=== PATIENT | male | born 1975 | race Caucasian/White ===

== ENCOUNTER → 2018-02-07 09:58 | Outpatient (CLI) | payer OTHER, SELFPAY ==
[2018-02-07 11:33] LABS: Hemoglobin A1c 10.5 % (4.2-6.3)
[2018-02-07 11:38] LABS: ALB/GLOB Ratio 1.2 RATIO (0.9-2.4); AST(SGOT) 15 U/L (15-37); Alanine Aminotransfer ALT/SGPT 29 U/L (16-61); Albumin, Serum 3.6 g/dL (3.2-5.0); Alkaline Phosphatase 83 U/L (45-117); Anion Gap 6 (5-15); BUN 12 mg/dL (7-18); BUN/Creat Ratio 11.9 RATIO (10-20); Calcium,Total 8.5 mg/dL (8.5-10.1); Chloride 103 mmol/L (98-107); Cholesterol 165 mg/dL (200); Creatinine, Serum 1.01 mg/dL (0.70-1.30); EST Glomerular Filtration Rate 85 mL/min (>60); Est Glom Filt Rate - Afr Amer 103 mL/min (>60); Globulin 3.1 g/dL (2.2-4.2); Glucose 281 mg/dL (74-106); High Density Lipoprotein 53 mg/dL; Potassium 4.3 mmol/L (3.5-5.1); Protein, Total 6.7 g/dL (6.4-8.2); Sodium Level 137 mmol/L (136-145); Triglycerides 53 mg/dL; Very Low Density Lipoprotein 11 mg/dL (5-40)
[2018-02-07 11:48] LABS: Microalbumin:Creatinine Ratio 495.7 mg/g CRE (<30 mg/g CRE)
== END ==
PROVIDERS: Visit Provider Nurse Practitioner
DX: E11.9 Type 2 diabetes mellitus without complications (principal)
CPT/HCPCS: 36415; 80053; 80061; 82043; 82570; 83036

== ENCOUNTER → 2019-01-09 13:27 | Outpatient (CLI) | payer OTHER, SELFPAY ==
[2019-01-09 12:40] VITALS: BMI 25.7
[2019-01-09 15:06] LABS: ALB/GLOB Ratio 0.9 RATIO (0.9-2.4); AST(SGOT) 23 U/L (15-37); Alanine Aminotransfer ALT/SGPT 38 U/L (16-61); Albumin, Serum 3.3 g/dL (3.2-5.0); Alkaline Phosphatase 102 U/L (45-117); Anion Gap 8 (5-15); BUN 16 mg/dL (7-18); Calcium,Total 9.1 mg/dL (8.5-10.1); Chloride 105 mmol/L (98-107); Creatinine, Serum 0.94 mg/dL (0.70-1.30); EST Glomerular Filtration Rate 93 mL/min (>60); Est Glom Filt Rate - Afr Amer 112 mL/min (>60); Globulin 3.7 g/dL (2.2-4.2); Glucose 52 mg/dL (74-106); Potassium 4.3 mmol/L (3.5-5.1); Sodium Level 142 mmol/L (136-145)
[2019-01-09 15:10] LABS: Hemoglobin A1c 9.5 % (4.2-6.3)
[2019-01-09 15:30] LABS: Microalbumin:Creatinine Ratio 799.2 mg/g CRE (<30 mg/g CRE)
== END ==
PROVIDERS: Referring Provider Nurse Practitioner; Visit Provider Nurse Practitioner
DX: E10.29 Type 1 diabetes mellitus with other diabetic kidney complication (principal); R80.9 Proteinuria, unspecified
CPT/HCPCS: 36415; 80053; 82043; 82570; 83036

== ENCOUNTER 2019-02-14 09:40 | Outpatient (RCR) | payer OTHER, SELFPAY ==
[2019-01-09 12:40] VITALS: BMI 25.7
[2019-02-14 10:17] VITALS: BP 135/89; PULSE 92; RESP 18; TEMP 36.7; BMI 25.7
--- NOTE | 2019-02-14 12:20 | PCM.WC.HP ---
(1) Nonhealing surgical wound Status: Chronic Current Visit: Yes Code(s): T81.89XA - Other complications of procedures, not elsewhere classified, initial encounter Comment: Right second toe with exposed bone. (2) Diabetic foot ulcer Status: Chronic Current Visit: Yes Qualifiers: Diabetic foot ulcer location: toe Code(s): E11.621 - Type 2 diabetes mellitus with foot ulcer; L97.509 - Non-pressure chronic ulcer of other part of unspecified foot with unspecified severity (3) Osteomyelitis Status: Chronic Current Visit: Yes Qualifiers: Osteomyelitis location: foot Code(s): M86.9 - Osteomyelitis, unspecified Comment: Right second toe (4) Diabetes mellitus Status: Chronic Current Visit: Yes Code(s): E11.9 - Type 2 diabetes mellitus without complications History of Present Illness Chief Complaint: Nonhealing surgical wound and diabetic foot ulcer. History of Wound: Mr. Diaz is a 43-year-old with history of poorly controlled diabetes mellitus status post several episodes of osteomyelitis/surgical debridement who was referred to the wound center by his verification clerk due to nonhealing surgical wound and continued management of diabetic foot ulcer. Initially presented to his verification clerk in February due to a new diabetic foot ulcer on his right second toe. He had been managed conservatively however was subsequently noted to have osteomyelitis and then had his first surgical debridement/partial amputation in December. There was no significant progress and per patient a bone culture showed osteomyelitis again for which he had another surgical management. He still had subsequent wound breakdown/nonclosure. He states that he has been on antibiotics for about a week however insists that he has been on no long-term antibiotics since December. He has been applying Neosporin and covering with gauze. He denies chills, fever or otherwise feeling of unwell. Last A1c was at 9.5. Past Medical History Past Medical History: Chronic Problems (Last Updated 01/09/19 @ 12:49 by Amanda Shahid) Nonhealing surgical wound (Chronic) Right second toe with exposed bone. Diabetic foot ulcer (Chronic) Osteomyelitis (Chronic) Right second toe Diabetes mellitus (Chronic) Allergies/Adverse Reactions: Allergies No Known Allergies Allergy (Unverified 01/09/19 12:38) Home Medications: Ambulatory Orders Medication Instructions Recorded OneTouch Verio strips See Dose Instructions .ROUTE 03/07/18 .MEDSUPPLY #600 ea NS insulin syringe U-100 with needle See Dose Instructions .ROUTE 03/07/18 0.5 mL 31 gauge x 5/16 .MEDSUPPLY #300 ea insulin aspart U- 100 100 unit/mL 18 unit SC TID #51 ml 03/12/18 subcutaneous pen Levemir FlexTouch U-100 Insulin 60 unit SC QAM #30 ml NS 03/19/18 100 unit/mL (3 mL) subcutaneous pen varenicline 0.5 mg (11)-1 mg (42) See Rx Instructions PO PER PKG DIR 01/09/19 tablets in a dose pack #53 tab lisinopril 10 mg tablet See Rx Instructions PO BID #60 tab 02/07/19 Smoking Status: Former smoker Review of Systems Constitutional: Denies: Anorexia, Chills, Fever Eyes: Denies: Blurred vision, Redness HEENT: Denies: Difficulty Swallowing Cardiovascular: Denies: Chest Pain, Chest Tightness Respiratory: Denies: Hemoptysis Gastrointestinal: Denies: Abdominal Pain, Hematemesis, Vomiting Skin: Denies: Jaundice - Physical Exam Vital Signs Temp Pulse Resp BP 98.1 F 92 18 135/89 H 02/14/19 10:17 02/14/19 10:17 02/14/19 10:17 02/14/19 10:17 General: Alert, Oriented x3, Cooperative, No apparent distress HEENT: Atraumatic, Normocephalic Oral: Moist Mucosa Neck: Supple Lungs: Normal air movement Cardiovascular: Regular rate, Regular Rhythm Abdomen: Soft, Non Tender Extremities: No cyanosis Skin: Ulcer/ Wound Wound Measurements and Assessment WC - Nurse 1 - General Ulcer Measurement Start: 02/14/19 10:15 Freq: Status: Active Protocol: Activity Type Activity Date Activity User E-Sign Co-Sign Detail Recorded Client Recorded Date Recorded By Document 02/14/19 10:17 AN [id number] 02/14/19 10:53 AN 02/14/19 10:17 Wound Center Nurse 1 [Ulcer Assessment] #1 Right 2nd toe amputation -Current Size (cm) - Length 0.8 -Current Size (cm) - Width 2.5 -Current Size (cm) - Depth 0.7 -Total Square Cm 2.00 -Date of Last Picture (Recall this 02/14/19 field) -Photo Taken Yes -Epithelialization None Present -Tunneling No -Undermining/Tunneling No -Circular Undermining No -Classification - Thickness Full Thickness with Exposed Support Structure -Exudate Amt Medium -Exudate Type Purulent -Wound Margin Thickened -Granulation Amt Medium (34-66%) -Granulation Quality [place] -Slough/Fibrin Yes -Necrosis Amt Medium (34-66%) -Necrotic Tissue Type Adherent Slough -Structure Exposed Bone -Texture (Radha-wound Skin Appearance) Assessed -Moisture (Radha-wound Skin Appearance Assessed ) Maceration -Color (Radha-wound Skin Appearance) Assessed -Temperature (Radha-wound Skin No Abnormality Appearance) (Pt Warm) -Tenderness on Palpation (Radha-wound Yes Skin Appearance) -Ulcer Cleansing Rinsed/ Irrigated with Saline -Foul Odor after Cleansing No -Anesthetic Used 4% Lidocaine Solution [Edema Assessment] -Right Calf (cm) 39 -Right Ankle (cm) 22.5 -Left Calf (cm) 39.5 -Left Ankle (cm) 23.2 WC - Nurse 2 - General Ulcer CM Notes Start: 02/14/19 10:15 Freq: Status: Active Protocol: Activity Type Activity Date Activity User E-Sign Co-Sign Detail Recorded Client Recorded Date Recorded By Document 02/14/19 11:12 MW [id number] 02/14/19 11:21 MW 02/14/19 11:12 Wound Center Nurse 2 [Procedure/Treatment] #1 Right 2nd toe amputation -Time 11:12 -Correct Patient Yes -Correct Side, Site, Position Yes -Correct Procedure Yes -Procedure Performed Yes -Type of Procedure Debridement -Clinical Debridement Subcutaneous -Post Debridement Size (cm) - Length 1.0 -Post Debridement Size (cm) - Width 2.0 -Post Debridement Size (cm) - Depth 0.5 -Total Square Cm 2.00 -Wound/Ulcer Outcome Not Healed -Ulcer Cleansing Rinsed/ Irrigated with Saline -Foul Odor after Cleansing No -Bioengineered Tissue No -Bleeding Controlled with Pressure -Offloading No -Treatment Response Procedure Tolerated Well [See Physician Procedure note for Specifics] Pain Scale: 0-10 Numeric [Pain] -Is Patient Pain Free? Yes Pain Scale: Adult NonVerbal [Pain] -Is Patient Pain Free? Yes Musculoskeletal: No Muscle Wasting Neurological: Cranial nerves II-XII grossly intact Psych/Mental Status: Normal Affect Debridement Note Post-Debridement Measurements/Treatment WC - Nurse 2 - General Ulcer CM Notes Start: 02/14/19 10:15 Freq: Status: Active Protocol: Activity Type Activity Date Activity User E-Sign Co-Sign Detail Recorded Client Recorded Date Recorded By Document 02/14/19 11:12 MW [id number] 02/14/19 11:21 MW 02/14/19 11:12 Wound Center Nurse 2 #1 Right 2nd toe amputation -Time 11:12 -Correct Patient Yes -Correct Side, Site, Position Yes -Correct Procedure Yes -Procedure Performed Yes -Type of Procedure Debridement -Clinical Debridement Subcutaneous -Post Debridement Size (cm) - Length 1.0 -Post Debridement Size (cm) - Width 2.0 -Post Debridement Size (cm) - Depth 0.5 -Total Square Cm 2.00 -Wound/Ulcer Outcome Not Healed -Ulcer Cleansing Rinsed/ Irrigated with Saline -Foul Odor after Cleansing No -Bioengineered Tissue No -Bleeding Controlled with Pressure -Offloading No -Treatment Response Procedure Tolerated Well Pain Scale: 0-10 Numeric Is Patient Pain Free? Yes Pain Scale: Adult NonVerbal Is Patient Pain Free? Yes Wound debrided: Right second toe Wound Grade/Stage: Grade 3 Type of Debridement: Excisional debridement Anesthesia Used: 4% Lidocaine Solution Depth: Down to and including healthy tissue, in the subcutaneous layer Percentage of wound debrided: 100 Instrument Used: 3mm curette Tissue Removed: Slough and devitalized tissue Severity: Fat Layer Exposed - Exposed bone. Not debrided. Amount of bleeding with debridement: Mild Bleeding Controlled with: Pressure Patient tolerated procedure well Assessment/Plan Active Problems (Last Updated 01/09/19 @ 12:49 by Amanda Shahid) Nonhealing surgical wound (Chronic) Right second toe with exposed bone. Diabetic foot ulcer (Chronic) Osteomyelitis (Chronic) Right second toe Diabetes mellitus (Chronic) Assessment: Nonhealing diabetic foot ulcer stage III status post surgical debridement/partial amputation also nonhealing. Osteomyelitis. Poorly controlled diabetes mellitus, insulin-dependent. History of recent tobacco cessation. Plan: Debridement done as documented above, procedure was well-tolerated. Obvious exposed bone. He reports a history of osteomyelitis which persisted even after surgical debridement/amputation. He however states he was not on chronic antibiotics. Will request records/cultures. May refer him to infectious disease pending review. With a history of grade 3 diabetic foot ulcer and osteomyelitis, I believe patient will be a good candidate for HBO. We will however await results/records. Leah with [facility] over top for now. Change daily. His smoking cessation was encouraged. He was however advised to follow-up with an proposal editor/primary care physician to optimally manage his diabetes. An A1c of 9.5 not beneficial for optimal wound healing. Increased protein intake recommended. Elevate lower extremities when seated in bed. His questions were answered and he was advised to call with any further questions or concerns. Follow-up in 1 week. This note was generated with [employer] dictation software. It may contain incorrect words, spelling, and punctuation that were not noted in checking the note before signing.
--- NOTE | 2019-02-14 12:26 | HP.PCM_ITS ---
(1) Nonhealing surgical wound Status: Chronic Current Visit: Yes Code(s): T81.89XA - Other complications of procedures, not elsewhere classified, initial encounter Comment: Right second toe with exposed bone. (2) Diabetic foot ulcer Status: Chronic Current Visit: Yes Qualifiers: Diabetic foot ulcer location: toe Code(s): E11.621 - Type 2 diabetes mellitus with foot ulcer; L97.509 - Non- pressure chronic ulcer of other part of unspecified foot with unspecified severity (3) Osteomyelitis Status: Chronic Current Visit: Yes Qualifiers: Osteomyelitis location: foot Code(s): M86.9 - Osteomyelitis, unspecified Comment: Right second toe (4) Diabetes mellitus Status: Chronic Current Visit: Yes Code(s): E11.9 - Type 2 diabetes mellitus without complications History of Present Illness Chief Complaint: Nonhealing surgical wound and diabetic foot ulcer. History of Wound: Mr. Diaz is a 43-year-old with history of poorly controlled diabetes mellitus status post several episodes of osteomyelitis/surgical debridement who was referred to the wound center by his vice president talent management due to nonhealing surgical wound and continued management of diabetic foot ulcer. Initially presented to his vice president talent management in February due to a new diabetic foot ulcer on his right second toe. He had been managed conservatively however was subsequently noted to have osteomyelitis and then had his first surgical debridement/partial amputation in December. There was no significant progress and per patient a bone culture showed osteomyelitis again for which he had another surgical management. He still had subsequent wound breakdown/nonclosure. He states that he has been on antibiotics for about a week however insists that he has been on no long-term antibiotics since December. He has been applying Neosporin and covering with gauze. He denies ch ills, fever or otherwise feeling of unwell. Last A1c was at 9.5. Past Medical History Past Medical History: Chronic Problems (Last Updated 01/09/19 @ 12:49 by Amanda Shahid) Nonhealing surgical wound (Chronic) Right second toe with exposed bone. Diabetic foot ulcer (Chronic) Osteomyelitis (Chronic) Right second toe Diabetes mellitus (Chronic) Allergies/Adverse Reactions: Allergies No Known Allergies Allergy (Unverified 01/09/19 12:38) Home Medications: Ambulatory Orders Medication Instructions Recorded OneTouch Verio strips See Dose Instructions .ROUTE 03/07/18 .MEDSUPPLY #600 ea NS insulin syringe U-100 with needle See Dose Instructions .ROUTE 03/07/18 0.5 mL 31 gauge x 5/16 .MEDSUPPLY #300 ea insulin aspart U- 100 100 unit/mL 18 unit SC TID #51 ml 03/12/18 subcutaneous pen Levemir FlexTouch U-100 Insulin 60 unit SC QAM #30 ml NS 03/19/18 100 unit/mL (3 mL) subcutaneous pen varenicline 0.5 mg (11)-1 mg (42) See Rx Instructions PO PER PKG DIR 01/09/19 tablets in a dose pack #53 tab lisinopril 10 mg tablet See Rx Instructions PO BID #60 tab 02/07/19 Smoking Status: Former smoker Review of Systems Constitutional: Denies: Anorexia, Chills, Fever Eyes: Denies: Blurred vision, Redness HEENT: Denies: Difficulty Swallowing Cardiovascular: Denies: Chest Pain, Chest Tightness Respiratory: Denies: Hemoptysis Gastrointestinal: Denies: Abdominal Pain, Hematemesis, Vomiting Skin: Denies: Jaundice - Physical Exam Vital Signs Temp Pulse Resp BP 98.1 F 92 18 135/89 H 02/14/19 10:17 02/14/19 10:17 02/14/19 10:17 02/14/19 10:17 General: Alert, Oriented x3, Cooperative, No apparent distress HEENT: Atraumatic, Normocephalic Oral: Moist Mucosa Neck: Supple Lungs: Normal air movement Cardiovascular: Regular rate, Regular Rhythm Abdomen: Soft, Non Tender Extremities: No cyanosis Skin: Ulcer/ Wound Wound Measurements and Assessment WC - Nurse 1 - General Ulcer Measurement Start: 02/14/19 10:15 Freq: Status: Active Protocol: Activity Type Activity Date Activity User E-Sign Co-Sign Detail Recorded Client Recorded Date Recorded By Document 02/14/19 10:17 AN [id number] 02/14/19 10:53 AN 02/14/19 10:17 Wound Center Nurse 1 [Ulcer Assessment] #1 Right 2nd toe amputation -Current Size (cm) - Length 0.8 -Current Size (cm) - Width 2.5 -Current Size (cm) - Depth 0.7 -Total Square Cm 2.00 -Date of Last Picture (Recall this 02/14/19 field) -Photo Taken Yes -Epithelialization None Present -Tunneling No -Undermining/Tunneling No -Circular Undermining No -Classification - Thickness Full Thickness with Exposed Support Structure -Exudate Amt Medium -Exudate Type Purulent -Wound Margin Thickened -Granulation Amt Medium (34-66%) -Granulation Quality [place] -Slough/Fibrin Yes -Necrosis Amt Medium (34-66%) -Necrotic Tissue Type Adherent Slough -Structure Exposed Bone -Texture (Radha-wound Skin Appearance) Assessed -Moisture (Radha-wound Skin Appearance Assessed ) Maceration -Color (Radha-wound Skin Appearance) Assessed -Temperature (Radha-wound Skin No Abnormality Appearance) (Pt Warm) -Tenderness on Palpation (Radha-wound Yes Skin Appearance) -Ulcer Cleansing Rinsed/ Irrigated with Saline -Foul Odor after Cleansing No -Anesthetic Used 4% Lidocaine Solution [Edema Assessment] -Right Calf (cm) 39 -Right Ankle (cm) 22.5 -Left Calf (cm) 39.5 -Left Ankle (cm) 23.2 WC - Nurse 2 - General Ulcer CM Notes Start: 02/14/19 10:15 Freq: Status: Active Protocol: Activity Type Activity Date Activity User E-Sign Co-Sign Detail Recorded Client Recorded Date Recorded By Document 02/14/19 11:12 MW [id number] 02/14/19 11:21 MW 02/14/19 11:12 Wound Center Nurse 2 [Procedure/Treatment] #1 Right 2nd toe amputation -Time 11:12 -Correct Patient Yes -Correct Side, Site, Position Yes -Correct Procedure Yes -Procedure Performed Yes -Type of Procedure Debridement -Clinical Debridement Subcutaneous -Post Debridement Size (cm) - Length 1.0 -Post Debridement Size (cm) - Width 2.0 -Post Debridement Size (cm) - Depth 0.5 -Total Square Cm 2.00 -Wound/Ulcer Outcome Not Healed -Ulcer Cleansing Rinsed/ Irrigated with Saline -Foul Odor after Cleansing No -Bioengineered Tissue No -Bleeding Controlled with Pressure -Offloading No -Treatment Response Procedure Tolerated Well [See Physician Procedure note for Specifics] Pain Scale: 0-10 Numeric [Pain] -Is Patient Pain Free? Yes Pain Scale: Adult NonVerbal [Pain] -Is Patient Pain Free? Yes Musculoskeletal: No Muscle Wasting Neurological: Cranial nerves II-XII grossly intact Psych/Mental Status: Normal Affect Debridement Note Post-Debridement Measurements/Treatment WC - Nurse 2 - General Ulcer CM Notes Start: 02/14/19 10:15 Freq: Status: Active Protocol: Activity Type Activity Date Activity User E-Sign Co-Sign Detail Recorded Client Recorded Date Recorded By Document 02/14/19 11:12 MW [id number] 02/14/19 11:21 MW 02/14/19 11:12 Wound Center Nurse 2 #1 Right 2nd toe amputation -Time 11:12 -Correct Patient Yes -Correct Side, Site, Position Yes -Correct Procedure Yes -Procedure Performed Yes -Type of Procedure Debridement -Clinical Debridement Subcutaneous -Post Debridement Size (cm) - Length 1.0 -Post Debridement Size (cm) - Width 2.0 -Post Debridement Size (cm) - Depth 0.5 -Total Square Cm 2.00 -Wound/Ulcer Outcome Not Healed -Ulcer Cleansing Rinsed/ Irrigated with Saline -Foul Odor after Cleansing No -Bioengineered Tissue No -Bleeding Controlled with Pressure -Offloading No -Treatment Response Procedure Tolerated Well Pain Scale: 0-10 Numeric Is Patient Pain Free? Yes Pain Scale: Adult NonVerbal Is Patient Pain Free? Yes Wound debrided: Right second toe Wound Grade/Stage: Grade 3 Type of Debridement: Excisional debridement Anesthesia Used: 4% Lidocaine Solution Depth: Down to and including healthy tissue, in the subcutaneous layer Percentage of wound debrided: 100 Instrument Used: 3mm curette Tissue Removed: Slough and devitalized tissue Severity: Fat Layer Exposed - Exposed bone. Not debrided. Amount of bleeding with debridement: Mild Bleeding Controlled with: Pressure Patient tolerated procedure well Assessment/Plan Active Problems (Last Updated 01/09/19 @ 12:49 by Amanda Shahid) Nonhealing surgical wound (Chronic) Right second toe with exposed bone. Diabetic foot ulcer (Chronic) Osteomyelitis (Chronic) Right second toe Diabetes mellitus (Chronic) Assessment: Nonhealing diabetic foot ulcer stage III status post surgical debridement/partial amputation also nonhealing. Osteomyelitis. Poorly controlled diabetes mellitus, insulin-dependent. History of recent tobacco cessation. Plan: Debridement done as documented above, procedure was well-tolerated. Obvious exposed bone. He reports a history of osteomyelitis which persisted even after surgical debridement/amputation. He however states he was not on chronic antibiotics. Will request records/cultures. May refer him to infectious disease pending review. With a history of grade 3 diabetic foot ulcer and osteomyelitis, I believe patient will be a good candidate for HBO. We will however await results/records. Leah with [employer] over top for now. Change daily. His smoking cessation was encouraged. He was however advised to follow-up with an public safety police/primary care physician to optimally manage his diabetes. An A1c of 9.5 not beneficial for optimal wound healing. Increased protein intake recommended. Elevate lower extremities when seated in bed. His questions were answered and he was advised to call with any further questions or concerns. Follow-up in 1 week. This note was generated with [employer] dictation software. It may contain incorrect words, spelling, and punctuation that were not noted in checking the note before signing.
== END 2019-02-17 23:59 ==
LOC: WC 09:40
PROVIDERS: Visit Provider Internal Medicine
DX: E11.621 Type 2 diabetes mellitus with foot ulcer (principal); E11.65 Type 2 diabetes mellitus with hyperglycemia; Z87.891 Personal history of nicotine dependence; Z79.4 Long term (current) use of insulin; Z79.899 Other long term (current) drug therapy; L97.512 Non-pressure chronic ulcer of other part of right foot with fat layer exposed
CPT/HCPCS: 11042; 99213; G0463

== ENCOUNTER 2019-03-14 08:45 | Outpatient (RCR) | payer OTHER, SELFPAY ==
[2019-02-18 01:45] VITALS: BP 135/89; PULSE 92; RESP 18; TEMP 36.7
[2019-02-21 10:27] VITALS: BP 150/67; PULSE 120; RESP 18; TEMP 36.7; BMI 25.7
--- NOTE | 2019-02-21 11:11 | PCM.WC.PN ---
(1) Diabetic foot ulcer Status: Chronic Current Visit: Yes Code(s): E11.621 - Type 2 diabetes mellitus with foot ulcer; L97.509 - Non-pressure chronic ulcer of other part of unspecified foot with unspecified severity (2) Nonhealing surgical wound Status: Chronic Current Visit: Yes Code(s): T81.89XA - Other complications of procedures, not elsewhere classified, initial encounter Comment: Right second toe with exposed bone. (3) Osteomyelitis Status: Chronic Current Visit: No Code(s): M86.9 - Osteomyelitis, unspecified Comment: Right second toe (4) Type 1 diabetes mellitus with microalbuminuria, with long-term current use of insulin Status: Acute Current Visit: No Code(s): E10.29 - Type 1 diabetes mellitus with other diabetic kidney complication; R80.9 - Proteinuria, unspecified Comment: BG readings higher than expected. Pt is ask to check BG in pairs. He appears to need more insulin at breakfast and lunch since he is off work and not active.. Ask to use correction scale aggressively. Report he ran out of strips but has now recieved his supply Discussed need to continue with this level of control in the post op state. Type of Wound Chief Complaint: Nonhealing surgical wound and diabetic foot ulcer. History of Wound: Mr. Diaz is a 43-year-old with history of poorly controlled diabetes mellitus status post several episodes of osteomyelitis/surgical debridement who was referred to the wound center by his offset lithographic press operator due to nonhealing surgical wound and continued management of diabetic foot ulcer. Initially presented to his offset lithographic press operator in February due to a new diabetic foot ulcer on his right second toe. He had been managed conservatively however was subsequently noted to have osteomyelitis and then had his first surgical debridement/partial amputation in December. There was no significant progress and per patient a bone culture showed osteomyelitis again for which he had another surgical management. He still had subsequent wound breakdown/nonclosure. He states that he has been on antibiotics for about a week however insists that he has been on no long-term antibiotics since December. He has been applying Neosporin and covering with gauze. He denies chills, fever or otherwise feeling of unwell. Last A1c was at 9.5. Progress of Wound: Improving. No new concerns at this time. - Physical Exam Vital Signs Temp Pulse Resp BP 98.0 F 120 H 18 150/67 H 02/21/19 10:27 02/21/19 10:27 02/21/19 10:27 02/21/19 10:27 General: Alert, Oriented x3, Cooperative, No apparent distress HEENT: Atraumatic, Normocephalic Oral: Moist Mucosa Neck: Supple Lungs: Normal air movement Abdomen: Non Tender Extremities: No cyanosis Skin: Ulcer/ Wound Wound Measurements and Assessment WC - Nurse 1 - General Ulcer Measurement Start: 02/21/19 10:27 Freq: Status: Active Protocol: Activity Type Activity Date Activity User E-Sign Co-Sign Detail Recorded Client Recorded Date Recorded By Document 02/21/19 10:27 AN [id number] 02/21/19 10:36 AN 02/21/19 10:27 Wound Center Nurse 1 [Ulcer Assessment] #1 Right 2nd toe amputation -Current Size (cm) - Length 0.6 -Current Size (cm) - Width 1.7 -Current Size (cm) - Depth 0.4 -Total Square Cm 1.02 -Classification - Ortiz Grading ( Grade 3 Diabetic Ulcer) -Change in Wound Grade/Stage No Query Text:If change please identify the Stage/Grade in the comment (ie. S2 G3) -Exudate Amt Medium -Exudate Type Serosanguineous -Wound Margin Thickened -Granulation Amt Small (1-33%) -Granulation Quality [place] -Slough/Fibrin Yes -Necrosis Amt Large (67-100%) -Necrotic Tissue Type Adherent Slough -Structure Exposed None/Limited to Skin Breakdown -Texture (Radha-wound Skin Appearance) Assessed Callus -Moisture (Radha-wound Skin Appearance Assessed ) Maceration -Color (Radha-wound Skin Appearance) Assessed -Temperature (Radha-wound Skin No Abnormality Appearance) (Pt Warm) -Tenderness on Palpation (Radha-wound Yes Skin Appearance) -Ulcer Cleansing Rinsed/ Irrigated with Saline -Foul Odor after Cleansing No -Anesthetic Used 4% Lidocaine Solution WC - Nurse 2 - General Ulcer CM Notes Start: 02/21/19 10:27 Freq: Status: Active Protocol: Activity Type Activity Date Activity User E-Sign Co-Sign Detail Recorded Client Recorded Date Recorded By Document 02/21/19 10:46 MW [id number] 02/21/19 10:51 MW 02/21/19 10:46 Wound Center Nurse 2 [Procedure/Treatment] -Time 10:47 -Correct Patient Yes -Correct Side, Site, Position Yes -Correct Procedure Yes -Procedure Performed Yes -Type of Procedure Debridement -Clinical Debridement Subcutaneous -Post Debridement Size (cm) - Length 0.4 -Post Debridement Size (cm) - Width 1.7 -Post Debridement Size (cm) - Depth 0.3 -Total Square Cm 0.68 -Wound/Ulcer Outcome Not Healed -Ulcer Cleansing Rinsed/ Irrigated with Saline -Foul Odor after Cleansing No -Bioengineered Tissue No -Bleeding Controlled with Pressure -Offloading No -Treatment Response Procedure Tolerated Well [See Physician Procedure note for Specifics] Pain Scale: 0-10 Numeric [Pain] -Is Patient Pain Free? Yes Musculoskeletal: No Muscle Wasting Neurological: Cranial nerves II-XII grossly intact Psych/Mental Status: Normal Affect Debridement Note Post-Debridement Measurements/Treatment WC - Nurse 2 - General Ulcer CM Notes Start: 02/21/19 10:27 Freq: Status: Active Protocol: Activity Type Activity Date Activity User E-Sign Co-Sign Detail Recorded Client Recorded Date Recorded By Document 02/21/19 10:46 MW [id number] 02/21/19 10:51 MW 02/21/19 10:46 Wound Center Nurse 2 #1 Right 2nd toe amputation -Time 10:47 -Correct Patient Yes -Correct Side, Site, Position Yes -Correct Procedure Yes -Procedure Performed Yes -Type of Procedure Debridement -Clinical Debridement Subcutaneous -Post Debridement Size (cm) - Length 0.4 -Post Debridement Size (cm) - Width 1.7 -Post Debridement Size (cm) - Depth 0.3 -Total Square Cm 0.68 -Wound/Ulcer Outcome Not Healed -Ulcer Cleansing Rinsed/ Irrigated with Saline -Foul Odor after Cleansing No -Bioengineered Tissue No -Bleeding Controlled with Pressure -Offloading No -Treatment Response Procedure Tolerated Well Pain Scale: 0-10 Numeric Is Patient Pain Free? Yes Wound debrided: Right second toe Wound Grade/Stage: Grade 3 Type of Debridement: Excisional debridement Anesthesia Used: 4% Lidocaine Solution Depth: Down to and including healthy tissue, in the subcutaneous layer Percentage of wound debrided: 100 Instrument Used: 5mm curette Tissue Removed: Slough and devitalized tissue Severity: Fat Layer Exposed Amount of bleeding with debridement: Mild Bleeding Controlled with: Pressure Patient tolerated procedure well Assessment/Plan Active Problems (Last Updated 01/09/19 @ 12:49 by Amanda Shahid) Nonhealing surgical wound (Chronic) Right second toe with exposed bone. Diabetic foot ulcer (Chronic) Assessment: Nonhealing diabetic foot ulcer stage III status post surgical debridement/partial amputation also nonhealing. Osteomyelitis. Poorly controlled diabetes mellitus, insulin-dependent. History of recent tobacco cessation. Plan: Significant improvement in the past week. No new concerns at this time. Records received. Did have a Syme's amputation due to nonhealing chronic ulcer and osteomyelitis in . Was discharged home on clindamycin 300 mg 3 times daily duration not stated. Osteomyelitis however was of the distal phalanx which was amputated. Had a revisional distal Symes amputation due to wound dehiscence on 30 January. Continue. Leah with Adaptic over top for now. Change daily. Wound/Ulcer appears to be improving. His smoking cessation was encouraged. He was however advised to follow-up with an curb setter helper/primary care physician to optimally manage his diabetes. An A1c of 9.5 not beneficial for optimal wound healing. Increased protein intake recommended. Elevate lower extremities when seated in bed. His questions were answered and he was advised to call with any further questions or concerns. Follow-up in 1 week. This note was generated with [employer] dictation software. It may contain incorrect words, spelling, and punctuation that were not noted in checking the note before signing.
--- NOTE | 2019-02-21 11:25 | PN.PCM_ITS ---
(1) Diabetic foot ulcer Status: Chronic Current Visit: Yes Code(s): E11.621 - Type 2 diabetes m ellitus with foot ulcer; L97.509 - Non-pressure chronic ulcer of other part of unspecified foot with unspecified severity (2) Nonhealing surgical wound Status: Chronic Current Visit: Yes Code(s): T81.89XA - Other complications of procedures, not elsewhere classified, initial encounter Comment: Right second toe with exposed bone. (3) Osteomyelitis Status: Chronic Current Visit: No Code(s): M86.9 - Osteomyelitis, unspecified Comment: Right second toe (4) Type 1 diabetes mellitus with microalbuminuria, with long-term current use of insulin Status: Acute Current Visit: No Code(s): E10.29 - Type 1 diabetes mellitus with other diabetic kidney complication; R80.9 - Proteinuria, unspecified Comment: BG readings higher than expected. Pt is ask to check BG in pairs. He appears to need more insulin at breakfast and lunch since he is off work and not active.. Ask to use correction scale aggressively. Report he ran out of strips but has now recieved his supply Discussed need to continue with this level of control in the post op state. Type of Wound Chief Complaint: Nonhealing surgical wound and diabetic foot ulcer. History of Wound: Mr. Diaz is a 43-year-old with history of poorly controlled diabetes mellitus status post several episodes of osteomyelitis/surgical debridement who was referred to the wound center by his histology assistant due to nonhealing surgical wound and continued management of diabetic foot ulcer. Initially presented to his histology assistant in February due to a new diabetic foot ulcer on his right second toe. He had been managed conservatively however was subsequently noted to have osteomyelitis and then had his first surgical debridement/partial amputation in December. There was no significant progress and per patient a bone culture showed osteomyelitis again for which he had another surgical management. He still had subsequent wound breakdown/nonclosure. He states that he has been on antibiotics for about a week however insists that he has been on no long-term antibiotics since December. He has been applying Neosporin and covering with gauze. He denies chills, fever or otherwise feeling of unwell. Last A1c was at 9.5. Progress of Wound: Improving. No new concerns at this time. - Physical Exam Vital Signs Temp Pulse Resp BP 98.0 F 120 H 18 150/67 H 02/21/19 10:27 02/21/19 10:27 02/21/19 10:27 02/21/19 10:27 General: Alert, Oriented x3, Cooperative, No apparent distress HEENT: Atraumatic, Normocephalic Oral: Moist Mucosa Neck: Supple Lungs: Normal air movement Abdomen: Non Tender Extremities: No cyanosis Skin: Ulcer/ Wound Wound Measurements and Assessment WC - Nurse 1 - General Ulcer Measurement Start: 02/21/19 10:27 Freq: Status: Active Protocol: Activity Type Activity Date Activity User E-Sign Co-Sign Detail Recorded Client Recorded Date Recorded By Document 02/21/19 10:27 AN [id number] 02/21/19 10:36 AN 02/21/19 10:27 Wound Center Nurse 1 [Ulcer Assessment] #1 Right 2nd toe amputation -Current Size (cm) - Length 0.6 -Current Size (cm) - Width 1.7 -Current Size (cm) - Depth 0.4 -Total Square Cm 1.02 -Classification - Ortiz Grading ( Grade 3 Diabetic Ulcer) -Change in Wound Grade/Stage No Query Text:If change please identify the Stage/Grade in the comment (ie. S2 G3) -Exudate Amt Medium -Exudate Type Serosanguineous -Wound Margin Thickened -Granulation Amt Small (1-33%) -Granulation Quality [place] -Slough/Fibrin Yes -Necrosis Amt Large (67-100%) -Necrotic Tissue Type Adherent Slough -Structure Exposed None/Limited to Skin Breakdown -Texture (Radha-wound Skin Appearance) Assessed Callus -Moisture (Radha-wound Skin Appearance Assessed ) Maceration -Color (Radha-wound Skin Appearance) Assessed -Temperature (Radha-wound Skin No Abnormality Appearance) (Pt Warm) -Tenderness on Palpation (Radha-wound Yes Skin Appearance) -Ulcer Cleansing Rinsed/ Irrigated with Saline -Foul Odor after Cleansing No -Anesthetic Used 4% Lidocaine Solution WC - Nurse 2 - General Ulcer CM Notes Start: 02/21/19 10:27 Freq: Status: Active Protocol: Activity Type Activity Date Activity User E-Sign Co-Sign Detail Recorded Client Recorded Date Recorded By Document 02/21/19 10:46 MW [id number] 02/21/19 10:51 MW 02/21/19 10:46 Wound Center Nurse 2 [Procedure/Treatment] -Time 10:47 -Correct Patient Yes -Correct Side, Site, Position Yes -Correct Procedure Yes -Procedure Performed Yes -Type of Procedure Debridement -Clinical Debridement Subcutaneous -Post Debridement Size (cm) - Length 0.4 -Post Debridement Size (cm) - Width 1.7 -Post Debridement Size (cm) - Depth 0.3 -Total Square Cm 0.68 -Wound/Ulcer Outcome Not Healed -Ulcer Cleansing Rinsed/ Irrigated with Saline -Foul Odor after Cleansing No -Bioengineered Tissue No -Bleeding Controlled with Pressure -Offloading No -Treatment Response Procedure Tolerated Well [See Physician Procedure note for Specifics] Pain Scale: 0-10 Numeric [Pain] -Is Patient Pain Free? Yes Musculoskeletal: No Muscle Wasting Neurological: Cranial nerves II-XII grossly intact Psych/Mental Status: Normal Affect Debridement Note Post-Debridement Measurements/Treatment WC - Nurse 2 - General Ulcer CM Notes Start: 02/21/19 10:27 Freq: Status: Active Protocol: Activity Type Activity Date Activity User E-Sign Co-Sign Detail Recorded Client Recorded Date Recorded By Document 02/21/19 10:46 MW [id number] 02/21/19 10:51 MW 02/21/19 10:46 Wound Center Nurse 2 #1 Right 2nd toe amputation -Time 10:47 -Correct Patient Yes -Correct Side, Site, Position Yes -Correct Procedure Yes -Procedure Performed Yes -Type of Procedure Debridement -Clinical Debridement Subcutaneous -Post Debridement Size (cm) - Length 0.4 -Post Debridement Size (cm) - Width 1.7 -Post Debridement Size (cm) - Depth 0.3 -Total Square Cm 0.68 -Wound/Ulcer Outcome Not Healed -Ulcer Cleansing Rinsed/ Irrigated with Saline -Foul Odor after Cleansing No -Bioengineered Tissue No -Bleeding Controlled with Pressure -Offloading No -Treatment Response Procedure Tolerated Well Pain Scale: 0-10 Numeric Is Patient Pain Free? Yes Wound debrided: Right second toe Wound Grade/Stage: Grade 3 Type of Debridement: Excisional debridement Anesthesia Used: 4% Lidocaine Solution Depth: Down to and including healthy tissue, in the subcutaneous layer Percentage of wound debrided: 100 Instrument Used: 5mm curette Tissue Removed: Slough and devitalized tissue Severity: Fat Layer Exposed Amount of bleeding with debridement: Mild Bleeding Controlled with: Pressure Patient tolerated procedure well Assessment/Plan Active Problems (Last Updated 01/09/19 @ 12:49 by Amanda Shahid) Nonhealing surgical wound (Chronic) Right second toe with exposed bone. Diabetic foot ulcer (Chronic) Assessment: Nonhealing diabetic foot ulcer stage III status post surgical debridement/partial amputation also nonhealing. Osteomyelitis. Poorly controlled diabetes mellitus, insulin-dependent. History of recent tobacco cessation. Plan: Significant improvement in the past week. No new concerns at this time. Records received. Did have a Syme's amputation due to nonhealing chronic ulcer and osteomyelitis in . Was discharged home on clindamycin 300 mg 3 times daily duration not stated. Osteomyelitis however was of the distal phalanx which was amputated. Had a revisional distal Symes amputation due to wound dehiscence on 30 January. Continue. Leah with Adaptic over top for now. Change daily. Wound/Ulcer appears to be improving. His smoking cessation was encouraged. He was however advised to follow-up with an dovetail machine operator/primary care physician to optimally manage his diabetes. An A1c of 9.5 not beneficial for optimal wound healing. Increased protein intake recommended. Elevate lower extremities when seated in bed. His questions were answered and he was advised to call with any further questions or concerns. Follow-up in 1 week. This note was generated with [employer] dictation software. It may contain incorrect words, spelling, and punctuation that were not noted in checking the note before signing.
[2019-02-28 10:37] VITALS: BP 158/88; PULSE 91; RESP 18; TEMP 36.6; BMI 25.7
--- NOTE | 2019-02-28 11:07 | PCM.WC.PN ---
(1) Diabetic foot ulcer Status: Chronic Current Visit: Yes Code(s): E11.621 - Type 2 diabetes mellitus with foot ulcer; L97.509 - Non-pressure chronic ulcer of other part of unspecified foot with unspecified severity (2) Nonhealing surgical wound Status: Chronic Current Visit: Yes Code(s): T81.89XA - Other complications of procedures, not elsewhere classified, initial encounter Comment: Right second toe with exposed bone. (3) Osteomyelitis Status: Chronic Current Visit: No Code(s): M86.9 - Osteomyelitis, unspecified Comment: Right second toe (4) Type 1 diabetes mellitus with microalbuminuria, with long-term current use of insulin Status: Acute Current Visit: No Code(s): E10.29 - Type 1 diabetes mellitus with other diabetic kidney complication; R80.9 - Proteinuria, unspecified Comment: BG readings higher than expected. Pt is ask to check BG in pairs. He appears to need more insulin at breakfast and lunch since he is off work and not active.. Ask to use correction scale aggressively. Report he ran out of strips but has now recieved his supply Discussed need to continue with this level of control in the post op state. Type of Wound Chief Complaint: Nonhealing surgical wound and diabetic foot ulcer. History of Wound: Mr. Diaz is a 43-year-old with history of poorly controlled diabetes mellitus status post several episodes of osteomyelitis/surgical debridement who was referred to the wound center by his latex caster due to nonhealing surgical wound and continued management of diabetic foot ulcer. Initially presented to his latex caster in February due to a new diabetic foot ulcer on his right second toe. He had been managed conservatively however was subsequently noted to have osteomyelitis and then had his first surgical debridement/partial amputation in December. There was no significant progress and per patient a bone culture showed osteomyelitis again for which he had another surgical management. He still had subsequent wound breakdown/nonclosure. He states that he has been on antibiotics for about a week however insists that he has been on no long-term antibiotics since December. He has been applying Neosporin and covering with gauze. He denies chills, fever or otherwise feeling of unwell. Last A1c was at 9.5. Progress of Wound: Stable. No new concerns at this time. - Physical Exam Vital Signs Temp Pulse Resp BP 97.8 F 91 18 158/88 H 04/11/19 10:37 02/28/19 10:37 02/28/19 10:37 02/28/19 10:37 General: Alert, Oriented x3, Cooperative, No apparent distress HEENT: Atraumatic, Normocephalic Oral: Moist Mucosa Neck: Supple Lungs: Normal air movement Abdomen: Non Tender Extremities: No cyanosis Skin: Ulcer/ Wound Wound Measurements and Assessment WC - Nurse 1 - General Ulcer Measurement Start: 02/21/19 10:27 Freq: Status: Active Protocol: Activity Type Activity Date Activity User E-Sign Co-Sign Detail Recorded Client Recorded Date Recorded By Document 02/28/19 10:37 MT [id number] 02/28/19 10:43 MT 02/28/19 10:37 Wound Center Nurse 1 [Ulcer Assessment] #1 Right 2nd toe amputation -Combined with other wound No -Current Size (cm) - Length 2 -Current Size (cm) - Width 7 -Current Size (cm) - Depth 0.5 -Total Square Cm 14 -Photo Taken No -Tunneling No -Undermining/Tunneling No -Circular Undermining No -Exudate Amt Small -Exudate Type Serosanguineous -Wound Margin Thickened & Rolled Under -Granulation Amt Medium (34-66%) -Granulation Quality Pale [place] -Necrosis Amt Medium (34-66%) -Necrotic Tissue Type Adherent Slough -Texture (Radha-wound Skin Appearance) Assessed -Moisture (Radha-wound Skin Appearance Assessed ) Maceration -Color (Radha-wound Skin Appearance) Assessed -Temperature (Radha-wound Skin No Abnormality Appearance) (Pt Warm) -Tenderness on Palpation (Radha-wound No Skin Appearance) -Ulcer Cleansing Rinsed/ Irrigated with Saline -Foul Odor after Cleansing No -Anesthetic Used 4% Lidocaine Solution [Edema Assessment] -Lower Limb Edema Present NA WC - Nurse 2 - General Ulcer CM Notes Start: 02/21/19 10:27 Freq: Status: Active Protocol: Activity Type Activity Date Activity User E-Sign Co-Sign Detail Recorded Client Recorded Date Recorded By Document 02/28/19 11:02 MW [id number] 02/28/19 11:05 MW 02/28/19 11:02 Wound Center Nurse 2 [Procedure/Treatment] #1 Right 2nd toe amputation -Time 11:02 -Correct Patient Yes -Correct Side, Site, Position Yes -Correct Procedure Yes -Procedure Performed Yes -Type of Procedure Debridement -Clinical Debridement Subcutaneous -Post Debridement Size (cm) - Length 0.4 -Post Debridement Size (cm) - Width 2.0 -Post Debridement Size (cm) - Depth 0.3 -Total Square Cm 0.80 -Wound/Ulcer Outcome Not Healed -Ulcer Cleansing Rinsed/ Irrigated with Saline -Foul Odor after Cleansing No -Bioengineered Tissue No -Bleeding Controlled with Pressure -Offloading No -Treatment Response Procedure Tolerated Well [See Physician Procedure note for Specifics] Pain Scale: 0-10 Numeric [Pain] -Is Patient Pain Free? Yes Musculoskeletal: No Muscle Wasting Neurological: Cranial nerves II-XII grossly intact Psych/Mental Status: Normal Affect Debridement Note Post-Debridement Measurements/Treatment WC - Nurse 2 - General Ulcer CM Notes Start: 02/21/19 10:27 Freq: Status: Active Protocol: Activity Type Activity Date Activity User E-Sign Co-Sign Detail Recorded Client Recorded Date Recorded By Document 02/21/19 10:46 MW [id number] 02/21/19 10:51 MW Document 02/28/19 11:02 MW [id number] 02/28/19 11:05 MW 02/21/19 02/28/19 10:46 11:02 Wound Center Nurse 2 #1 Right 2nd toe amputation -Time 10:47 11:02 -Correct Patient Yes Yes -Correct Side, Site, Position Yes Yes -Correct Procedure Yes Yes -Procedure Performed Yes Yes -Type of Procedure Debridement Debridement -Clinical Debridement Subcutaneous Subcutaneous -Post Debridement Size (cm) - Length 0.4 0.4 -Post Debridement Size (cm) - Width 1.7 2.0 -Post Debridement Size (cm) - Depth 0.3 0.3 -Total Square Cm 0.68 0.80 -Wound/Ulcer Outcome Not Healed Not Healed -Ulcer Cleansing Rinsed/ Rinsed/ Irrigated with Irrigated with Saline Saline -Foul Odor after Cleansing No No -Bioengineered Tissue No No -Bleeding Controlled with Pressure Pressure -Offloading No No -Treatment Response Procedure Procedure Tolerated Well Tolerated Well Pain Scale: 0-10 Numeric Is Patient Pain Free? Yes Yes Wound debrided: Right second toe Wound Grade/Stage: Grade III Type of Debridement: Excisional debridement Anesthesia Used: 4% Lidocaine Solution Depth: Down to and including healthy tissue, in the subcutaneous layer Percentage of wound debrided: 100 Instrument Used: 3mm curette Tissue Removed: Slough and devitalized tissue Severity: Fat Layer Exposed Amount of bleeding with debridement: Mild Bleeding Controlled with: Pressure Patient tolerated procedure well Assessment/Plan Active Problems (Last Updated 01/09/19 @ 12:49 by Amanda Shahid) Nonhealing surgical wound (Chronic) Right second toe with exposed bone. Diabetic foot ulcer (Chronic) Assessment: Nonhealing diabetic foot ulcer stage III status post surgical debridement/partial amputation also nonhealing. Osteomyelitis. Poorly controlled diabetes mellitus, insulin-dependent. History of recent tobacco cessation. Plan: Stable. No new concerns at this time. Debridement done as documented above, procedure was well tolerated. Records received. Did have a Syme's amputation due to nonhealing chronic ulcer and osteomyelitis in . Was discharged home on clindamycin 300 mg 3 times daily duration not stated. Osteomyelitis however was of the distal phalanx which was amputated. Had a revisional distal Symes amputation due to wound dehiscence on 30 January. Continue. Leah with Adaptic over top for now. Change daily. I beleive he will do well with a skin subsituite due to chronicity of the wound and slow progression with traditional wound products. His smoking cessation was encouraged. He was however advised to follow-up with an carpenter labor supervisor/primary care physician to optimally manage his diabetes. An A1c of 9.5 not beneficial for optimal wound healing. Increased protein intake recommended. Elevate lower extremities when seated in bed. His questions were answered and he was advised to call with any further questions or concerns. Follow-up in 1 week. This note was generated with [employer] software. It may contain incorrect words, spelling, and punctuation that were not noted in checking the note before signing.
--- NOTE | 2019-02-28 11:11 | PN.PCM_ITS ---
(1) Diabetic foot ulcer Status: Chronic Current Visit: Yes Code(s): E11.621 - Type 2 diabetes m ellitus with foot ulcer; L97.509 - Non-pressure chronic ulcer of other part of unspecified foot with unspecified severity (2) Nonhealing surgical wound Status: Chronic Current Visit: Yes Code(s): T81.89XA - Other complications of procedures, not elsewhere classified, initial encounter Comment: Right second toe with exposed bone. (3) Osteomyelitis Status: Chronic Current Visit: No Code(s): M86.9 - Osteomyelitis, unspecified Comment: Right second toe (4) Type 1 diabetes mellitus with microalbuminuria, with long-term current use of insulin Status: Acute Current Visit: No Code(s): E10.29 - Type 1 diabetes mellitus with other diabetic kidney complication; R80.9 - Proteinuria, unspecified Comment: BG readings higher than expected. Pt is ask to check BG in pairs. He appears to need more insulin at breakfast and lunch since he is off work and not active.. Ask to use correction scale aggressively. Report he ran out of strips but has now recieved his supply Discussed need to continue with this level of control in the post op state. Type of Wound Chief Complaint: Nonhealing surgical wound and diabetic foot ulcer. History of Wound: Mr. Diaz is a 43-year-old with history of poorly controlled diabetes mellitus status post several episodes of osteomyelitis/surgical debridement who was referred to the wound center by his grease cup filler due to nonhealing surgical wound and continued management of diabetic foot ulcer. Initially presented to his grease cup filler in February due to a new diabetic foot ulcer on his right second toe. He had been managed conservatively however was subsequently noted to have osteomyelitis and then had his first surgical debridement/partial amputation in December. There was no significant progress and per patient a bone culture showed osteomyelitis again for which he had another surgical management. He still had subsequent wound breakdown/nonclosure. He states that he has been on antibiotics for about a week however insists that he has been on no long-term antibiotics since December. He has been applying Neosporin and covering with gauze. He denies chills, fever or otherwise feeling of unwell. Last A1c was at 9.5. Progress of Wound: Stable. No new concerns at this time. - Physical Exam Vital Signs Temp Pulse Resp BP 97.8 F 91 18 158/88 H 02/28/19 10:37 02/28/19 10:37 02/28/19 10:37 02/28/19 10:37 General: Alert, Oriented x3, Cooperative, No apparent distress HEENT: Atraumatic, Normocephalic Oral: Moist Mucosa Neck: Supple Lungs: Normal air movement Abdomen: Non Tender Extremities: No cyanosis Skin: Ulcer/ Wound Wound Measurements and Assessment WC - Nurse 1 - General Ulcer Measurement Start: 02/21/19 10:27 Freq: Status: Active Protocol: Activity Type Activity Date Activity User E-Sign Co-Sign Detail Recorded Client Recorded Date Recorded By Document 02/28/19 10:37 MT [id number] 02/28/19 10:43 MT 02/28/19 10:37 Wound Center Nurse 1 [Ulcer Assessment] #1 Right 2nd toe amputation -Combined with other wound No -Current Size (cm) - Length 2 -Current Size (cm) - Width 7 -Current Size (cm) - Depth 0.5 -Total Square Cm 14 -Photo Taken No -Tunneling No -Undermining/Tunneling No -Circular Undermining No -Exudate Amt Small -Exudate Type Serosanguineous -Wound Margin Thickened & Rolled Under -Granulation Amt Medium (34-66%) -Granulation Quality Pale [place] -Necrosis Amt Medium (34-66%) -Necrotic Tissue Type Adherent Slough -Texture (Radha-wound Skin Appearance) Assessed -Moisture (Radha-wound Skin Appearance Assessed ) Maceration -Color (Radha-wound Skin Appearance) Assessed -Temperature (Radha-wound Skin No Abnormality Appearance) (Pt Warm) -Tenderness on Palpation (Radha-wound No Skin Appearance) -Ulcer Cleansing Rinsed/ Irrigated with Saline -Foul Odor after Cleansing No -Anesthetic Used 4% Lidocaine Solution [Edema Assessment] -Lower Limb Edema Present NA WC - Nurse 2 - General Ulcer CM Notes Start: 02/21/19 10:27 Freq: Status: Active Protocol: Activity Type Activity Date Activity User E-Sign Co-Sign Detail Recorded Client Recorded Date Recorded By Document 02/28/19 11:02 MW [id number] 02/28/19 11:05 MW 02/28/19 11:02 Wound Center Nurse 2 [Procedure/Treatment] #1 Right 2nd toe amputation -Time 11:02 -Correct Patient Yes -Correct Side, Site, Position Yes -Correct Procedure Yes -Procedure Performed Yes -Type of Procedure Debridement -Clinical Debridement Subcutaneous -Post Debridement Size (cm) - Length 0.4 -Post Debridement Size (cm) - Width 2.0 -Post Debridement Size (cm) - Depth 0.3 -Total Square Cm 0.80 -Wound/Ulcer Outcome Not Healed -Ulcer Cleansing Rinsed/ Irrigated with Saline -Foul Odor after Cleansing No -Bioengineered Tissue No -Bleeding Controlled with Pressure -Offloading No -Treatment Response Procedure Tolerated Well [See Physician Procedure note for Specifics] Pain Scale: 0-10 Numeric [Pain] -Is Patient Pain Free? Yes Musculoskeletal: No Muscle Wasting Neurological: Cranial nerves II-XII grossly intact Psych/Mental Status: Normal Affect Debridement Note Post-Debridement Measurements/Treatment WC - Nurse 2 - General Ulcer CM Notes Start: 02/21/19 10:27 Freq: Status: Active Protocol: Activity Type Activity Date Activity User E-Sign Co-Sign Detail Recorded Client Recorded Date Recorded By Document 02/21/19 10:46 MW [id number] 02/21/19 10:51 MW Document 02/28/19 11:02 MW [id number] 02/28/19 11:05 MW 02/21/19 02/28/19 10:46 11:02 Wound Center Nurse 2 #1 Right 2nd toe amputation -Time 10:47 11:02 -Correct Patient Yes Yes -Correct Side, Site, Position Yes Yes -Correct Procedure Yes Yes -Procedure Performed Yes Yes -Type of Procedure Debridement Debridement -Clinical Debridement Subcutaneous Subcutaneous -Post Debridement Size (cm) - Length 0.4 0.4 -Post Debridement Size (cm) - Width 1.7 2.0 -Post Debridement Size (cm) - Depth 0.3 0.3 -Total Square Cm 0.68 0.80 -Wound/Ulcer Outcome Not Healed Not Healed -Ulcer Cleansing Rinsed/ Rinsed/ Irrigated with Irrigated with Saline Saline -Foul Odor after Cleansing No No -Bioengineered Tissue No No -Bleeding Controlled with Pressure Pressure -Offloading No No -Treatment Response Procedure Procedure Tolerated Well Tolerated Well Pain Scale: 0-10 Numeric Is Patient Pain Free? Yes Yes Wound debrided: Right second toe Wound Grade/Stage: Grade III Type of Debridement: Excisional debridement Anesthesia Used: 4% Lidocaine Solution Depth: Down to and including healthy tissue, in the subcutaneous layer Percentage of wound debrided: 100 Instrument Used: 3mm curette Tissue Removed: Slough and devitalized tissue Severity: Fat Layer Exposed Amount of bleeding with debridement: Mild Bleeding Controlled with: Pressure Patient tolerated procedure well Assessment/Plan Active Problems (Last Updated 01/09/19 @ 12:49 by Amanda Shahid) Nonhealing surgical wound (Chronic) Right second toe with exposed bone. Diabetic foot ulcer (Chronic) Assessment: Nonhealing diabetic foot ulcer stage III status post surgical debridement/partial amputation also nonhealing. Osteomyelitis. Poorly controlled diabetes mellitus, insulin-dependent. History of recent tobacco cessation. Plan: Stable. No new concerns at this time. Debridement done as documented above, procedure was well tolerated. Records received. Did have a Syme's amputation due to nonhealing chronic ulcer and osteomyelitis in . Was discharged home on clindamycin 300 mg 3 times daily duration not stated. Osteomyelitis however was of the distal phalanx which was amputated. Had a revisional distal Symes amputation due to wound dehiscence on 30 January. Continue. Leah with Adaptic over top for now. Change daily. I beleive he will do well with a skin subsituite due to chronicity of the wound and slow progression with traditional wound products. His smoking cessation was encouraged. He was however advised to follow-up with an endo crinologist/primary care physician to optimally manage his diabetes. An A1c of 9.5 not beneficial for optimal wound healing. Increased protein intake recommended. Elevate lower extremities when seated in bed. His questions were answered and he was advised to call with any further questions or concerns. Follow-up in 1 week. This note was generated with [employer] dictation software. It may contain incorrect words, spelling, and punctuation that were not noted in checking the note before signing.
[2019-03-07 09:35] VITALS: BP 133/92; PULSE 86; RESP 16; TEMP 36.9; BMI 25.7
--- NOTE | 2019-03-07 11:04 | PCM.WC.PN ---
(1) Diabetic foot ulcer Status: Chronic Current Visit: Yes Code(s): E11.621 - Type 2 diabetes mellitus with foot ulcer; L97.509 - Non-pressure chronic ulcer of other part of unspecified foot with unspecified severity (2) Nonhealing surgical wound Status: Chronic Current Visit: Yes Code(s): T81.89XA - Other complications of procedures, not elsewhere classified, initial encounter Comment: Right second toe with exposed bone. (3) Osteomyelitis Status: Chronic Current Visit: No Code(s): M86.9 - Osteomyelitis, unspecified Comment: Right second toe (4) Type 1 diabetes mellitus with microalbuminuria, with long-term current use of insulin Status: Acute Current Visit: No Code(s): E10.29 - Type 1 diabetes mellitus with other diabetic kidney complication; R80.9 - Proteinuria, unspecified Comment: BG readings higher than expected. Pt is ask to check BG in pairs. He appears to need more insulin at breakfast and lunch since he is off work and not active.. Ask to use correction scale aggressively. Report he ran out of strips but has now recieved his supply Discussed need to continue with this level of control in the post op state. Type of Wound Chief Complaint: Nonhealing surgical wound and diabetic foot ulcer. History of Wound: Mr. Diaz is a 43-year-old with history of poorly controlled diabetes mellitus status post several episodes of osteomyelitis/surgical debridement who was referred to the wound center by his blunger machine operator due to nonhealing surgical wound and continued management of diabetic foot ulcer. Initially presented to his blunger machine operator in February due to a new diabetic foot ulcer on his right second toe. He had been managed conservatively however was subsequently noted to have osteomyelitis and then had his first surgical debridement/partial amputation in December. There was no significant progress and per patient a bone culture showed osteomyelitis again for which he had another surgical management. He still had subsequent wound breakdown/nonclosure. He states that he has been on antibiotics for about a week however insists that he has been on no long-term antibiotics since December. He has been applying Neosporin and covering with gauze. He denies chills, fever or otherwise feeling of unwell. Last A1c was at 9.5. Progress of Wound: Stable. No new concerns at this time. - Physical Exam Vital Signs Temp Pulse Resp BP 98.4 F 86 16 133/92 H 04/18/19 09:35 03/07/19 09:35 03/07/19 09:35 03/07/19 09:35 General: Alert, Oriented x3, Cooperative, No apparent distress HEENT: Atraumatic, Normocephalic Oral: Moist Mucosa Neck: Supple Lungs: Normal air movement Abdomen: Non Tender Extremities: No cyanosis Skin: Ulcer/ Wound Wound Measurements and Assessment WC - Nurse 1 - General Ulcer Measurement Start: 02/21/19 10:27 Freq: Status: Active Protocol: Activity Type Activity Date Activity User E-Sign Co-Sign Detail Recorded Client Recorded Date Recorded By Document 03/07/19 09:35 BM [id number] 03/07/19 09:37 BMF 03/07/19 09:35 Wound Center Nurse 1 [Ulcer Assessment] #1 Right 2nd toe amputation -Combined with other wound No -Current Size (cm) - Length 0.6 -Current Size (cm) - Width 1.9 -Current Size (cm) - Depth 0.5 -Total Square Cm 1.14 -Photo Taken No -Epithelialization None Present -Tunneling No -Undermining/Tunneling No -Circular Undermining No -Exudate Amt Small -Exudate Type Serosanguineous -Wound Margin Distinct, Outline Attached -Granulation Amt Small (1-33%) -Granulation Quality Pale Red -Slough/Fibrin Yes -Necrosis Amt Large (67-100%) -Necrotic Tissue Type Adherent Slough -Texture (Radha-wound Skin Appearance) Callus Scarring -Moisture (Radha-wound Skin Appearance Assessed ) Maceration Dry/Scaly -Color (Radha-wound Skin Appearance) Assessed Palor -Temperature (Radha-wound Skin No Abnormality Appearance) (Pt Warm) -Tenderness on Palpation (Radha-wound No Skin Appearance) -Ulcer Cleansing Rinsed/ Irrigated with Saline -Foul Odor after Cleansing No -Anesthetic Used 5% Lidocaine Gel WC - Nurse 2 - General Ulcer CM Notes Start: 02/21/19 10:27 Freq: Status: Active Protocol: Activity Type Activity Date Activity User E-Sign Co-Sign Detail Recorded Client Recorded Date Recorded By Document 03/07/19 10:24 MW [id number] 03/07/19 10:35 MW 03/07/19 10:24 Wound Center Nurse 2 [Procedure/Treatment] -Time 10:24 -Correct Patient Yes -Correct Side, Site, Position Yes -Correct Procedure Yes -Procedure Performed Yes -Type of Procedure Debridement -Clinical Debridement Subcutaneous -Post Debridement Size (cm) - Length 0.5 -Post Debridement Size (cm) - Width 1.8 -Post Debridement Size (cm) - Depth 0.5 -Total Square Cm 0.90 -Wound/Ulcer Outcome Not Healed -Ulcer Cleansing Rinsed/ Irrigated with Saline -Foul Odor after Cleansing No -Bioengineered Tissue Yes -Type of bioengineered Tissue EPIFIX -Expiration Date 07/21/23 -Product Lot Number [id number] -Percent Used 100 -Saline Lot Number [id number] -Bleeding Controlled with Pressure -Offloading No -Treatment Response Procedure Tolerated Well [See Physician Procedure note for Specifics] Pain Scale: 0-10 Numeric [Pain] -Is Patient Pain Free? Yes Musculoskeletal: No Muscle Wasting Neurological: Cranial nerves II-XII grossly intact Psych/Mental Status: Normal Affect Debridement Note Post-Debridement Measurements/Treatment WC - Nurse 2 - General Ulcer CM Notes Start: 02/21/19 10:27 Freq: Status: Active Protocol: Activity Type Activity Date Activity User E-Sign Co-Sign Detail Recorded Client Recorded Date Recorded By Document 02/21/19 10:46 MW [id number] 02/21/19 10:51 MW Document 02/28/19 11:02 MW [id number] 02/28/19 11:05 MW Document 03/07/19 10:24 MW [id number] 03/07/19 10:35 MW 02/21/19 02/28/19 03/07/19 10:46 11:02 10:24 Wound Center Nurse 2 #1 Right 2nd toe amputation -Time 10:47 11:02 10:24 -Correct Patient Yes Yes Yes -Correct Side, Site, Position Yes Yes Yes -Correct Procedure Yes Yes Yes -Procedure Performed Yes Yes Yes -Type of Procedure Debridement Debridement Debridement -Clinical Debridement Subcutaneous Subcutaneous Subcutaneous -Post Debridement Size (cm) - Length 0.4 0.4 0.5 -Post Debridement Size (cm) - Width 1.7 2.0 1.8 -Post Debridement Size (cm) - Depth 0.3 0.3 0.5 -Total Square Cm 0.68 0.80 0.90 -Wound/Ulcer Outcome Not Healed Not Healed Not Healed -Ulcer Cleansing Rinsed/ Rinsed/ Rinsed/ Irrigated with Irrigated with Irrigated with Saline Saline Saline -Foul Odor after Cleansing No No No -Bioengineered Tissue No No Yes -Type of bioengineered Tissue EPIFIX -Expiration Date 07/21/23 -Product Lot Number [id number] -Percent Used 100 -Saline Lot Number [id number] -Bleeding Controlled with Pressure Pressure Pressure -Offloading No No No -Treatment Response Procedure Procedure Procedure Tolerated Well Tolerated Well Tolerated Well Pain Scale: 0-10 Numeric Is Patient Pain Free? Yes Yes Yes Wound debrided: Right second toe Wound Grade/Stage: Grade III Type of Debridement: Excisional debridement Anesthesia Used: 4% Lidocaine Solution Depth: Down to and including healthy tissue, in the subcutaneous layer Instrument Used: 3mm curette Tissue Removed: Slough and devitalized tissue Severity: Fat Layer Exposed Amount of bleeding with debridement: Mild Bleeding Controlled with: Pressure Patient tolerated procedure well Assessment/Plan Active Problems (Last Updated 01/09/19 @ 12:49 by Amanda Shahid) Nonhealing surgical wound (Chronic) Right second toe with exposed bone. Diabetic foot ulcer (Chronic) Assessment: Nonhealing diabetic foot ulcer stage III status post surgical debridement/partial amputation also nonhealing. Osteomyelitis. Poorly controlled diabetes mellitus, insulin-dependent. History of recent tobacco cessation. Plan: Debridement done as documented above, procedure was well tolerated. Now approved for Epifix. initial application done today using 100% of product. Covered with adaptic and guaze and secured with Steristrips. Epifix was ,moistened with saline. Leave in place x 1 week. Records received. Did have a Syme's amputation due to nonhealing chronic ulcer and osteomyelitis in . Was discharged home on clindamycin 300 mg 3 times daily duration not stated. Osteomyelitis however was of the distal phalanx which was amputated. Had a revisional distal Symes amputation due to wound dehiscence on 30 January. I beleive he will continue to need a skin subsituite due to chronicity of the wound and slow progression with traditional wound products. His smoking cessation was encouraged. He was however advised to follow-up with an wrinkle chaser/primary care physician to optimally manage his diabetes. An A1c of 9.5 not beneficial for optimal wound healing. Increased protein intake recommended. Elevate lower extremities when seated in bed. His questions were answered and he was advised to call with any further questions or concerns. Follow-up in 1 week. This note was generated with [employer] software. It may contain incorrect words, spelling, and punctuation that were not noted in checking the note before signing.
--- NOTE | 2019-03-07 11:09 | PN.PCM_ITS ---
(1) Diabetic foot ulcer Status: Chronic Current Visit: Yes Code(s): E11.621 - Type 2 diabetes m ellitus with foot ulcer; L97.509 - Non-pressure chronic ulcer of other part of unspecified foot with unspecified severity (2) Nonhealing surgical wound Status: Chronic Current Visit: Yes Code(s): T81.89XA - Other complications of procedures, not elsewhere classified, initial encounter Comment: Right second toe with exposed bone. (3) Osteomyelitis Status: Chronic Current Visit: No Code(s): M86.9 - Osteomyelitis, unspecified Comment: Right second toe (4) Type 1 diabetes mellitus with microalbuminuria, with long-term current use of insulin Status: Acute Current Visit: No Code(s): E10.29 - Type 1 diabetes mellitus with other diabetic kidney complication; R80.9 - Proteinuria, unspecified Comment: BG readings higher than expected. Pt is ask to check BG in pairs. He appears to need more insulin at breakfast and lunch since he is off work and not active.. Ask to use correction scale aggressively. Report he ran out of strips but has now recieved his supply Discussed need to continue with this level of control in the post op state. Type of Wound Chief Complaint: Nonhealing surgical wound and diabetic foot ulcer. History of Wound: Mr. Diaz is a 43-year-old with history of poorly controlled diabetes mellitus status post several episodes of osteomyelitis/surgical debridement who was referred to the wound center by his correctional probation officer due to nonhealing surgical wound and continued management of diabetic foot ulcer. Initially presented to his correctional probation officer in February due to a new diabetic foot ulcer on his right second toe. He had been managed conservatively however was subsequently noted to have osteomyelitis and then had his first surgical debridement/partial amputation in December. There was no significant progress and per patient a bone culture showed osteomyelitis again for which he had another surgical management. He still had subsequent wound breakdown/nonclosure. He states that he has been on antibiotics for about a week however insists that he has been on no long-term antibiotics since December. He has been applying Neosporin and covering with gauze. He denies chills, fever or otherwise feeling of unwell. Last A1c was at 9.5. Progress of Wound: Stable. No new concerns at this time. - Physical Exam Vital Signs Temp Pulse Resp BP 98.4 F 86 16 133/92 H 03/07/19 09:35 03/07/19 09:35 03/07/19 09:35 03/07/19 09:35 General: Alert, Oriented x3, Cooperative, No apparent distress HEENT: Atraumatic, Normocephalic Oral: Moist Mucosa Neck: Supple Lungs: Normal air movement Abdomen: Non Tender Extremities: No cyanosis Skin: Ulcer/ Wound Wound Measurements and Assessment WC - Nurse 1 - General Ulcer Measurement Start: 02/21/19 10:27 Freq: Status: Active Protocol: Activity Type Activity Date Activity User E-Sign Co-Sign Detail Recorded Client Recorded Date Recorded By Document 03/07/19 09:35 BM [id number] 03/07/19 09:37 BMF 03/07/19 09:35 Wound Center Nurse 1 [Ulcer Assessment] #1 Right 2nd toe amputation -Combined with other wound No -Current Size (cm) - Length 0.6 -Current Size (cm) - Width 1.9 -Current Size (cm) - Depth 0.5 -Total Square Cm 1.14 -Photo Taken No -Epithelialization None Present -Tunneling No -Undermining/Tunneling No -Circular Undermining No -Exudate Amt Small -Exudate Type Serosanguineous -Wound Margin Distinct, Outline Attached -Granulation Amt Small (1-33%) -Granulation Quality Pale Red -Slough/Fibrin Yes -Necrosis Amt Large (67-100%) -Necrotic Tissue Type Adherent Slough -Texture (Radha-wound Skin Appearance) Callus Scarring -Moisture (Radha-wound Skin Appearance Assessed ) Maceration Dry/Scaly -Color (Radha-wound Skin Appearance) Assessed Palor -Temperature (Radha-wound Skin No Abnormality Appearance) (Pt Warm) -Tenderness on Palpation (Radha-wound No Skin Appearance) -Ulcer Cleansing Rinsed/ Irrigated with Saline -Foul Odor after Cleansing No -Anesthetic Used 5% Lidocaine Gel WC - Nurse 2 - General Ulcer CM Notes Start: 02/21/19 10:27 Freq: Status: Active Protocol: Activity Type Activity Date Activity User E-Sign Co-Sign Detail Recorded Client Recorded Date Recorded By Document 03/07/19 10:24 MW [id number] 03/07/19 10:35 MW 03/07/19 10:24 Wound Center Nurse 2 [Procedure/Treatment] -Time 10:24 -Correct Patient Yes -Correct Side, Site, Position Yes -Correct Procedure Yes -Procedure Performed Yes -Type of Procedure Debridement -Clinical Debridement Subcutaneous -Post Debridement Size (cm) - Length 0.5 -Post Debridement Size (cm) - Width 1.8 -Post Debridement Size (cm) - Depth 0.5 -Total Square Cm 0.90 -Wound/Ulcer Outcome Not Healed -Ulcer Cleansing Rinsed/ Irrigated with Saline -Foul Odor after Cleansing No -Bioengineered Tissue Yes -Type of bioengineered Tissue EPIFIX -Expiration Date 07/21/23 -Product Lot Number [id number] -Percent Used 100 -Saline Lot Number [id number] -Bleeding Controlled with Pressure -Offloading No -Treatment Response Procedure Tolerated Well [See Physician Procedure note for Specifics] Pain Scale: 0-10 Numeric [Pain] -Is Patient Pain Free? Yes Musculoskeletal: No Muscle Wasting Neurological: Cranial nerves II-XII grossly intact Psych/Mental Status: Normal Affect Debridement Note Post-Debridement Measurements/Treatment WC - Nurse 2 - General Ulcer CM Notes Start: 02/21/19 10:27 Freq: Status: Active Protocol: Activity Type Activity Date Activity User E-Sign Co-Sign Detail Recorded Client Recorded Date Recorded By Document 02/21/19 10:46 MW [id number] 02/21/19 10:51 MW Document 02/28/19 11:02 MW [id number] 02/28/19 11:05 MW Document 03/07/19 10:24 MW [id number] 03/07/19 10:35 MW 02/21/19 02/28/19 03/07/19 10:46 11:02 10:24 Wound Center Nurse 2 #1 Right 2nd toe amputation -Time 10:47 11:02 10:24 -Correct Patient Yes Yes Yes -Correct Side, Site, Position Yes Yes Yes -Correct Procedure Yes Yes Yes -Procedure Performed Yes Yes Yes -Type of Procedure Debridement Debridement Debridement -Clinical Debridement Subcutaneous Subcutaneous Subcutaneous -Post Debridement Size (cm) - Length 0.4 0.4 0.5 -Post Debridement Size (cm) - Width 1.7 2.0 1.8 -Post Debridement Size (cm) - Depth 0.3 0.3 0.5 -Total Square Cm 0.68 0.80 0.90 -Wound/Ulcer Outcome Not Healed Not Healed Not Healed -Ulcer Cleansing Rinsed/ Rinsed/ Rinsed/ Irrigated with Irrigated with Irrigated with Saline Saline Saline -Foul Odor after Cleansing No No No -Bioengineered Tissue No No Yes -Type of bioengineered Tissue EPIFIX -Expiration Date 07/21/23 -Product Lot Number [id number] -Percent Used 100 -Saline Lot Number [id number] -Bleeding Controlled with Pressure Pressure Pressure -Offloading No No No -Treatment Response Procedure Procedure Procedure Tolerated Well Tolerated Well Tolerated Well Pain Scale: 0-10 Numeric Is Patient Pain Free? Yes Yes Yes Wound debrided: Right second toe Wound Grade/Stage: Grade III Type of Debridement: Excisional debridement Anesthesia Used: 4% Lidocaine Solution Depth: Down to and including healthy tissue, in the subcutaneous layer Instrument Used: 3mm curette Tissue Removed: Slough and devitalized tissue Severity: Fat Layer Exposed Amount of bleeding with debridement: Mild Bleeding Controlled with: Pressure Patient tolerated procedure well Assessment/Plan Active Problems (Last Updated 01/09/19 @ 12:49 by Amanda Shahid) Nonhealing surgical wound (Chronic) Right second toe with exposed bone. Diabetic foot ulcer (Chronic) Assessment: Nonhealing diabetic foot ulcer stage III status post surgical debridement/partial amputation also nonhealing. Osteomyelitis. Poorly controlled diabetes mellitus, insulin-dependent. History of recent tobacco cessation. Plan: Debridement done as documented above, procedure was well tolerated. Now approved for Epifix. initial application done today using 100% of product. Covered with adaptic and guaze and secured with Steristrips. Epifix was ,moistened with saline. Leave in place x 1 week. Records received. Did have a Syme's amputation due to nonhealing chronic ulcer and osteomyelitis in . Was discharged home on clindamycin 300 mg 3 times daily duration not stated. Osteomyelitis however was of the distal phalanx which was amputated. Had a revisional distal Symes amputation due to wound dehiscence on 30 January. I beleive he will continue to need a skin subsituite due to chronicity of the wound and slow progression with traditional wound products. His smoking cessation was encouraged. He was however advised to follow-up with an director of physical security/primary care physician to optimally manage his diabetes. An A1c of 9.5 not beneficial for optimal wound healing. Increased protein intake recommended. Elevate lower extremities when seated in bed. His questions were answered and he was advised to call with any further questions or concerns. Follow-up in 1 week. This note was generated with [employer] dictation software. It may contain incorrect words, spelling, and punctuation that were not noted in checking the note before signing.
[2019-03-14 09:15] VITALS: BP 135/79; PULSE 83; RESP 18; TEMP 36.9; BMI 25.7
--- NOTE | 2019-03-14 09:56 | PCM.WC.PN ---
(1) Diabetic foot ulcer Status: Chronic Current Visit: Yes Code(s): E11.621 - Type 2 diabetes mellitus with foot ulcer; L97.509 - Non-pressure chronic ulcer of other part of unspecified foot with unspecified severity (2) Nonhealing surgical wound Status: Chronic Current Visit: Yes Code(s): T81.89XA - Other complications of procedures, not elsewhere classified, initial encounter Comment: Right second toe with exposed bone. (3) Osteomyelitis Status: Chronic Current Visit: No Code(s): M86.9 - Osteomyelitis, unspecified Comment: Right second toe (4) Type 1 diabetes mellitus with microalbuminuria, with long-term current use of insulin Status: Acute Current Visit: No Code(s): E10.29 - Type 1 diabetes mellitus with other diabetic kidney complication; R80.9 - Proteinuria, unspecified Comment: BG readings higher than expected. Pt is ask to check BG in pairs. He appears to need more insulin at breakfast and lunch since he is off work and not active.. Ask to use correction scale aggressively. Report he ran out of strips but has now recieved his supply Discussed need to continue with this level of control in the post op state. Type of Wound Chief Complaint: Nonhealing surgical wound and diabetic foot ulcer. History of Wound: Mr. Diaz is a 43-year-old with history of poorly controlled diabetes mellitus status post several episodes of osteomyelitis/surgical debridement who was referred to the wound center by his bone crusher due to nonhealing surgical wound and continued management of diabetic foot ulcer. Initially presented to his bone crusher in February due to a new diabetic foot ulcer on his right second toe. He had been managed conservatively however was subsequently noted to have osteomyelitis and then had his first surgical debridement/partial amputation in December. There was no significant progress and per patient a bone culture showed osteomyelitis again for which he had another surgical management. He still had subsequent wound breakdown/nonclosure. He states that he has been on antibiotics for about a week however insists that he has been on no long-term antibiotics since December. He has been applying Neosporin and covering with gauze. He denies chills, fever or otherwise feeling of unwell. Last A1c was at 9.5. Progress of Wound: Stable. No new concerns at this time. Has had 1 application of Epifix so far. - Physical Exam Vital Signs Temp Pulse Resp BP 98.4 F 83 18 135/79 H 03/14/19 09:15 03/14/19 09:15 03/14/19 09:15 03/14/19 09:15 General: Alert, Oriented x3, Cooperative, No apparent distress HEENT: Atraumatic, Normocephalic Oral: Moist Mucosa Neck: Supple Lungs: Normal air movement Abdomen: Non Tender Extremities: No cyanosis Skin: Ulcer/ Wound Wound Measurements and Assessment WC - Nurse 1 - General Ulcer Measurement Start: 02/21/19 10:27 Freq: Status: Active Protocol: Activity Type Activity Date Activity User E-Sign Co-Sign Detail Recorded Client Recorded Date Recorded By Document 03/14/19 09:15 AN [id number] 03/14/19 09:29 AN 03/14/19 09:15 Wound Center Nurse 1 [Ulcer Assessment] #1 Right 2nd toe amputation -Current Size (cm) - Length 0.4 -Current Size (cm) - Width 1.5 -Current Size (cm) - Depth 0.4 -Total Square Cm 0.60 -Date of Last Picture (Recall this 03/14/19 field) -Photo Taken Yes -Classification - Thickness Full Thickness with Exposed Support Structure -Change in Wound Grade/Stage No Query Text:If change please identify the Stage/Grade in the comment (ie. S2 G3) -Exudate Amt Small -Exudate Type Serosanguineous -Wound Margin Thickened -Granulation Amt Small (1-33%) -Granulation Quality [place] -Slough/Fibrin Yes -Necrosis Amt Large (67-100%) -Necrotic Tissue Type Eschar -Structure Exposed Bone -Texture (Radha-wound Skin Appearance) Assessed -Moisture (Radha-wound Skin Appearance Assessed ) -Color (Radha-wound Skin Appearance) Assessed -Temperature (Radha-wound Skin No Abnormality Appearance) (Pt Warm) -Ulcer Cleansing Rinsed/ Irrigated with Saline -Foul Odor after Cleansing No -Anesthetic Used 5% Lidocaine Gel WC - Nurse 2 - General Ulcer CM Notes Start: 02/21/19 10:27 Freq: Status: Active Protocol: Activity Type Activity Date Activity User E-Sign Co-Sign Detail Recorded Client Recorded Date Recorded By Document 03/14/19 09:43 MW [id number] 03/14/19 09:53 MW 03/14/19 09:43 Wound Center Nurse 2 [Procedure/Treatment] -Time 09:44 -Correct Patient Yes -Correct Side, Site, Position Yes -Correct Procedure Yes -Procedure Performed Yes -Type of Procedure Debridement -Clinical Debridement Subcutaneous -Post Debridement Size (cm) - Length 0.3 -Post Debridement Size (cm) - Width 1.5 -Post Debridement Size (cm) - Depth 0.4 -Total Square Cm 0.45 -Wound/Ulcer Outcome Not Healed -Ulcer Cleansing Rinsed/ Irrigated with Saline -Foul Odor after Cleansing No -Bioengineered Tissue No -Type of bioengineered Tissue EPIFIX -Expiration Date 08/20/23 -Product Lot Number [id number] -Percent Used 100 -Bleeding Controlled with Pressure -Other C. HYDROGEL LOT #[id number] -Offloading No -Treatment Response Procedure Tolerated Well [See Physician Procedure note for Specifics] Pain Scale: 0-10 Numeric [Pain] -Is Patient Pain Free? Yes Musculoskeletal: No Muscle Wasting Neurological: Cranial nerves II-XII grossly intact Psych/Mental Status: Normal Affect Debridement Note Post-Debridement Measurements/Treatment WC - Nurse 2 - General Ulcer CM Notes Start: 02/21/19 10:27 Freq: Status: Active Protocol: Activity Type Activity Date Activity User E-Sign Co-Sign Detail Recorded Client Recorded Date Recorded By Document 02/21/19 10:46 MW [id number] 02/21/19 10:51 MW Document 02/28/19 11:02 MW [id number] 02/28/19 11:05 MW Document 03/07/19 10:24 MW [id number] 03/07/19 10:35 MW Document 03/14/19 09:43 MW [id number] 03/14/19 09:53 MW 02/21/19 02/28/19 03/07/19 10:46 11:02 10:24 Wound Center Nurse 2 #1 Right 2nd toe amputation -Time 10:47 11:02 10:24 -Correct Patient Yes Yes Yes -Correct Side, Site, Position Yes Yes Yes -Correct Procedure Yes Yes Yes -Procedure Performed Yes Yes Yes -Type of Procedure Debridement Debridement Debridement -Clinical Debridement Subcutaneous Subcutaneous Subcutaneous -Post Debridement Size (cm) - Length 0.4 0.4 0.5 -Post Debridement Size (cm) - Width 1.7 2.0 1.8 -Post Debridement Size (cm) - Depth 0.3 0.3 0.5 -Total Square Cm 0.68 0.80 0.90 -Wound/Ulcer Outcome Not Healed Not Healed Not Healed -Ulcer Cleansing Rinsed/ Rinsed/ Rinsed/ Irrigated with Irrigated with Irrigated with Saline Saline Saline -Foul Odor after Cleansing No No No -Bioengineered Tissue No No Yes -Type of bioengineered Tissue EPIFIX -Expiration Date 07/21/23 -Product Lot Number [id number] -Percent Used 100 -Saline Lot Number [id number] -Bleeding Controlled with Pressure Pressure Pressure -Other -Offloading No No No -Treatment Response Procedure Procedure Procedure Tolerated Well Tolerated Well Tolerated Well Pain Scale: 0-10 Numeric Is Patient Pain Free? Yes Yes Yes 03/14/19 09:43 Wound Center Nurse 2 #1 Right 2nd toe amputation -Time 09:44 -Correct Patient Yes -Correct Side, Site, Position Yes -Correct Procedure Yes -Procedure Performed Yes -Type of Procedure Debridement -Clinical Debridement Subcutaneous -Post Debridement Size (cm) - Length 0.3 -Post Debridement Size (cm) - Width 1.5 -Post Debridement Size (cm) - Depth 0.4 -Total Square Cm 0.45 -Wound/Ulcer Outcome Not Healed -Ulcer Cleansing Rinsed/ Irrigated with Saline -Foul Odor after Cleansing No -Bioengineered Tissue No -Type of bioengineered Tissue EPIFIX -Expiration Date 08/20/23 -Product Lot Number [id number] -Percent Used 100 -Saline Lot Number -Bleeding Controlled with Pressure -Other C. HYDROGEL LOT #[id number] -Offloading No -Treatment Response Procedure Tolerated Well Pain Scale: 0-10 Numeric Is Patient Pain Free? Yes Wound debrided: Right second toe Wound Grade/Stage: Grade III Type of Debridement: Excisional debridement Anesthesia Used: 4% Lidocaine Solution Depth: Down to and including healthy tissue, in the subcutaneous layer Percentage of wound debrided: 100 Instrument Used: 3mm curette Tissue Removed: slough and devitalized tissue Severity: Fat Layer Exposed Amount of bleeding with debridement: Mild Bleeding Controlled with: Pressure Patient tolerated procedure well Assessment/Plan Active Problems (Last Updated 01/09/19 @ 12:49 by Amanda Shahid) Nonhealing surgical wound (Chronic) Right second toe with exposed bone. Diabetic foot ulcer (Chronic) Assessment: Nonhealing diabetic foot ulcer stage III status post surgical debridement/partial amputation also nonhealing. Hx of Osteomyelitis. Poorly controlled diabetes mellitus, insulin-dependent. History of recent tobacco cessation. Plan: Debridement done as documented above, procedure was well tolerated. 2nd application of Epifix done today using 100% of product. Moistened with Hydrogel, wound veil over top and secured Steristrips.Leave in place x 1 week. Records received. Did have a Syme's amputation due to nonhealing chronic ulcer and osteomyelitis in . Was discharged home on clindamycin 300 mg 3 times daily duration not stated. Osteomyelitis however was of the distal phalanx which was amputated. Had a revisional distal Symes amputation due to wound dehiscence on 30 January. I beleive he will continue to need a skin subsituite due to chronicity of the wound and slow progression with traditional wound products. His smoking cessation was encouraged. He was however advised to follow-up with an steel shot header operator/primary care physician to optimally manage his diabetes. An A1c of 9.5 not beneficial for optimal wound healing. Increased protein intake recommended. Elevate lower extremities when seated in bed. His questions were answered and he was advised to call with any further questions or concerns. Follow-up in 1 week. This note was generated with [employer] dictation software. It may contain incorrect words, spelling, and punctuation that were not noted in checking the note before signing.
--- NOTE | 2019-03-14 10:00 | PN.PCM_ITS ---
(1) Diabetic foot ulcer Status: Chronic Current Visit: Yes Code(s): E11.621 - Type 2 diabetes m ellitus with foot ulcer; L97.509 - Non-pressure chronic ulcer of other part of unspecified foot with unspecified severity (2) Nonhealing surgical wound Status: Chronic Current Visit: Yes Code(s): T81.89XA - Other complications of procedures, not elsewhere classified, initial encounter Comment: Right second toe with exposed bone. (3) Osteomyelitis Status: Chronic Current Visit: No Code(s): M86.9 - Osteomyelitis, unspecified Comment: Right second toe (4) Type 1 diabetes mellitus with microalbuminuria, with long-term current use of insulin Status: Acute Current Visit: No Code(s): E10.29 - Type 1 diabetes mellitus with other diabetic kidney complication; R80.9 - Proteinuria, unspecified Comment: BG readings higher than expected. Pt is ask to check BG in pairs. He appears to need more insulin at breakfast and lunch since he is off work and not active.. Ask to use correction scale aggressively. Report he ran out of strips but has now recieved his supply Discussed need to continue with this level of control in the post op state. Type of Wound Chief Complaint: Nonhealing surgical wound and diabetic foot ulcer. History of Wound: Mr. Diaz is a 43-year-old with history of poorly controlled diabetes mellitus status post several episodes of osteomyelitis/surgical debridement who was referred to the wound center by his color adviser due to nonhealing surgical wound and continued management of diabetic foot ulcer. Initially presented to his color adviser in February due to a new diabetic foot ulcer on his right second toe. He had been managed conservatively however was subsequently noted to have osteomyelitis and then had his first surgical debridement/partial amputation in December. There was no significant progress and per patient a bone culture showed osteomyelitis again for which he had another surgical management. He still had subsequent wound breakdown/nonclosure. He states that he has been on antibiotics for about a week however insists that he has been on no long-term antibiotics since December. He has been applying Neosporin and covering with gauze. He denies chills, fever or otherwise feeling of unwell. Last A1c was at 9.5. Progress of Wound: Stable. No new concerns at this time. Has had 1 application of Epifix so far. - Physical Exam Vital Signs Temp Pulse Resp BP 98.4 F 83 18 135/79 H 03/14/19 09:15 03/14/19 09:15 03/14/19 09:15 03/14/19 09:15 General: Alert, Oriented x3, Cooperative, No apparent distress HEENT: Atraumatic, Normocephalic Oral: Moist Mucosa Neck: Supple Lungs: Normal air movement Abdomen: Non Tender Extremities: No cyanosis Skin: Ulcer/ Wound Wound Measurements and Assessment WC - Nurse 1 - General Ulcer Measurement Start: 02/21/19 10:27 Freq: Status: Active Protocol: Activity Type Activity Date Activity User E-Sign Co-Sign Detail Recorded Client Recorded Date Recorded By Document 03/14/19 09:15 AN [id number] 03/14/19 09:29 AN 03/14/19 09:15 Wound Center Nurse 1 [Ulcer Assessment] #1 Right 2nd toe amputation -Current Size (cm) - Length 0.4 -Current Size (cm) - Width 1.5 -Current Size (cm) - Depth 0.4 -Total Square Cm 0.60 -Date of Last Picture (Recall this 03/14/19 field) -Photo Taken Yes -Classification - Thickness Full Thickness with Exposed Support Structure -Change in Wound Grade/Stage No Query Text:If change please identify the Stage/Grade in the comment (ie. S2 G3) -Exudate Amt Small -Exudate Type Serosanguineous -Wound Margin Thickened -Granulation Amt Small (1-33%) -Granulation Quality [place] -Slough/Fibrin Yes -Necrosis Amt Large (67-100%) -Necrotic Tissue Type Eschar -Structure Exposed Bone -Texture (Radha-wound Skin Appearance) Assessed -Moisture (Radha-wound Skin Appearance Assessed ) -Color (Radha-wound Skin Appearance) Assessed -Temperature (Radha-wound Skin No Abnormality Appearance) (Pt Warm) -Ulcer Cleansing Rinsed/ Irrigated with Saline -Foul Odor after Cleansing No -Anesthetic Used 5% Lidocaine Gel WC - Nurse 2 - General Ulcer CM Notes Start: 02/21/19 10:27 Freq: Status: Active Protocol: Activity Type Activity Date Activity User E-Sign Co-Sign Detail Recorded Client Recorded Date Recorded By Document 03/14/19 09:43 MW [id number] 03/14/19 09:53 MW 04/25/19 09:43 Wound Center Nurse 2 [Procedure/Treatment] -Time 09:44 -Correct Patient Yes -Correct Side, Site, Position Yes -Correct Procedure Yes -Procedure Performed Yes -Type of Procedure Debridement -Clinical Debridement Subcutaneous -Post Debridement Size (cm) - Length 0.3 -Post Debridement Size (cm) - Width 1.5 -Post Debridement Size (cm) - Depth 0.4 -Total Square Cm 0.45 -Wound/Ulcer Outcome Not Healed -Ulcer Cleansing Rinsed/ Irrigated with Saline -Foul Odor after Cleansing No -Bioengineered Tissue No -Type of bioengineered Tissue EPIFIX -Expiration Date 08/20/23 -Product Lot Number [id number] -Percent Used 100 -Bleeding Controlled with Pressure -Other C. HYDROGEL LOT #[id number] -Offloading No -Treatment Response Procedure Tolerated Well [See Physician Procedure note for Specifics] Pain Scale: 0-10 Numeric [Pain] -Is Patient Pain Free? Yes Musculoskeletal: No Muscle Wasting Neurological: Cranial nerves II-XII grossly intact Psych/Mental Status: Normal Affect Debridement Note Post-Debridement Measurements/Treatment WC - Nurse 2 - General Ulcer CM Notes Start: 02/21/19 10:27 Freq: Status: Active Protocol: Activity Type Activity Date Activity User E-Sign Co-Sign Detail Recorded Client Recorded Date Recorded By Document 02/21/19 10:46 MW [id number] 02/21/19 10:51 MW Document 02/28/19 11:02 MW [id number] 02/28/19 11:05 MW Document 03/07/19 10:24 MW [id number] 03/07/19 10:35 MW Document 03/14/19 09:43 MW [id number] 03/14/19 09:53 MW 02/21/19 02/28/19 03/07/19 10:46 11:02 10:24 Wound Center Nurse 2 #1 Right 2nd toe amputation -Time 10:47 11:02 10:24 -Correct Patient Yes Yes Yes -Correct Side, Site, Position Yes Yes Yes -Correct Procedure Yes Yes Yes -Procedure Performed Yes Yes Yes -Type of Procedure Debridement Debridement Debridement -Clinical Debridement Subcutaneous Subcutaneous Subcutaneous -Post Debridement Size (cm) - Length 0.4 0.4 0.5 -Post Debridement Size (cm) - Width 1.7 2.0 1.8 -Post Debridement Size (cm) - Depth 0.3 0.3 0.5 -Total Square Cm 0.68 0.80 0.90 -Wound/Ulcer Outcome Not Healed Not Healed Not Healed -Ulcer Cleansing Rinsed/ Rinsed/ Rinsed/ Irrigated with Irrigated with Irrigated with Saline Saline Saline -Foul Odor after Cleansing No No No -Bioengineered Tissue No No Yes -Type of bioengineered Tissue EPIFIX -Expiration Date 07/21/23 -Product Lot Number [id number] -Percent Used 100 -Saline Lot Number [id number] -Bleeding Controlled with Pressure Pressure Pressure -Other -Offloading No No No -Treatment Response Procedure Procedure Procedure Tolerated Well Tolerated Well Tolerated Well Pain Scale: 0-10 Numeric Is Patient Pain Free? Yes Yes Yes 03/14/19 09:43 Wound Center Nurse 2 #1 Right 2nd toe amputation -Time 09:44 -Correct Patient Yes -Correct Side, Site, Position Yes -Correct Procedure Yes -Procedure Performed Yes -Type of Procedure Debridement -Clinical Debridement Subcutaneous -Post Debridement Size (cm) - Length 0.3 -Post Debridement Size (cm) - Width 1.5 -Post Debridement Size (cm) - Depth 0.4 -Total Square Cm 0.45 -Wound/Ulcer Outcome Not Healed -Ulcer Cleansing Rinsed/ Irrigated with Saline -Foul Odor after Cleansing No -Bioengineered Tissue No -Type of bioengineered Tissue EPIFIX -Expiration Date 08/20/23 -Product Lot Number [id number] -Percent Used 100 -Saline Lot Number -Bleeding Controlled with Pressure -Other C. HYDROGEL LOT #[id number] -Offloading No -Treatment Response Procedure Tolerated Well Pain Scale: 0-10 Numeric Is Patient Pain Free? Yes Wound debrided: Right second toe Wound Grade/Stage: Grade III Type of Debridement: Excisional debridement Anesthesia Used: 4% Lidocaine Solution Depth: Down to and including healthy tissue, in the subcutaneous layer Percentage of wound debrided: 100 Instrument Used: 3mm curette Tissue Removed: slough and devitalized tissue Severity: Fat Layer Exposed Amount of bleeding with debridement: Mild Bleeding Controlled with: Pressure Patient tolerated procedure well Assessment/Plan Active Problems (Last Updated 01/09/19 @ 12:49 by Amanda Shahid) Nonhealing surgical wound (Chronic) Right second toe with exposed bone. Diabetic foot ulcer (Chronic) Assessment: Nonhealing diabetic foot ulcer stage III status post surgical debridement/partial amputation also nonhealing. Hx of Osteomyelitis. Poorly controlled diabetes mellitus, insulin-dependent. History of recent tobacco cessation. Plan: Debridement done as documented above, procedure was well tolerated. 2nd application of Epifix done today using 100% of product. Moistened with Hydrogel, wound veil over top and secured Steristrips.Leave in place x 1 week. Records received. Did have a Syme's amputation due to nonhealing chronic ulcer and osteomyelitis in November/December. Was discharged home on clindamycin 300 mg 3 times daily duration not stated. Osteomyelitis however was of the distal phalanx which was amputated. Had a revisional distal Symes amputation due to wound dehiscence on 30 January. I beleive he will continue to need a skin subsituite due to chronicity of the wound and slow progression with traditional wound products. His smoking cessation was encouraged. He was however advised to follow-up with an varnish maker helper/primary care physician to optimally manage his diabetes. An A1c of 9.5 not beneficial for optimal wound healing. Increased protein intake recommended. Elevate lower extremities when seated in bed. His questions were answered and he was advised to call with any further questions or concerns. Follow-up in 1 week. This note was generated with [employer] dictation software. It may contain incorrect words, spelling, and punctuation that were not noted in checking the note before signing.
== END 2019-03-19 23:59 ==
LOC: WC 08:45
PROVIDERS: Visit Provider Internal Medicine
DX: E10.621 Type 1 diabetes mellitus with foot ulcer (principal); T87.89 Other complications of amputation stump; Y83.8 Other surgical procedures as the cause of abnormal reaction of the patient, or of later complication, without mention of misadventure at the time of the procedure; E10.29 Type 1 diabetes mellitus with other diabetic kidney complication; R80.9 Proteinuria, unspecified; M86.671 Other chronic osteomyelitis, right ankle and foot; E10.69 Type 1 diabetes mellitus with other specified complication; E10.65 Type 1 diabetes mellitus with hyperglycemia; Z79.4 Long term (current) use of insulin; L97.512 Non-pressure chronic ulcer of other part of right foot with fat layer exposed
CPT/HCPCS: 11042; 15275; Q4186

== ENCOUNTER 2019-04-17 14:30 | Outpatient (RCR) | payer OTHER, SELFPAY ==
[2019-03-20 01:42] VITALS: BP 135/79; PULSE 83; RESP 18; TEMP 36.9
[2019-03-21 11:20] VITALS: BP 143/94; PULSE 93; RESP 16; TEMP 36.4; BMI 25.7
--- NOTE | 2019-03-21 12:50 | PCM.WC.PN ---
(1) Type 1 diabetes mellitus with microalbuminuria, with long-term current use of insulin Status: Chronic Current Visit: Yes Code(s): E10.29 - Type 1 diabetes mellitus with other diabetic kidney complication; R80.9 - Proteinuria, unspecified Comment: BG readings higher than expected. Pt is ask to check BG in pairs. He appears to need more insulin at breakfast and lunch since he is off work and not active.. Ask to use correction scale aggressively. Report he ran out of strips but has now recieved his supply Discussed need to continue with this level of control in the post op state. (2) Diabetic foot ulcer Status: Chronic Current Visit: Yes Qualifiers: Diabetic foot ulcer location: toe Diabetes mellitus type: type 1 Laterality: right Non-pressure ulcer stage: with bone involvement without evidence of necrosis Qualified Code(s): E10.621 - Type 1 diabetes mellitus with foot ulcer; L97.516 - Non-pressure chronic ulcer of other part of right foot with bone involvement without evidence of necrosis Code(s): E11.621 - Type 2 diabetes mellitus with foot ulcer; L97.509 - Non-pressure chronic ulcer of other part of unspecified foot with unspecified severity Type of Wound Chief Complaint: Nonhealing surgical wound and diabetic foot ulcer. History of Wound: Mr. Diaz is a 43-year-old with history of poorly controlled diabetes mellitus status post several episodes of osteomyelitis/surgical debridement who was referred to the wound center by his retirement village manager due to nonhealing surgical wound and continued management of diabetic foot ulcer. Initially presented to his retirement village manager in February due to a new diabetic foot ulcer on his right second toe. He had been managed conservatively however was subsequently noted to have osteomyelitis and then had his first surgical debridement/partial amputation in December. There was no significant progress and per patient a bone culture showed osteomyelitis again for which he had another surgical management. He still had subsequent wound breakdown/nonclosure. He states that he has been on antibiotics for about a week however insists that he has been on no long-term antibiotics since December. He has been applying Neosporin and covering with gauze. He denies chills, fever or otherwise feeling of unwell. Last A1c was at 9.5. Progress of Wound: Stable. No new concerns at this time. Has had 2 applications of Epifix so far. - Physical Exam Vital Signs Temp Pulse Resp BP 97.5 F L 93 16 143/94 H 03/21/19 11:20 03/21/19 11:20 03/21/19 11:20 03/21/19 11:20 General: Alert, Oriented x3, Cooperative, No apparent distress HEENT: Atraumatic, Normocephalic Oral: Moist Mucosa Neck: Supple Lungs: Normal air movement Abdomen: Non Tender Extremities: No cyanosis Skin: Ulcer/ Wound Wound Measurements and Assessment WC - Nurse 1 - General Ulcer Measurement Start: 03/21/19 11:20 Freq: Status: Active Protocol: Activity Type Activity Date Activity User E-Sign Co-Sign Detail Recorded Client Recorded Date Recorded By Document 03/21/19 11:20 [facility] [id number] 03/21/19 11:26 [facility] 03/21/19 11:20 Wound Center Nurse 1 [Ulcer Assessment] #1 Right 2nd toe amputation -Combined with other wound No -Current Size (cm) - Length 0.9 -Current Size (cm) - Width 2.3 -Current Size (cm) - Depth 0.1 -Total Square Cm 2.07 -Photo Taken No -Epithelialization None Present -Tunneling No -Undermining/Tunneling No -Circular Undermining No -Exudate Amt Medium -Exudate Type Serosanguineous -Wound Margin Distinct, Outline Attached -Granulation Amt None Present (0 %) -Slough/Fibrin Yes -Necrosis Amt Large (67-100%) -Necrotic Tissue Type Adherent Slough -Texture (Radha-wound Skin Appearance) Assessed Scarring -Moisture (Radha-wound Skin Appearance Assessed ) -Color (Radha-wound Skin Appearance) Assessed Erythema -Temperature (Radha-wound Skin No Abnormality Appearance) (Pt Warm) -Tenderness on Palpation (Radha-wound No Skin Appearance) -Ulcer Cleansing Wound Cleanser -Foul Odor after Cleansing No -Anesthetic Used 5% Lidocaine Gel WC - Nurse 2 - General Ulcer CM Notes Start: 03/21/19 11:20 Freq: Status: Active Protocol: Activity Type Activity Date Activity User E-Sign Co-Sign Detail Recorded Client Recorded Date Recorded By Document 03/21/19 11:53 DV [id number] 03/21/19 11:59 DV 03/21/19 11:53 Wound Center Nurse 2 [Procedure/Treatment] -Time 11:56 -Correct Patient Yes -Correct Side, Site, Position Yes -Correct Procedure Yes -Procedure Performed Yes -Type of Procedure Debridement -Clinical Debridement Subcutaneous -Post Debridement Size (cm) - Length 0.3 -Post Debridement Size (cm) - Width 1.5 -Post Debridement Size (cm) - Depth 0.4 -Total Square Cm 0.45 -Wound/Ulcer Outcome Not Healed -Ulcer Cleansing Rinsed/ Irrigated with Saline -Foul Odor after Cleansing No -Bioengineered Tissue Yes -Type of bioengineered Tissue EPIFIX -Expiration Date 08/20/23 -Product Lot Number [id number] -Percent Used 100 -Bleeding Controlled with Pressure -Offloading Yes -Type of Offloading Camwalker -Treatment Response Procedure Tolerated Well [See Physician Procedure note for Specifics] Pain Scale: 0-10 Numeric [Pain] -Is Patient Pain Free? Yes Musculoskeletal: No Muscle Wasting Neurological: Cranial nerves II-XII grossly intact Psych/Mental Status: Normal Affect Debridement Note Post-Debridement Measurements/Treatment WC - Nurse 2 - General Ulcer CM Notes Start: 03/21/19 11:20 Freq: Status: Active Protocol: Activity Type Activity Date Activity User E-Sign Co-Sign Detail Recorded Client Recorded Date Recorded By Document 03/21/19 11:53 DV [id number] 03/21/19 11:59 DV 03/21/19 11:53 Wound Center Nurse 2 #1 Right 2nd toe amputation -Time 11:56 -Correct Patient Yes -Correct Side, Site, Position Yes -Correct Procedure Yes -Procedure Performed Yes -Type of Procedure Debridement -Clinical Debridement Subcutaneous -Post Debridement Size (cm) - Length 0.3 -Post Debridement Size (cm) - Width 1.5 -Post Debridement Size (cm) - Depth 0.4 -Total Square Cm 0.45 -Wound/Ulcer Outcome Not Healed -Ulcer Cleansing Rinsed/ Irrigated with Saline -Foul Odor after Cleansing No -Bioengineered Tissue Yes -Type of bioengineered Tissue EPIFIX -Expiration Date 08/20/23 -Product Lot Number [id number] -Percent Used 100 -Bleeding Controlled with Pressure -Offloading Yes -Type of Offloading Camwalker -Treatment Response Procedure Tolerated Well Pain Scale: 0-10 Numeric Is Patient Pain Free? Yes Wound debrided: Right second toe Wound Grade/Stage: Grade III Type of Debridement: Excisional debridement Anesthesia Used: 4% Lidocaine Solution Depth: Down to and including healthy tissue, in the subcutaneous layer Percentage of wound debrided: 100 Instrument Used: 3mm curette Tissue Removed: Slough and devitalized tissue Severity: Fat Layer Exposed Amount of bleeding with debridement: Mild Bleeding Controlled with: Pressure Patient tolerated procedure well Assessment/Plan Active Problems (Last Updated 01/09/19 @ 12:49 by Amanda Shahid) Diabetic foot ulcer (Chronic) Type 1 diabetes mellitus with microalbuminuria, with long-term current use of insulin (Chronic) BG readings higher than expected. Pt is ask to check BG in pairs. He appears to need more insulin at breakfast and lunch since he is off work and not active.. Ask to use correction scale aggressively. Report he ran out of strips but has now recieved his supply Discussed need to continue with this level of control in the post op state. Assessment: Nonhealing diabetic foot ulcer stage III status post surgical debridement/partial amputation also nonhealing. Hx of Osteomyelitis. Poorly controlled diabetes mellitus, insulin-dependent. History of recent tobacco cessation. Plan: Debridement done as documented above, procedure was well tolerated. 3rd application of Epifix done today using 100% of product. Moistened with Hydrogel, wound veil over top and secured with Steristrips. Leave in place x 1 week. Records received. Did have a Syme's amputation due to nonhealing chronic ulcer and osteomyelitis in November/December. Was discharged home on clindamycin 300 mg 3 times daily duration not stated. Osteomyelitis however was of the distal phalanx which was amputated. Had a revisional distal Symes amputation due to wound dehiscence on 30 January. I beleive he will continue to need a skin subsituite due to chronicity of the wound and slow progression with traditional wound products. His smoking cessation was encouraged. He was however advised to follow-up with an valve assembler/primary care physician to optimally manage his diabetes. An A1c of 9.5 not beneficial for optimal wound healing. Increased protein intake recommended. Elevate lower extremities when seated in bed. His questions were answered and he was advised to call with any further questions or concerns. Follow-up in 1 week. This note was generated with [employer] dictation software. It may contain incorrect words, spelling, and punctuation that were not noted in checking the note before signing.
--- NOTE | 2019-03-21 12:54 | PN.PCM_ITS ---
(1) Type 1 diabetes mellitus with microalbuminuria, with long-term current use of insulin Status: Chronic Current Visit: Yes Code(s): E10.29 - Type 1 diabetes mellitus with other diabetic kidney complication; R80.9 - Proteinuria, unspecified Comment: BG readings higher than expected. Pt is ask to check BG in pairs. He appears to need more insulin at breakfast and lunch since he is off work and not active.. Ask to use correction scale aggressively. Report he ran out of strips but has now recieved his supply Discussed need to continue with this level of control in the post op state. (2) Diabetic foot ulcer Status: Chronic Current Visit: Yes Qualifiers: Diabetic foot ulcer location: toe Diabetes mellitus type: type 1 Laterality: right Non-pressure ulcer stage: with bone involvement without evidence of necrosis Qualified Code(s): E10.621 - Type 1 diabetes mellitus with foot ulcer; L97.516 - Non-pressure chronic ulcer of other part of right foot with bone involvement without evidence of necrosis Code(s): E11.621 - Type 2 diabetes mellitus with foot ulcer; L97.509 - Non- pressure chronic ulcer of other part of unspecified foot with unspecified severity Type of Wound Chief Complaint: Nonhealing surgical wound and diabetic foot ulcer. History of Wound: Mr. Diaz is a 43-year-old with history of poorly controlled diabetes mellitus status post several episodes of osteomyelitis/surgical debridement who was referred to the wound center by his music cataloguer due to nonhealing surgical wound and continued management of diabetic foot ulcer. Initially presented to his music cataloguer in February due to a new diabetic foot ulcer on his right second toe. He had been managed conservatively however was subsequently noted to have osteomyelitis and then had his first surgical debridement/partial amputation in December. There was no significant progress and per patient a bone culture showed osteomyelitis again for which he had another surgical management. He still had subsequent wound breakdown/nonclosure. He states that he has been on antibiotics for about a week however insists that he has been on no long-term antibiotics since December. He has been applying Neosporin and covering with gauze. He denies chills, fever or otherwise feeling of unwell. Last A1c was at 9.5. Progress of Wound: Stable. No new concerns at this time. Has had 2 applications of Epifix so far. - Physical Exam Vital Signs Temp Pulse Resp BP 97.5 F L 93 16 143/94 H 03/21/19 11:20 03/21/19 11:20 03/21/19 11:20 03/21/19 11:20 General: Alert, Oriented x3, Cooperative, No apparent distress HEENT: Atraumatic, Normocephalic Oral: Moist Mucosa Neck: Supple Lungs: Normal air movement Abdomen: Non Tender Extremities: No cyanosis Skin: Ulcer/ Wound Wound Measurements and Assessment WC - Nurse 1 - General Ulcer Measurement Start: 03/21/19 11:20 Freq: Status: Active Protocol: Activity Type Activity Date Activity User E-Sign Co-Sign Detail Recorded Client Recorded Date Recorded By Document 03/21/19 11:20 [facility] [id number] 03/21/19 11:26 [facility] 03/21/19 11:20 Wound Center Nurse 1 [Ulcer Assessment] #1 Right 2nd toe amputation -Combined with other wound No -Current Size (cm) - Length 0.9 -Current Size (cm) - Width 2.3 -Current Size (cm) - Depth 0.1 -Total Square Cm 2.07 -Photo Taken No -Epithelialization None Present -Tunneling No -Undermining/Tunneling No -Circular Undermining No -Exudate Amt Medium -Exudate Type Serosanguineous -Wound Margin Distinct, Outline Attached -Granulation Amt None Present (0 %) -Slough/Fibrin Yes -Necrosis Amt Large (67-100%) -Necrotic Tissue Type Adherent Slough -Texture (Radha-wound Skin Appearance) Assessed Scarring -Moisture (Radha-wound Skin Appearance Assessed ) -Color (Radha-wound Skin Appearance) Assessed Erythema -Temperature (Radha-wound Skin No Abnormality Appearance) (Pt Warm) -Tenderness on Palpation (Radha-wound No Skin Appearance) -Ulcer Cleansing Wound Cleanser -Foul Odor after Cleansing No -Anesthetic Used 5% Lidocaine Gel WC - Nurse 2 - General Ulcer CM Notes Start: 03/21/19 11:20 Freq: Status: Active Protocol: Activity Type Activity Date Activity User E-Sign Co-Sign Detail Recorded Client Recorded Date Recorded By Document 03/21/19 11:53 DV [id number] 03/21/19 11:59 DV 03/21/19 11:53 Wound Center Nurse 2 [Procedure/Treatment] -Time 11:56 -Correct Patient Yes -Correct Side, Site, Position Yes -Correct Procedure Yes -Procedure Performed Yes -Type of Procedure Debridement -Clinical Debridement Subcutaneous -Post Debridement Size (cm) - Length 0.3 -Post Debridement Size (cm) - Width 1.5 -Post Debridement Size (cm) - Depth 0.4 -Total Square Cm 0.45 -Wound/Ulcer Outcome Not Healed -Ulcer Cleansing Rinsed/ Irrigated with Saline -Foul Odor after Cleansing No -Bioengineered Tissue Yes -Type of bioengineered Tissue EPIFIX -Expiration Date 08/20/23 -Product Lot Number [id number] -Percent Used 100 -Bleeding Controlled with Pressure -Offloading Yes -Type of Offloading Camwalker -Treatment Response Procedure Tolerated Well [See Physician Procedure note for Specifics] Pain Scale: 0-10 Numeric [Pain] -Is Patient Pain Free? Yes Musculoskeletal: No Muscle Wasting Neurological: Cranial nerves II-XII grossly intact Psych/Mental Status: Normal Affect Debridement Note Post-Debridement Measurements/Treatment WC - Nurse 2 - General Ulcer CM Notes Start: 03/21/19 11:20 Freq: Status: Active Protocol: Activity Type Activity Date Activity User E-Sign Co-Sign Detail Recorded Client Recorded Date Recorded By Document 03/21/19 11:53 DV [id number] 03/21/19 11:59 DV 03/21/19 11:53 Wound Center Nurse 2 #1 Right 2nd toe amputation -Time 11:56 -Correct Patient Yes -Correct Side, Site, Position Yes -Correct Procedure Yes -Procedure Performed Yes -Type of Procedure Debridement -Clinical Debridement Subcutaneous -Post Debridement Size (cm) - Length 0.3 -Post Debridement Size (cm) - Width 1.5 -Post Debridement Size (cm) - Depth 0.4 -Total Square Cm 0.45 -Wound/Ulcer Outcome Not Healed -Ulcer Cleansing Rinsed/ Irrigated with Saline -Foul Odor after Cleansing No -Bioengineered Tissue Yes -Type of bioengineered Tissue EPIFIX -Expiration Date 08/20/23 -Product Lot Number [id number] -Percent Used 100 -Bleeding Controlled with Pressure -Offloading Yes -Type of Offloading Camwalker -Treatment Response Procedure Tolerated Well Pain Scale: 0-10 Numeric Is Patient Pain Free? Yes Wound debrided: Right second toe Wound Grade/Stage: Grade III Type of Debridement: Excisional debridement Anesthesia Used: 4% Lidocaine Solution Depth: Down to and including healthy tissue, in the subcutaneous layer Percentage of wound debrided: 100 Instrument Used: 3mm curette Tissue Removed: Slough and devitalized tissue Severity: Fat Layer Exposed Amount of bleeding with debridement: Mild Bleeding Controlled with: Pressure Patient tolerated procedure well Assessment/Plan Active Problems (Last Updated 01/09/19 @ 12:49 by Amanda Shahid) Diabetic foot ulcer (Chronic) Type 1 diabetes mellitus with microalbuminuria, with long-term current use of insulin (Chronic) BG readings higher than expected. Pt is ask to check BG in pairs. He appears to need more insulin at breakfast and lunch since he is off work and not active.. Ask to use correction scale aggressively. Report he ran out of strips but has now recieved his supply Discussed need to continue with this level of control in the post op state. Assessment: Nonhealing diabetic foot ulcer stage III status post surgical debridement/partial amputation also nonhealing. Hx of Osteomyelitis. Poorly controlled diabetes mellitus, insulin-dependent. History of recent tobacco cessation. Plan: Debridement done as documented above, procedure was well tolerated. 3rd application of Epifix done today using 100% of product. Moistened with Hydrogel, wound veil over top and secured with Steristrips. Leave in place x 1 week. Records received. Did have a Syme's amputation due to nonhealing chronic ulcer and osteomyelitis in November/December. Was discharged home on clindamycin 300 mg 3 times daily duration not stated. Osteomyelitis however was of the distal phalanx which was amputated. Had a revisional distal Symes amputation due to wo und dehiscence on 30 January. I beleive he will continue to need a skin subsituite due to chronicity of the wound and slow progression with traditional wound products. His smoking cessation was encouraged. He was however advised to follow-up with an casing tester/primary care physician to optimally manage his diabetes. An A1c of 9.5 not beneficial for optimal wound healing. Increased protein intake recommended. Elevate lower extremities when seated in bed. His questions were answered and he was advised to call with any further questions or concerns. Follow-up in 1 week. This note was generated with [employer] dictation software. It may contain incorrect words, spelling, and punctuation that were not noted in checking the note before signing.
[2019-03-28 08:27] VITALS: BP 140/91; PULSE 85; RESP 16; TEMP 36.7; BMI 25.7
--- NOTE | 2019-03-28 09:02 | PCM.WC.PN ---
(1) Type 1 diabetes mellitus with microalbuminuria, with long-term current use of insulin Status: Chronic Current Visit: Yes Code(s): E10.29 - Type 1 diabetes mellitus with other diabetic kidney complication; R80.9 - Proteinuria, unspecified Comment: BG readings higher than expected. Pt is ask to check BG in pairs. He appears to need more insulin at breakfast and lunch since he is off work and not active.. Ask to use correction scale aggressively. Report he ran out of strips but has now recieved his supply Discussed need to continue with this level of control in the post op state. (2) Diabetic foot ulcer Status: Chronic Current Visit: Yes Qualifiers: Diabetic foot ulcer location: toe Diabetes mellitus type: type 1 Laterality: right Non-pressure ulcer stage: with bone involvement without evidence of necrosis Qualified Code(s): E10.621 - Type 1 diabetes mellitus with foot ulcer; L97.516 - Non-pressure chronic ulcer of other part of right foot with bone involvement without evidence of necrosis Code(s): E11.621 - Type 2 diabetes mellitus with foot ulcer; L97.509 - Non-pressure chronic ulcer of other part of unspecified foot with unspecified severity Type of Wound Chief Complaint: Nonhealing surgical wound and diabetic foot ulcer. History of Wound: Mr. Diaz is a 43-year-old with history of poorly controlled diabetes mellitus status post several episodes of osteomyelitis/surgical debridement who was referred to the wound center by his asset management coordinator due to nonhealing surgical wound and continued management of diabetic foot ulcer. Initially presented to his asset management coordinator in February due to a new diabetic foot ulcer on his right second toe. He had been managed conservatively however was subsequently noted to have osteomyelitis and then had his first surgical debridement/partial amputation in December. There was no significant progress and per patient a bone culture showed osteomyelitis again for which he had another surgical management. He still had subsequent wound breakdown/nonclosure. He states that he has been on antibiotics for about a week however insists that he has been on no long-term antibiotics since December. He has been applying Neosporin and covering with gauze. He denies chills, fever or otherwise feeling of unwell. Last A1c was at 9.5. Progress of Wound: Stable. No new concerns at this time. Has had 3 applications of Epifix so far. - Physical Exam Vital Signs Temp Pulse Resp BP 98.0 F 85 16 140/91 H 03/28/19 08:27 03/28/19 08:27 03/28/19 08:27 03/28/19 08:27 General: Alert, Oriented x3, Cooperative, No apparent distress HEENT: Atraumatic, Normocephalic Oral: Moist Mucosa Neck: Supple Extremities: No cyanosis Skin: Ulcer/ Wound Wound Measurements and Assessment WC - Nurse 1 - General Ulcer Measurement Start: 03/21/19 11:20 Freq: Status: Active Protocol: Activity Type Activity Date Activity User E-Sign Co-Sign Detail Recorded Client Recorded Date Recorded By Document 03/28/19 08:27 DV [id number] 03/28/19 08:29 DV 03/28/19 08:27 Wound Center Nurse 1 [Ulcer Assessment] #1 Right 2nd toe amputation -Combined with other wound No -Current Size (cm) - Length 2.2 -Current Size (cm) - Width 1.0 -Current Size (cm) - Depth 1.0 -Total Square Cm 2.20 -Photo Taken No -Epithelialization None Present -Tunneling No -Undermining/Tunneling No -Granulation Amt None Present (0 %) -Granulation Quality N/A -Slough/Fibrin Yes -Necrosis Amt Large (67-100%) -Necrotic Tissue Type Adherent Slough -Structure Exposed Bone -Texture (Radha-wound Skin Appearance) Assessed Scarring -Moisture (Radha-wound Skin Appearance Assessed ) Maceration -Color (Radha-wound Skin Appearance) No Abnormality Assessed -Temperature (Radha-wound Skin No Abnormality Appearance) (Pt Warm) -Tenderness on Palpation (Radha-wound No Skin Appearance) -Ulcer Cleansing soap -Foul Odor after Cleansing No -Anesthetic Used 4% Lidocaine Solution WC - Nurse 2 - General Ulcer CM Notes Start: 03/21/19 11:20 Freq: Status: Active Protocol: Activity Type Activity Date Activity User E-Sign Co-Sign Detail Recorded Client Recorded Date Recorded By Document 03/28/19 08:42 MW [id number] 03/28/19 08:54 MW 03/28/19 08:42 Wound Center Nurse 2 [Procedure/Treatment] -Time 08:42 -Correct Patient Yes -Correct Side, Site, Position Yes -Correct Procedure Yes -Procedure Performed Yes -Type of Procedure Debridement -Clinical Debridement Subcutaneous -Post Debridement Size (cm) - Length 0.5 -Post Debridement Size (cm) - Width 1.3 -Post Debridement Size (cm) - Depth 0.4 -Total Square Cm 0.65 -Wound/Ulcer Outcome Not Healed -Ulcer Cleansing Rinsed/ Irrigated with Saline -Foul Odor after Cleansing No -Bioengineered Tissue Yes -Type of bioengineered Tissue EPIFIX -Expiration Date 08/20/23 -Product Lot Number [id number] -Percent Used 100 -Saline Lot Number [id number] -Bleeding Controlled with Pressure -Offloading No -Treatment Response Procedure Tolerated Well [See Physician Procedure note for Specifics] Pain Scale: 0-10 Numeric [Pain] -Is Patient Pain Free? Yes Neurological: Cranial nerves II-XII grossly intact Psych/Mental Status: Normal Affect Debridement Note Post-Debridement Measurements/Treatment WC - Nurse 2 - General Ulcer CM Notes Start: 03/21/19 11:20 Freq: Status: Active Protocol: Activity Type Activity Date Activity User E-Sign Co-Sign Detail Recorded Client Recorded Date Recorded By Document 03/21/19 11:53 DV [id number] 03/21/19 11:59 DV Document 03/28/19 08:42 MW [id number] 03/28/19 08:54 MW 03/21/19 03/28/19 11:53 08:42 Wound Center Nurse 2 #1 Right 2nd toe amputation -Time 11:56 08:42 -Correct Patient Yes Yes -Correct Side, Site, Position Yes Yes -Correct Procedure Yes Yes -Procedure Performed Yes Yes -Type of Procedure Debridement Debridement -Clinical Debridement Subcutaneous Subcutaneous -Post Debridement Size (cm) - Length 0.3 0.5 -Post Debridement Size (cm) - Width 1.5 1.3 -Post Debridement Size (cm) - Depth 0.4 0.4 -Total Square Cm 0.45 0.65 -Wound/Ulcer Outcome Not Healed Not Healed -Ulcer Cleansing Rinsed/ Rinsed/ Irrigated with Irrigated with Saline Saline -Foul Odor after Cleansing No No -Bioengineered Tissue Yes Yes -Type of bioengineered Tissue EPIFIX EPIFIX -Expiration Date 08/20/23 08/20/23 -Product Lot Number [id number] -Percent Used 100 100 -Saline Lot Number [id number] -Bleeding Controlled with Pressure Pressure -Offloading Yes No -Type of Offloading Camwalker -Treatment Response Procedure Procedure Tolerated Well Tolerated Well Pain Scale: 0-10 Numeric Is Patient Pain Free? Yes Yes Wound debrided: Right second toe Wound Grade/Stage: Grade 3 Type of Debridement: Excisional debridement Anesthesia Used: 4% Lidocaine Solution Depth: Down to and including healthy tissue, in the subcutaneous layer Percentage of wound debrided: 100 Instrument Used: 5mm curette Tissue Removed: slough and devitalized tissue Severity: Fat Layer Exposed Amount of bleeding with debridement: Mild Bleeding Controlled with: Pressure Patient tolerated procedure well Assessment/Plan Active Problems (Last Updated 01/09/19 @ 12:49 by Amanda Shahid) Diabetic foot ulcer (Chronic) Type 1 diabetes mellitus with microalbuminuria, with long-term current use of insulin (Chronic) BG readings higher than expected. Pt is ask to check BG in pairs. He appears to need more insulin at breakfast and lunch since he is off work and not active.. Ask to use correction scale aggressively. Report he ran out of strips but has now recieved his supply Discussed need to continue with this level of control in the post op state. Assessment: Nonhealing diabetic foot ulcer stage III status post surgical debridement/partial amputation also nonhealing. Hx of Osteomyelitis. Poorly controlled diabetes mellitus, insulin-dependent. History of recent tobacco cessation. Plan: Debridement done as documented above, procedure was well tolerated. 4th application of Epifix done today using 100% of product. Moistened with saline, wound veil over top and secured with Steristrips. Leave in place x 1 week. Records received. Did have a Syme's amputation due to nonhealing chronic ulcer and osteomyelitis in . Was discharged home on clindamycin 300 mg 3 times daily duration not stated. Osteomyelitis however was of the distal phalanx which was amputated. Had a revisional distal Symes amputation due to wound dehiscence on 30 January. I beleive he will continue to need a skin subsituite due to chronicity of the wound and slow progression with traditional wound products. No significant improvement so far however, will continue epifix applications for now. His smoking cessation was encouraged. He was however advised to follow-up with an flame channeler/primary care physician to optimally manage his diabetes. An A1c of 9.5 not beneficial for optimal wound healing. Increased protein intake recommended. Elevate lower extremities when seated in bed. His questions were answered and he was advised to call with any further questions or concerns. Follow-up in 1 week. This note was generated with [employer] dictation software. It may contain incorrect words, spelling, and punctuation that were not noted in checking the note before signing.
--- NOTE | 2019-03-28 09:06 | PN.PCM_ITS ---
(1) Type 1 diabetes mellitus with microalbuminuria, with long-term current use of insulin Status: Chronic Current Visit: Yes Code(s): E10.29 - Type 1 diabetes mellitus with other diabetic kidney complication; R80.9 - Proteinuria, unspecified Comment: BG readings higher than expected. Pt is ask to check BG in pairs. He appears to need more insulin at breakfast and lunch since he is off work and not active.. Ask to use correction scale aggressively. Report he ran out of strips but has now recieved his supply Discussed need to continue with this level of control in the post op state. (2) Diabetic foot ulcer Status: Chronic Current Visit: Yes Qualifiers: Diabetic foot ulcer location: toe Diabetes mellitus type: type 1 Laterality: right Non-pressure ulcer stage: with bone involvement without evidence of necrosis Qualified Code(s): E10.621 - Type 1 diabetes mellitus with foot ulcer; L97.516 - Non-pressure chronic ulcer of other part of right foot with bone involvement without evidence of necrosis Code(s): E11.621 - Type 2 diabetes mellitus with foot ulcer; L97.509 - Non- pressure chronic ulcer of other part of unspecified foot with unspecified severity Type of Wound Chief Complaint: Nonhealing surgical wound and diabetic foot ulcer. History of Wound: Mr. Diaz is a 43-year-old with history of poorly controlled diabetes mellitus status post several episodes of osteomyelitis/surgical debridement who was referred to the wound center by his bank clerk due to nonhealing surgical wound and continued management of diabetic foot ulcer. Initially presented to his bank clerk in February due to a new diabetic foot ulcer on his right second toe. He had been managed conservatively however was subsequently noted to have osteomyelitis and then had his first surgical debridement/partial amputation in December. There was no significant progress and per patient a bone culture showed osteomyelitis again for which he had another surgical management. He still had subsequent wound breakdown/nonclosure. He states that he has been on antibiotics for about a week however insists that he has been on no long-term antibiotics since December. He has been applying Neosporin and covering with gauze. He denies chills, fever or otherwise feeling of unwell. Last A1c was at 9.5. Progress of Wound: Stable. No new concerns at this time. Has had 3 applications of Epifix so far. - Physical Exam Vital Signs Temp Pulse Resp BP 98.0 F 85 16 140/91 H 03/28/19 08:27 03/28/19 08:27 03/28/19 08:27 03/28/19 08:27 General: Alert, Oriented x3, Cooperative, No apparent distress HEENT: Atraumatic, Normocephalic Oral: Moist Mucosa Neck: Supple Extremities: No cyanosis Skin: Ulcer/ Wound Wound Measurements and Assessment WC - Nurse 1 - General Ulcer Measurement Start: 03/21/19 11:20 Freq: Status: Active Protocol: Activity Type Activity Date Activity User E-Sign Co-Sign Detail Recorded Client Recorded Date Recorded By Document 03/28/19 08:27 DV [id number] 03/28/19 08:29 DV 03/28/19 08:27 Wound Center Nurse 1 [Ulcer Assessment] #1 Right 2nd toe amputation -Combined with other wound No -Current Size (cm) - Length 2.2 -Current Size (cm) - Width 1.0 -Current Size (cm) - Depth 1.0 -Total Square Cm 2.20 -Photo Taken No -Epithelialization None Present -Tunneling No -Undermining/Tunneling No -Granulation Amt None Present (0 %) -Granulation Quality N/A -Slough/Fibrin Yes -Necrosis Amt Large (67-100%) -Necrotic Tissue Type Adherent Slough -Structure Exposed Bone -Texture (Radha-wound Skin Appearance) Assessed Scarring -Moisture (Radha-wound Skin Appearance Assessed ) Maceration -Color (Radha-wound Skin Appearance) No Abnormality Assessed -Temperature (Radha-wound Skin No Abnormality Appearance) (Pt Warm) -Tenderness on Palpation (Radha-wound No Skin Appearance) -Ulcer Cleansing soap -Foul Odor after Cleansing No -Anesthetic Used 4% Lidocaine Solution WC - Nurse 2 - General Ulcer CM Notes Start: 03/21/19 11:20 Freq: Status: Active Protocol: Activity Type Activity Date Activity User E-Sign Co-Sign Detail Recorded Client Recorded Date Recorded By Document 03/28/19 08:42 MW [id number] 03/28/19 08:54 MW 03/28/19 08:42 Wound Center Nurse 2 [Procedure/Treatment] -Time 08:42 -Correct Patient Yes -Correct Side, Site, Position Yes -Correct Procedure Yes -Procedure Performed Yes -Type of Procedure Debridement -Clinical Debridement Subcutaneous -Post Debridement Size (cm) - Length 0.5 -Post Debridement Size (cm) - Width 1.3 -Post Debridement Size (cm) - Depth 0.4 -Total Square Cm 0.65 -Wound/Ulcer Outcome Not Healed -Ulcer Cleansing Rinsed/ Irrigated with Saline -Foul Odor after Cleansing No -Bioengineered Tissue Yes -Type of bioengineered Tissue EPIFIX -Expiration Date 08/20/23 -Product Lot Number [id number] -Percent Used 100 -Saline Lot Number [id number] -Bleeding Controlled with Pressure -Offloading No -Treatment Response Procedure Tolerated Well [See Physician Procedure note for Specifics] Pain Scale: 0-10 Numeric [Pain] -Is Patient Pain Free? Yes Neurological: Cranial nerves II-XII grossly intact Psych/Mental Status: Normal Affect Debridement Note Post-Debridement Measurements/Treatment WC - Nurse 2 - General Ulcer CM Notes Start: 03/21/19 11:20 Freq: Status: Active Protocol: Activity Type Activity Date Activity User E-Sign Co-Sign Detail Recorded Client Recorded Date Recorded By Document 03/21/19 11:53 DV [id number] 03/21/19 11:59 DV Document 03/28/19 08:42 MW [id number] 03/28/19 08:54 MW 03/21/19 03/28/19 11:53 08:42 Wound Center Nurse 2 #1 Right 2nd toe amputation -Time 11:56 08:42 -Correct Patient Yes Yes -Correct Side, Site, Position Yes Yes -Correct Procedure Yes Yes -Procedure Performed Yes Yes -Type of Procedure Debridement Debridement -Clinical Debridement Subcutaneous Subcutaneous -Post Debridement Size (cm) - Length 0.3 0.5 -Post Debridement Size (cm) - Width 1.5 1.3 -Post Debridement Size (cm) - Depth 0.4 0.4 -Total Square Cm 0.45 0.65 -Wound/Ulcer Outcome Not Healed Not Healed -Ulcer Cleansing Rinsed/ Rinsed/ Irrigated with Irrigated with Saline Saline -Foul Odor after Cleansing No No -Bioengineered Tissue Yes Yes -Type of bioengineered Tissue EPIFIX EPIFIX -Expiration Date 08/20/23 08/20/23 -Product Lot Number [id number] -Percent Used 100 100 -Saline Lot Number [id number] -Bleeding Controlled with Pressure Pressure -Offloading Yes No -Type of Offloading Camwalker -Treatment Response Procedure Procedure Tolerated Well Tolerated Well Pain Scale: 0-10 Numeric Is Patient Pain Free? Yes Yes Wound debrided: Right second toe Wound Grade/Stage: Grade 3 Type of Debridement: Excisional debridement Anesthesia Used: 4% Lidocaine Solution Depth: Down to and including healthy tissue, in the subcutaneous layer Percentage of wound debrided: 100 Instrument Used: 5mm curette Tissue Removed: slough and devitalized tissue Severity: Fat Layer Exposed Amount of bleeding with debridement: Mild Bleeding Controlled with: Pressure Patient tolerated procedure well Assessment/Plan Active Problems (Last Updated 01/09/19 @ 12:49 by Amanda Shahid) Diabetic foot ulcer (Chronic) Type 1 diabetes mellitus with microalbuminuria, with long-term current use of insulin (Chronic) BG readings higher than expected. Pt is ask to check BG in pairs. He appears to need more insulin at breakfast and lunch since he is off work and not active.. Ask to use correction scale aggressively. Report he ran out of strips but has now recieved his supply Discussed need to continue with this level of control in the post op state. Assessment: Nonhealing diabetic foot ulcer stage III status post surgical debridement/partial amputation also nonhealing. Hx of Osteomyelitis. Poorly controlled diabetes mellitus, insulin-dependent. History of recent tobacco cessation. Plan: Debridement done as documented above, procedure was well tolerated. 4th application of Epifix done today using 100% of product. Moistened with saline, wound veil over top and secured with Steristrips. Leave in place x 1 week. Records received. Did have a Syme's amputation due to nonhealing chronic ulcer and osteomyelitis in . Was discharged home on clindamycin 300 mg 3 times daily duration not stated. Osteomyelitis however was of the distal phalanx which was amputated. Had a revisional distal Symes amputation due to wound dehiscence on 30 January. I beleive he will continue to need a skin subsituite due to chronicity of the wound and slow progression with traditional wound products. No significant improvement so far however, will continue epifix applications for now. His smoking cessation was encouraged. He was however advised to follow-up with an licensed clinical psychologist/primary care physician to optimally manage his diabetes. An A1c of 9.5 not beneficial for optimal wound healing. Increased protein intake recommended. Elevate lower extremities when seated in bed. His questions were answered and he was advised to call with any further questions or concerns. Follow-up in 1 week. This note was generated with [employer] dictation software. It may contain incorrect words, spelling, and punctuation that were not noted in checking the note before signing.
[2019-04-04 09:08] VITALS: BP 142/94; PULSE 96; RESP 16; TEMP 36.8; BMI 25.7
--- NOTE | 2019-04-04 12:46 | PCM.WC.PN ---
(1) Type 1 diabetes mellitus with microalbuminuria, with long-term current use of insulin Status: Chronic Current Visit: Yes Code(s): E10.29 - Type 1 diabetes mellitus with other diabetic kidney complication; R80.9 - Proteinuria, unspecified Comment: BG readings higher than expected. Pt is ask to check BG in pairs. He appears to need more insulin at breakfast and lunch since he is off work and not active.. Ask to use correction scale aggressively. Report he ran out of strips but has now recieved his supply Discussed need to continue with this level of control in the post op state. (2) Diabetic foot ulcer Status: Chronic Current Visit: Yes Qualifiers: Diabetic foot ulcer location: toe Diabetes mellitus type: type 1 Laterality: right Non-pressure ulcer stage: with bone involvement without evidence of necrosis Qualified Code(s): E10.621 - Type 1 diabetes mellitus with foot ulcer; L97.516 - Non-pressure chronic ulcer of other part of right foot with bone involvement without evidence of necrosis Code(s): E11.621 - Type 2 diabetes mellitus with foot ulcer; L97.509 - Non-pressure chronic ulcer of other part of unspecified foot with unspecified severity Type of Wound Chief Complaint: Nonhealing surgical wound and diabetic foot ulcer. History of Wound: Mr. Diaz is a 43-year-old with history of poorly controlled diabetes mellitus status post several episodes of osteomyelitis/surgical debridement who was referred to the wound center by his children librarian due to nonhealing surgical wound and continued management of diabetic foot ulcer. Initially presented to his children librarian in February due to a new diabetic foot ulcer on his right second toe. He had been managed conservatively however was subsequently noted to have osteomyelitis and then had his first surgical debridement/partial amputation in December. There was no significant progress and per patient a bone culture showed osteomyelitis again for which he had another surgical management. He still had subsequent wound breakdown/nonclosure. He states that he has been on antibiotics for about a week however insists that he has been on no long-term antibiotics since December. He has been applying Neosporin and covering with gauze. He denies chills, fever or otherwise feeling of unwell. Last A1c was at 9.5. Progress of Wound: Has had 4 applications of epi fix over. No significant change/improvement in the ulcer. - Physical Exam Vital Signs Temp Pulse Resp BP 98.2 F 96 16 142/94 H 04/04/19 09:08 04/04/19 09:08 04/04/19 09:08 04/04/19 09:08 General: Alert, Oriented x3, Cooperative, No apparent distress HEENT: Atraumatic, Normocephalic Oral: Moist Mucosa Neck: Supple Lungs: Normal air movement Abdomen: Non Tender Extremities: No cyanosis Skin: Ulcer/ Wound Wound Measurements and Assessment WC - Nurse 1 - General Ulcer Measurement Start: 03/21/19 11:20 Freq: Status: Active Protocol: Activity Type Activity Date Activity User E-Sign Co-Sign Detail Recorded Client Recorded Date Recorded By Document 04/04/19 09:08 MW [id number] 04/04/19 09:14 MW 04/04/19 09:08 Wound Center Nurse 1 [Ulcer Assessment] #1 Right 2nd toe amputation -Combined with other wound No -Current Size (cm) - Length 0.1 -Current Size (cm) - Width 0.1 -Current Size (cm) - Depth 0.1 -Total Square Cm 0.01 -Photo Taken No -Epithelialization None Present -Tunneling No -Undermining/Tunneling No -Circular Undermining No -Exudate Amt Small -Exudate Type Serous -Wound Margin Flat & Intact -Granulation Amt None Present (0 %) -Granulation Quality N/A -Slough/Fibrin Yes -Necrosis Amt Large (67-100%) -Necrotic Tissue Type Adherent Slough -Structure Exposed N/A -Texture (Radha-wound Skin Appearance) No Abnormality Assessed -Moisture (Radha-wound Skin Appearance No Abnormality ) Dry/Scaly -Color (Radha-wound Skin Appearance) No Abnormality Assessed -Temperature (Radha-wound Skin No Abnormality Appearance) (Pt Warm) -Tenderness on Palpation (Radha-wound No Skin Appearance) -Ulcer Cleansing soap and water -Foul Odor after Cleansing No -Anesthetic Used 5% Lidocaine Gel [Edema Assessment] -Lower Limb Edema Present No WC - Nurse 2 - General Ulcer CM Notes Start: 03/21/19 11:20 Freq: Status: Active Protocol: Activity Type Activity Date Activity User E-Sign Co-Sign Detail Recorded Client Recorded Date Recorded By Document 04/04/19 09:19 MW [id number] 04/04/19 09:26 MW 04/04/19 09:19 Wound Center Nurse 2 [Procedure/Treatment] #1 Right 2nd toe amputation -Time 09:19 -Correct Patient Yes -Correct Side, Site, Position Yes -Correct Procedure Yes -Procedure Performed Yes -Type of Procedure Debridement -Clinical Debridement Subcutaneous -Post Debridement Size (cm) - Length 0.3 -Post Debridement Size (cm) - Width 1.3 -Post Debridement Size (cm) - Depth 0.5 -Total Square Cm 0.39 -Wound/Ulcer Outcome Not Healed -Ulcer Cleansing Rinsed/ Irrigated with Saline -Foul Odor after Cleansing No -Bioengineered Tissue No -Bleeding Controlled with Pressure -Offloading No -Treatment Response Procedure Tolerated Well [See Physician Procedure note for Specifics] Pain Scale: 0-10 Numeric [Pain] -Is Patient Pain Free? Yes Musculoskeletal: No Muscle Wasting Neurological: Cranial nerves II-XII grossly intact Psych/Mental Status: Normal Affect Debridement Note Post-Debridement Measurements/Treatment WC - Nurse 2 - General Ulcer CM Notes Start: 03/21/19 11:20 Freq: Status: Active Protocol: Activity Type Activity Date Activity User E-Sign Co-Sign Detail Recorded Client Recorded Date Recorded By Document 03/21/19 11:53 DV [id number] 03/21/19 11:59 DV Document 03/28/19 08:42 MW [id number] 03/28/19 08:54 MW Document 04/04/19 09:19 MW [id number] 04/04/19 09:26 MW 03/21/19 03/28/19 04/04/19 11:53 08:42 09:19 Wound Center Nurse 2 #1 Right 2nd toe amputation -Time 11:56 08:42 09:19 -Correct Patient Yes Yes Yes -Correct Side, Site, Position Yes Yes Yes -Correct Procedure Yes Yes Yes -Procedure Performed Yes Yes Yes -Type of Procedure Debridement Debridement Debridement -Clinical Debridement Subcutaneous Subcutaneous Subcutaneous -Post Debridement Size (cm) - Length 0.3 0.5 0.3 -Post Debridement Size (cm) - Width 1.5 1.3 1.3 -Post Debridement Size (cm) - Depth 0.4 0.4 0.5 -Total Square Cm 0.45 0.65 0.39 -Wound/Ulcer Outcome Not Healed Not Healed Not Healed -Ulcer Cleansing Rinsed/ Rinsed/ Rinsed/ Irrigated with Irrigated with Irrigated with Saline Saline Saline -Foul Odor after Cleansing No No No -Bioengineered Tissue Yes Yes No -Type of bioengineered Tissue EPIFIX EPIFIX -Expiration Date 08/20/23 08/20/23 -Product Lot Number [id number] -Percent Used 100 100 -Saline Lot Number [id number] -Bleeding Controlled with Pressure Pressure Pressure -Offloading Yes No No -Type of Offloading Camwalker -Treatment Response Procedure Procedure Procedure Tolerated Well Tolerated Well Tolerated Well Pain Scale: 0-10 Numeric Is Patient Pain Free? Yes Yes Yes Wound debrided: Right second toe Wound Grade/Stage: Grade 3 Type of Debridement: Excisional debridement Anesthesia Used: 4% Lidocaine Solution, 5% Lidocaine Gel Depth: in the subcutaneous layer Percentage of wound debrided: 100 Instrument Used: 3mm curette Tissue Removed: Slough and devitalized tissue Severity: Fat Layer Exposed Amount of bleeding with debridement: Mild Bleeding Controlled with: Pressure Patient tolerated procedure well Assessment/Plan Active Problems (Last Updated 01/09/19 @ 12:49 by Amanda Shahid) Diabetic foot ulcer (Chronic) Type 1 diabetes mellitus with microalbuminuria, with long-term current use of insulin (Chronic) BG readings higher than expected. Pt is ask to check BG in pairs. He appears to need more insulin at breakfast and lunch since he is off work and not active.. Ask to use correction scale aggressively. Report he ran out of strips but has now recieved his supply Discussed need to continue with this level of control in the post op state. Assessment: Nonhealing diabetic foot ulcer stage III status post surgical debridement/partial amputation also nonhealing. Hx of Osteomyelitis. Poorly controlled diabetes mellitus, insulin-dependent. History of recent tobacco cessation. Plan: Debridement done as documented above, procedure was well tolerated. No significant improvement after 4 applications of epi fix. Bone still exposed. Did have a Syme's amputation due to nonhealing chronic ulcer and osteomyelitis in . Was discharged home on clindamycin 300 mg 3 times daily duration not stated. Osteomyelitis however was of the distal phalanx which was amputated. Had a revisional distal Symes amputation due to wound dehiscence on 30 January. I beleive he will continue to need a skin subsituite due to chronicity of the wound and slow progression with traditional wound products. Due to no significant improvement, will hold off further epi fix applications. Refer to podiatry for second opinion. His smoking cessation was encouraged. He was however advised to follow-up with an pairer odds/primary care physician to optimally manage his diabetes. An A1c of 9.5 not beneficial for optimal wound healing. Increased protein intake recommended. Elevate lower extremities when seated in bed. His questions were answered and he was advised to call with any further questions or concerns. Follow-up in [address] Choudhary. This note was generated with [employer] dictation software. It may contain incorrect words, spelling, and punctuation that were not noted in checking the note before signing.
--- NOTE | 2019-04-04 12:51 | PN.PCM_ITS ---
(1) Type 1 diabetes mellitus with microalbuminuria, with long-term current use of insulin Status: Chronic Current Visit: Yes Code(s): E10.29 - Type 1 diabetes mellitus with other diabetic kidney complication; R80.9 - Proteinuria, unspecified Comment: BG readings higher than expected. Pt is ask to check BG in pairs. He appears to need more insulin at breakfast and lunch since he is off work and not active.. Ask to use correction scale aggressively. Report he ran out of strips but has now recieved his supply Discussed need to continue with this level of control in the post op state. (2) Diabetic foot ulcer Status: Chronic Current Visit: Yes Qualifiers: Diabetic foot ulcer location: toe Diabetes mellitus type: type 1 Laterality: right Non-pressure ulcer stage: with bone involvement without evidence of necrosis Qualified Code(s): E10.621 - Type 1 diabetes mellitus with foot ulcer; L97.516 - Non-pressure chronic ulcer of other part of right foot with bone involvement without evidence of necrosis Code(s): E11.621 - Type 2 diabetes mellitus with foot ulcer; L97.509 - Non- pressure chronic ulcer of other part of unspecified foot with unspecified severity Type of Wound Chief Complaint: Nonhealing surgical wound and diabetic foot ulcer. History of Wound: Mr. Diaz is a 43-year-old with history of poorly controlled diabetes mellitus status post several episodes of osteomyelitis/surgical debridement who was referred to the wound center by his state auditor due to nonhealing surgical wound and continued management of diabetic foot ulcer. Initially presented to his state auditor in February due to a new diabetic foot ulcer on his right second toe. He had been managed conservatively however was subsequently noted to have osteomyelitis and then had his first surgical debridement/partial amputation in December. There was no significant progress and per patient a bone culture showed osteomyelitis again for which he had another surgical management. He still had subsequent wound breakdown/nonclosure. He states that he has been on antibiotics for about a week however insists that he has been on no long-term antibiotics since December. He has been applying Neosporin and covering with gauze. He denies chills, fever or otherwise feeling of unwell. Last A1c was at 9.5. Progress of Wound: Has had 4 applications of epi fix over. No significant change/improvement in the ulcer. - Physical Exam Vital Signs Temp Pulse Resp BP 98.2 F 96 16 142/94 H 04/04/19 09:08 04/04/19 09:08 04/04/19 09:08 04/04/19 09:08 General: Alert, Oriented x3, Cooperative, No apparent distress HEENT: Atraumatic, Normocephalic Oral: Moist Mucosa Neck: Supple Lungs: Normal air movement Abdomen: Non Tender Extremities: No cyanosis Skin: Ulcer/ Wound Wound Measurements and Assessment WC - Nurse 1 - General Ulcer Measurement Start: 03/21/19 11:20 Freq: Status: Active Protocol: Activity Type Activity Date Activity User E-Sign Co-Sign Detail Recorded Client Recorded Date Recorded By Document 04/04/19 09:08 MW [id number] 04/04/19 09:14 MW 04/04/19 09:08 Wound Center Nurse 1 [Ulcer Assessment] #1 Right 2nd toe amputation -Combined with other wound No -Current Size (cm) - Length 0.1 -Current Size (cm) - Width 0.1 -Current Size (cm) - Depth 0.1 -Total Square Cm 0.01 -Photo Taken No -Epithelialization None Present -Tunneling No -Undermining/Tunneling No -Circular Undermining No -Exudate Amt Small -Exudate Type Serous -Wound Margin Flat & Intact -Granulation Amt None Present (0 %) -Granulation Quality N/A -Slough/Fibrin Yes -Necrosis Amt Large (67-100%) -Necrotic Tissue Type Adherent Slough -Structure Exposed N/A -Texture (Radha-wound Skin Appearance) No Abnormality Assessed -Moisture (Radha-wound Skin Appearance No Abnormality ) Dry/Scaly -Color (Radha-wound Skin Appearance) No Abnormality Assessed -Temperature (Radha-wound Skin No Abnormality Appearance) (Pt Warm) -Tenderness on Palpation (Radha-wound No Skin Appearance) -Ulcer Cleansing soap and water -Foul Odor after Cleansing No -Anesthetic Used 5% Lidocaine Gel [Edema Assessment] -Lower Limb Edema Present No WC - Nurse 2 - General Ulcer CM Notes Start: 03/21/19 11:20 Freq: Status: Active Protocol: Activity Type Activity Date Activity User E-Sign Co-Sign Detail Recorded Client Recorded Date Recorded By Document 04/04/19 09:19 MW [id number] 04/04/19 09:26 MW 04/04/19 09:19 Wound Center Nurse 2 [Procedure/Treatment] #1 Right 2nd toe amputation -Time 09:19 -Correct Patient Yes -Correct Side, Site, Position Yes -Correct Procedure Yes -Procedure Performed Yes -Type of Procedure Debridement -Clinical Debridement Subcutaneous -Post Debridement Size (cm) - Length 0.3 -Post Debridement Size (cm) - Width 1.3 -Post Debridement Size (cm) - Depth 0.5 -Total Square Cm 0.39 -Wound/Ulcer Outcome Not Healed -Ulcer Cleansing Rinsed/ Irrigated with Saline -Foul Odor after Cleansing No -Bioengineered Tissue No -Bleeding Controlled with Pressure -Offloading No -Treatment Response Procedure Tolerated Well [See Physician Procedure note for Specifics] Pain Scale: 0-10 Numeric [Pain] -Is Patient Pain Free? Yes Musculoskeletal: No Muscle Wasting Neurological: Cranial nerves II-XII grossly intact Psych/Mental Status: Normal Affect Debridement Note Post-Debridement Measurements/Treatment WC - Nurse 2 - General Ulcer CM Notes Start: 03/21/19 11:20 Freq: Status: Active Protocol: Activity Type Activity Date Activity User E-Sign Co-Sign Detail Recorded Client Recorded Date Recorded By Document 03/21/19 11:53 DV [id number] 03/21/19 11:59 DV Document 03/28/19 08:42 MW [id number] 03/28/19 08:54 MW Document 04/04/19 09:19 MW [id number] 04/04/19 09:26 MW 03/21/19 03/28/19 04/04/19 11:53 08:42 09:19 Wound Center Nurse 2 #1 Right 2nd toe amputation -Time 11:56 08:42 09:19 -Correct Patient Yes Yes Yes -Correct Side, Site, Position Yes Yes Yes -Correct Procedure Yes Yes Yes -Procedure Performed Yes Yes Yes -Type of Procedure Debridement Debridement Debridement -Clinical Debridement Subcutaneous Subcutaneous Subcutaneous -Post Debridement Size (cm) - Length 0.3 0.5 0.3 -Post Debridement Size (cm) - Width 1.5 1.3 1.3 -Post Debridement Size (cm) - Depth 0.4 0.4 0.5 -Total Square Cm 0.45 0.65 0.39 -Wound/Ulcer Outcome Not Healed Not Healed Not Healed -Ulcer Cleansing Rinsed/ Rinsed/ Rinsed/ Irrigated with Irrigated with Irrigated with Saline Saline Saline -Foul Odor after Cleansing No No No -Bioengineered Tissue Yes Yes No -Type of bioengineered Tissue EPIFIX EPIFIX -Expiration Date 08/20/23 08/20/23 -Product Lot Number [id number] -Percent Used 100 100 -Saline Lot Number [id number] -Bleeding Controlled with Pressure Pressure Pressure -Offloading Yes No No -Type of Offloading Camwalker -Treatment Response Procedure Procedure Procedure Tolerated Well Tolerated Well Tolerated Well Pain Scale: 0-10 Numeric Is Patient Pain Free? Yes Yes Yes Wound debrided: Right second toe Wound Grade/Stage: Grade 3 Type of Debridement: Excisional debridement Anesthesia Used: 4% Lidocaine Solution, 5% Lidocaine Gel Depth: in the subcutaneous layer Percentage of wound debrided: 100 Instrument Used: 3mm curette Tissue Removed: Slough and devitalized tissue Severity: Fat Layer Exposed Amount of bleeding with debridement: Mild Bleeding Controlled with: Pressure Patient tolerated procedure well Assessment/Plan Active Problems (Last Updated 01/09/19 @ 12:49 by Amanda Shahid) Diabetic foot ulcer (Chronic) Type 1 diabetes mellitus with microalbuminuria, with long-term current use of insulin (Chronic) BG readings higher than expected. Pt is ask to check BG in pairs. He appears to need more insulin at breakfast and lunch since he is off work and not active.. Ask to use correction scale aggressively. Report he ran out of strips but has now recieved his supply Discussed need to continue with this level of control in the post op state. Assessment: Nonhealing diabetic foot ulcer stage III status post surgical debridement/partial amputation also nonhealing. Hx of Osteomyelitis. Poorly controlled diabetes mellitus, insulin-dependent. History of recent tobacco cessation. Plan: Debridement done as documented above, procedure was well tolerated. No significant improvement after 4 applications of epi fix. Bone still exposed. Did have a Syme's amputation due to nonhealing chronic ulcer and osteomyelitis in . Was discharged home on clindamycin 300 mg 3 times daily duration not stated. Osteomyelitis however was of the distal phalanx which was amputated. Had a revisional distal Symes amputation due to wound dehiscence on 30 January. I beleive he will continue to need a skin subsituite due to chronicity of the wound and slow progression with traditional wound products. Due to no significant improvement, will hold off further epi fix applications. Refer to podiatry for second opinion. His smoking cessation was encouraged. He was however advised to follow-up with an aircraft refueller/primary care physician to optimally manage his diabetes. An A1c of 9.5 not beneficial for optimal wound healing. Increased protein intake recommended. Elevate lower extremities when seated in bed. His questions were answered and he was advised to call with any further questions or concerns. Follow-up in [address] Choudhary. This note was generated with [employer] dictation software. It may contain incorrect words, spelling, and punctuation that were not noted in checking the note before signing.
[2019-04-10 14:05] VITALS: BP 151/92; PULSE 103; RESP 16; TEMP 36.3; BMI 25.7
--- NOTE | 2019-04-10 15:57 | PCM.WC.PN ---
(1) Ulcer of right foot with fat layer exposed Status: Chronic Current Visit: Yes Code(s): L97.512 - Non-pressure chronic ulcer of other part of right foot with fat layer exposed (2) Delayed wound healing Status: Chronic Current Visit: Yes Code(s): T14.8XXD - Other injury of unspecified body region, subsequent encounter (3) Malnutrition Status: Chronic Current Visit: Yes Code(s): E46 - Unspecified protein-calorie malnutrition (4) Osteomyelitis Status: Chronic Current Visit: Yes Code(s): M86.9 - Osteomyelitis, unspecified Comment: Right second toe (5) Type 1 diabetes mellitus with microalbuminuria, with long-term current use of insulin Status: Chronic Current Visit: Yes Code(s): E10.29 - Type 1 diabetes mellitus with other diabetic kidney complication; R80.9 - Proteinuria, unspecified Comment: BG readings higher than expected. Pt is ask to check BG in pairs. He appears to need more insulin at breakfast and lunch since he is off work and not active.. Ask to use correction scale aggressively. Report he ran out of strips but has now recieved his supply Discussed need to continue with this level of control in the post op state. Type of Wound Date of Service: 04/10/19 Chief Complaint: Nonhealing surgical wound and diabetic foot ulcer. History of Wound: Mr. Diaz is a 43-year-old with history of poorly controlled diabetes mellitus status post several episodes of osteomyelitis/surgical debridement who was referred to the wound center by his forest logistics manager due to nonhealing surgical wound and continued management of diabetic foot ulcer. Initially presented to his forest logistics manager in February due to a new diabetic foot ulcer on his right second toe. He has been managed conservatively and also surgically with a digital signs amputation. He has recently been managed with advanced wound care product application offloading with Dr. Lewsi. He denies current antibiotic use. He denies chills, fever or otherwise feeling of unwell. He relates he has very poor blood sugar management. He is here for a potential surgical referral. Progress of Wound: No improvement - Physical Exam Vital Signs Temp Pulse Resp BP 97.3 F L 103 H 16 151/92 H 04/10/19 14:05 04/10/19 14:05 04/10/19 14:05 04/10/19 14:05 General: Alert, Oriented x3, Cooperative Extremities: No cyanosis, Capillary Refill Less than 3 Seconds, No Calf Tenderness, Diminished Peripheral Pulses, Edema - Mild, Peripheral Pulses Normal Skin: Ulcer/ Wound - No purulence, erythema hamstring, odor, or infection. His distal right second toe ulcer site does have positive probe to bone which feels firm. The peripheral skin is hairless and atrophic to the foot. No interdigital maceration or devonte necrosis Wound Measurements and Assessment WC - Nurse 1 - General Ulcer Measurement Start: 03/21/19 11:20 Freq: Status: Active Protocol: Activity Type Activity Date Activity User E-Sign Co-Sign Detail Recorded Client Recorded Date Recorded By Document 04/10/19 14:05 [facility] [id number] 04/10/19 14:13 [facility] 04/10/19 14:05 Wound Center Nurse 1 [Ulcer Assessment] #1 Right 2nd toe amputation -Combined with other wound No -Current Size (cm) - Length 1 -Current Size (cm) - Width 0.1 -Current Size (cm) - Depth 0.5 -Total Square Cm 0.1 -Date of Last Picture (Recall this 04/10/19 field) -Photo Taken Yes -Epithelialization None Present -Tunneling No -Undermining/Tunneling No -Circular Undermining No -Exudate Amt Small -Exudate Type Serosanguineous -Wound Margin Flat & Intact -Granulation Amt Small (1-33%) -Granulation Quality [place] -Slough/Fibrin Yes -Necrosis Amt Large (67-100%) -Necrotic Tissue Type Adherent Slough -Texture (Radha-wound Skin Appearance) Assessed Callus Scarring -Moisture (Radha-wound Skin Appearance Assessed ) Dry/Scaly -Color (Radha-wound Skin Appearance) Assessed -Temperature (Radha-wound Skin No Abnormality Appearance) (Pt Warm) -Tenderness on Palpation (Radha-wound No Skin Appearance) -Ulcer Cleansing Wound Cleanser -Foul Odor after Cleansing No -Anesthetic Used 5% Lidocaine Gel WC - Nurse 2 - General Ulcer CM Notes Start: 03/21/19 11:20 Freq: Status: Active Protocol: Activity Type Activity Date Activity User E-Sign Co-Sign Detail Recorded Client Recorded Date Recorded By Document 04/10/19 15:05 AN [id number] 04/10/19 15:09 AN 04/10/19 15:05 Wound Center Nurse 2 [Procedure/Treatment] -Time 15:05 -Correct Patient Yes -Correct Side, Site, Position Yes -Correct Procedure Yes -Procedure Performed Yes -Type of Procedure Debridement -Clinical Debridement Subcutaneous -Post Debridement Size (cm) - Length 1.1 -Post Debridement Size (cm) - Width 0.2 -Post Debridement Size (cm) - Depth 0.5 -Total Square Cm 0.22 -Wound/Ulcer Outcome Amputation -Ulcer Cleansing Rinsed/ Irrigated with Saline -Foul Odor after Cleansing No -Bioengineered Tissue No -Bleeding Controlled with Pressure -Type of Offloading Surgical Shoe -Treatment Response Procedure Tolerated Well [See Physician Procedure note for Specifics] Pain Scale: 0-10 Numeric [Pain] -Is Patient Pain Free? Yes Musculoskeletal: No Tenderness to Palpation of Joints or Extremities, Muscle Wasting, - - Fairly rectus second toe Neurological: - - Lack of epicritic sensation to light touch consistent with neuropathy Psych/Mental Status: Normal Affect, Appropriate Debridement Note Post-Debridement Measurements/Treatment WC - Nurse 2 - General Ulcer CM Notes Start: 03/21/19 11:20 Freq: Status: Active Protocol: Activity Type Activity Date Activity User E-Sign Co-Sign Detail Recorded Client Recorded Date Recorded By Document 03/21/19 11:53 DV [id number] 03/21/19 11:59 DV Document 03/28/19 08:42 MW [id number] 03/28/19 08:54 MW Document 04/04/19 09:19 MW [id number] 04/04/19 09:26 MW Document 04/10/19 15:05 AN [id number] 04/10/19 15:09 AN 03/21/19 03/28/19 04/04/19 11:53 08:42 09:19 Wound Center Nurse 2 #1 Right 2nd toe amputation -Time 11:56 08:42 09:19 -Correct Patient Yes Yes Yes -Correct Side, Site, Position Yes Yes Yes -Correct Procedure Yes Yes Yes -Procedure Performed Yes Yes Yes -Type of Procedure Debridement Debridement Debridement -Clinical Debridement Subcutaneous Subcutaneous Subcutaneous -Post Debridement Size (cm) - Length 0.3 0.5 0.3 -Post Debridement Size (cm) - Width 1.5 1.3 1.3 -Post Debridement Size (cm) - Depth 0.4 0.4 0.5 -Total Square Cm 0.45 0.65 0.39 -Wound/Ulcer Outcome Not Healed Not Healed Not Healed -Ulcer Cleansing Rinsed/ Rinsed/ Rinsed/ Irrigated with Irrigated with Irrigated with Saline Saline Saline -Foul Odor after Cleansing No No No -Bioengineered Tissue Yes Yes No -Type of bioengineered Tissue EPIFIX EPIFIX -Expiration Date 08/20/23 08/20/23 -Product Lot Number [id number] -Percent Used 100 100 -Saline Lot Number [id number] -Bleeding Controlled with Pressure Pressure Pressure -Offloading Yes No No -Type of Offloading Camwalker -Treatment Response Procedure Procedure Procedure Tolerated Well Tolerated Well Tolerated Well Pain Scale: 0-10 Numeric Is Patient Pain Free? Yes Yes Yes 04/10/19 15:05 Wound Center Nurse 2 #1 Right 2nd toe amputation -Time 15:05 -Correct Patient Yes -Correct Side, Site, Position Yes -Correct Procedure Yes -Procedure Performed Yes -Type of Procedure Debridement -Clinical Debridement Subcutaneous -Post Debridement Size (cm) - Length 1.1 -Post Debridement Size (cm) - Width 0.2 -Post Debridement Size (cm) - Depth 0.5 -Total Square Cm 0.22 -Wound/Ulcer Outcome Amputation -Ulcer Cleansing Rinsed/ Irrigated with Saline -Foul Odor after Cleansing No -Bioengineered Tissue No -Type of bioengineered Tissue -Expiration Date -Product Lot Number -Percent Used -Saline Lot Number -Bleeding Controlled with Pressure -Offloading -Type of Offloading Surgical Shoe -Treatment Response Procedure Tolerated Well Pain Scale: 0-10 Numeric Is Patient Pain Free? Yes Wound debrided: distal second toe Laterality: Right Wound Grade/Stage: grade 3 Type of Debridement: Excisional debridement Anesthesia Used: 5% Lidocaine Gel Depth: in the subcutaneous layer Percentage of wound debrided: 100 Instrument Used: #15 blade Tissue Removed: fibrous, devitalized subcutaneous, biofilm, slough Severity: Fat Layer Exposed Amount of bleeding with debridement: Mild Bleeding Controlled with: Pressure Patient tolerated procedure well Assessment/Plan Active Problems (Last Updated 01/09/19 @ 12:49 by Amanda Shahid) Diabetic foot ulcer (Chronic) Osteomyelitis (Chronic) Right second toe Ulcer of right foot with fat layer exposed (Chronic) Delayed wound healing (Chronic) Malnutrition (Chronic) Type 1 diabetes mellitus with microalbuminuria, with long-term current use of insulin (Chronic) BG readings higher than expected. Pt is ask to check BG in pairs. He appears to need more insulin at breakfast and lunch since he is off work and not active.. Ask to use correction scale aggressively. Report he ran out of strips but has now recieved his supply Discussed need to continue with this level of control in the post op state. Assessment: Nonhealing diabetic foot ulcer grade 3 status. Hx of Osteomyelitis. Poorly controlled diabetes mellitus, insulin-dependent with neuropathy. History of recent tobacco cessation. Delayed healing. Suspected malnutrition on Plan: I reviewed and discussed his case including chart review. This case was also discussed with Dr. Lewis. debridement done as documented above, procedure was well tolerated. No significant improvement after 4 applications of epi fix. Bone still exposed. 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 He also completed previous antibiotic courses. He was however advised to follow-up with an dean of men/primary care physician to optimally manage his diabetes. I recommend a partial second toe amputation. Prior to proceeding I recommend updating his x-rays, labs (cbc, cmp, esr, crp, hemoglobin A1C), and noninvasive vascular studies. Orders were provided. In the meantime, surgical scheduling process will be initiated. It is noted he does not have a formal PCP the indication, planned procedure, possible benefits, risks, complications, and anticipated healing time is were discussed in detail with patient. No guarantees were made. He elects to proceed and surgical consents will be signed closer to the date of scheduled surgery and pending diagnostic data review. Increased protein intake recommended. A prescription for Salvador was provided. To follow-up with the wound healing center in 1 week or call sooner if there are any clinical or systemic signs of systemic infection. I answered all his questions. The referral is greatly appreciated in this case will be further discussed with Dr. Lewis.
--- NOTE | 2019-04-10 16:00 | RAD_ITS ---
STUDY: X-RAY RIGHT FOOT, TOE REASON FOR EXAM: Male, 43 years old. ulcer second toe TECHNIQUE: 3 view(s) of the toe were obtained. COMPARISON: None. FINDINGS: There is amputation of the distal half of the proximal phalanges of the big toe. There are no acute fractures or dislocations. There is significant soft tissue swelling over the second toe with small areas of erosions in the distal end of the distal phalanx. RAD/Toe(s) Min 2 Views IMPRESSION: Swelling of the second toe with a suspicion of an early osteomyelitic changes involving the distal margin of the distal phalanx of the second toe Electronically Signed: Xavi Poe MD at 7:37 EDT Tel , Service support ,
[2019-04-10 17:16] LABS: ALB/GLOB Ratio 1.1 RATIO (0.9-2.4); AST(SGOT) 20 U/L (15-37); Alanine Aminotransfer ALT/SGPT 49 U/L (16-61); Albumin, Serum 3.5 g/dL (3.2-5.0); Alkaline Phosphatase 118 U/L (45-117); Anion Gap 6 (5-15); BUN 25 mg/dL (7-18); BUN/Creat Ratio 17.1 RATIO (10-20); CRP 5.88 mg/L (0.0-3.0); Calcium,Total 9.1 mg/dL (8.5-10.1); Chloride 101 mmol/L (98-107); Creatinine, Serum 1.46 mg/dL (0.70-1.30); EST Glomerular Filtration Rate 56 mL/min (>60); Est Glom Filt Rate - Afr Amer 67 mL/min (>60); Estimated Creatinine Clearance 75.07 ml/min; Globulin 3.3 g/dL (2.2-4.2); Glucose 286 mg/dL (74-106); Potassium 4.1 mmol/L (3.5-5.1); Protein, Total 6.8 g/dL (6.4-8.2); Sodium Level 137 mmol/L (136-145)
[2019-04-10 17:20] LABS: Hemoglobin A1c 10.5 % (4.2-6.3)
[2019-04-10 17:37] LABS: Absolute Lymphocyte Count 2.22 X10^3/ul (0.83-4.51); Absolute Neutrophil Count 4.7 X10^3/uL (2.0-7.7); Basophil# 0.03 X10^3/uL; Basophil% 0.4 % (0-1); Eosinophil# 0.41 X10^3/uL; Eosinophils% 5.2 % (0-5); Hematocrit 42.7 % (40-54); Lymphocyte # 2.22 X10^3/ul (4.0); Mean Corp Hgb Conc 35.1 g/gl (32-36); Mean Corpuscular Hgb 28.3 pg (27.0-32.0); Mean Corpuscular Volume 80.6 fL (80-94); Mean Platelet Vol. 10.2 fl (6.2-12.0); Monocyte# 0.56 X10^3/uL; Monocyte% 7.1 % (0-10); Neutrophil % 59.2 % (47-70); Platelet Count 231 K/mm3 (150-450); RBC Distribution Width CV 13.1 % (11.6-14.6); RBC Distribution Width SD 38.1 fl (35.1-43.9); White Blood Count 7.9 K/mm3 (4.4-11.0)
[2019-04-10 17:44] LABS: POSITIVE COUNT NO; POSITIVE DIFFERENTIAL NO; POSITIVE MORPHOLOGY NO
[2019-04-10 18:02] LABS: Erythrocyte Sedimentation Rate 7 mm/hr (0-15)
[2019-04-17 14:39] VITALS: BP 154/89; PULSE 95; RESP 16; TEMP 35.5; BMI 25.7
--- NOTE | 2019-04-17 16:39 | PN.PCM_ITS ---
(1) Ulcer of right foot with fat layer exposed Status: Chronic Current Visit: Yes Code(s): L97.512 - Non-pressure chronic ulcer of other part of right foot with fat layer exposed (2) Delayed wound healing Status: Chronic Current Visit: Yes Code(s): T14.8XXD - Other injury of unspecified body region, subsequent encounter (3) Malnutrition Status: Chronic Current Visit: Yes Code(s): E46 - Unspecified protein- calorie malnutrition (4) Osteomyelitis Status: Suspected Current Visit: Yes Code(s): M86.9 - Osteomyelitis, unspecified Comment: Right second toe (5) Type 1 diabetes mellitus with microalbuminuria, with long-term current use of insulin Status: Chronic Current Visit: Yes Code(s): E10.29 - Type 1 diabetes mellitus with other diabetic kidney complication; R80.9 - Proteinuria, unspecified Comment: BG readings higher than expected. Pt is ask to check BG in pairs. He appears to need more insulin at breakfast and lunch since he is off work and not active.. Ask to use correction scale aggressively. Report he ran out of strips but has now recieved his supply Discussed need to continue with this level of control in the post op state. Type of Wound Date of Service: 04/17/19 Chief Complaint: Nonhealing surgical wound and diabetic foot ulcer. History of Wound: Mr. Diaz is a 43-year-old with history of poorly controlled diabetes mellitus status post several episodes of osteomyelitis/surgical debridement was seen for nonhealing distal right second toe ulcer. It is noted he had a previous amputation of the distal phalanx by a high school auto repair teacher located in [place]. He has failed other conservative care including localized wound care, offloading, and advanced wound healing product such as epi fix. It is noted his hemoglobin A1c is extremely elevated and he continues to follow with under international sourcing manager. Progress of Wound: No improvement - Physical Exam Vital Signs Temp Pulse Resp BP 95.9 F L 95 16 154/89 H 04/17/19 14:39 04/17/19 14:39 04/17/19 14:39 04/17/19 14:39 General: Alert, Oriented x3, Cooperative, No apparent distress Extremities: No cyanosis, Capillary Refill Less than 3 Seconds, No Calf Tenderness - Negative Dilan and Garcia sign bilateral, Edema - Mild second toe, Peripheral Pulses Normal, - - Rectus second toe Skin: Ulcer/ Wound - No purulence, erythema, streaking, odor, or infection. There is positive probe to bone. And there is some inflammation and bulbous sha pe of the distal second toe. Wound Measurements and Assessment - Nurse 1 - General Ulcer Measurement Start: 03/21/19 11:20 Freq: Status: Active Protocol: Activity Type Activity Date Activity User E-Sign Co-Sign Detail Recorded Client Recorded Date Recorded By Document 04/17/19 14:39 [id number] 04/17/19 14:41 04/17/19 14:39 Wound Center Nurse 1 [Ulcer Assessment] #1 Right 2nd toe amputation -Combined with other wound No -Current Size (cm) - Length 0.1 -Current Size (cm) - Width 0.5 -Current Size (cm) - Depth 0.9 -Total Square Cm 0.05 -Photo Taken No -Epithelialization None Present -Tunneling No -Undermining/Tunneling No -Circular Undermining No -Exudate Amt Small -Exudate Type Serosanguineous -Wound Margin Flat & Intact -Granulation Amt Medium (34-66%) -Granulation Quality [place] -Slough/Fibrin Yes -Necrotic Tissue Type Adherent Slough -Structure Exposed N/A -Texture (Radha-wound Skin Appearance) Assessed -Moisture (Radha-wound Skin Appearance Assessed ) Dry/Scaly -Color (Radha-wound Skin Appearance) Assessed Rubor -Temperature (Radha-wound Skin No Abnormality Appearance) (Pt Warm) -Tenderness on Palpation (Radha-wound No Skin Appearance) -Ulcer Cleansing Rinsed/ Irrigated with Saline -Foul Odor after Cleansing No -Anesthetic Used 4% Lidocaine Solution [Edema Assessment] -Lower Limb Edema Present No -Right Calf (cm) 39.5 -Right Ankle (cm) 23.0 - Nurse 2 - General Ulcer CM Notes Start: 03/21/19 11:20 Freq: Status: Active Protocol: Activity Type Activity Date Activity User E-Sign Co-Sign Detail Recorded Client Recorded Date Recorded By Document 04/17/19 15:03 AN [id number] 04/17/19 15:07 AN 04/17/19 15:03 Wound Center Nurse 2 [Procedure/Treatment] #1 Right 2nd toe amputation -Time 15:06 -Correct Patient Yes -Correct Side, Site, Position Yes -Correct Procedure Yes -Procedure Performed Yes -Type of Procedure Debridement -Clinical Debridement Subcutaneous -Post Debridement Size (cm) - Length 0.2 -Post Debridement Size (cm) - Width 0.6 -Post Debridement Size (cm) - Depth 0.9 -Total Square Cm 0.12 -Wound/Ulcer Outcome Not Healed -Ulcer Cleansing Rinsed/ Irrigated with Saline -Foul Odor after Cleansing No -Bioengineered Tissue No -Bleeding Controlled with Pressure -Offloading Yes -Type of Offloading Camwalker -Treatment Response Procedure Tolerated Well [See Physician Procedure note for Specifics] Pain Scale: 0-10 Numeric [Pain] -Is Patient Pain Free? Yes Musculoskeletal: No Tenderness to Palpation of Joints or Extremities, Muscle Wasting Neurological: - - Lack of epicritic sensation light touch consistent with neuropathy status Psych/Mental Status: Normal Affect, Appropriate Debridement Note Post-Debridement Measurements/Treatment WC - Nurse 2 - General Ulcer CM Notes Start: 03/21/19 11:20 Freq: Status: Active Protocol: Activity Type Activity Date Activity User E-Sign Co-Sign Detail Recorded Client Recorded Date Recorded By Document 03/21/19 11:53 DV [id number] 03/21/19 11:59 DV Document 03/28/19 08:42 MW [id number] 03/28/19 08:54 MW Document 04/04/19 09:19 MW [id number] 04/04/19 09:26 MW Document 04/10/19 15:05 AN [id number] 04/10/19 15:09 AN Document 04/17/19 15:03 AN [id number] 04/17/19 15:07 AN 03/21/19 03/28/19 04/04/19 11:53 08:42 09:19 Wound Center Nurse 2 #1 Right 2nd toe amputation -Time 11:56 08:42 09:19 -Correct Patient Yes Yes Yes -Correct Side, Site, Position Yes Yes Yes -Correct Procedure Yes Yes Yes -Procedure Performed Yes Yes Yes -Type of Procedure Debridement Debridement Debridement -Clinical Debridement Subcutaneous Subcutaneous Subcutaneous -Post Debridement Size (cm) - Length 0.3 0.5 0.3 -Post Debridement Size (cm) - Width 1.5 1.3 1.3 -Post Debridement Size (cm) - Depth 0.4 0.4 0.5 -Total Square Cm 0.45 0.65 0.39 -Wound/Ulcer Outcome Not Healed Not Healed Not Healed -Ulcer Cleansing Rinsed/ Rinsed/ Rinsed/ Irrigated with Irrigated with Irrigated with Saline Saline Saline -Foul Odor after Cleansing No No No -Bioengineered Tissue Yes Yes No -Type of bioengineered Tissue EPIFIX EPIFIX -Expiration Date 08/20/23 08/20/23 -Product Lot Number [id number] -Percent Used 100 100 -Saline Lot Number [id number] -Bleeding Controlled with Pressure Pressure Pressure -Offloading Yes No No -Type of Offloading Camwalker -Treatment Response Procedure Procedure Procedure Tolerated Well Tolerated Well Tolerated Well Pain Scale: 0-10 Numeric Is Patient Pain Free? Yes Yes Yes 04/10/19 04/17/19 15:05 15:03 Wound Center Nurse 2 #1 Right 2nd toe amputation -Time 15:05 15:06 -Correct Patient Yes Yes -Correct Side, Site, Position Yes Yes -Correct Procedure Yes Yes -Procedure Performed Yes Yes -Type of Procedure Debridement Debridement -Clinical Debridement Subcutaneous Subcutaneous -Post Debridement Size (cm) - Length 1.1 0.2 -Post Debridement Size (cm) - Width 0.2 0.6 -Post Debridement Size (cm) - Depth 0.5 0.9 -Total Square Cm 0.22 0.12 -Wound/Ulcer Outcome Amputation Not Healed -Ulcer Cleansing Rinsed/ Rinsed/ Irrigated with Irrigated with Saline Saline -Foul Odor after Cleansing No No -Bioengineered Tissue No No -Type of bioengineered Tissue -Expiration Date -Product Lot Number -Percent Used -Saline Lot Number -Bleeding Controlled with Pressure Pressure -Offloading Yes -Type of Offloading Surgical Shoe Camwalker -Treatment Response Procedure Procedure Tolerated Well Tolerated Well Pain Scale: 0-10 Numeric Is Patient Pain Free? Yes Yes Wound debrided: distal second toe Laterality: Right Wound Grade/Stage: grade 2 Type of Debridement: Excisional debridement Anesthesia Used: 5% Lidocaine Gel Depth: in the subcutaneous layer Percentage of wound debrided: 100 Instrument Used: #15 blade Tissue Removed: fibrous, devitalized subcutaneous, biofilm, slough Severity: Fat Layer Exposed Amount of bleeding with debridement: Mild Bleeding Controlled with: Pressure Patient tolerated procedure well Assessment/Plan Clinical Impression(s) from Imaging Studies Toe X-Ray 04/10/19 16:00 IMPRESSION: Swelling of the second toe with a suspicion of an early osteomyelitic changes involving the distal margin of the distal phalanx of the second toe Electronically Signed: Xavi Poe MD at 7:37 EDT Tel , Service support , Active Problems (Last Updated 01/09/19 @ 12:49 by Amanda Shahid) Diabetic foot ulcer (Chronic) Ulcer of right foot with fat layer exposed (Chronic) Delayed wound healing (Chronic) Malnutrition (Chronic) Type 1 diabetes mellitus with microalbuminuria, with long-term current use of insulin (Chronic) BG readings higher than expected. Pt is ask to check BG in pairs. He appears to need more insulin at breakfast and lunch since he is off work and not active.. Ask to use correction scale aggressively. Report he ran out of strips but has now recieved his supply Discussed need to continue with this level of control in the post op state. Assessment: Nonhealing diabetic foot ulcer grade 3 status. Hx of Osteomyelitis and suspicion at this time to the middle phalanx of the second right toe. Poorly controlled diabetes mellitus, insulin-dependent with neuropathy. History of recent tobacco cessation. Delayed healing. Suspected malnutrition Plan: I reviewed and discussed his case again today. This case was also previously discussed with Dr. Lewis. debridement done as documented above, procedure was well tolerated. To change dressing daily with Aquacel Ag or hydrogel. It is noted there has been lack of clinical improvement in his bone is still exposed; he also had a previous amputation of the entire distal phalanx. He also completed previous antibiotic courses. He was however advised to follow-up with an international sourcing manager/primary care physician to optimally manage his diabetes. I recommend a partial second toe amputation. Diagnostic data was reviewed. X-rays demonstrate removal of the entire distal phalanx of the right second toe with no osseous destruction or periosteal reaction to the remaining middle phalanx. There is no soft tissue emphysema or foreign body or acute fracture dislocation noted. He still needs to get his noninvasive vascular studies completed. He does have palpable pulses noted and brisk capillary fill time noted. His labs were also reviewed as the following: White blood cell count 7.9, sedimentation rate 7, C-reactive protein 5.8, creatinine 1.44, albumin 3.5, hemoglobin A1c 10.5%. He was reassured no local signs of clinical infection noted today. in the meantime, surgical scheduling process was initiated. It is noted he does not have a formal PCP the indication, planned procedure, possible benefits, risks, complications, and anticipated healing time is were discussed in detail with patient. No guarantees were made. He is scheduled for a formal primary care physician history and physical surgical clearance on May 25. The surgery is tentatively scheduled for [facility] on May 26. Surgical consents were obtained and discussed today. He understands risks and complications may include but are not limited to following: Infection continuation, swelling, pain, scarring, need for further surgery, allergic reaction, blood clot, continued ulcer formation transfer lesion formation, loss of limb, function, life. I answered all his questions. He will follow-up. Increased protein intake recommended. A prescription for Salvador was provided. At the wound healing center after his surgery.
== END 2019-04-19 23:59 ==
LOC: WC 14:30
PROVIDERS: Referring Provider Podiatrist; Visit Provider Podiatrist
DX: E10.621 Type 1 diabetes mellitus with foot ulcer (principal); T87.89 Other complications of amputation stump; E10.29 Type 1 diabetes mellitus with other diabetic kidney complication; R80.9 Proteinuria, unspecified; E11.65 Type 2 diabetes mellitus with hyperglycemia; E10.69 Type 1 diabetes mellitus with other specified complication; Y83.8 Other surgical procedures as the cause of abnormal reaction of the patient, or of later complication, without mention of misadventure at the time of the procedure; L97.512 Non-pressure chronic ulcer of other part of right foot with fat layer exposed; M79.89 Other specified soft tissue disorders
CPT/HCPCS: 11042; 15275; 36415; 73660; 80053; 83036; 85025; 85652; 86140; Q4186

== ENCOUNTER → 2019-04-24 | Outpatient (CLI) | payer OTHER, SELFPAY ==
[2019-04-24 09:13] VITALS: BMI 25.7
--- NOTE | 2019-04-24 10:07 | EKG12_ITS ---
Test Reason : PRE OP Blood Pressure : / mmHG Vent. Rate : 079 BPM Atrial Rate : 079 BPM P-R Int : 130 ms QRS Dur : 084 ms QT Int : 358 ms P-R-T Axes : 074 085 071 degrees QTc Int : 410 ms Normal sinus rhythm Normal ECG No previous ECGs available Confirmed by LILLI CERVANTES ([id number]), photograph editor ANA RIZVI ([id number]) on 04/24/2019 2:39:38 PM Referred By: Alexei Spencer Confirmed By:LILLI CERVANTES
[2019-04-24 12:25] LABS: Hematocrit 43.7 % (40-54); Hemoglobin 15.3 g/dl (13.0-16.5); Mean Corpuscular Hgb 28.5 pg (27.0-32.0); Mean Corpuscular Volume 81.5 fL (80-94); Mean Platelet Vol. 10.2 fl (6.2-12.0); Platelet Count 282 K/mm3 (150-450); RBC Distribution Width CV 12.9 % (11.6-14.6); RBC Distribution Width SD 38.5 fl (35.1-43.9); Red Blood Count 5.36 M/mm3 (4.6-6.2); Scan Indicated on CBC? Y/N NO; White Blood Count 6.1 K/mm3 (4.4-11.0)
[2019-04-24 12:43] LABS: ALB/GLOB Ratio 0.9 RATIO (0.9-2.4); AST(SGOT) 17 U/L (15-37); Alanine Aminotransfer ALT/SGPT 42 U/L (16-61); Albumin, Serum 3.5 g/dL (3.2-5.0); Alkaline Phosphatase 152 U/L (45-117); Anion Gap 7 (5-15); BUN 12 mg/dL (7-18); BUN/Creat Ratio 10.3 RATIO (10-20); Calcium,Total 9.4 mg/dL (8.5-10.1); Chloride 101 mmol/L (98-107); Creatinine, Serum 1.16 mg/dL (0.70-1.30); EST Glomerular Filtration Rate 72 mL/min (>60); Est Glom Filt Rate - Afr Amer 88 mL/min (>60); Globulin 4.1 g/dL (2.2-4.2); Glucose 90 mg/dL (74-106); Hemoglobin A1c 10.6 % (4.2-6.3); Potassium 4.2 mmol/L (3.5-5.1); Protein, Total 7.6 g/dL (6.4-8.2); Sodium Level 140 mmol/L (136-145); Thyroid Stim Hormone (TSH) 1.29 uIU/mL (0.358-3.74)
== END | disposition home or self-care (01) ==
LOC: BIMLAB 09:33 → CVS 10:06
PROVIDERS: Family Provider Internal Medicine; PCP Internal Medicine; Referring Provider Nurse Practitioner Family; Visit Provider Nurse Practitioner Family
DX: Z01.818 Encounter for other preprocedural examination (principal); E10.29 Type 1 diabetes mellitus with other diabetic kidney complication; R80.9 Proteinuria, unspecified
CPT/HCPCS: 36415; 80053; 83036; 84443; 85027; 93005

== ENCOUNTER 2019-04-26 13:42 | Day surgery (SDC) | payer OTHER, SELFPAY ==
[2019-04-24 14:01] VITALS: BMI 25.7
--- NOTE | 2019-04-26 | BON_PTH ---
PATIENT: SHILPA MENCHACA LOC: [facility] [place][id number] AGE/SX: 44/M ROOM: RE04/26/[address]: Dr. Veronica Choudhary DPM : 1975 BED: DIS: 04/26/2019 SPEC #: [id number] RECD: 04/26/19 16:43 STATUS: REESE PEREZ #: [id number] AFSHAN: 04/26/19 00:[address]: Veronica Choudhary DEPT: SURGICAL PATHOLOGY RECD BY: Daryl Ojeda ENTERED: 04/29/19 08:43 SP TYPE: Bone OTHR DR: No Primary Care Phys Tissues: A - Toe, NOS B - Bone of foot, NOS Procedures: Decalcification bone/plaque Surgery Specimen Level IV HEADER OPERATION: Right second toe partial amputation PRE-OP DIAGNOSIS: Osteomyelitis and chronic ulcer right second toe TISSUE SUBMITTED: A - Right intermediate toe, B - Clearance fragment right toe MICROSCOPIC DIAGNOSIS A. Right intermediate toe, amputation: Ulceration with associated acute and chronic inflammation. Bone with chronic change with reparative and reactive process. B. Right toe, clearance fragment, biopsy: Bone with reparative and reactive change. No evidence of osteomyelitis. AM:betzaida 05/06/19 MICROSCOPIC DESCRIPTION Slides are reviewed. GROSS DESCRIPTION A - Received in fixative is one container labeled with the patient's name and designated right intermediate toe. The specimen consists of a segment of distal toe without nail and consisting of skin, soft tissue and bone measuring 2.5 cm in length and 1.7 cm in diameter. An ulcerated area is present in the distal portion measuring 1.5 x 1.5 x 0.5 cm. Longitudinal sections of the specimen including bone, soft tissue and skin are submitted in three cassettes after decalcification. B - Received in fixative is one container labeled with the patient's name and designated clearance fragment. The specimen consists of a single irregular fragment of duarte bone measuring 1.5 x 0.5 x 0.2 cm. The specimen is totally submitted in one cassette after decalcification. / AM:betzaida 04/29/19 TC:2 CPT: 66067 x2, 55714 x2
[2019-04-26 14:09] VITALS: BP 144/90; PULSE 85; RESP 16; TEMP 36.6; O2SAT 97; BMI 26.4
--- NOTE | 2019-04-26 14:12 | RAD_ITS ---
STUDY: Fluoroscopy RIGHT FOOT, SECOND TOE REASON FOR EXAM: Male, 44 years old. Amputation TECHNIQUE: 3 view(s) of the toe were obtained. COMPARISON: None. FINDINGS: 3 fluoroscopic views are provided of the toes. There is been an amputation of the second digit at the mid shaft of the proximal phalanx. There is a partial resection of the distal aspect of the proximal phalanx of the first digit. RAD/Toe(s) Min 2 Views IMPRESSION: 3 fluoroscopic views are provided of the toes. There is been an amputation of the second digit at the mid shaft of the proximal phalanx. There is a partial resection of the distal aspect of the proximal phalanx of the first digit. Electronically Signed: Radha Araiza MD at 9:58 EDT Tel , Service support ,
[2019-04-26 14:26] LABS: Bedside Glucose 244 mg/dL (70-110)
[2019-04-26 16:19] VITALS: BP 144/90; BP 144/95; PULSE 80; RESP 16; TEMP 36.5; O2SAT 100
--- NOTE | 2019-04-26 16:23 | PCM.DC.POD ---
Discharge Diet: Carb Control Diet Discharge Activity: May not drive while taking narcotic pain medications. Weight Bearing Status: Partial weight bearing - heel touch only with surgical shoe Keep extremity elevated above heart level: Right Leg Call your doctor if your incision/area has: Continuous Slow Oozing, Sudden Increased Bleeding, Increased Pain/ Swelling, Increased Redness, Foul Smelling Discharge, Swelling at the incision site Call your doctor if you observe: Fever of 101 or Higher, Calf discomfort, Uncontrolled pain Cleanse incision/area with: Soap & Water, Normal Saline, Do not get Incision Wet, Keep Dressing Clean & Dry Allergies/Adverse Reactions: Allergies No Known Allergies Allergy (Unverified 04/25/19 08:14) Medications to take at Discharge OneTouch Verio strips See Dose Instructions .ROUTE .MEDSUPPLY #600 ea NS 03/07/18 insulin syringe U-100 with needle 0.5 mL 31 gauge x 5/16 See Dose Instructions .ROUTE .MEDSUPPLY #300 ea 03/07/18 insulin aspart (U-100) 100 unit/mL (3 mL) subcutaneous pen 12 unit SC TID ml 04/24/19 insulin detemir (U-100) 100 unit/mL (3 mL) subcutaneous pen 50 unit SC QAM ml 04/24/19 lisinopril 10 mg tablet 10 mg PO 1700 tab 04/24/19 Primary Care Physician: Care Physician,No Primary [Primary Care Provider] - Test Results: Test results from this visit will be discussed in further detail at your follow-up appointment, if applicable. Please Follow Up With: wound healing center with DR. Ornelas When: next afternoon. Call [phone] sooner if concerns. Proposed Discharge Date: 04/26/19
[2019-04-26 16:25] VITALS: BP 138/91; BP 144/90; PULSE 85; RESP 16; O2SAT 100
--- NOTE | 2019-04-26 16:27 | DCINST_ITS ---
Discharge Diet: Carb Control Diet Discharge Activity: May not drive while taking narcotic pain medications. Weight Bearing Status: Partial weight bearing - heel touch only with surgical shoe Keep extremity elevated above heart level: Right Leg Call your doctor if your incision/area has: Continuous Slow Oozing, Sudden Increased Bleeding, Increased Pain/ Swelling, Increased Redness, Foul Smelling Discharge, Swelling at the incision site Call your doctor if you observe: Fever of 101 or Higher, Calf discomfort, Uncontrolled pain Cleanse incision/area with: Soap & Water, Normal Saline, Do not get Incision Wet, Keep Dressing Clean & Dry Allergies/Adverse Reactions: Allergies No Known Allergies Allergy (Unverified 04/25/19 08:14) Medications to take at Discharge OneTouch Verio strips See Dose Instructions .ROUTE .MEDSUPPLY #600 ea NS 03/07/18 insulin syringe U-100 with needle 0.5 mL 31 gauge x 5/16 See Dose Instructions .ROUTE .MEDSUPPLY #300 ea 03/07/18 insulin aspart (U-100) 100 unit/mL (3 mL) subcutaneous pen 12 unit SC TID ml 04/24/19 insulin detemir (U-100) 100 unit/mL (3 mL) subcutaneous pen 50 unit SC QAM ml 04/24/19 lisinopril 10 mg tablet 10 mg PO 1700 tab 04/24/19 Primary Care Physician: Care Physician,No Primary [Primary Care Provider] - Test Results: Test results from this visit will be discussed in further detail at your follow- up appointment, if applicable. Please Follow Up With: wound healing center with DR. Ornelas When: next afternoon. Call [phone] sooner if concerns. Proposed Discharge Date: 04/26/19
[2019-04-26 16:30] VITALS: BP 139/87; BP 144/90; PULSE 80; RESP 16; O2SAT 99
[2019-04-26 16:35] VITALS: BP 139/70; BP 144/90; PULSE 80; RESP 16; TEMP 36.4; O2SAT 99
--- NOTE | 2019-04-26 16:35 | PCM.OPRPT ---
Problem List (1) Osteomyelitis Status: Suspected Comment: Right second toe (2) Ulcer of right foot with fat layer exposed Status: Chronic (3) Delayed wound healing Status: Chronic (4) Malnutrition Status: Chronic (5) Type 1 diabetes mellitus with microalbuminuria, with long-term current use of insulin Status: Chronic Comment: BG readings higher than expected. Pt is ask to check BG in pairs. He appears to need more insulin at breakfast and lunch since he is off work and not active.. Ask to use correction scale aggressively. Report he ran out of strips but has now recieved his supply Discussed need to continue with this level of control in the post op state. Report of Operation Date of Procedure: 04/26/19 Pre-Operative Diagnosis: Nonhealing right second toe ulcer with osteomyelitis Post-Operative Diagnosis: Nonhealing right second toe ulcer with osteomyelitis Surgery/Procedure Performed:: Partial right second toe amputation Description of Surgical Findings:: Hemostasis: Well-padded pneumatic right ankle tourniquet, 250 mmHg, 7 minutes Materials: 3-0 Vicryl and 3-0 Prolene Findings: No final purulence or necrosis at the amputation site. Hemostasis is controlled. Complications: None The patient tolerated the procedure anesthesia well. He was transported to PACU vital signs stable vascular status intact to the right lower extremity. He will be discharged home upon continued stability. He will brass pickler his dressing intact and elevate and place weight on his heel. All postoperative orders were entered electronically. Type of Anesthesia:: Local MAC - Preoperative: 1: 1 mixture of 0.5% Marcaine plain and 1% lidocaine plain administered in right second ray block fashion, 10 cc Specimen's removed: 1. Right second toe soft tissue and bone sent to pathology. 2. Right second toe soft tissue bone sent to microbiology (aerobic, anaerobic, acid-fast, fungal). 3. Right second toe clearance fragment bone sent to pathology. 4. Right second toe clearance fragment bone sent to microbiology (aerobic, anaerobic, acid-fast, fungal) Estimated Blood Loss (mL): < 50 mL Description of Procedure: Indications: This 44-year-old male with significant past medical history of uncontrolled type 1 diabetes with neuropathy, history of tobacco use, and history of osteomyelitis with previous right second toe partial amputation with delayed healing has been managed in the wound healing center. He has a nonhealing right distal second toe ulcer site of his previous Symes amputation site that probes to bone and the toe is having a bulbous appearance. There is no devonte osseous destruction on x-ray however osteomyelitis is suspected due to the chronicity of this ulcer and previous diagnosis of osteomyelitis in the near proximity. His pulses are palpable. He has lack of sensation consistent with neuropathy. His recent noninvasive vascular studies demonstrated normal ABIs. His preoperative diagnostic data including CBC and CMP were normal. It is noted he did have a very elevated hemoglobin A1c of 10.5%. His EKG was normal preoperatively. His preoperative H&P and clearance is reviewed from Alexei Spencer, clinical nurse practitioner. He has been failing conservative care including standard comprehensive wound healing program such as: Serial wound debridement, nutrition supplementation, offloading with surgical shoe, and endocrinology management for hyperglycemia. The preoperative indications, planned procedure, possible benefits, risks, complication, and anticipated healing time management were discussed in detail the patient. He understands and elects to proceed with surgery at this time. No guarantees were made. He understands complications and risks may include but are not limited to the following: Pain, swelling, scarring, delayed or nonhealing, continued infection, transfer lesions with calluses or ulcers, blood clot, allergic reaction, floating toe, loss of limb, function, life. This is considered a curative surgery and is not elective or emergent. I answered all his questions. The surgical consent and limb was signed. Procedure detail: The patient was transported to the operating room via cart and placed on the operating table in the supine position. Final verification of the patient, surgery, limb designation was performed via the timeout procedure. A well-padded pneumatic right ankle tourniquet was placed. The preoperative local anesthetic was administered by the podiatry team. MAC anesthesia was initiated by the anesthesia team. Preoperative antibiotic was not administered so a more meaningful culture could be obtained. The right lower extremity was prepped and draped in the usual aseptic manner. Esmarch bandage was used to exsanguinate the limb and the tourniquet was inflated at this time. Surgery began the following: Attention was first directed to the right second toe in which a fishmouth incision was made and the toe was disarticulated at the proximal interphalangeal joint level in which all dirty tissue was removed from the table at this time. The specimen was sent to microbiology and pathology for further testing as noted. This resection site was also noted to be proximal to any devitalized or infection tissue per direct visualization. New clean instrumentation was utilized at this time and the soft tissue was carefully dissected off the proximal phalanx. A sagittal saw was used to resect the bone in a slightly beveled manner. It is noted good bleeding tissue was noted at this level and no further infection or necrosis signs were appreciated. This was removed from the table and the most proximal aspect was sent to pathology and microbiology as a clearance fragment. Saline copious irrigation was performed. The tourniquet was deflated and minimal electrocauterization and pressure was applied to control hemostasis. Any devitalized structures were carefully removed with a rongeur from the wound bed at this time. Minimal deep closure was achieved with Vicryl. No pulsatile bleeding was noted and capillary fill time was brisk to all digits of the right foot including the medial and lateral partial digital amputation flap sites. Next the skin was reapproximated utilizing simple and horizontal mattress technique utilizing no touch technique. A postoperative dressing consisting of Betadine soaked Adaptic, gauze, Kerlix, and Anton wrap were applied. An x-ray was performed to confirm adequate resection and no acute injuries were noted; 3 forefoot views. After procedure: The patient tolerated the procedure and anesthesia well. He was transported to PACU with vital signs stable and vascular status intact to the right lower extremity. He will be discharged home upon continued stability. He is advised to keep his dressing clean, dry, and intact until follow-up visit next at the wound healing center. He was advised to place weight on his heel only with a surgical shoe. To ice and elevate for pain and inflammation management. Postoperative pain prescription will be provided and he was advised on safe and proper use. He was advised to practice rigorous glucose control and to avoid any tobacco use to optimize healing potential. He will follow-up with his primary care provider as well as his pullman clerk to improve with this. A nutrition referral is also being arranged. Postoperative x-rays were reviewed as noted. His microbiology and pathology specimens results are pending and will be followed in the outpatient setting. All postoperative orders were entered electronically and he will be discharged home today. Veronica Choudhary DPM, [facility] - Complications None - Admit VTE Documentation VTE Present on Admission: No VTE Mechan Device Prophylaxis: SCD's VTE Pharm Prophylaxis ordered?: No Reason prophylaxis not ordered:: Procedure Not Indicated
--- NOTE | 2019-04-26 16:39 | OP.PCM_ITS ---
Problem List (1) Osteomyelitis Status: Suspected Comment: Right second toe (2) Ulcer of right foot with fat layer exposed Status: Chronic (3) Delayed wound healing Status: Chronic (4) Malnutrition Status: Chronic (5) Type 1 diabetes mellitus with microalbuminuria, with long-term current use of insulin Status: Chronic Comment: BG readings higher than expected. Pt is ask to check BG in pairs. He appears to need more insulin at breakfast and lunch since he is off work and not active.. Ask to use correction scale aggressively. Report he ran out of strips but has now recieved his supply Discussed need to continue with this level of control in the post op state. Report of Operation Date of Procedure: 04/26/19 Pre-Operative Diagnosis: Nonhealing right second toe ulcer with osteomyelitis Post-Operative Diagnosis: Nonhealing right second toe ulcer with osteomyelitis Surgery/Procedure Performed:: Partial right second toe amputation Description of Surgical Findings:: Hemostasis: Well-padded pneumatic right ankle tourniquet, 250 mmHg, 7 minutes Materials: 3-0 Vicryl and 3-0 Prolene Findings: No final purulence or necrosis at the amputation site. Hemostasis is controlled. Complications: None The patient tolerated the procedure anesthesia well. He was transported to PACU vital signs stable vascular status intact to the right lower extremity. He will be discharged home upon continued stability. He will forklift picker his dressing intact and elevate and place weight on his heel. All postoperative orders were entered electronically. Type of Anesthesia:: Local MAC - Preoperative: 1: 1 mixture of 0.5% Marcaine plain and 1% lidocaine plain administered in right second ray block fashion, 10 cc Specimen's removed: 1. Right second toe soft tissue and bone sent to pathology. 2. Right second toe soft tissue bone sent to microbiology (aerobic, anaerobic, acid-fast, fungal). 3. Right second toe clearance fragment bone sent to pathology. 4. Right second toe clearance fragment bone sent to microbiology (aerobic, anaerobic, acid-fast, fungal) Estimated Blood Loss (mL): < 50 mL Description of Procedure: Indications: This 44-year-old male with significant past medical history of uncontrolled type 1 diabetes with neuropathy, history of tobacco use, and history of osteomyelitis with previous right second toe partial amputation with delayed healing has been managed in the wound healing center. He has a nonhealing right distal second toe ulcer site of his previous Symes amputation site that probes to bone and the toe is having a bulbous appearance. There is no devonte osseous destruction on x- ray however osteomyelitis is suspected due to the chronicity of this ulcer and previous diagnosis of osteomyelitis in the near proximity. His pulses are palpable. He has lack of sensation consistent with neuropathy. His recent noninvasive vascular studies demonstrated normal ABIs. His preoperative diagnostic data including CBC and CMP were normal. It is noted he did have a very elevated hemoglobin A1c of 10.5%. His EKG was normal preoperatively. His preoperative H&P and clearance is reviewed from Alexei Spencer, clinical nurse practitioner. He has been failing conservative care including standard comprehensive wound healing program such as: Serial wound debridement, nutrition supplementation, offloading with surgical shoe, and endocrinology management for hyperglycemia. The preoperative indications, planned procedure, possible kaelyn efits, risks, complication, and anticipated healing time management were discussed in detail the patient. He understands and elects to proceed with surgery at this time. No guarantees were made. He understands complications and risks may include but are not limited to the following: Pain, swelling, scarring, delayed or nonhealing, continued infection, transfer lesions with calluses or ulcers, blood clot, allergic reaction, floating toe, loss of limb, function, life. This is considered a curative surgery and is not elective or emergent. I answered all his questions. The surgical consent and limb was signed. Procedure detail: The patient was transported to the operating room via cart and placed on the operating table in the supine position. Final verification of the patient, surgery, limb designation was performed via the timeout procedure. A well- padded pneumatic right ankle tourniquet was placed. The preoperative local anesthetic was administered by the podiatry team. MAC anesthesia was initiated by the anesthesia team. Preoperative antibiotic was not administered so a more meaningful culture could be obtained. The right lower extremity was prepped and draped in the usual aseptic manner. Esmarch bandage was used to exsanguinate the limb and the tourniquet was inflated at this time. Surgery began the following: Attention was first directed to the right second toe in which a fishmouth incision was made and the toe was disarticulated at the proximal interphalangeal joint level in which all dirty tissue was removed from the table at this time. The specimen was sent to microbiology and pathology for further testing as noted. This resection site was also noted to be proximal to any devitalized or infection tissue per direct visualization. New clean instrumentation was utilized at this time and the soft tissue was carefully dissected off the proximal phalanx. A sagittal saw was used to resect the bone in a slightly beveled manner. It is noted good bleeding tissue was noted at this level and no further infection or necrosis signs were appreciated. This was removed from the table and the most proximal aspect was sent to pathology and microbiology as a clearance fragment. Saline copious irrigation was performed. The tourniquet was deflated and minimal electrocauterization and pressure was applied to control hemostasis. Any devitalized structures were carefully removed with a rongeur from the wound bed at this time. Minimal deep closure was achieved with Vicryl. No pulsatile bleeding was noted and capillary fill time was brisk to all digits of the right foot including the medial and lateral partial digital amputation flap sites. Next the skin was reapproximated utilizing simple and horizontal mattress technique utilizing no touch technique. A postoperative dressing consisting of Betadine soaked Adaptic, gauze, Kerlix, and Anton wrap were applied. An x-ray was performed to confirm adequate resection and no acute injuries were noted; 3 forefoot views. After procedure: The patient tolerated the procedure and anesthesia well. He was transported to PACU with vital signs stable and vascular status intact to the right lower extr emity. He will be discharged home upon continued stability. He is advised to keep his dressing clean, dry, and intact until follow-up visit next at the wound healing center. He was advised to place weight on his heel only with a surgical shoe. To ice and elevate for pain and inflammation management. Postoperative pain prescription will be provided and he was advised on safe and proper use. He was advised to practice rigorous glucose control and to avoid any tobacco use to optimize healing potential. He will follow-up with his primary care provider as well as his pill packer to improve with this. A nutrition referral is also being arranged. Postoperative x-rays were reviewed as noted. His microbiology and pathology specimens results are pending and will be followed in the outpatient setting. All postoperative orders were entered electronically and he will be discharged home today. Veronica Choudhary DPM, [facility] - Complications None - Admit VTE Documentation VTE Present on Admission: No VTE Mechan Device Prophylaxis: SCD's VTE Pharm Prophylaxis ordered?: No Reason prophylaxis not ordered:: Procedure Not Indicated
[2019-04-26 17:12] VITALS: BP 144/90
== END 2019-04-26 17:13 | disposition home or self-care (01) ==
LOC: SDC 13:42 → AC 13:45
PROVIDERS: Referring Provider Podiatrist; Visit Provider Podiatrist
PROC: (CPT 28810; principal; 2019-04-26 15:15)
DX: L97.512 Non-pressure chronic ulcer of other part of right foot with fat layer exposed (principal); E10.29 Type 1 diabetes mellitus with other diabetic kidney complication; R80.9 Proteinuria, unspecified; E10.69 Type 1 diabetes mellitus with other specified complication; Z79.4 Long term (current) use of insulin; E46 Unspecified protein-calorie malnutrition; Z87.891 Personal history of nicotine dependence
CPT/HCPCS: 28810; 73660; 76000; 82962; 87015; 87070; 87075; 87077; 87102; 87106; 87116; 87176; 87186; 87205; 87206; 88305; 88311; J7120

== ENCOUNTER 2019-05-08 09:00 | Outpatient (RCR) | payer OTHER, SELFPAY ==
[2019-04-20 01:04] VITALS: BP 154/89; PULSE 95; RESP 16; TEMP 35.5
--- NOTE | 2019-04-22 10:33 | ART_ITS ---
Reason For Study: OSTEOMYELITIS, PVD, ulcer of right foot (toe) Procedure A bilateral lower extremity continuous wave Doppler with analog waveform analysis,segmental pressures,and ankle brachial indexes without exercise. Left Segmental Pressures Left brachial= 132mmHg. Left posterior tibial artery = 155mmHg. Left dorsalis pedis artery = 149mmHg. Left digit = 128 mmHg. The left dorsalis pedis waveforms are triphasic. The left posterior tibial artery waveforms are triphasic. The pulse volume recording at the left digit is normal. Right Segmental Pressures Right brachial= 128mmHg. Right posterior tibial artery = 159mmHg. Right dorsalis pedis artery = 155mmHg. Right digit = 128 mmHg. The right dorsalis pedis waveforms are triphasic. The right posterior tibial artery waveforms are triphasic. The pulse volume recording at the right digit is adequate. Indices The right ankle brachial index by the dorsalis pedis is 1.17. The right ankle brachial index by the posterior tibial artery is 1.20. The right digital-brachial index is 0.97. The left ankle brachial index by the dorsalis pedis is 1.13. The left ankle brachial index by the posterior tibial artery is 1.17. The left digital-brachial index is 0.97. Interpretation Summary Triphasic Doppler waveforms are noted at ankle level bilaterally. Pulse-volume recording waveform amplitudes are satisfactory at all levels bilaterally, including low-thigh, calf, ankle, and digital levels. Resting ankle-brachial indices are normal bilaterally. Digital-brachial indices are bilaterally normal. There is no evidence of significant arterial occlusive disease in the lower extremities bilaterally. Ordering Physician: Veronica Choudhary Referring Physician: Veronica Choudhary Performed By: Miriam Santos RVT, RDCS
[2019-04-24 14:01] VITALS: BP 149/86; PULSE 97; RESP 16; TEMP 36.9; BMI 25.7
--- NOTE | 2019-04-24 17:22 | PN.PCM_ITS ---
(1) Ulcer of right foot with fat layer exposed Status: Chronic Current Visit: Yes Code(s): L97.512 - Non-pressure chronic ulcer of other part of right foot with fat layer exposed (2) Osteomyelitis Status: Suspected Current Visit: Yes Code(s): M86.9 - Osteomyelitis, unspecified Comment: Right second toe (3) Delayed wound healing Status: Chronic Current Visit: Yes Code(s): T14.8XXD - Other injury of unspecified body region, subsequent encounter (4) Malnutrition Status: Chronic Current Visit: Yes Code(s): E46 - Unspecified protein- calorie malnutrition (5) Type 1 diabetes mellitus with microalbuminuria, with long-term current use of insulin Status: Chronic Current Visit: Yes Code(s): E10.29 - Type 1 diabetes mellitus with other diabetic kidney complication; R80.9 - Proteinuria, unspecified Comment: BG readings higher than expected. Pt is ask to check BG in pairs. He appears to need more insulin at breakfast and lunch since he is off work and not active.. Ask to use correction scale aggressively. Report he ran out of strips but has now recieved his supply Discussed need to continue with this level of control in the post op state. Type of Wound Date of Service: 04/24/19 Chief Complaint: Nonhealing diabetic foot ulcer. History of Wound: Mr. Diaz is a 43-year-old with history of poorly controlled diabetes mellitus status post several episodes of osteomyelitis/surgical debridement was seen for nonhealing distal right second toe ulcer. 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 He has failed other conservative care including localized wound care, offloading, and advanced wound healing product such as epi fix. He is tentatively scheduled to have partial second toe amputation performed this upcoming Monday. He denies new injuries. He is with his today. Progress of Wound: Stable - Physical Exam Vital Signs Temp Pulse Resp BP 98.4 F 97 16 149/86 H 04/24/19 14:01 04/24/19 14:01 04/24/19 14:01 04/24/19 14:01 General: Alert, Oriented x3, Cooperative, No apparent distress Extremities: No cyanosis, Capillary Refill Less than 3 Seconds, No Calf Tenderness, Diminished Peripheral Pulses, Edema - Mild to second toe, - - Rectus second toe Skin: Ulcer/ Wound - No purulence, erythema, streaking, odor, or infection. There is inflammation around the ulcer site that does not extend beyond the second toe. There is positive probing to bone. The peripheral skin is hairless and atrophic. Wound Measurements and Assessment WC - Nurse 1 - General Ulcer Measurement Start: 04/24/19 14:00 Freq: Status: Active Protocol: Activity Type Activity Date Activity User E-Sign Co-Sign Detail Recorded Client Recorded Date Recorded By Document 04/24/19 14:01 [id number] 04/24/19 14:09 04/24/19 14:01 Wound Center Nurse 1 [Ulcer Assessment] #1 Right 2nd toe amputation -Combined with other wound No -Current Size (cm) - Length 0.1 -Current Size (cm) - Width 0.6 -Current Size (cm) - Depth 1.0 -Total Square Cm 0.06 -Photo Taken Yes -Epithelialization None Present -Tunneling No -Undermining/Tunneling No -Circular Undermining No -Exudate Amt Medium -Exudate Type Serosanguineous -Wound Margin Flat & Intact -Granulation Amt Large (67-100%) -Granulation Quality [place] -Slough/Fibrin Yes -Necrosis Amt Small (1-33%) -Necrotic Tissue Type Adherent Slough -Structure Exposed N/A -Texture (Radha-wound Skin Appearance) Assessed Localized Edema -Moisture (Radha-wound Skin Appearance Assessed ) Dry/Scaly -Color (Radha-wound Skin Appearance) Assessed -Temperature (Radha-wound Skin No Abnormality Appearance) (Pt Warm) -Tenderness on Palpation (Radha-wound No Skin Appearance) -Ulcer Cleansing Rinsed/ Irrigated with Saline -Foul Odor after Cleansing No -Anesthetic Used 5% Lidocaine Gel [Edema Assessment] -Lower Limb Edema Present No WC - Nurse 2 - General Ulcer CM Notes Start: 04/24/19 14:00 Freq: Status: Active Protocol: Activity Type Activity Date Activity User E-Sign Co-Sign Detail Recorded Client Recorded Date Recorded By Document 04/24/19 15:22 AN [id number] 04/24/19 15:26 AN 04/24/19 15:22 Wound Center Nurse 2 [Procedure/Treatment] #1 Right 2nd toe amputation -Time 15:26 -Correct Patient Yes -Correct Side, Site, Position Yes -Correct Procedure Yes -Procedure Performed Yes -Type of Procedure Debridement -Clinical Debridement Subcutaneous -Post Debridement Size (cm) - Length 0.2 -Post Debridement Size (cm) - Width 0.7 -Post Debridement Size (cm) - Depth 1.0 -Total Square Cm 0.14 -Wound/Ulcer Outcome Not Healed -Ulcer Cleansing Rinsed/ Irrigated with Saline -Foul Odor after Cleansing No -Bioengineered Tissue No -Treatment Response Procedure Tolerated Well [See Physician Procedure note for Specifics] Pain Scale: 0-10 Numeric [Pain] -Is Patient Pain Free? Yes Musculoskeletal: No Tenderness to Palpation of Joints or Extremities, Muscle Wasting Neurological: - - Lack of normal epicritic sensation consistent with neuropathy Psych/Mental Status: Normal Affect, Appropriate Debridement Note Post-Debridement Measurements/Treatment WC - Nurse 2 - General Ulcer CM Notes Start: 04/24/19 14:00 Freq: Status: Active Protocol: Activity Type Activity Date Activity User E-Sign Co-Sign Detail Recorded Client Recorded Date Recorded By Document 04/24/19 15:22 AN [id number] 04/24/19 15:26 AN 04/24/19 15:22 Wound Center Nurse 2 #1 Right 2nd toe amputation -Time 15:26 -Correct Patient Yes -Correct Side, Site, Position Yes -Correct Procedure Yes -Procedure Performed Yes -Type of Procedure Debridement -Clinical Debridement Subcutaneous -Post Debridement Size (cm) - Length 0.2 -Post Debridement Size (cm) - Width 0.7 -Post Debridement Size (cm) - Depth 1.0 -Total Square Cm 0.14 -Wound/Ulcer Outcome Not Healed -Ulcer Cleansing Rinsed/ Irrigated with Saline -Foul Odor after Cleansing No -Bioengineered Tissue No -Treatment Response Procedure Tolerated Well Pain Scale: 0-10 Numeric Is Patient Pain Free? Yes Wound debrided: distal second toe Laterality: Right Wound Grade/Stage: grade 3 Type of Debridement: Excisional debridement Anesthesia Used: 5% Lidocaine Gel Depth: in the subcutaneous layer Percentage of wound debrided: 100 Instrument Used: #15 blade Tissue Removed: fibrous, devitalized subcutaneous, biofilm, slough Severity: Fat Layer Exposed Amount of bleeding with debridement: Mild Bleeding Controlled with: Pressure Patient tolerated procedure well Assessment/Plan Active Problems (Last Updated 01/09/19 @ 12:49 by Amanda Shahid) Ulcer of right foot with fat layer exposed (Chronic) Delayed wound healing (Chronic) Malnutrition (Chronic) Type 1 diabetes mellitus with microalbuminuria, with long-term current use of insulin (Chronic) BG readings higher than expected. Pt is ask to check BG in pairs. He appears to need more insulin at breakfast and lunch since he is off work and not active.. Ask to use correction scale aggressively. Report he ran out of strips but has now recieved his supply Discussed need to continue with this level of control in the post op state. Assessment: Nonhealing diabetic foot ulcer grade 3 status. Hx of Osteomyelitis and suspicion at this time to the middle phalanx of the second right toe. Poorly controlled diabetes mellitus, insulin-dependent with neuropathy. History of recent tobacco cessation. Delayed healing. Suspected malnutrition Plan: I reviewed and discussed his case again today. debridement done as documented above, procedure was well tolerated. To change dressing daily. It is noted there has been lack of clinical improvement in his bone is still exposed; he also had a previous amputation of the entire distal phalanx. He also completed previous antibiotic courses. He was however advised to follow- up with an process excellence manager/primary care physician to optimally manage his diabetes. I recommend a partial second toe amputation. Diagnostic data was reviewed. X-rays demonstrate removal of the entire distal phalanx of the right second toe with no osseous destruction or periosteal reaction to the remaining middle phalanx. There is no soft tissue emphysema or foreign body or acute fracture dislocation noted. His noninvasive arterial vascular studies are reviewed with adequate perfusion to the foot until level bilateral. He does have palpable pulses noted and brisk capillary fill time noted. His labs were also reviewed as the following: White blood cell count 7.9, sedimentation rate 7, C-reactive protein 5.8, creatinine 1.44, albumin 3.5, hemoglobin A1c 10.5%. He was reassured no local signs of clinical infection noted today. His EKG was normal. His recent clearance was reviewed on 04/25/2019 from Alexei Spencer clinical nurse practitioner in preparation for his surgery scheduled for Monday. The indication, planned procedure, possible benefits, risks, complications, and anticipated healing time is were discussed in detail with patient. No guarantees were made. Surgical consents were obtained and discussed previously. He understands risks and complications may include but are not limited to following: Infection continuation, swelling, pain, scarring, need for further surgery, allergic reaction, blood clot, continued ulcer formation transfer lesion formation, loss of limb, function, life. I answered all his questions. He will follow-up in 1 week for postoperative check. Dr. Ornelas is covering which is appreciated.
[2019-05-02 15:18] VITALS: BP 154/89; PULSE 116; RESP 18; TEMP 36.7; BMI 25.7
--- NOTE | 2019-05-02 17:17 | PN.PCM_ITS ---
(1) Cellulitis of right foot Status: Acute Current Visit: Yes Code(s): L03.115 - Cellulitis of right lower limb (2) Osteomyelitis Status: Suspected Current Visit: No Code(s): M86.9 - Osteomyelitis, u nspecified Comment: Right second toe (3) Malnutrition Status: Chronic Current Visit: No Code(s): E46 - Unspecified protein-calorie malnutrition (4) Type 1 diabetes mellitus with microalbuminuria, with long-term current use of insulin Status: Chronic Current Visit: No Code(s): E10.29 - Type 1 diabetes mellitus with other diabetic kidney complication; R80.9 - Proteinuria, unspecified Comment: BG readings higher than expected. Pt is ask to check BG in pairs. He appears to need more insulin at breakfast and lunch since he is off work and not active.. Ask to use correction scale aggressively. Report he ran out of strips but has now recieved his supply Discussed need to continue with this level of control in the post op state. Type of Wound Chief Complaint: Nonhealing diabetic foot ulcer. History of Wound: Mr. Diaz is a 43-year-old with history of poorly controlled diabetes mellitus status post several episodes of osteomyelitis/surgical debridement was seen for nonhealing distal right second toe ulcer. It is noted he had a previous amputation of the distal phalanx by a trimmer machine located in [place]. He has failed other conservative care including localized wound care, offloading, and advanced wound healing product such as epi fix. He denies new injuries. He is with his today. Progress of Wound: Patient presents for first post op visit following partial right 2nd toe amputation. He admits to keeping dressing clean dry and intact sin ce his procedure. He does state he has noticed pain in his foot that is unusual for him. He also relates to not quite feeling himself the last few days. - Physical Exam Vital Signs Temp Pulse Resp BP 98.0 F 116 H 18 154/89 H 05/02/19 15:18 05/02/19 15:18 05/02/19 15:18 05/02/19 15:18 General: Alert, Oriented x3, Cooperative Extremities: Capillary Refill Less than 3 Seconds, No Calf Tenderness - Negative Dilan and Garcia signs bilateral, Edema - Slight edema to surgical site Skin: - - Surgical site: Sutures intact and skin edges are well coapted. There is some slight edema noted to the surgical site to remaining right toe. There is some cellulitis extending from the surgical site onto the dorsum of the foot. This was outlined with marker. Slight increase in warmth also noted to area. Tenderness to palpation of the area. No purulence noted. No bogginess or fluctuance appreciated at this time. Wound Measurements and Assessment - Nurse 1 - General Ulcer Measurement Start: 04/24/19 14:00 Freq: Status: Active Protocol: Activity Type Activity Date Activity User E-Sign Co-Sign Detail Recorded Client Recorded Date Recorded By Document 05/02/19 15:18 MT [id number] 05/02/19 15:22 MT 05/02/19 15:18 Wound Center Nurse 1 [Ulcer Assessment] #1 Right 2nd toe amputation -Current Size (cm) - Length 4.4 -Current Size (cm) - Width 2.5 -Current Size (cm) - Depth 0.1 -Total Square Cm 11.00 -Exudate Amt Medium -Exudate Type Serosanguineous -Wound Margin Flat & Intact -Granulation Amt Medium (34-66%) -Granulation Quality Pale [place] -Necrosis Amt Medium (34-66%) -Necrotic Tissue Type Adherent Slough -Texture (Radha-wound Skin Appearance) Assessed -Moisture (Radha-wound Skin Appearance Assessed ) -Color (Radha-wound Skin Appearance) Assessed -Temperature (Radha-wound Skin Hot Appearance) -Tenderness on Palpation (Radha-wound Yes: tender Skin Appearance) -Ulcer Cleansing Rinsed/ Irrigated with Saline -Foul Odor after Cleansing Yes -Anesthetic Used 5% Lidocaine Gel - Nurse 2 - General Ulcer CM Notes Start: 04/24/19 14:00 Freq: Status: Active Protocol: Activity Type Activity Date Activity User E-Sign Co-Sign Detail Recorded Client Recorded Date Recorded By Document 05/02/19 15:39 AN [id number] 05/02/19 15:47 AN 05/02/19 15:39 Wound Center Nurse 2 [Procedure/Treatment] -Time 15:46 -Correct Patient Yes -Correct Side, Site, Position Yes -Correct Procedure Yes -Procedure Performed No -Post Debridement Size (cm) - Length 0.1 -Post Debridement Size (cm) - Width 0.1 -Post Debridement Size (cm) - Depth 0.1 -Total Square Cm 0.01 -Wound/Ulcer Outcome Amputation -Ulcer Cleansing Wound Cleanser -Foul Odor after Cleansing Yes -Treatment Response Procedure Tolerated Well [See Physician Procedure note for Specifics] Pain Scale: 0-10 Numeric [Pain] -Is Patient Pain Free? No Musculoskeletal: Tenderness - To surgical site of right foot Neurological: - - Lack of normal epicritic sensation consistent with neuropathy Psych/Mental Status: Normal Affect, Appropriate Debridement Note Post-Debridement Measurements/Treatment WC - Nurse 2 - General Ulcer CM Notes Start: 04/24/19 14:00 Freq: Status: Active Protocol: Activity Type Activity Date Activity User E-Sign Co-Sign Detail Recorded Client Recorded Date Recorded By Document 04/24/19 15:22 AN [id number] 04/24/19 15:26 AN Document 05/02/19 15:39 AN [id number] 05/02/19 15:47 AN 04/24/19 05/02/19 15:22 15:39 Wound Center Nurse 2 #1 Right 2nd toe amputation -Time 15:26 15:46 -Correct Patient Yes Yes -Correct Side, Site, Position Yes Yes -Correct Procedure Yes Yes -Procedure Performed Yes No -Type of Procedure Debridement -Clinical Debridement Subcutaneous -Post Debridement Size (cm) - Length 0.2 0.1 -Post Debridement Size (cm) - Width 0.7 0.1 -Post Debridement Size (cm) - Depth 1.0 0.1 -Total Square Cm 0.14 0.01 -Wound/Ulcer Outcome Not Healed Amputation -Ulcer Cleansing Rinsed/ Wound Cleanser Irrigated with Saline -Foul Odor after Cleansing No Yes -Bioengineered Tissue No -Treatment Response Procedure Procedure Tolerated Well Tolerated Well Pain Scale: 0-10 Numeric Is Patient Pain Free? Yes No No debridement was completed today Assessment/Plan Active Problems (Last Updated 01/09/19 @ 12:49 by Amanda Shahid) Cellulitis of right foot (Acute) Assessment: Nonhealing diabetic foot ulcer grade 3 status. Hx of Osteomyelitis and suspicion at this time to the middle phalanx of the second right toe. Poorly controlled diabetes mellitus, insulin-dependent with neuropathy. History of recent tobacco cessation. Delayed healing. Suspected malnutrition Plan: This patient was carefully examined and evaluated today as a courtesy visit for Dr. Choudhary. He was being examined for his first postop visit s/p right partial second toe amputation. Once dressing was taken down today, some cellulitis was noted to the surgical site as well as the dorsal right foot. The cellulitis was outlined with a marker. Patient also experiencing pain to this area as well as a slight increase in warmth. Patient also states that he has not felt quite right the last few days. For these reasons I feel the patient has a postop infection. I recommended hospital admission for a course of IV antibiotics and potential further work-up. Patient relates that he is from [place] and that he would much prefer to go there for IV antibiotics and his further work-up. I called [facility] and spoke with ER physician to update him on patient's status and inform him that he would be coming to the emergency room. Patient surgical site was then painted with Betadine and then dressed with Adaptic and a dry sterile dressing. Patient was instructed to go straight to the emergency room. He is to follow back up at the wound healing center next week with Dr. Choudhary.
== END 2019-05-19 23:59 ==
LOC: WC 09:00
PROVIDERS: Referring Provider Podiatrist; Visit Provider Podiatrist
DX: E10.621 Type 1 diabetes mellitus with foot ulcer (principal); L97.512 Non-pressure chronic ulcer of other part of right foot with fat layer exposed; E10.65 Type 1 diabetes mellitus with hyperglycemia; E10.29 Type 1 diabetes mellitus with other diabetic kidney complication; R60.0 Localized edema; R80.9 Proteinuria, unspecified
CPT/HCPCS: 11042; 93923; 99212; G0463

== ENCOUNTER 2019-11-06 14:13 | Outpatient (RCR) | payer OTHER, SELFPAY ==
[2019-05-20 00:45] VITALS: BP 154/89; PULSE 116; RESP 18; TEMP 36.7; BMI 26.4
[2019-06-26 10:17] VITALS: BMI 26.4
[2019-11-06 14:35] VITALS: BP 158/84; PULSE 95; RESP 18; TEMP 36.6; BMI 26.4
--- NOTE | 2019-11-06 15:23 | PN.PCM_ITS ---
(1) Ulcer of right foot with fat layer exposed Status: Chronic Current Visit: Yes Code(s): L97.512 - Non-pressure chronic ulcer of other part of right foot with fat layer exposed (2) Delayed wound healing Status: Chronic Current Visit: Yes Code(s): T14.8XXD - Other injury of unspecified body region, subsequent encounter (3) Malnutrition Status: Chronic Current Visit: Yes Code(s): E46 - Unspecified protein- calorie malnutrition Type of Wound Date of Service: 11/06/19 Chief Complaint: Ulcer right foot History of Wound: Mr. Diaz is a 44-year-old with history of poorly controlled diabetes mellitus status post several episodes of osteomyelitis/surgical debridement was seen for nonhealing distal right second toe ulcer. It is noted he had a previous amputation of the distal phalanx by a patient relations director located in [place]. He has a new ulcer to the sub-first metatarsal head with the onset of 1 and half weeks ago. He was referred by the foot and ankle center. He denies redness, fever, chills, nausea. He relates his last hemoglobin a1c was 12 performed at an outside facility. He relates it has always been high. He relates he is working on adjusting his medications with his primary care physician and h as seen the sandfill operator surface about 20 years ago. He relates he will not eat any vegetable and only eats meat and potatoes. Progress of Wound: stable - Physical Exam Vital Signs Temp Pulse Resp BP 97.8 F 95 18 158/84 H 11/06/19 14:35 11/06/19 14:35 11/06/19 14:35 11/06/19 14:35 General: Alert, Oriented x3, Cooperative, No apparent distress HEENT: Atraumatic Extremities: No cyanosis, Capillary Refill Less than 3 Seconds, No Calf Tenderness, Edema - mild, Peripheral Pulses Normal Skin: Ulcer/ Wound - no purulence, no erythema, no streaking, no odor, no infection, no deep tissue exposure, no necrosis. peripheral skin is atrophic and hairless. Wound Measurements and Assessment WC - Nurse 1 - General Ulcer Measurement Start: 11/06/19 14:33 Freq: Status: Active Protocol: Activity Type Activity Date Activity User E-Sign Co-Sign Detail Recorded Client Recorded Date Recorded By Document 11/06/19 14:35 DL [id number] 11/06/19 14:51 DL 11/06/19 14:35 Wound Center Nurse 1 [Ulcer Assessment] #2 R Foot Plantar -Current Size (cm) - Length 0.3 -Current Size (cm) - Width 0.7 -Current Size (cm) - Depth 0.3 -Total Square Cm 0.21 -Photo Taken Yes -Maximum Distance #2 (cm) 0.2 -Circular Undermining Yes -Classification - Ortiz Grading ( Grade 2 Diabetic Ulcer) -Exudate Amt Small -Exudate Type Serosanguineous -Wound Margin Thickened -Granulation Amt Small (1-33%) -Granulation Quality Red -Necrosis Amt Small (1-33%) -Necrotic Tissue Type Adherent Slough -Structure Exposed N/A -Texture (Radha-wound Skin Appearance) Callus,Scarring -Moisture (Radha-wound Skin Appearance Dry/Scaly ) -Color (Radha-wound Skin Appearance) No Abnormality -Temperature (Radha-wound Skin No Abnormality Appearance) (Pt Warm) -Tenderness on Palpation (Radha-wound No Skin Appearance) -Ulcer Cleansing Wound Cleanser -Foul Odor after Cleansing No -Anesthetic Used 5% Lidocaine Gel WC - Nurse 2 - General Ulcer CM Notes Start: 11/06/19 14:33 Freq: Status: Active Protocol: Activity Type Activity Date Activity User E-Sign Co-Sign Detail Recorded Client Recorded Date Recorded By Document 11/06/19 15:06 RAYNA [id number] 11/06/19 15:08 11/06/19 15:06 Wound Center Nurse 2 [Procedure/Treatment] -Time 15:07 -Correct Patient Yes -Correct Side, Site, Position Yes -Correct Procedure Yes -Procedure Performed Yes -Type of Procedure Debridement -Clinical Debridement Subcutaneous -Post Debridement Size (cm) - Length 0.3 -Post Debridement Size (cm) - Width 0.8 -Post Debridement Size (cm) - Depth 0.3 -Total Square Cm 0.24 -Wound/Ulcer Outcome Not Healed -Ulcer Cleansing Rinsed/ Irrigated with Saline -Foul Odor after Cleansing No -Bioengineered Tissue No -Bleeding Controlled with Pressure -Offloading Yes -Type of Offloading Camwalker -Treatment Response Procedure Tolerated Well [See Physician Procedure note for Specifics] Pain Scale: 0-10 Numeric [Pain] -Is Patient Pain Free? Yes Musculoskeletal: No Tenderness to Palpation of Joints or Extremities, Muscle Wasting, - - decreased loaded first metatarsal phalangeal joint range of motion Neurological: - - lack of epicritic sensation via light touch consistent with neuropathy Psych/Mental Status: Normal Affect, Appropriate Debridement Note Post-Debridement Measurements/Treatment WC - Nurse 2 - General Ulcer CM Notes Start: 11/06/19 14:33 Freq: Status: Active Protocol: Activity Type Activity Date Activity User E-Sign Co-Sign Detail Recorded Client Recorded Date Recorded By Document 11/06/19 15:06 [id number] 11/06/19 15:08 11/06/19 15:06 Wound Center Nurse 2 #2 R Foot Plantar -Time 15:07 -Correct Patient Yes -Correct Side, Site, Position Yes -Correct Procedure Yes -Procedure Performed Yes -Type of Procedure Debridement -Clinical Debridement Subcutaneous -Post Debridement Size (cm) - Length 0.3 -Post Debridement Size (cm) - Width 0.8 -Post Debridement Size (cm) - Depth 0.3 -Total Square Cm 0.24 -Wound/Ulcer Outcome Not Healed -Ulcer Cleansing Rinsed/ Irrigated with Saline -Foul Odor after Cleansing No -Bioengineered Tissue No -Bleeding Controlled with Pressure -Offloading Yes -Type of Offloading Camwalker -Treatment Response Procedure Tolerated Well Pain Scale: 0-10 Numeric Is Patient Pain Free? Yes Wound debrided: sub 1st metatarsal head Laterality: Right Wound Grade/Stage: grade 1 Type of Debridement: Excisional debridement Anesthesia Used: 5% Lidocaine Gel Depth: in the subcutaneous layer Percentage of wound debrided: 100 Instrument Used: #15 blade Tissue Removed: fibrous, devitalized subcutaneous, biofilm, slough Severity: Fat Layer Exposed Amount of bleeding with debridement: Mild Bleeding Controlled with: Pressure Patient tolerated procedure well Assessment/Plan Active Problems (Last Updated 06/26/19 @ 08:38 by Amanda Shahid) Ulcer of right foot with fat layer exposed (Chronic) Delayed wound healing (Chronic) Malnutrition (Chronic) Assessment: diabetic foot ulcer grade 1 status. 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 Poorly controlled diabetes mellitus, insulin-dependent with neuropathy. History of recent tobacco cessation. Delayed healing. Suspected malnutrition Plan: I reviewed and discussed his updated case. He was reassured no infection is present today. Debridement was performed today as noted in the clinical panel in a subcutaneous excisional manner. To change dressing daily with aquacel Ag. To continue offloading with cam walker boot and offloading pocket. To optimize healing by improving glycemic control. I recommended sandfill operator surface consultation even though he reports he has attended this about twenty years ago. We discussed how glycemic control is a combination of medication adjustments, diet, exercise, and lifestyle modifications and this is important for healing ability. A referral was provided today. To follow up to the wound care center in two weeks.
== END 2019-11-19 23:59 ==
LOC: WC 14:13
PROVIDERS: Family Provider Internal Medicine; PCP Internal Medicine; Referring Provider Podiatrist; Visit Provider Podiatrist
DX: E10.621 Type 1 diabetes mellitus with foot ulcer (principal); E10.29 Type 1 diabetes mellitus with other diabetic kidney complication; L97.512 Non-pressure chronic ulcer of other part of right foot with fat layer exposed; E10.40 Type 1 diabetes mellitus with diabetic neuropathy, unspecified
CPT/HCPCS: 11042; 99213; G0463

== ENCOUNTER 2019-12-10 09:00 | Outpatient (RCR) | payer OTHER, SELFPAY ==
[2019-12-04 08:12] VITALS: BMI 26.4
== END 2019-12-20 23:59 ==
LOC: DC 09:00
PROVIDERS: Family Provider Internal Medicine; PCP Internal Medicine; Visit Provider Podiatrist
DX: Z71.3 Dietary counseling and surveillance (principal); E11.42 Type 2 diabetes mellitus with diabetic polyneuropathy
CPT/HCPCS: 97802; G0108

== ENCOUNTER 2019-12-11 08:30 | Outpatient (RCR) | payer OTHER, SELFPAY ==
[2019-11-20 00:07] VITALS: BP 158/84; PULSE 95; RESP 18; TEMP 36.6
[2019-11-22 15:20] VITALS: BP 150/91; PULSE 96; RESP 18; TEMP 36.7; BMI 26.4
--- NOTE | 2019-11-22 15:45 | PCM.WC.PN ---
(1) Ulcer of right foot with fat layer exposed Status: Chronic Current Visit: Yes Code(s): L97.512 - Non-pressure chronic ulcer of other part of right foot with fat layer exposed (2) Delayed wound healing Status: Chronic Current Visit: Yes Code(s): T14.8XXD - Other injury of unspecified body region, subsequent encounter (3) Malnutrition Status: Chronic Current Visit: Yes Code(s): E46 - Unspecified protein-calorie malnutrition (4) Type 1 diabetes mellitus with microalbuminuria, with long-term current use of insulin Status: Chronic Current Visit: Yes Code(s): E10.29 - Type 1 diabetes mellitus with other diabetic kidney complication; R80.9 - Proteinuria, unspecified Comment: BG readings higher than expected. Pt is ask to check BG in pairs. He appears to need more insulin at breakfast and lunch since he is off work and not active.. Ask to use correction scale aggressively. Report he ran out of strips but has now recieved his supply Discussed need to continue with this level of control in the post op state. (5) Difficulty in walking, not elsewhere classified Status: Chronic Current Visit: Yes Code(s): R26.2 - Difficulty in walking, not elsewhere classified Type of Wound Date of Service: 11/22/19 Chief Complaint: Ulcer right foot History of Wound: Mr. Diaz is a 44-year-old with history of poorly controlled diabetes mellitus status post several episodes of osteomyelitis/surgical debridement was seen for nonhealing sub 1st metatarsal head ulcer. It is noted he had a previous amputation of the adjacent 2nd toe by a accounts receivable accountant located at a different facility. He denies redness, fever, chills, nausea. He relates his last hemoglobin a1c was 12 performed at an outside facility. He relates it has always been high. He is amendable to proceed with a nutrition consultation as previously discussed and he is scheduled next week. He relates he also had thick purulent type drainage for 1-1/2 days that has resolved the past several days. He did not call the foot and ankle center as advised in this circumstance. Progress of Wound: stable - Physical Exam Vital Signs Temp Pulse Resp BP 98.1 F 96 18 150/91 H 11/22/19 15:20 11/22/19 15:20 11/22/19 15:20 11/22/19 15:20 General: Alert, Oriented x3, Cooperative, No apparent distress HEENT: Atraumatic Extremities: No cyanosis, Capillary Refill Less than 3 Seconds, No Calf Tenderness, Diminished Peripheral Pulses, Edema Skin: Ulcer/ Wound - No erythema , purulence, edema, streaking, odor, infection. Peripheral skin is grossly atrophic. There is no deep tissue exposure, maceration, or necrosis. The ulcer bed is granular with some peripheral callus formation Wound Measurements and Assessment WC - Nurse 1 - General Ulcer Measurement Start: 11/22/19 15:20 Freq: Status: Active Protocol: Activity Type Activity Date Activity User E-Sign Co-Sign Detail Recorded Client Recorded Date Recorded By Document 11/22/19 15:20 DV [id number] 11/22/19 15:22 DV 11/22/19 15:20 Wound Center Nurse 1 [Ulcer Assessment] #2 R Foot Plantar -Combined with other wound No -Current Size (cm) - Length 2.0 -Current Size (cm) - Width 2.0 -Current Size (cm) - Depth 0.8 -Total Square Cm 4.00 -Photo Taken No -Epithelialization None Present -Tunneling No -Undermining/Tunneling No -Circular Undermining No -Classification - Thickness Full Thickness without Exposed Support Structure -Exudate Amt Medium -Exudate Type Sanguineous -Wound Margin Indistinct, Non -Visible -Granulation Amt None Present (0 %) -Granulation Quality N/A -Slough/Fibrin No -Necrosis Amt Large (67-100%) -Necrotic Tissue Type Adherent Slough -Structure Exposed None/Limited to Skin Breakdown -Texture (Radha-wound Skin Appearance) Assessed, Scarring -Moisture (Radha-wound Skin Appearance No Abnormality ) -Color (Radha-wound Skin Appearance) Assessed, Erythema -Temperature (Radha-wound Skin No Abnormality Appearance) (Pt Warm) -Tenderness on Palpation (Radha-wound Yes Skin Appearance) -Ulcer Cleansing Rinsed/ Irrigated with Saline -Foul Odor after Cleansing No -Anesthetic Used 5% Lidocaine Gel WC - Nurse 2 - General Ulcer CM Notes Start: 11/22/19 15:20 Freq: Status: Active Protocol: Activity Type Activity Date Activity User E-Sign Co-Sign Detail Recorded Client Recorded Date Recorded By Document 11/22/19 15:40 [id number] [id number] 11/22/19 15:41 JF 11/22/19 15:40 Wound Center Nurse 2 [Procedure/Treatment] -Time 15:41 -Correct Patient Yes -Correct Side, Site, Position Yes -Correct Procedure Yes -Procedure Performed Yes -Type of Procedure Debridement -Clinical Debridement Subcutaneous -Post Debridement Size (cm) - Length 0.3 -Post Debridement Size (cm) - Width 1.2 -Post Debridement Size (cm) - Depth 0.2 -Total Square Cm 0.36 -Wound/Ulcer Outcome Not Healed -Ulcer Cleansing Rinsed/ Irrigated with Saline -Foul Odor after Cleansing No -Bioengineered Tissue No -Bleeding Controlled with Pressure -Offloading Yes -Type of Offloading Camwalker -Treatment Response Procedure Tolerated Well [See Physician Procedure note for Specifics] Pain Scale: 0-10 Numeric [Pain] -Is Patient Pain Free? Yes Musculoskeletal: No Tenderness to Palpation of Joints or Extremities, Muscle Wasting, - - Second toe amputation. Prominent first metatarsal head Neurological: - - Lack of normal epicritic sensation light touch consistent with neuropathy status Psych/Mental Status: Normal Affect, Appropriate Debridement Note Post-Debridement Measurements/Treatment WC - Nurse 2 - General Ulcer CM Notes Start: 11/22/19 15:20 Freq: Status: Active Protocol: Activity Type Activity Date Activity User E-Sign Co-Sign Detail Recorded Client Recorded Date Recorded By Document 11/22/19 15:40 [id number] 11/22/19 15:41 RAYNA 11/22/19 15:40 Wound Center Nurse 2 #2 R Foot Plantar -Time 15:41 -Correct Patient Yes -Correct Side, Site, Position Yes -Correct Procedure Yes -Procedure Performed Yes -Type of Procedure Debridement -Clinical Debridement Subcutaneous -Post Debridement Size (cm) - Length 0.3 -Post Debridement Size (cm) - Width 1.2 -Post Debridement Size (cm) - Depth 0.2 -Total Square Cm 0.36 -Wound/Ulcer Outcome Not Healed -Ulcer Cleansing Rinsed/ Irrigated with Saline -Foul Odor after Cleansing No -Bioengineered Tissue No -Bleeding Controlled with Pressure -Offloading Yes -Type of Offloading Camwalker -Treatment Response Procedure Tolerated Well Pain Scale: 0-10 Numeric Is Patient Pain Free? Yes Wound debrided: sub 1st metatarsal head Laterality: Right Wound Grade/Stage: grade 1 Type of Debridement: Excisional debridement Anesthesia Used: 5% Lidocaine Gel Depth: in the subcutaneous layer Percentage of wound debrided: 100 Instrument Used: #15 blade Tissue Removed: fibrous, devitalized subcutaneous, biofilm, slough Severity: Fat Layer Exposed Amount of bleeding with debridement: Mild Bleeding Controlled with: Pressure Patient tolerated procedure well Assessment/Plan Active Problems (Last Updated 06/26/19 @ 08:38 by Amanda Shahid) Difficulty in walking, not elsewhere classified (Chronic) Ulcer of right foot with fat layer exposed (Chronic) Delayed wound healing (Chronic) Malnutrition (Chronic) Type 1 diabetes mellitus with microalbuminuria, with long-term current use of insulin (Chronic) BG readings higher than expected. Pt is ask to check BG in pairs. He appears to need more insulin at breakfast and lunch since he is off work and not active.. Ask to use correction scale aggressively. Report he ran out of strips but has now recieved his supply Discussed need to continue with this level of control in the post op state. Assessment: diabetic foot ulcer grade 1 status. 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 Poorly controlled diabetes mellitus, insulin-dependent with neuropathy. History of recent tobacco cessation. Delayed healing. Suspected malnutrition Plan: I reviewed and discussed his updated case. He was reassured no infection is present today. Debridement was performed today as noted in the clinical panel in a subcutaneous excisional manner. To change dressing daily with aquacel Ag. To continue offloading with cam walker boot and offloading pocket. To optimize healing by improving glycemic control. I recommended claims vice president consultation even though he reports he has attended this about twenty years ago. We discussed how glycemic control is a combination of medication adjustments, diet, exercise, and lifestyle modifications and this is important for healing ability. A referral was provided previously and this has been scheduled. To follow up to the wound care center in 1 week.
[2019-11-27 08:53] VITALS: BP 147/80; PULSE 100; RESP 18; TEMP 36.8; BMI 26.4
--- NOTE | 2019-11-27 09:38 | PCM.WC.PN ---
(1) Ulcer of right foot with fat layer exposed Status: Chronic Current Visit: Yes Code(s): L97.512 - Non-pressure chronic ulcer of other part of right foot with fat layer exposed (2) Delayed wound healing Status: Chronic Current Visit: Yes Code(s): T14.8XXD - Other injury of unspecified body region, subsequent encounter (3) Malnutrition Status: Chronic Current Visit: Yes Code(s): E46 - Unspecified protein-calorie malnutrition (4) Type 1 diabetes mellitus with microalbuminuria, with long-term current use of insulin Status: Chronic Current Visit: Yes Code(s): E10.29 - Type 1 diabetes mellitus with other diabetic kidney complication; R80.9 - Proteinuria, unspecified Comment: BG readings higher than expected. Pt is ask to check BG in pairs. He appears to need more insulin at breakfast and lunch since he is off work and not active.. Ask to use correction scale aggressively. Report he ran out of strips but has now recieved his supply Discussed need to continue with this level of control in the post op state. (5) Difficulty in walking, not elsewhere classified Status: Chronic Current Visit: Yes Code(s): R26.2 - Difficulty in walking, not elsewhere classified Type of Wound Date of Service: 11/27/19 Chief Complaint: Ulcer right foot History of Wound: Mr. Diaz is a 44-year-old with history of poorly controlled diabetes mellitus status post several episodes of osteomyelitis/surgical debridement was seen for nonhealing sub 1st metatarsal head ulcer. 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 He denies redness, fever, chills, nausea. He relates his last hemoglobin a1c was 12 performed at an outside facility. He relates it has always been high. He is amendable to proceed with a nutrition consultation as previously discussed and he is scheduled this week. He denies any drainage. He plans to follow-up to see if his extra-depth diabetic shoes have been approved or ordered for fitting at the foot [facility] ankle center. Progress of Wound: Improving - Physical Exam Vital Signs Temp Pulse Resp BP 98.2 F 100 18 147/80 H 11/27/19 08:53 11/27/19 08:53 11/27/19 08:53 11/27/19 08:53 General: Alert, Oriented x3, Cooperative, No apparent distress Extremities: No cyanosis, Capillary Refill Less than 3 Seconds, No Calf Tenderness, Diminished Peripheral Pulses, Edema Skin: Ulcer/ Wound - No purulence, erythema, streaking, odor, infection. There is some peripheral callus noted. His skin is atrophic Wound Measurements and Assessment WC - Nurse 1 - General Ulcer Measurement Start: 11/22/19 15:20 Freq: Status: Active Protocol: Activity Type Activity Date Activity User E-Sign Co-Sign Detail Recorded Client Recorded Date Recorded By Document 11/27/19 08:53 RB [id number] 11/27/19 09:01 RB 11/27/19 08:53 Wound Center Nurse 1 [Ulcer Assessment] #2 R Foot Plantar -Combined with other wound No -Current Size (cm) - Length 0.4 -Current Size (cm) - Width 0.7 -Current Size (cm) - Depth 0.3 -Total Square Cm 0.28 -Tunneling No -Undermining/Tunneling Yes -Undermining/Tunneling Starts (O' 9 clock) -Undermining/Tunneling Ends (O'clock) 2 -Maximum Distance (cm) 0.2 -Circular Undermining No -Exudate Amt Small -Exudate Type Serosanguineous -Wound Margin Thickened -Granulation Amt Medium (34-66%) -Granulation Quality [place] -Slough/Fibrin Yes -Necrosis Amt Small (1-33%) -Necrotic Tissue Type Adherent Slough -Structure Exposed N/A -Texture (Radha-wound Skin Appearance) Callus -Moisture (Radha-wound Skin Appearance Assessed ) -Color (Radha-wound Skin Appearance) Assessed -Temperature (Radha-wound Skin No Abnormality Appearance) (Pt Warm) -Tenderness on Palpation (Radha-wound No Skin Appearance) -Ulcer Cleansing Wound Cleanser -Foul Odor after Cleansing No -Anesthetic Used 4% Lidocaine Solution WC - Nurse 2 - General Ulcer CM Notes Start: 11/22/19 15:20 Freq: Status: Active Protocol: Activity Type Activity Date Activity User E-Sign Co-Sign Detail Recorded Client Recorded Date Recorded By Document 11/27/19 09:31 RAYNA [id number] 11/27/19 09:35 JF 11/27/19 09:31 Wound Center Nurse 2 [Procedure/Treatment] -Time 09:33 -Correct Patient Yes -Correct Side, Site, Position Yes -Correct Procedure Yes -Procedure Performed Yes -Type of Procedure Debridement -Clinical Debridement Subcutaneous -Post Debridement Size (cm) - Length 0.5 -Post Debridement Size (cm) - Width 0.8 -Post Debridement Size (cm) - Depth 0.2 -Total Square Cm 0.40 -Wound/Ulcer Outcome Not Healed -Ulcer Cleansing Rinsed/ Irrigated with Saline -Foul Odor after Cleansing No -Bioengineered Tissue No -Bleeding Controlled with Pressure -Offloading Yes -Type of Offloading Camwalker -Treatment Response Procedure Tolerated Well [See Physician Procedure note for Specifics] Pain Scale: 0-10 Numeric [Pain] -Is Patient Pain Free? Yes Musculoskeletal: No Tenderness to Palpation of Joints or Extremities, Muscle Wasting Neurological: - - Lack of epicritic sensation light touch consistent with neuropathy status Psych/Mental Status: Normal Affect, Appropriate Debridement Note Post-Debridement Measurements/Treatment WC - Nurse 2 - General Ulcer CM Notes Start: 11/22/19 15:20 Freq: Status: Active Protocol: Activity Type Activity Date Activity User E-Sign Co-Sign Detail Recorded Client Recorded Date Recorded By Document 11/22/19 15:40 [id number] 11/22/19 15:41 Document 11/27/19 09:31 [id number] [id number] 11/27/19 09:35 11/22/19 11/27/19 15:40 09:31 Wound Center Nurse 2 #2 R Foot Plantar -Time 15:41 09:33 -Correct Patient Yes Yes -Correct Side, Site, Position Yes Yes -Correct Procedure Yes Yes -Procedure Performed Yes Yes -Type of Procedure Debridement Debridement -Clinical Debridement Subcutaneous Subcutaneous -Post Debridement Size (cm) - Length 0.3 0.5 -Post Debridement Size (cm) - Width 1.2 0.8 -Post Debridement Size (cm) - Depth 0.2 0.2 -Total Square Cm 0.36 0.40 -Wound/Ulcer Outcome Not Healed Not Healed -Ulcer Cleansing Rinsed/ Rinsed/ Irrigated with Irrigated with Saline Saline -Foul Odor after Cleansing No No -Bioengineered Tissue No No -Bleeding Controlled with Pressure Pressure -Offloading Yes Yes -Type of Offloading Camwalker Camwalker -Treatment Response Procedure Procedure Tolerated Well Tolerated Well Pain Scale: 0-10 Numeric Is Patient Pain Free? Yes Yes Wound debrided: sub 1st metatarsal head Laterality: Right Wound Grade/Stage: grade 1 Type of Debridement: Excisional debridement Anesthesia Used: 5% Lidocaine Gel Depth: in the subcutaneous layer Percentage of wound debrided: 100 Instrument Used: #15 blade Tissue Removed: fibrous, devitalized subcutaneous, biofilm, slough Severity: Fat Layer Exposed Amount of bleeding with debridement: Mild Bleeding Controlled with: Pressure Patient tolerated procedure well Assessment/Plan Active Problems (Last Updated 06/26/19 @ 08:38 by Amanda Shahid) Difficulty in walking, not elsewhere classified (Chronic) Ulcer of right foot with fat layer exposed (Chronic) Delayed wound healing (Chronic) Malnutrition (Chronic) Type 1 diabetes mellitus with microalbuminuria, with long-term current use of insulin (Chronic) BG readings higher than expected. Pt is ask to check BG in pairs. He appears to need more insulin at breakfast and lunch since he is off work and not active.. Ask to use correction scale aggressively. Report he ran out of strips but has now recieved his supply Discussed need to continue with this level of control in the post op state. Assessment: diabetic foot ulcer grade 1 status. 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 Poorly controlled diabetes mellitus, insulin-dependent with neuropathy. History of recent tobacco cessation. Delayed healing. Suspected malnutrition Plan: I reviewed and discussed his updated case. He was reassured no infection is present today. Debridement was performed today as noted in the clinical panel in a subcutaneous excisional manner. To change dressing daily with aquacel Ag. To continue offloading with cam walker boot and offloading pocket. To optimize healing by improving glycemic control. I recommended physician compensation analyst consultation and this is been scheduled. We discussed how glycemic control is a combination of medication adjustments, diet, exercise, and lifestyle modifications and this is important for healing ability. A referral was provided previously and this has been scheduled. He was advised to follow-up with the foot and ankle center for fitting and dispensing of extra-depth diabetic shoes particularly for the side that does not have a current ulcer. He will call later today. To follow up to the wound care center in 1 week.
[2019-12-04 08:12] VITALS: BP 152/87; PULSE 98; RESP 18; TEMP 36.6; BMI 26.4
--- NOTE | 2019-12-04 11:09 | PN.PCM_ITS ---
(1) Ulcer of right foot with fat layer exposed Status: Chronic Current Visit: Yes Code(s): L97.512 - Non-pressure chronic ulcer of other part of right foot with fat layer exposed (2) Delayed wound healing Status: Chronic Current Visit: Yes Code(s): T14.8XXD - Other injury of unspecified body region, subsequent encounter (3) Malnutrition Status: Chronic Current Visit: Yes Code(s): E46 - Unspecified protein- calorie malnutrition (4) Type 1 diabetes mellitus with microalbuminuria, with long-term current use of insulin Status: Chronic Current Visit: Yes Code(s): E10.29 - Type 1 diabetes mellitus with other diabetic kidney complication; R80.9 - Proteinuria, unspecified Comment: BG readings higher than expected. Pt is ask to check BG in pairs. He appears to need more insulin at breakfast and lunch since he is off work and not active.. Ask to use correction scale aggressively. Report he ran out of strips but has now recieved his supply Discussed need to continue with this level of control in the post op state. (5) Difficulty in walking, not elsewhere classified Status: Chronic Current Visit: Yes Code(s): R26.2 - Difficulty in walking, not elsewhere classified Type of Wound Date of Service: 12/04/19 Chief Complaint: Ulcer right foot History of Wound: Mr. Diaz is a 44-year-old with history of poorly controlled diabetes mellitus status post several episodes of osteomyelitis/surgical debridement was seen for nonhealing sub 1st metatarsal head ulcer. He denies redness, fever, chills, nausea. He relates his last hemoglobin a1c was 12 performed at an outside facility. He relates it has always been high. He is amendable to proceed with a nutrition consultation as previously discussed and he is scheduled today at the same time as his wound center appointment. He relates he does not know why he scheduled these at the same time. He denies any drainage. Progress of Wound: Improving - Physical Exam Vital Signs Temp Pulse Resp BP 97.8 F 98 18 152/87 H 12/04/19 08:12 12/04/19 08:12 12/04/19 08:12 12/04/19 08:12 General: Alert, Oriented x3, Cooperative, No apparent distress Extremities: No cyanosis, Capillary Refill Less than 3 Seconds, No Calf Tenderness, Diminished Peripheral Pulses, Edema Skin: Ulcer/ Wound - No purulence, erythema, streaking. His peripheral skin is hairless and atrophic Wound Measurements and Assessment WC - Nurse 1 - General Ulcer Measurement Start: 11/22/19 15:20 Freq: Status: Active Protocol: Activity Type Activity Date Activity User E-Sign Co-Sign Detail Recorded Client Recorded Date Recorded By Document 12/04/19 08:12 RAYNA [id number] 12/04/19 08:14 RAYNA 12/04/19 08:12 Wound Center Nurse 1 [Ulcer Assessment] #2 R Foot Plantar -Combined with other wound No -Current Size (cm) - Length 0.3 -Current Size (cm) - Width 1 -Current Size (cm) - Depth 0.4 -Total Square Cm 0.3 -Photo Taken No -Epithelialization Small 1-33% -Tunneling No -Undermining/Tunneling No -Circular Undermining No -Exudate Amt Small -Exudate Type Serosanguineous -Wound Margin Indistinct, Non -Visible -Granulation Amt Large (67-100%) -Granulation Quality [place] -Slough/Fibrin Yes -Necrosis Amt Small (1-33%) -Necrotic Tissue Type Adherent Slough -Structure Exposed N/A -Texture (Radha-wound Skin Appearance) Assessed,Callus -Moisture (Radha-wound Skin Appearance Assessed,Dry/ ) Scaly -Color (Radha-wound Skin Appearance) Assessed -Temperature (Radha-wound Skin No Abnormality Appearance) (Pt Warm) -Tenderness on Palpation (Radha-wound No Skin Appearance) -Ulcer Cleansing Rinsed/ Irrigated with Saline -Foul Odor after Cleansing No -Anesthetic Used 5% Lidocaine Gel [Edema Assessment] -Lower Limb Edema Present NA - Nurse 2 - General Ulcer CM Notes Start: 11/22/19 15:20 Freq: Status: Active Protocol: Activity Type Activity Date Activity User E-Sign Co-Sign Detail Recorded Client Recorded Date Recorded By Document 12/04/19 08:35 RAYNA [id number] 12/04/19 08:35 12/04/19 08:35 Wound Center Nurse 2 [Procedure/Treatment] #2 R Foot Plantar -Time 08:35 -Correct Patient Yes -Correct Side, Site, Position Yes -Correct Procedure Yes -Procedure Performed Yes -Type of Procedure Debridement -Clinical Debridement Subcutaneous -Post Debridement Size (cm) - Length 0.2 -Post Debridement Size (cm) - Width 1.1 -Post Debridement Size (cm) - Depth 0.2 -Total Square Cm 0.22 -Wound/Ulcer Outcome Not Healed -Ulcer Cleansing Rinsed/ Irrigated with Saline -Foul Odor after Cleansing No -Bioengineered Tissue No -Bleeding Controlled with Pressure -Offloading Yes -Type of Offloading Camwalker -Treatment Response Procedure Tolerated Well [See Physician Procedure note for Specifics] Pain Scale: 0-10 Numeric [Pain] -Is Patient Pain Free? Yes Musculoskeletal: Muscle Wasting Neurological: - - Lack of normal epicritic sensation light touch consistent with neuropathy status Psych/Mental Status: Normal Affect, Appropriate Debridement Note Post-Debridement Measurements/Treatment WC - Nurse 2 - General Ulcer CM Notes Start: 11/22/19 15:20 Freq: Status: Active Protocol: Activity Type Activity Date Activity User E-Sign Co-Sign Detail Recorded Client Recorded Date Recorded By Document 11/22/19 15:40 [id number] 11/22/19 15:41 Document 11/27/19 09:31 [id number] 11/27/19 09:35 Document 12/04/19 08:35 [id number] 12/04/19 08:35 11/22/19 11/27/19 12/04/19 15:40 09:31 08:35 Wound Center Nurse 2 #2 R Foot Plantar -Time 15:41 09:33 08:35 -Correct Patient Yes Yes Yes -Correct Side, Site, Position Yes Yes Yes -Correct Procedure Yes Yes Yes -Procedure Performed Yes Yes Yes -Type of Procedure Debridement Debridement Debridement -Clinical Debridement Subcutaneous Subcutaneous Subcutaneous -Post Debridement Size (cm) - Length 0.3 0.5 0.2 -Post Debridement Size (cm) - Width 1.2 0.8 1.1 -Post Debridement Size (cm) - Depth 0.2 0.2 0.2 -Total Square Cm 0.36 0.40 0.22 -Wound/Ulcer Outcome Not Healed Not Healed Not Healed -Ulcer Cleansing Rinsed/ Rinsed/ Rinsed/ Irrigated with Irrigated with Irrigated with Saline Saline Saline -Foul Odor after Cleansing No No No -Bioengineered Tissue No No No -Bleeding Controlled with Pressure Pressure Pressure -Offloading Yes Yes Yes -Type of Offloading Camwalker Camwalker Camwalker -Treatment Response Procedure Procedure Procedure Tolerated Well Tolerated Well Tolerated Well Pain Scale: 0-10 Numeric Is Patient Pain Free? Yes Yes Yes Wound debrided: sub 1st metatarsal head Laterality: Right Wound Grade/Stage: grade 1 Type of Debridement: Excisional debridement Anesthesia Used: 5% Lidocaine Gel Depth: in the subcutaneous layer Percentage of wound debrided: 100 Instrument Used: #15 blade Tissue Removed: fibrous, devitalized subcutaneous, biofilm, slough Severity: Fat Layer Exposed Amount of bleeding with debridement: Mild Bleeding Controlled with: Pressure Patient tolerated procedure well Assessment/Plan Active Problems (Last Updated 06/26/19 @ 08:38 by Amanda Shahid) Difficulty in walking, not elsewhere classified (Chronic) Ulcer of right foot with fat layer exposed (Chronic) Delayed wound healing (Chronic) Malnutrition (Chronic) Type 1 diabetes mellitus with microalbuminuria, with long-term current use of insulin (Chronic) BG readings higher than expected. Pt is ask to check BG in pairs. He appears to need more insulin at breakfast and lunch since he is off work and not active.. Ask to use correction scale aggressively. Report he ran out of strips but has now recieved his supply Discussed need to continue with this level of control in the post op state. Assessment: diabetic foot ulcer grade 1 status. 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 Poorly controlled diabetes mellitus, insulin-dependent with neuropathy. History of recent tobacco cessation. Delayed healing. Suspected malnutrition Plan: I reviewed and discussed his updated case. He was reassured no infection is present today. Debridement was performed today as noted in the clinical panel in a subcutaneous excisional manner. To change dressing daily with aquacel Ag. To continue offloading with cam walker boot and offloading pocket. To optimize healing by improving glycemic control. I recommended landscape contractor consultation and this is been scheduled. It looks like he is missing his appointment scheduled today and he was reminded to reschedule this. We discussed how glycemic control is a combination of medication adjustments, diet, exercise, and lifestyle modifications and this is important for healing ability. A referral was provided previously and this has been scheduled. He was advised to follow- up with the foot and ankle center for fitting and dispensing of extra-depth diabetic shoes particularly for the side that does not have a current ulcer. He will call later today. To follow up to the wound care center in 1 week.
[2019-12-11 08:35] VITALS: BP 132/78; PULSE 92; RESP 18; TEMP 36.8; BMI 26.4
--- NOTE | 2019-12-11 09:03 | PN.PCM_ITS ---
(1) Ulcer of right foot with fat layer exposed Status: Chronic Current Visit: Yes Code(s): L97.512 - Non-pressure chronic ulcer of other part of right foot with fat layer exposed (2) Delayed wound healing Status: Chronic Current Visit: Yes Code(s): T14.8XXD - Other injury of unspecified body region, subsequent encounter (3) Malnutrition Status: Chronic Current Visit: Yes Code(s): E46 - Unspecified protein- calorie malnutrition (4) Type 1 diabetes mellitus with microalbuminuria, with long-term current use of insulin Status: Chronic Current Visit: Yes Code(s): E10.29 - Type 1 diabetes mellitus with other diabetic kidney complication; R80.9 - Proteinuria, unspecified Comment: BG readings higher than expected. Pt is ask to check BG in pairs. He appears to need more insulin at breakfast and lunch since he is off work and not active.. Ask to use correction scale aggressively. Report he ran out of strips but has now recieved his supply Discussed need to continue with this level of control in the post op state. (5) Difficulty in walking, not elsewhere classified Status: Chronic Current Visit: Yes Code(s): R26.2 - Difficulty in walking, not elsewhere classified Type of Wound Date of Service: 12/11/19 Chief Complaint: Ulcer right foot History of Wound: Mr. Diaz is a 44-year-old with history of poorly controlled diabetes mellitus status post several episodes of osteomyelitis/surgical debridement was seen for nonhealing sub 1st metatarsal head ulcer. He denies redness, fever, chills, nausea. He relates his last hemoglobin a1c was 12 performed at an outside facility. He relates it has always been high. He is amendable to proceed with a nutrition consultation as previously discussed and he is making some adjustments. He denies any drainage. Progress of Wound: Improving - Physical Exam Vital Signs Temp Pulse Resp BP 98.2 F 92 18 132/78 H 12/11/19 08:35 12/11/19 08:35 12/11/19 08:35 12/11/19 08:35 General: Alert, Oriented x3, Cooperative, No apparent distress Extremities: No cyanosis, No edema Skin: Ulcer/ Wound - No no purulence, erythema, streaking, odor, infection Wound Measurements and Assessment WC - Nurse 1 - General Ulcer Measurement Start: 11/22/19 15:20 Freq: Status: Active Protocol: Activity Type Activity Date Activity User E-Sign Co-Sign Detail Recorded Client Recorded Date Recorded By Document 12/11/19 08:35 RB [id number] 12/11/19 08:42 RB 12/11/19 08:35 Wound Center Nurse 1 [Ulcer Assessment] #2 R Foot Plantar -Combined with other wound No -Current Size (cm) - Length 0.4 -Current Size (cm) - Width 0.5 -Current Size (cm) - Depth 0.3 -Total Square Cm 0.20 -Tunneling No -Undermining/Tunneling No -Circular Undermining No -Exudate Amt Small -Exudate Type Serosanguineous -Wound Margin Thickened -Granulation Amt Medium (34-66%) -Granulation Quality [place] -Slough/Fibrin Yes -Necrosis Amt Small (1-33%) -Necrotic Tissue Type Adherent Slough -Structure Exposed N/A -Texture (Radha-wound Skin Appearance) Callus -Moisture (Radha-wound Skin Appearance Assessed ) -Color (Radha-wound Skin Appearance) Assessed -Temperature (Radha-wound Skin No Abnormality Appearance) (Pt Warm) -Tenderness on Palpation (Radha-wound No Skin Appearance) -Ulcer Cleansing Wound Cleanser -Foul Odor after Cleansing No -Anesthetic Used 5% Lidocaine Gel WC - Nurse 2 - General Ulcer CM Notes Start: 11/22/19 15:20 Freq: Status: Active Protocol: Activity Type Activity Date Activity User E-Sign Co-Sign Detail Recorded Client Recorded Date Recorded By Document 12/11/19 08:52 RAYNA [id number] 12/11/19 08:54 12/11/19 08:52 Wound Center Nurse 2 [Procedure/Treatment] -Time 08:52 -Correct Patient Yes -Correct Side, Site, Position Yes -Correct Procedure Yes -Procedure Performed Yes -Type of Procedure Debridement -Clinical Debridement Subcutaneous -Post Debridement Size (cm) - Length 0.4 -Post Debridement Size (cm) - Width 0.6 -Post Debridement Size (cm) - Depth 0.2 -Total Square Cm 0.24 -Wound/Ulcer Outcome Not Healed -Ulcer Cleansing Rinsed/ Irrigated with Saline -Foul Odor after Cleansing No -Bioengineered Tissue No -Bleeding Controlled with Pressure -Offloading Yes -Type of Offloading Surgical Shoe -Treatment Response Procedure Tolerated Well [See Physician Procedure note for Specifics] Pain Scale: 0-10 Numeric [Pain] -Is Patient Pain Free? Yes Musculoskeletal: No Tenderness to Palpation of Joints or Extremities, Muscle Wasting, - - Second toe amputation. Dorsal contracture lesser toes and prominent metatarsal head Neurological: - - Lack of normal epicritic sensation light touch is consistent with neuropathy status Psych/Mental Status: Normal Affect, Appropriate Debridement Note Post-Debridement Measurements/Treatment WC - Nurse 2 - General Ulcer CM Notes Start: 11/22/19 15:20 Freq: Status: Active Protocol: Activity Type Activity Date Activity User E-Sign Co-Sign Detail Recorded Client Recorded Date Recorded By Document 11/22/19 15:40 [id number] 11/22/19 15:41 Document 11/27/19 09:31 [id number] 11/27/19 09:35 Document 12/04/19 08:35 [id number] 12/04/19 08:35 Document 12/11/19 08:52 [id number] 12/11/19 08:54 11/22/19 11/27/19 12/04/19 15:40 09:31 08:35 Wound Center Nurse 2 #2 R Foot Plantar -Time 15:41 09:33 08:35 -Correct Patient Yes Yes Yes -Correct Side, Site, Position Yes Yes Yes -Correct Procedure Yes Yes Yes -Procedure Performed Yes Yes Yes -Type of Procedure Debridement Debridement Debridement -Clinical Debridement Subcutaneous Subcutaneous Subcutaneous -Post Debridement Size (cm) - Length 0.3 0.5 0.2 -Post Debridement Size (cm) - Width 1.2 0.8 1.1 -Post Debridement Size (cm) - Depth 0.2 0.2 0.2 -Total Square Cm 0.36 0.40 0.22 -Wound/Ulcer Outcome Not Healed Not Healed Not Healed -Ulcer Cleansing Rinsed/ Rinsed/ Rinsed/ Irrigated with Irrigated with Irrigated with Saline Saline Saline -Foul Odor after Cleansing No No No -Bioengineered Tissue No No No -Bleeding Controlled with Pressure Pressure Pressure -Offloading Yes Yes Yes -Type of Offloading Camwalker Camwalker Camwalker -Treatment Response Procedure Procedure Procedure Tolerated Well Tolerated Well Tolerated Well Pain Scale: 0-10 Numeric Is Patient Pain Free? Yes Yes Yes 12/11/19 08:52 Wound Center Nurse 2 #2 R Foot Plantar -Time 08:52 -Correct Patient Yes -Correct Side, Site, Position Yes -Correct Procedure Yes -Procedure Performed Yes -Type of Procedure Debridement -Clinical Debridement Subcutaneous -Post Debridement Size (cm) - Length 0.4 -Post Debridement Size (cm) - Width 0.6 -Post Debridement Size (cm) - Depth 0.2 -Total Square Cm 0.24 -Wound/Ulcer Outcome Not Healed -Ulcer Cleansing Rinsed/ Irrigated with Saline -Foul Odor after Cleansing No -Bioengineered Tissue No -Bleeding Controlled with Pressure -Offloading Yes -Type of Offloading Surgical Shoe -Treatment Response Procedure Tolerated Well Pain Scale: 0-10 Numeric Is Patient Pain Free? Yes Wound debrided: sub 1st metatarsal head Laterality: Right Wound Grade/Stage: grade 1 Type of Debridement: Excisional debridement Anesthesia Used: 5% Lidocaine Gel Depth: in the subcutaneous layer Percentage of wound debrided: 100 Instrument Used: #15 blade Tissue Removed: fibrous, devitalized subcutaneous, biofilm ,slough Severity: Fat Layer Exposed Amount of bleeding with debridement: Mild Bleeding Controlled with: Pressure Patient tolerated procedure well Assessment/Plan Active Problems (Last Updated 06/26/19 @ 08:38 by Amanda Shahid) Difficulty in walking, not elsewhere classified (Chronic) Ulcer of right foot with fat layer exposed (Chronic) Delayed wound healing (Chronic) Malnutrition (Chronic) Type 1 diabetes mellitus with microalbuminuria, with long-term current use of insulin (Chronic) BG readings higher than expected. Pt is ask to check BG in pairs. He appears to need more insulin at breakfast and lunch since he is off work and not active.. Ask to use correction scale aggressively. Report he ran out of strips but has now recieved his supply Discussed need to continue with this level of control in the post op state. Assessment: diabetic foot ulcer grade 1 status. 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 Poorly controlled diabetes mellitus, insulin-dependent with neuropathy. History of recent tobacco cessation. Delayed healing. Suspected malnutrition Plan: I reviewed and discussed his updated case. He was reassured no infection is present today. Debridement was performed today as noted in the clinical panel in a subcutaneous excisional manner. To change dressing daily with aquacel Ag. To continue offloading with cam walker boot and offloading pocket. To optimize healing by improving glycemic control. I recommended home health care provider consultation and this is been scheduled. We discussed how glycemic control is a combination of medication adjustments, diet, exercise, and lifestyle modifications and this is important for healing ability. A referral was provided previously and this has been scheduled. He was advised to follow-up with the foot and ankle center for fitting and dispensing of extra-depth diabetic shoes particularly for the side that does not have a current ulcer. He will call later today. He attended his nutrition consultation and is making some adjustments. He will follow-up in 2 weeks. To follow up to the wound care center in 1 week.
== END 2019-12-20 23:59 ==
LOC: WC 08:30
PROVIDERS: Family Provider Internal Medicine; PCP Internal Medicine; Referring Provider Podiatrist; Visit Provider Podiatrist
DX: E10.621 Type 1 diabetes mellitus with foot ulcer (principal); E10.29 Type 1 diabetes mellitus with other diabetic kidney complication; L97.512 Non-pressure chronic ulcer of other part of right foot with fat layer exposed; R26.2 Difficulty in walking, not elsewhere classified; E10.65 Type 1 diabetes mellitus with hyperglycemia; Z89.421 Acquired absence of other right toe(s); E10.40 Type 1 diabetes mellitus with diabetic neuropathy, unspecified; Z87.891 Personal history of nicotine dependence
CPT/HCPCS: 11042

== ENCOUNTER 2019-12-25 11:39 | Outpatient (RCR) | payer OTHER, SELFPAY ==
[2019-12-25 08:35] VITALS: BMI 26.4
== END 2020-01-18 23:59 ==
LOC: DC 11:39
PROVIDERS: Family Provider Internal Medicine; PCP Internal Medicine; Visit Provider Podiatrist
DX: Z71.3 Dietary counseling and surveillance (principal); E11.42 Type 2 diabetes mellitus with diabetic polyneuropathy
CPT/HCPCS: 97803

== ENCOUNTER 2020-01-01 09:00 | Outpatient (RCR) | payer OTHER, SELFPAY ==
[2019-12-21 00:21] VITALS: BP 132/78; PULSE 92; RESP 18; TEMP 36.8
[2019-12-25 08:35] VITALS: BP 147/91; PULSE 104; RESP 16; TEMP 36.8
--- NOTE | 2019-12-25 09:16 | PCM.WC.PN ---
(1) Ulcer of right foot with fat layer exposed Status: Chronic Current Visit: Yes Code(s): L97.512 - Non-pressure chronic ulcer of other part of right foot with fat layer exposed (2) Delayed wound healing Status: Chronic Current Visit: Yes Code(s): T14.8XXD - Other injury of unspecified body region, subsequent encounter (3) Malnutrition Status: Chronic Current Visit: Yes Code(s): E46 - Unspecified protein-calorie malnutrition Type of Wound Date of Service: 12/25/19 Chief Complaint: Ulcer right foot History of Wound: Mr. Diaz is a 44-year-old with history of poorly controlled diabetes mellitus status post several episodes of osteomyelitis/surgical debridement was seen for nonhealing sub 1st metatarsal head ulcer. He denies redness, fever, chills, nausea. He relates his last hemoglobin a1c was 12 performed at an outside facility. He relates it has always been high. He relates his blood sugars have been running around 180 instead of 300s. He wears his cam walker or uses a knee roller to offload. Progress of Wound: Improving - Physical Exam Vital Signs Temp Pulse Resp BP 98.3 F 104 H 16 147/91 H 12/25/19 08:35 12/25/19 08:35 12/25/19 08:35 12/25/19 08:35 General: Alert, Oriented x3, Cooperative, No apparent distress Extremities: No cyanosis, Capillary Refill Less than 3 Seconds, No Calf Tenderness, Diminished Peripheral Pulses, Edema Skin: Ulcer/ Wound - No purulence, erythema, string, odor, infection. The peripheral skin has a callus. The ulcer bed is granular Wound Measurements and Assessment WC - Nurse 1 - General Ulcer Measurement Start: 12/25/19 08:35 Freq: Status: Active Protocol: Activity Type Activity Date Activity User E-Sign Co-Sign Detail Recorded Client Recorded Date Recorded By Document 12/25/19 08:35 DV [id number] 12/25/19 08:39 DV 12/25/19 08:35 Wound Center Nurse 1 [Ulcer Assessment] #2 R Foot Plantar -Combined with other wound No -Current Size (cm) - Length 0.5 -Current Size (cm) - Width 1.1 -Current Size (cm) - Depth 0.5 -Total Square Cm 0.55 -Photo Taken No -Epithelialization None Present -Tunneling No -Undermining/Tunneling No -Circular Undermining No -Classification - Thickness Full Thickness without Exposed Support Structure -Exudate Amt Medium -Exudate Type Serosanguineous -Wound Margin Indistinct, Non -Visible -Granulation Amt None Present (0 %) -Granulation Quality N/A -Slough/Fibrin Yes -Necrotic Tissue Type Adherent Slough -Structure Exposed None/Limited to Skin Breakdown -Texture (Radha-wound Skin Appearance) Assessed, Scarring -Moisture (Radha-wound Skin Appearance Assessed,Dry/ ) Scaly -Color (Radha-wound Skin Appearance) No Abnormality, Assessed -Foul Odor after Cleansing No -Anesthetic Used 4% Lidocaine Solution - Nurse 2 - General Ulcer CM Notes Start: 12/25/19 08:35 Freq: Status: Active Protocol: Activity Type Activity Date Activity User E-Sign Co-Sign Detail Recorded Client Recorded Date Recorded By Document 12/25/19 08:59 RAYNA [id number] 12/25/19 09:00 12/25/19 08:59 Wound Center Nurse 2 [Procedure/Treatment] -Time 09:00 -Correct Patient Yes -Correct Side, Site, Position Yes -Correct Procedure Yes -Procedure Performed Yes -Type of Procedure Debridement -Clinical Debridement Subcutaneous -Post Debridement Size (cm) - Length 0.5 -Post Debridement Size (cm) - Width 1.2 -Post Debridement Size (cm) - Depth 0.2 -Total Square Cm 0.60 -Wound/Ulcer Outcome Not Healed -Ulcer Cleansing Rinsed/ Irrigated with Saline -Foul Odor after Cleansing No -Bioengineered Tissue No -Bleeding Controlled with Pressure -Offloading Yes -Type of Offloading Surgical Shoe -Treatment Response Procedure Tolerated Well [See Physician Procedure note for Specifics] Pain Scale: 0-10 Numeric [Pain] -Is Patient Pain Free? Yes Musculoskeletal: No Tenderness to Palpation of Joints or Extremities, Muscle Wasting, - - Reduce hallux passive range of dorsiflexion noted consistent with a hallux limitus Neurological: - - Lack of normal epicritic sensation light touch consistent with neuropathy Psych/Mental Status: Normal Affect, Appropriate Debridement Note Post-Debridement Measurements/Treatment - Nurse 2 - General Ulcer CM Notes Start: 12/25/19 08:35 Freq: Status: Active Protocol: Activity Type Activity Date Activity User E-Sign Co-Sign Detail Recorded Client Recorded Date Recorded By Document 12/25/19 08:59 JF [id number] 12/25/19 09:00 JF 12/25/19 08:59 Wound Center Nurse 2 #2 R Foot Plantar -Time 09:00 -Correct Patient Yes -Correct Side, Site, Position Yes -Correct Procedure Yes -Procedure Performed Yes -Type of Procedure Debridement -Clinical Debridement Subcutaneous -Post Debridement Size (cm) - Length 0.5 -Post Debridement Size (cm) - Width 1.2 -Post Debridement Size (cm) - Depth 0.2 -Total Square Cm 0.60 -Wound/Ulcer Outcome Not Healed -Ulcer Cleansing Rinsed/ Irrigated with Saline -Foul Odor after Cleansing No -Bioengineered Tissue No -Bleeding Controlled with Pressure -Offloading Yes -Type of Offloading Surgical Shoe -Treatment Response Procedure Tolerated Well Pain Scale: 0-10 Numeric Is Patient Pain Free? Yes Wound debrided: plantar first metatarsal head Laterality: Left Wound Grade/Stage: grade 1 Type of Debridement: Excisional debridement Anesthesia Used: 5% Lidocaine Gel Depth: in the subcutaneous layer Percentage of wound debrided: 100 Instrument Used: #15 blade Tissue Removed: fibrous, devitalized subcutaneous, biofilm, slough Severity: Fat Layer Exposed Amount of bleeding with debridement: Mild Bleeding Controlled with: Pressure Patient tolerated procedure well Assessment/Plan Active Problems (Last Updated 06/26/19 @ 08:38 by Amanda Shahid) Ulcer of right foot with fat layer exposed (Chronic) Delayed wound healing (Chronic) Malnutrition (Chronic) Assessment: diabetic foot ulcer grade 1 status. 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 Poorly controlled diabetes mellitus, insulin-dependent with neuropathy. History of recent tobacco cessation. Delayed healing. Suspected malnutrition Plan: I reviewed and discussed his updated case. He was reassured no infection is present today. Debridement was performed today as noted in the clinical panel in a subcutaneous excisional manner. To change dressing daily with aquacel Ag. To continue offloading with cam walker boot and offloading pocket. Additional offloading felt liner was fabricated today. To optimize healing by improving glycemic control. I recommended critical care specialist consultation and this is been scheduled. We discussed how glycemic control is a combination of medication adjustments, diet, exercise, and lifestyle modifications and this is important for healing ability. A referral was provided previously and this has been scheduled. He was advised to follow-up with the foot and ankle center for fitting and dispensing of extra-depth diabetic shoes particularly for the side that does not have a current ulcer. He will call later today. He attended his nutrition consultation and is making some adjustments. To follow up to the wound care center in 1 week.
[2020-01-01 08:47] VITALS: BP 145/83; PULSE 97; RESP 18; TEMP 36.3; BMI 26.4
--- NOTE | 2020-01-01 09:59 | PCM.WC.PN ---
(1) Ulcer of right foot with fat layer exposed Status: Chronic Current Visit: Yes Code(s): L97.512 - Non-pressure chronic ulcer of other part of right foot with fat layer exposed (2) Delayed wound healing Status: Chronic Current Visit: Yes Code(s): T14.8XXD - Other injury of unspecified body region, subsequent encounter (3) Malnutrition Status: Chronic Current Visit: Yes Code(s): E46 - Unspecified protein-calorie malnutrition Type of Wound Date of Service: 01/01/20 Chief Complaint: Ulcer right foot History of Wound: Mr. Diaz is a 44-year-old with history of poorly controlled diabetes mellitus status post several episodes of osteomyelitis/surgical debridement was seen for nonhealing sub 1st metatarsal head ulcer. He denies redness, fever, chills, nausea. He relates his last hemoglobin a1c was 12 performed at an outside facility. He relates it has always been high. He relates his blood sugars have been running around 150 - 180 mg/dL instead of 300s. He wears his cam walker or uses a knee roller to offload while at home. Progress of Wound: Improving - Physical Exam Vital Signs Temp Pulse Resp BP 97.4 F L 97 18 145/83 H 01/01/20 08:47 01/01/20 08:47 01/01/20 08:47 01/01/20 08:47 General: Alert, Oriented x3, Cooperative, No apparent distress Extremities: No cyanosis, Capillary Refill Less than 3 Seconds, No Calf Tenderness, Diminished Peripheral Pulses, Edema Skin: Ulcer/ Wound - No purulence, erythema, streaking, odor, infection. There continues to be peripheral callus formation and now there is an open fissure that extends around the 10:00 location. The callus is moist but not macerated or necrosis Wound Measurements and Assessment WC - Nurse 1 - General Ulcer Measurement Start: 12/25/19 08:35 Freq: Status: Active Protocol: Activity Type Activity Date Activity User E-Sign Co-Sign Detail Recorded Client Recorded Date Recorded By Document 01/01/20 08:47 DL [id number] 01/01/20 08:53 DL 01/01/20 08:47 Wound Center Nurse 1 [Ulcer Assessment] #2 R Foot Plantar -Current Size (cm) - Length 1.6 -Current Size (cm) - Width 0.7 -Current Size (cm) - Depth 0.3 -Total Square Cm 1.12 -Photo Taken No -Exudate Amt Small -Exudate Type Serosanguineous -Wound Margin Thickened -Granulation Amt Large (67-100%) -Granulation Quality Red -Necrosis Amt Small (1-33%) -Necrotic Tissue Type Adherent Slough -Structure Exposed N/A -Texture (Radha-wound Skin Appearance) Scarring -Moisture (Radha-wound Skin Appearance Dry/Scaly ) -Color (Radha-wound Skin Appearance) No Abnormality -Temperature (Radha-wound Skin No Abnormality Appearance) (Pt Warm) -Tenderness on Palpation (Radha-wound No Skin Appearance) -Ulcer Cleansing Wound Cleanser -Foul Odor after Cleansing No -Anesthetic Used 4% Lidocaine Solution - Nurse 2 - General Ulcer CM Notes Start: 12/25/19 08:35 Freq: Status: Active Protocol: Activity Type Activity Date Activity User E-Sign Co-Sign Detail Recorded Client Recorded Date Recorded By Document 01/01/20 09:21 JF [id number] 01/01/20 09:23 01/01/20 09:21 Wound Center Nurse 2 [Procedure/Treatment] -Time 09:23 -Correct Patient Yes -Correct Side, Site, Position Yes -Correct Procedure Yes -Procedure Performed Yes -Type of Procedure Debridement -Clinical Debridement Subcutaneous -Post Debridement Size (cm) - Length 1.6 -Post Debridement Size (cm) - Width 0.4 -Post Debridement Size (cm) - Depth 0.2 -Total Square Cm 0.64 -Wound/Ulcer Outcome Not Healed -Ulcer Cleansing Rinsed/ Irrigated with Saline -Foul Odor after Cleansing No -Bioengineered Tissue No -Bleeding Controlled with Pressure -Offloading Yes -Type of Offloading Knee Walker -Treatment Response Procedure Tolerated Well [See Physician Procedure note for Specifics] Pain Scale: 0-10 Numeric [Pain] -Is Patient Pain Free? Yes Musculoskeletal: No Tenderness to Palpation of Joints or Extremities, Muscle Wasting Neurological: - - Lack of normal epicritic sensation light touch is consistent with neuropathy status Psych/Mental Status: Normal Affect, Appropriate Debridement Note Post-Debridement Measurements/Treatment - Nurse 2 - General Ulcer CM Notes Start: 12/25/19 08:35 Freq: Status: Active Protocol: Activity Type Activity Date Activity User E-Sign Co-Sign Detail Recorded Client Recorded Date Recorded By Document 12/25/19 08:59 [id number] 12/25/19 09:00 Document 01/01/20 09:21 [id number] 01/01/20 09:23 12/25/19 01/01/20 08:59 09:21 Wound Center Nurse 2 #2 R Foot Plantar -Time 09:00 09:23 -Correct Patient Yes Yes -Correct Side, Site, Position Yes Yes -Correct Procedure Yes Yes -Procedure Performed Yes Yes -Type of Procedure Debridement Debridement -Clinical Debridement Subcutaneous Subcutaneous -Post Debridement Size (cm) - Length 0.5 1.6 -Post Debridement Size (cm) - Width 1.2 0.4 -Post Debridement Size (cm) - Depth 0.2 0.2 -Total Square Cm 0.60 0.64 -Wound/Ulcer Outcome Not Healed Not Healed -Ulcer Cleansing Rinsed/ Rinsed/ Irrigated with Irrigated with Saline Saline -Foul Odor after Cleansing No No -Bioengineered Tissue No No -Bleeding Controlled with Pressure Pressure -Offloading Yes Yes -Type of Offloading Surgical Shoe Knee Walker -Treatment Response Procedure Procedure Tolerated Well Tolerated Well Pain Scale: 0-10 Numeric Is Patient Pain Free? Yes Yes Wound debrided: sub metatarsal head Laterality: Right Wound Grade/Stage: grade 1 Type of Debridement: Excisional debridement Anesthesia Used: 5% Lidocaine Gel Depth: in the subcutaneous layer Percentage of wound debrided: 100 Instrument Used: #15 blade Tissue Removed: Fibrous, devitalized subcutaneous, biofilm, slough Severity: Fat Layer Exposed Amount of bleeding with debridement: Mild Bleeding Controlled with: Pressure Patient tolerated procedure well Assessment/Plan Active Problems (Last Updated 06/26/19 @ 08:38 by Amanda Shahid) Ulcer of right foot with fat layer exposed (Chronic) Delayed wound healing (Chronic) Malnutrition (Chronic) Assessment: diabetic foot ulcer grade 1 status. 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 Poorly controlled diabetes mellitus, insulin-dependent with neuropathy. History of recent tobacco cessation. Delayed healing. Suspected malnutrition Plan: I reviewed and discussed his updated case. He was reassured no infection is present today. Debridement was performed today as noted in the clinical panel in a subcutaneous excisional manner. To change dressing daily with aquacel Ag. To continue offloading with cam walker boot and offloading pocket. To continue compliance with knee roller. To optimize healing by improving glycemic control. I recommended dance hall host/hostess consultation and this is been initiated. We discussed how glycemic control is a combination of medication adjustments, diet, exercise, and lifestyle modifications and this is important for healing ability. A referral was provided previously and this has been scheduled. He was advised to follow-up with the foot and ankle center for fitting and dispensing of extra-depth diabetic shoes particularly for the side that does not have a current ulcer. He will call later today. He attended his nutrition consultation and is making some adjustments. To follow up to the wound care center in 1 week.
== END 2020-01-18 23:59 ==
LOC: WC 09:00
PROVIDERS: Family Provider Internal Medicine; PCP Internal Medicine; Referring Provider Podiatrist; Visit Provider Podiatrist
DX: E11.621 Type 2 diabetes mellitus with foot ulcer (principal); E11.65 Type 2 diabetes mellitus with hyperglycemia; L97.512 Non-pressure chronic ulcer of other part of right foot with fat layer exposed; Z89.421 Acquired absence of other right toe(s)
CPT/HCPCS: 11042

== ENCOUNTER 2020-01-06 17:45 | Inpatient (IN) | payer OTHER, SELFPAY ==
[2020-01-06 17:47] VITALS: BP 144/98; PULSE 131; RESP 18; TEMP 37.8; O2SAT 98; BMI 29.3
[2020-01-06 18:49] VITALS: PULSE 131; TEMP 37.8
[2020-01-06 18:49] LABS: Absolute Lymphocyte Count 0.67 X10^3/uL (0.83-4.51); Absolute Neutrophil Count 15.2 X10^3/uL (2.0-7.7); Basophil# 0.05 X10^3/uL; Basophil% 0.3 % (0-1); Eosinophil# 0.06 X10^3/uL; Eosinophils% 0.4 % (0-5); Hemoglobin 13.1 g/dL (13.0-16.5); Lymphocyte # 0.67 X10^3/ul (4.0); Mean Corp Hgb Conc 33.6 g/dL (32-36); Mean Corpuscular Hgb 28.1 pg (27.0-32.0); Mean Corpuscular Volume 83.5 fL (80-94); Mean Platelet Vol. 9.8 fl (6.2-12.0); Monocyte# 0.66 X10^3/uL; NRBC Flagged by Analyzer 0 % (0-5); Neutrophil # 15.16 X10^3/uL (2.7-7.7); Neutrophil % 90.8 % (47-70); Platelet Count 225 K/mm3 (150-450); RBC Distribution Width CV 12.7 % (11.6-14.6); RBC Distribution Width SD 38.2 fl (35.1-43.9); Red Blood Count 4.67 M/mm3 (4.6-6.2); White Blood Count 16.7 K/mm3 (4.4-11.0)
[2020-01-06 19:00] VITALS: BP 158/88; PULSE 118; RESP 19; TEMP 37.6; O2SAT 99
[2020-01-06] MEDS: 0.9% Normal Saline 1,000 ML 150 ML IV (19:04)
[2020-01-06 19:08] LABS: Anion Gap 6 (5-15); BUN 15 mg/dL (7-18); BUN/Creat Ratio 11.9 RATIO (10-20); Calcium,Total 8.8 mg/dL (8.5-10.1); Chloride 104 mmol/L (98-107); Creatinine, Serum 1.26 mg/dL (0.70-1.30); EST Glomerular Filtration Rate 66 mL/min (>60); Est Glom Filt Rate - Afr Amer 79 mL/min (>60); Estimated Creatinine Clearance 86.08 ml/min; Glucose 217 mg/dL (74-106); Potassium 3.9 mmol/L (3.5-5.1); Sodium Level 136 mmol/L (136-145)
[2020-01-06 19:14] LABS: Lactic Acid 1.2 mmol/L (0.4-1.9)
[2020-01-06 19:20] LABS: Bacteria 0 SEEN /hpf (None Seen); Mucous, Urine 0 SEEN /hpf (<or=2+); Squamous Epithelial Cells - UA 0 SEEN /hpf (0-5); White Blood Cells 0 SEEN /hpf (0-5)
[2020-01-06 19:21] LABS: Color, Urine Yellow (Yellow); Glucose, Dipstick 100 mg/dl (Normal); Ketone-Dipstick 50 mg/dl (Negative); Leukocyte Esterase-Dipstick Negative /ul (Negative); Nitrite-Dipstick Negative (Negative); Occult Blood-Urine 25 /ul (Negative); Protein-Dipstick 100 mg/dl (Negative); Specific Gravity, Urine 1.015 (1.002-1.030); Urine Bilirubin Dipstick Negative (Negative); Urine Clarity Clear (Clear); Urine Urobilinogen Normal (Normal)
[2020-01-06 19:29] LABS: Red Blood Cells-Urine 0-5 SEEN /hpf (0-5)
--- NOTE | 2020-01-06 19:47 | RAD_ITS ---
STUDY: X-RAY - RIGHT FOOT CLINICAL: Male, 44 years old. 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 COMPARISON: None. FINDINGS: Normal talus, calcaneus, and tarsal bones. Normal visualized subtalar, talonavicular, calcaneocuboid, tarsal and tarsometatarsal articulations. Normal metatarsi. Normal metatarsophalangeal joint of the great toe. Normal tibial and fibular sesamoid bones. Normal interphalangeal joint of the great toe. Partial resection of the proximal phalanx of the great toe. Normal second through fifth metatarsophalangeal joints. Status post partial limitation of the second toe at the proximal phalangeal level. The soft tissue structures are unremarkable. RAD/Foot min 3 Views IMPRESSION: No acute bony injury of the foot. Electronically Signed: Antelmo Polanco DO at 21:01 EST Tel [phone], Service support ,
[2020-01-06 20:00] VITALS: BP 177/99; PULSE 120; RESP 18; TEMP 37.6; O2SAT 97
--- NOTE | 2020-01-06 20:02 | ED.DCSUM_ITS ---
- ER Visit Summary Date of Service: 01/06/20 Chief Complaint: [Right foot infection] History of Present Illness: The patient is a 44 M [presents the emergency department with concern for an infected right foot. Patient has a history of chronic wound to the right foot which he has had for about 4 months. Tonight he developed chills and body aches and fever. noted that with increased swelling over the area of the wound and increased redness and warmth. Patient's had prior diabetic foot infections that progressed quickly. Patient has had resection of his right second toe from prior infection and osteomyelitis. Patient does see a director systems Dr. Choudhary.] Physical Examination: [HEENT-PERRLA, EOMI. Cranial nerves II through XII grossly intact. TMs clear. Mucous membranes moist. No adenopathy. Cardiovascular-regular rate and rhythm without murmur or ectopy Lungs-clear to auscultation, chest wall stable without crepitus or subcu emphysema Abdomen-normoactive bowel sounds, soft, nontender, no rebound or rigidity, no peritoneal signs. Extremities-intact ?4, normal range of motion, normal pulses, atraumatic. Right foot-patient does have a wound to the plantar aspect of the right foot over the first MTP joint. Some faint swelling noted. No purulent drainage noted. There is a faint erythema.] Test Results: [CBC with it was normal. Chemistries unremarkable. Urinalysis normal. Lactate was 1.2. Influenza was negative. Cultures ordered.] Emergency Department Course and Treatment: [Patient was started on Unasyn 3 g IV.] Treatment Plan: [Admit for IV antibiotics] Disposition: [Admit] Impression: [Diabetic foot ulcer-infected Sepsis] This note was generated with FP Complete dictation software. It may contain incorrect words, spelling, and punctuation that were not noted in review of the chart prior to signing ED Disposition - Plan for ED Patient: Referrals: Veronica Choudhary DPM [Primary Care Provider] -
--- NOTE | 2020-01-06 20:34 | PCM.HP.STD ---
Problem List (1) Sepsis Status: Acute (2) Infected wound Status: Acute (3) Diabetic foot ulcer Status: Chronic Qualifiers: Diabetic foot ulcer location: toe Diabetes mellitus type: type 1 Laterality: right Non-pressure ulcer stage: with bone involvement without evidence of necrosis Qualified Code(s): E10.621 - Type 1 diabetes mellitus with foot ulcer; L97.516 - Non-pressure chronic ulcer of other part of right foot with bone involvement without evidence of necrosis (4) Difficulty in walking, not elsewhere classified Status: Chronic (5) Nonhealing surgical wound Status: Chronic Comment: Right second toe with exposed bone. (6) Ulcer of right foot with fat layer exposed Status: Chronic (7) Delayed wound healing Status: Chronic (8) Malnutrition Status: Chronic (9) Cellulitis of right foot Status: Acute (10) Diabetes mellitus Status: Chronic (11) Type 1 diabetes mellitus with microalbuminuria, with long-term current use of insulin Status: Chronic Comment: BG readings higher than expected. Pt is ask to check BG in pairs. He appears to need more insulin at breakfast and lunch since he is off work and not active.. Ask to use correction scale aggressively. Report he ran out of strips but has now recieved his supply Discussed need to continue with this level of control in the post op state. History of Present Illness Date of Admission: 01/06/20 Chief Complaint: Generalized body aches The patient is a 44 year old M with a significant history of diabetes mellitus; osteomyelitis; diabetic foot infection and former smoker who presents emergency department with 1 day history of generalized body aches. Associated with symptoms is chills; nausea and vomiting. Patient reports yellowing of diabetic foot ulcer on the plantar side of right big toe; with associated mild erythema. At baseline; patient has no feeling around site. At the emergency department the patient was found to have tachycardia and a fever with a T-max of 100.0 Fahrenheit. He was found to have leukocytosis. Patient goes to the wound care center and sees Dr. Choudhary Past Medical History Past Medical History (Chronic Problems): Chronic Problems (Last Reviewed 01/06/20 @ 21:46 by Tj Ireland MD) Difficulty in walking, not elsewhere classified (Chronic) Nonhealing surgical wound (Chronic) Right second toe with exposed bone. Diabetic foot ulcer (Chronic) Ulcer of right foot with fat layer exposed (Chronic) Delayed wound healing (Chronic) Malnutrition (Chronic) Diabetes mellitus (Chronic) Type 1 diabetes mellitus with microalbuminuria, with long-term current use of insulin (Chronic) BG readings higher than expected. Pt is ask to check BG in pairs. He appears to need more insulin at breakfast and lunch since he is off work and not active.. Ask to use correction scale aggressively. Report he ran out of strips but has now recieved his supply Discussed need to continue with this level of control in the post op state. Medical History: Medical History (Last Reviewed 01/06/20 @ 21:50 by Tj Ireland MD) Amputation toe S98.139A partial, 2nd toe, R foot x 2 Diabetes type 1, controlled E10.9 Dx : age 21 Last exacerbation : DKA : 2002 Hypoglycemic episode : 2002 ER visit : 2002 Allergies No Known Allergies Allergy (Unverified 01/06/20 17:50) Home Medications: Ambulatory Orders Medication Instructions Recorded insulin aspart U-100 100 unit/mL 12 - 14 unit SC TIDCM ml 04/24/19 (3 mL) subcutaneous pen insulin detemir U-100 100 unit/mL 10 unit SC DAILY@0800 ml 04/24/19 (3 mL) subcutaneous pen lisinopril 10 mg tablet 10 mg PO 1700 tab 04/24/19 Insulin Detemir [Levemir (BKC)] 40 units SUBCUT DAILY@2000 01/06/20 Multivitamin with Minerals 1 tab PO DAILY 01/06/20 [Multiple Vitamin] Surgical History: Surgical History (Last Reviewed 01/06/20 @ 21:51 by Tj Ireland MD) S/P foot surgery, left Z98.890 Surgical History: - - surgery on left lower extremity. Lives: With Family Smoking Status: Former smoker - *Family History Maternal Family History: Family History (Last Reviewed 01/06/20 @ 21:51 by Tj Ireland MD) Grandfather Hypertension Cancer Aunt Cancer Review of Systems Constitutional: Reports: Anorexia, Chills, Malaise. Denies: Weight Change HEENT: Denies: Head Aches, Sinus Congestion, Sinus Drainage Cardiovascular: Denies: Chest Pain, Palpitations Respiratory: Denies: Cough, Shortness of breath at rest, Sputum production Gastrointestinal: Reports: Nausea, Vomiting. Denies: Abdominal Pain Genitourinary: Denies: Dysuria Musculoskeletal: Denies: Joint Pain, Joint Tenderness Skin: Reports: Wounds - Diabetic foot ulcer of right big toe. Denies: Rash Neurological: Denies: Numbness, Tingling, Focal weakness Psychiatric: Denies: Anxiety, Depression, Homicidal Ideations, Suicidal Ideations Hematologic/ Lymphatic: Denies: Easy Bruising, Easy Bleeding VTE Information - Inpt Only VTE Present on Admission: No VTE Mechan Device Prophylaxis: None VTE Pharm Prophylaxis ordered?: Yes Patient Problems: Active and Suspected Problems (Last Reviewed 01/06/20 @ 21:46 by Tj Ireland MD) Sepsis (Acute) Infected wound (Acute) - Physical Exam Vitals/I&O's: Vital Signs Temp Pulse Resp BP Pulse Ox 99.6 F H 118 H 19 H 158/88 H 99 01/06/20 19:00 01/06/20 19:00 01/06/20 19:00 01/06/20 19:00 01/06/20 19:00 Oxygen Delivery Method Room Air Weight: 103.6 kg Body Mass Index (BMI) 29.3 Intake and Output for Last 24 Hours 01/04/20 01/05/20 01/06/20 23:59 23:59 23:59 Intake Total 0 / 0 Balance 0 / 0 General: Alert, Oriented x3, Cooperative HEENT: Atraumatic, PERRLA, EOMI, Normocephalic Neck: Supple, No JVD, Negative Carotid Bruits Lungs: Clear to auscultation, Normal air movement, No rhonchi, No wheeze, No rales Cardiovascular: Regular Rhythm, Normal S1, Normal S2, No murmurs, Tachycardic Abdomen: Bowel Sounds Present, Soft, Non Tender Extremities: Capillary Refill Less than 3 Seconds, Edema - Ankle of left foot Skin: - - Metatarsal phalangeal area of the plantar side of right big toe: Callus surrounding yellowish top of wound with further erythematous margins. Lymphangitic streaking on dorsal side of right foot. Musculoskeletal: No Tenderness to Palpation of Joints or Extremities Neurological: Cranial nerves II-XII grossly intact Psych/Mental Status: Normal Affect, Appropriate Microbiology Past 72 Hours 01/06/20 19:07 Mucosa - Nose Influenza Types A,B Direct FA (SRINIVAS) - Final Laboratory Results 01/06/20 18:33: WBC 16.7 H, RBC 4.67, Hgb 13.1, Hct 39.0 L, MCV 83.5, MCH 28.1, MCHC 33.6, RDW Std Deviation 38.2, RDW Coeff of Delgado 12.7, Plt Count 225, MPV 9.8, Immature Gran % (Auto) 0.500, Neut % (Auto) 90.8 H, Lymph % (Auto) 4.0 L, [place] % (Auto) 4.0, Eos % (Auto) 0.4, Baso % (Auto) 0.3, Absolute Neuts (auto) 15.2 H, Absolute Lymphs (auto) 0.67 L, Nucleated RBC % 0 01/06/20 18:33: Sodium 136, Potassium 3.9, Chloride 104, Carbon Dioxide 26.0, Anion Gap 6, BUN 15, Creatinine 1.26, Estim Creat Clear Calc 86.08, Est GFR (MDRD) Af Amer 79, Est GFR (MDRD) Non-Af 66, BUN/Creatinine Ratio 11.9, Glucose 217 H, Calcium 8.8 01/06/20 18:33: Lactic Acid 1.2 01/06/20 19:05: Urine Color Yellow, Urine Clarity Clear, Urine pH 6.0, Ur Specific [place] 1.015, Urine Protein 100 H, Urine Glucose (UA) 100 H, Urine Ketones 50 H, Urine Occult Blood 25 H, Urine Nitrite Negative, Urine Bilirubin Negative, Urine Urobilinogen Normal, Ur Leukocyte Esterase Negative, Urine RBC 0-5 SEEN, Urine WBC 0 SEEN, Ur Squamous Epith Cells 0 SEEN, Urine Bacteria 0 SEEN, Urine Mucus 0 SEEN Current Medications Sodium Chloride () 1,000 mls @ 150 mls/hr IV .Q6H40M [facility] Last Infusion: 01/06/20 19:04 Dose: 0 mls/hr Documented by: Vancomycin HCl 1,500 mg/ (Sodium Chloride) 530 mls @ 250 mls/hr IV X1 ONE Stop: 01/06/20 22:37 Assessment/Plan All Active Problems (Last Reviewed 01/06/20 @ 21:46 by Tj Ireland MD) Sepsis (Acute) Infected wound (Acute) Cellulitis of right foot (Acute) The patient is a 44 year old M with a significant history of diabetes mellitus; osteomyelitis; diabetic foot infection and former smoker who presents emergency department with 1 day history of generalized body aches; is chills; nausea and vomiting; and found that the fever of with T-max of 100; tachycardia with highest heart rate of 131; and neutrophilic leukocytosis with white count of 16.7 and probable source of infection as a diabetic foot ulcer consistent with sepsis secondary to likely infection of diabetic foot ulcer.. Sepsis secondary to likely infection of diabetic foot ulcer. Lactic acid: 1.2 SIRS criteria: White count of 16.7; highest heart rate of 131 Possible source of infection: Diabetic foot ulcer of the metatarsal-phalangeal area. Blood culture ?2 is pending Foot x-ray: No acute bony injury of the foot. Get ESR and CRP. Get MRI right foot to rule out osteomyelitis. Wound care consult. Antibiotics: Patient was started on vancomycin and ampicillin at the emergency department. Because patient goes to the wound center he is at risk of Pseudomonas. Will change ampicillin to Zosyn. Continue vancomycin. IV hydration Tylenol for fever. Diabetes mellitus with nephropathy and hyperglycemia His blood glucose on presentation was elevated. Urine with glucosuria and proteinuria. On home prandial insulin. Adjust home prandial insulin in the hospital setting. Adjust home basal insulin in the hospital setting. Add correction scale insulin. Accu-Chek QA CHS with correction scale insulin. Abnormal urinalysis Importantly his urine was positive for occult blood. Recommend patient follow-up with PCP for repeat urinalysis on discharge. DVT Prophylaxis Subcutaneous Lovenox. Code Visit Inpatient E&M: 99183 Init Hosp L3
[2020-01-06 22:02] VITALS: BP 174/93; PULSE 122; RESP 18; TEMP 37.9; O2SAT 98; BMI 28.6; BMI 29.3
[2020-01-06 22:11] LABS: Bedside Glucose 359 mg/dL (70-110)
[2020-01-06] MEDS: Insulin Lispro 100 UNIT/ML INSULN.PEN SC (22:41)
[2020-01-06] MEDS: Acetaminophen 325 MG Tablet 650 MG PO (22:41)
[2020-01-06] MEDS: 0.9% Normal Saline 1,000 ML 75 ML IV (22:42)
--- NOTE | 2020-01-06 22:58 | PCM.RX.CS ---
Consult Pharmacy has been consulted to manage selected antiobiotic: Vancomycin Type of Consult: New start Suspected Infection: Sepsis Labs: Sodium 136 mmol/L (136-145) 01/06/20 18:33 Potassium 3.9 mmol/L (3.5-5.1) 01/06/20 18:33 Chloride 104 mmol/L (98-107) 01/06/20 18:33 Carbon Dioxide 26.0 mmol/L (21.0-32.0) 01/06/20 18:33 Anion Gap 6 (5-15) 01/06/20 18:33 BUN 15 mg/dL (7-18) 01/06/20 18:33 Creatinine 1.26 mg/dL (0.70-1.30) 01/06/20 18:33 Est GFR (MDRD) Af Amer 79 mL/min (>60) 01/06/20 18:33 Est GFR (MDRD) Non-Af 66 mL/min (>60) 01/06/20 18:33 BUN/Creatinine Ratio 11.9 RATIO (10-20) 01/06/20 18:33 Glucose 217 mg/dL (74-106) H 01/06/20 18:33 Microbiology: Microbiology 01/06/20 19:07 Mucosa - Nose Influenza Types A,B Direct FA (SRINIVAS) - Final Weight used for dosin.6 kg Estimated Creatinine Clearance: 95.04 Goal Trough: 15-20 mcg/mL Pharmacy Plan for Drug Dosing: Pharmacy Service will continue to monitor and adjust dosing as required. Medications Vancomycin HCl 2,000 mg/ (Sodium Chloride) 540 mls @ 250 mls/hr IV Q12H SUZANNE Discontinued Medications Vancomycin HCl 1,500 mg/ (Sodium Chloride) 530 mls @ 250 mls/hr IV X1 ONE Stop: 01/06/20 22:37 Last Admin: 01/06/20 20:35 Dose: 250 mls/hr Documented by: Follow-Up Labs: Trough Vancomycin Labs to be done on [date and time ordered]: 01/08 @ 9816
[2020-01-07] VITALS (7 sets, daily range): BP systolic 133–151; BP diastolic 77–95; PULSE 92–108; RESP 16–18; TEMP 36.7–36.9; O2SAT 97–99
[2020-01-07 05:43] LABS: Absolute Lymphocyte Count 0.85 X10^3/uL (0.83-4.51); Absolute Neutrophil Count 10.1 X10^3/uL (2.0-7.7); Basophil# 0.04 X10^3/uL; Basophil% 0.3 % (0-1); Eosinophil# 0.02 X10^3/uL; Eosinophils% 0.2 % (0-5); Hematocrit 39.5 % (40-54); Lymphocyte # 0.85 X10^3/ul (4.0); Lymphocyte % 7.3 % (19-41); Mean Corp Hgb Conc 32.9 g/dL (32-36); Mean Corpuscular Volume 85.1 fL (80-94); Mean Platelet Vol. 9.8 fl (6.2-12.0); Monocyte% 4.3 % (0-10); NRBC Flagged by Analyzer 0 % (0-5); Neutrophil % 87.4 % (47-70); Platelet Count 192 K/mm3 (150-450); RBC Distribution Width CV 12.6 % (11.6-14.6); RBC Distribution Width SD 38.5 fl (35.1-43.9); Red Blood Count 4.64 M/mm3 (4.6-6.2); White Blood Count 11.6 K/mm3 (4.4-11.0)
[2020-01-07 05:52] LABS: Anion Gap 7 (5-15); BUN 12 mg/dL (7-18); BUN/Creat Ratio 9.9 RATIO (10-20); Calcium,Total 8.7 mg/dL (8.5-10.1); Chloride 104 mmol/L (98-107); Creatinine, Serum 1.21 mg/dL (0.70-1.30); EST Glomerular Filtration Rate 69 mL/min (>60); Est Glom Filt Rate - Afr Amer 83 mL/min (>60); Estimated Creatinine Clearance 89.63 ml/min; Glucose 244 mg/dL (74-106); Potassium 3.6 mmol/L (3.5-5.1); Sodium Level 135 mmol/L (136-145)
[2020-01-07 06:02] LABS: Erythrocyte Sedimentation Rate 22 mm/hr (0-15)
[2020-01-07] MEDS: Multivitamins,Ther W-Minerals Tablet 1 TABLET PO (07:42)
[2020-01-07 07:56] LABS: Bedside Glucose 232 mg/dL (70-110)
[2020-01-07] MEDS: Insulin Lispro 100 UNIT/ML INSULN.PEN 8 UNIT SC ×3 (08:03→17:15)
[2020-01-07] MEDS: Insulin Lispro 100 UNIT/ML INSULN.PEN SC ×3 (08:04→21:53)
--- NOTE | 2020-01-07 09:05 | CON.PCM_ITS ---
Reason for Consult Date of Consultation: 01/07/20 Reason for Consultation: Right foot ulcer and infection History of Present Illness: The patient is a 44 year old male with uncontrolled diabetes was admitted for right foot ulcer with infection. He relates to having a chronic ulceration for many months, states it is not healing. He has been following at the wound center. His diabetes is not controlled, but does not understand why the wound is not healing. He has peripheral neuropathy. He relates he has a offloading boot he wears. Relates he does not do much walking. MRI has been ordered for further evaluation. Patient has been started on IV antibiotics. WBC elevated. He has hx of right 2nd toe amputation in the past, took march surgeries for it to finally heal. Past Medical History Past Medical History (Chronic Problems): Chronic Problems (Last Reviewed 01/06/20 @ 21:50 by Tj Ireland MD) Difficulty in walking, not elsewhere classified (Chronic) Nonhealing surgical wound (Chronic) Right second toe with exposed bone. Diabetic foot ulcer (Chronic) Ulcer of right foot with fat layer exposed (Chronic) Delayed wound healing (Chronic) Malnutrition (Chronic) Diabetes mellitus (Chronic) Type 1 diabetes mellitus with microalbuminuria, with long-term current use of insulin (Chronic) BG readings higher than expected. Pt is ask to check BG in pairs. He appears to need more insulin at breakfast and lunch since he is off work and not active.. Ask to use correction scale aggressively. Report he ran out of strips but has now recieved his supply Discussed need to continue with this level of control in the post op state. Medical History: Medical History (Last Reviewed 01/06/20 @ 21:50 by Tj Ireland MD) Amputation toe S98.139A partial, 2nd toe, R foot x 2 Diabetes type 1, controlled E10.9 Dx : age 21 Last exacerbation : DKA : 2002 Hypoglycemic episode : 2002 ER visit : 2002 Allergies No Known Allergies Allergy (Unverified 01/06/20 17:50) Home Medications: Ambulatory Orders Medication Instructions Recorded insulin aspart U-100 100 unit/mL 12 - 14 unit SC TIDCM ml 04/24/19 (3 mL) subcutaneous pen insulin detemir U-100 100 unit/mL 10 unit SC DAILY@0800 ml 04/24/19 (3 mL) subcutaneous pen lisinopril 10 mg tablet 10 mg PO 1700 tab 04/24/19 Insulin Detemir [Levemir ([facility])] 40 units SUBCUT DAILY@199901/06/20 Multivitamin with Minerals 1 tab PO DAILY 01/06/20 [Multiple Vitamin] Surgical History: Surgical History (Last Reviewed 01/06/20 @ 21:51 by Tj Ireland MD) S/P foot surgery, left Z98.890 Surgical History: - - surgery on left lower extremity. Lives: With Family Smoking Status: Former smoker Tobacco Use: Non-smoker - *Family History Maternal Family History: Family History (Last Reviewed 01/06/20 @ 21:51 by Tj Ireland MD) Grandfather Hypertension Cancer Aunt Cancer Review of Systems Constitutional: Denies: Chills, Fever Gastrointestinal: Denies: Nausea, Vomiting Musculoskeletal: Reports: Foot Pain Skin: Reports: Wounds Patient Problems: Active and Suspected Problems (Last Reviewed 01/06/20 @ 21:50 by Tj Ireland MD) Sepsis (Acute) Infected wound (Acute) - Physical Exam Vitals/I&O's: Vital Signs Temp Pulse Resp BP Pulse Ox 98.5 F 107 H 18 138/87 H 97 01/07/20 04:54 01/07/20 04:54 01/07/20 04:54 01/07/20 04:54 01/07/20 04:54 Oxygen Delivery Method Room Air Weight: 101.3 kg Body Mass Index (BMI) 28.6 Intake and Output for Last 24 Hours 01/05/20 01/06/20 01/07/20 23:59 23:59 23:59 Intake Total 112 / 312 1020 / 1020 Output Total 900 / 900 Balance 112 / 312 120 / 120 General: Alert, Oriented x3, Cooperative, No apparent distress Extremities: No cyanosis, Capillary Refill Less than 3 Seconds, No Calf Tenderness, Peripheral Pulses Normal, - - Ulceration plantar 1st toe with overlying HPK callus nonviable tissue present, measure 0.8cm x 0.6cm and 0.2cm in depth down to subcutaneous tissue layer prior to debridement. There is erythema, edema and cellulitis to the right foot, streaking noted to the dorsal foot which is receeding and resolving. There is no probe to bone or deeper tissue at right foot ulcer site, no underming or tunneling, no purulence, no visible abscess, no maloder, no fluctuance, no crepitus present. No other ulcerations bilateral foot/ankle. Peripheral neuropathy bilateral foot. Right 1st toe is short c/w previous surgery. 2nd toe on right foot absent from previous amputation. No POP or pain on ROM to the foot/ankle bilateral. Psych/Mental Status: Appropriate, Alert and oriented to time, place, person, mood and affect Microbiology Past 72 Hours 01/06/20 19:07 Mucosa - Nose Influenza Types A,B Direct FA (SRINIVAS) - Final Laboratory Results 01/06/20 18:33: WBC 16.7 H, RBC 4.67, Hgb 13.1, Hct 39.0 L, MCV 83.5, MCH 28.1, MCHC 33.6, RDW Std Deviation 38.2, RDW Coeff of Delgado 12.7, Plt Count 225, MPV 9.8, Immature Gran % (Auto) 0.500, Neut % (Auto) 90.8 H, Lymph % (Auto) 4.0 L, [place] % (Auto) 4.0, Eos % (Auto) 0.4, Baso % (Auto) 0.3, Absolute Neuts (auto) 15.2 H, Absolute Lymphs (auto) 0.67 L, Nucleated RBC % 0 01/06/20 18:33: Sodium 136, Potassium 3.9, Chloride 104, Carbon Dioxide 26.0, Anion Gap 6, BUN 15, Creatinine 1.26, Estim Creat Clear Calc 86.08, Est GFR (MDRD) Af Amer 79, Est GFR (MDRD) Non-Af 66, BUN/Creatinine Ratio 11.9, Glucose 217 H, Calcium 8.8 01/06/20 18:33: Lactic Acid 1.2 01/06/20 19:05: Urine Color Yellow, Urine Clarity Clear, Urine pH 6.0, Ur Specific [place] 1.015, Urine Protein 100 H, Urine Glucose (UA) 100 H, Urine Ketones 50 H, Urine Occult Blood 25 H, Urine Nitrite Negative, Urine Bilirubin Negative, Urine Urobilinogen Normal, Ur Leukocyte Esterase Negative, Urine RBC 0-5 SEEN, Urine WBC 0 SEEN, Ur Squamous Epith Cells 0 SEEN, Urine Bacteria 0 SEEN, Urine Mucus 0 SEEN 01/06/20 22:08: POC Glucose 359 H 01/07/20 05:24: WBC 11.6 H, RBC 4.64, Hgb 13.0, Hct 39.5 L, MCV 85.1, MCH 28.0, MCHC 32.9, RDW Std Deviation 38.5, RDW Coeff of Delgado 12.6, Plt Count 192, MPV 9.8, Immature Gran % (Auto) 0.500, Neut % (Auto) 87.4 H, Lymph % (Auto) 7.3 L, [place] % (Auto) 4.3, Eos % (Auto) 0.2, Baso % (Auto) 0.3, Absolute Neuts (auto) 10.1 H, Absolute Lymphs (auto) 0.85, Nucleated RBC % 0, ESR 22 H 01/07/20 05:24: Sodium 135 L, Potassium 3.6, Chloride 104, Carbon Dioxide 24.0, Anion Gap 7, BUN 12, Creatinine 1.21, Estim Creat Clear Calc 89.63, Est GFR (MDRD) Af Amer 83, Est GFR (MDRD) Non-Af 69, BUN/Creatinine Ratio 9.9 L, Glucose 244 H, Calcium 8.7, C-React Prot Ext Range 65.10 H 01/07/20 07:38: POC Glucose 232 H Current Medications Acetaminophen (Tylenol) 650 mg PO Q6H PRN PRN PRN Reason: Pain Score 1-10/Temp > 100.7 F Last Admin: 01/06/20 22:41 Dose: 650 mg Documented by: Enoxaparin Sodium (Lovenox) 40 mg SC DAILY [facility] Glucagon () 1 mg IM .X1 PRN PRN Reason: Hypoglycemia Sodium Chloride () 1,000 mls @ 75 mls/hr IV .[id number] [facility] Stop: 01/07/20 11:17 Last Admin: 01/06/20 22:42 Dose: 75 mls/hr Documented by: Piperacillin Sod/Tazobactam (Sod 3.375 gm/ Sodium Chloride) 50 mls @ 12.5 mls/hr IV Q8 [facility] Last Admin: 01/07/20 06:28 Dose: 12.5 mls/hr Documented by: Vancomycin IV Pharmacy to Dose (1,500 ea/ Sodium Chloride) 500 mls @ 250 mls/hr IV X1 THEN RX TO DOSE PRN; Protocol Dextrose (Dextrose 10%-Water) 250 mls @ 999 mls/hr IV .Q16M PRN; Protocol PRN Reason: HYPOGLYCEMIA Sodium Chloride () 250 mls @ 15 mls/hr IV .[id number] PRN PRN Reason: Saline Flush Sodium Chloride () 250 mls @ 15 mls/hr IV .[id number] PRN PRN Reason: Additional IVPB Infusion Vancomycin HCl 2,000 mg/ (Sodium Chloride) 540 mls @ 250 mls/hr IV Q12H [facility] Last Admin: 01/07/20 08:38 Dose: 250 mls/hr Documented by: Insulin Glargine (Lantus ([facility])) 10 units SC BREAKFAST [facility] Last Admin: 01/07/20 08:04 Dose: 10 u Documented by: Insulin Glargine (Lantus ([facility])) 35 units SC QHS [facility] Last Admin: 01/06/20 22:46 Dose: 35 units Documented by: Insulin Human Lispro (Humalog Kwikpen ([facility])) 8 unit SC BREAKFAST [facility] Last Admin: 01/07/20 08:03 Dose: 8 u Documented by: Insulin Human Lispro (Humalog Kwikpen ([facility])) 8 unit SC DINNER SUZANNE Insulin Human Lispro (Humalog Kwikpen ([facility])) 8 unit SC LUNCH SUZANNE Insulin Human Lispro (Humalog Kwikpen ([facility])) 0 unit SC 4X/DAYCM [facility]; Protocol Last Admin: 01/07/20 08:04 Dose: 4 u Documented by: Labetalol HCl (Trandate) 10 mg IV Q4H PRN PRN PRN Reason: SBP > 160 or DBP > 120 Lisinopril (Zestril) 10 mg PO 1700 [facility] Melatonin (Melatonin) 3 mg PO QHS PRN PRN PRN Reason: INSOMNIA Multivitamins/Minerals (Multivitamin With Minerals ([facility])) 1 tablet PO DAILY@0800 [facility] Last Admin: 01/07/20 07:42 Dose: 1 tablet Documented by: Ondansetron HCl (Zofran) 4 mg IV Q8H PRN PRN PRN Reason: NAUSEA/VOMITING Senna/Docusate Sodium (Senokot-S, Radha-Colace) 2 tablet PO BID PRN PRN PRN Reason: Constipation Sodium Chloride () 10 - 40 ml IV UD PRN PRN Reason: SALINE FLUSH Assessment/Plan All Active Problems (Last Reviewed 01/06/20 @ 21:50 by Tj Ireland MD) Sepsis (Acute) Infected wound (Acute) Cellulitis of right foot (Acute) Right 1st toe ulceration down to subcutaneous tissue with cellulitis Uncontrolled Diabetes with peripheral neuropathy Previous amputation Reviewed diagnostic data. Reviewed right foot xrays and MRI findings. There is no evidence of osteomyelitis, no abscess formation. No urgent foot surgery needed at this time. We did discussed possible further resection of bone from right 1st toe as this is chronic ulceration and would relief pressure from site to tree trimmer helper healing. However patient would end up with much shorter toe, and high risk of nonhealing due to uncontrolled diabetes. Ulceration right 1st toe was debrided using a 15 blade, removing nonviable tissue, this was done in excisional fashion down to subcutaneous tissue layer, post debridement ulceration measured 1cm x 0.7cm and 0.2cm in depth, no anesthesia was needed due to patient's peripheral neuropathy. Hemostasis was achieved with pressure and gauze. Wound care: Aquacel Ag w/ overlying gauze dressing. Change daily. A culture was obtained of the ulceration and sent to microbiology for further evaluation. Continue w/ IV antibiotics and continue to follow cultures. Reviewed importance of proper blood sugar control to optimize healing. No weightbearing right foot. Podiatry will continue to follow. Will further discuss with patient regarding possible further foot surgery options.
--- NOTE | 2020-01-07 09:30 | MRI_ITS ---
STUDY: MRI RIGHT FOREFOOT WITHOUT CONTRAST REASON FOR EXAM: Open wound at the plantar aspect of the ball of foot since September. TECHNIQUE: Standardized fat and water weighted pulse sequences were obtained in all 3 orthogonal planes. COMPARISON: Radiographs 01/06/2020. FINDINGS: Normal metatarsophalangeal joint of the hallux. Normal tibial and fibular sesamoids, with normal sesamoids-first metatarsal articulations. There is an amputation of the distal aspect of the first proximal phalanx. There is no bone edema of the proximal or distal phalanges of the great toe. Normal medial and lateral heads of the flexor hallucis brevis tendons. Normal flexor and extensor hallucis longus tendons. There is amputation of the second toe with only a remaining base of the proximal phalanx of the second toe with preservation of normal T1 bone marrow signal. There is capsular thickening of the second metatarsophalangeal joint. Normal third through fifth metatarsophalangeal (MTP) joints. Normal interphalangeal joints of the third through fifth toes. Normal proximal, middle and distal phalanges of the third through fifth toes. Normal first through fourth intermetatarsal spaces. Normal flexor and extensor tendons of the third through fifth toes. There is a healing stress fracture of the neck of the second metatarsal (T1 sagittal images 12, 13; inversion recovery sagittal images 12, 13). Otherwise, unremarkable metatarsals. There is atrophy with partial fat replacement of the abductor digiti minimi muscle (T1 sagittal image 21). There is callus at the plantar aspect of the great toe (T1 sagittal images 4-9). There is a pressure lesion at the plantar aspect of the fifth metatarsophalangeal joint (T1 sagittal images 24, 25). There is mild edema in the dorsal subcutis adipose space. There is no focal fluid collection to indicate soft tissue abscess. MRI/Lower Ext/No Jt/w/o IMPRESSION: Partial amputation of the first proximal phalanx without bone edema of the phalanges of the first digit or first metatarsal to indicate osteomyelitis. Healing stress fracture of the neck of the second metatarsal and amputation of the second digit. Callus at the plantar aspect of the great toe. Pressure lesion at the plantar aspect of the fifth metatarsophalangeal joint. Atrophy of the abductor digiti minimi muscle. No demonstrated soft tissue abscess. Electronically Signed: Mehdi Helm MD at 10:55 EST Tel , Service support ,
--- NOTE | 2020-01-07 10:15 | NURSING ---
wound photo: right plantar foot
[2020-01-07] MEDS: Enoxaparin 40 MG/0.4 ML Syringe SC (10:38)
--- NOTE | 2020-01-07 11:31 | CASEMGMT ---
RN CM Assessment Note Presentation: Sepsis, Infected wound, diabetic foot ulcer Intro role of CM and purpose of RN CM assessment to patient in room. Pt is awake, alert and able to participate in assessment. Demographics, PCP and Pharmacy verified. Pt states he has been following up with the wound center and his was doing dressing changes at home. PCP: Alexei Spencer Specialists: Dr. Veronica Choudhary DPM Preferred [facility]acy: [facility] Insurance: MMO Prescription Benefit: yes LNOK: Deborah Diaz Living Arrangements: Lives independently with his . Pt states he does not required assistance with ADL's, and can help if needed. Transportation: Drives while wearing his walking boot. DME: knee walker, walking boot HHC: past, does not know which agency. If HHC needed, pt states he does not have a preference. Patient DC goals: Home with to assist with wound care and f/u with wound clinic. DC PLAN: Anticipate home on dc. RN CM let pt know CM is available if concerns or needs on dc arise. Vaughn CHANGN RN ACM
--- NOTE | 2020-01-07 11:32 | PN_ITS ---
Patient Problems: Active and Suspected Problems (Last Reviewed 01/06/20 @ 21:50 by Tj Ireland MD) Sepsis (Acute) Infected wound (Acute) Reason for Visit: The patient was admitted with diabetic foot ulcer on the plantar aspect of right big toe with associated mild erythema. He was found to have tachycardia, low- grade fever 100 ?F and leukocytosis. Seen by heel slugger. Discussed with wound care nurse Vitals/I&O's: Vital Signs Temp Pulse Resp BP Pulse Ox 98.5 F 107 H 18 138/87 H 97 01/07/20 04:54 01/07/20 04:54 01/07/20 04:54 01/07/20 04:54 01/07/20 04:54 Oxygen Delivery Method Room Air Weight: 223 lb 5.252 oz Body Mass Index (BMI) 28.6 Intake and Output for Last 24 Hours 01/05/20 01/06/20 01/07/20 23:59 23:59 23:59 Intake Total 112 / 312 1020 / 1020 Output Total 900 / 900 Balance 112 / 312 120 / 120 General: Alert, Oriented x3, Cooperative HEENT: Atraumatic, PERRLA, EOMI, Normocephalic, - - Eyes look dry and a small. Patient states he has chronic decreased decrease in vision secondary to diabetic retinopathy and has history of retinal edema Oral: No Gingival or Mucosal Lesions/ Ulcerations, Dry Mucosa Neck: Supple, No JVD, Negative Carotid Bruits Lungs: Clear to auscultation, No rhonchi, No wheeze, No rales, Diminished Cardiovascular: Regular rate, Regular Rhythm, Normal S1, Normal S2, No murmurs Abdomen: Bowel Sounds Present, Soft, Non Tender, Non-Distended Extremities: No edema, Capillary Refill Less than 3 Seconds Skin: Ulcer/ Wound - Ulcer over the plantar aspect of ball of big toe. Previous second toe amputation. Musculoskeletal: No Tenderness to Palpation of Joints or Extremities, Arthritic Changes, Muscle Wasting Neurological: Cranial nerves II-XII grossly intact, Neuro grossly intact, - - Decreased peripheral sensation Psych/Mental Status: Normal Affect, Appropriate Microbiology Past 72 Hours 01/06/20 19:07 Mucosa - Nose Influenza Types A,B Direct FA (SRINIVAS) - Final Laboratory Results 01/06/20 18:33: WBC 16.7 H, RBC 4.67, Hgb 13.1, Hct 39.0 L, MCV 83.5, MCH 28.1, MCHC 33.6, RDW Std Deviation 38.2, RDW Coeff of Delgado 12.7, Plt Count 225, MPV 9.8, Immature Gran % (Auto) 0.500, Neut % (Auto) 90.8 H, Lymph % (Auto) 4.0 L, [place] % (Auto) 4.0, Eos % (Auto) 0.4, Baso % (Auto) 0.3, Absolute Neuts (auto) 15.2 H, Absolute Lymphs (auto) 0.67 L, Nucleated RBC % 0 01/06/20 18:33: Sodium 136, Potassium 3.9, Chloride 104, Carbon Dioxide 26.0, Anion Gap 6, BUN 15, Creatinine 1.26, Estim Creat Clear Calc 86.08, Est GFR (MDRD) Af Amer 79, Est GFR (MDRD) Non-Af 66, BUN/Creatinine Ratio 11.9, Glucose 217 H, Calcium 8.8 01/06/20 18:33: Lactic Acid 1.2 01/06/20 19:05: Urine Color Yellow, Urine Clarity Clear, Urine pH 6.0, Ur Specific [place] 1.015, Urine Protein 100 H, Urine Glucose (UA) 100 H, Urine Ketones 50 H, Urine Occult Blood 25 H, Urine Nitrite Negative, Urine Bilirubin Negative, Urine Urobilinogen Normal, Ur Leukocyte Esterase Negative, Urine RBC 0-5 SEEN, Urine WBC 0 SEEN, Ur Squamous Epith Cells 0 SEEN, Urine Bacteria 0 SEEN, Urine Mucus 0 SEEN 01/06/20 22:08: POC Glucose 359 H 01/07/20 05:24: WBC 11.6 H, RBC 4.64, Hgb 13.0, Hct 39.5 L, MCV 85.1, MCH 28.0, MCHC 32.9, RDW Std Deviation 38.5, RDW Coeff of Delgado 12.6, Plt Count 192, MPV 9.8, Immature Gran % (Auto) 0.500, Neut % (Auto) 87.4 H, Lymph % (Auto) 7.3 L, [place] % (Auto) 4.3, Eos % (Auto) 0.2, Baso % (Auto) 0.3, Absolute Neuts (auto) 10.1 H, Absolute Lymphs (auto) 0.85, Nucleated RBC % 0, ESR 22 H 01/07/20 05:24: Sodium 135 L, Potassium 3.6, Chloride 104, Carbon Dioxide 24.0, Anion Gap 7, BUN 12, Creatinine 1.21, Estim Creat Clear Calc 89.63, Est GFR (MDRD) Af Amer 83, Est GFR (MDRD) Non-Af 69, BUN/Creatinine Ratio 9.9 L, Glucose 244 H, Calcium 8.7, C-React Prot Ext Range 65.10 H 01/07/20 07:38: POC Glucose 232 H 01/07/20 08:45: S.aureus Protein A PCR Pending, MRSA (PCR) Pending Current Medications Acetaminophen (Tylenol) 650 mg PO Q6H PRN PRN PRN Reason: Pain Score 1-10/Temp > 100.7 F Last Admin: 01/06/20 22:41 Dose: 650 mg Documented by: Enoxaparin Sodium (Lovenox) 40 mg SC DAILY [facility] Glucagon () 1 mg IM .X1 PRN PRN Reason: Hypoglycemia Sodium Chloride () 1,000 mls @ 75 mls/hr IV .[id number] [facility] Stop: 01/07/20 11:17 Last Admin: 01/06/20 22:42 Dose: 75 mls/hr Documented by: Piperacillin Sod/Tazobactam (Sod 3.375 gm/ Sodium Chloride) 50 mls @ 12.5 mls/hr IV Q8 [facility] Last Admin: 01/07/20 06:28 Dose: 12.5 mls/hr Documented by: Vancomycin IV Pharmacy to Dose (1,500 ea/ Sodium Chloride) 500 mls @ 250 mls/hr IV X1 THEN RX TO DOSE PRN; Protocol Dextrose (Dextrose 10%-Water) 250 mls @ 999 mls/hr IV .Q16M PRN; Protocol PRN Reason: HYPOGLYCEMIA Sodium Chloride () 250 mls @ 15 mls/hr IV .[id number] PRN PRN Reason: Saline Flush Sodium Chloride () 250 mls @ 15 mls/hr IV .[id number] PRN PRN Reason: Additional IVPB Infusion Vancomycin HCl 2,000 mg/ (Sodium Chloride) 540 mls @ 250 mls/hr IV Q12H [facility] Last Admin: 01/07/20 08:38 Dose: 250 mls/hr Documented by: Insulin Glargine (Lantus ([facility])) 10 units SC BREAKFAST [facility] Last Admin: 01/07/20 08:04 Dose: 10 u Documented by: Insulin Glargine (Lantus ([facility])) 35 units SC QHS [facility] Last Admin: 01/06/20 22:46 Dose: 35 units Documented by: Insulin Human Lispro (Humalog Kwikpen ([facility])) 8 unit SC BREAKFAST [facility] Last Admin: 01/07/20 08:03 Dose: 8 u Documented by: Insulin Human Lispro (Humalog Kwikpen ([facility])) 8 unit SC DINNER SUZANNE Insulin Human Lispro (Humalog Kwikpen ([facility])) 8 unit SC LUNCH SUZANNE Insulin Human Lispro (Humalog Kwikpen ([facility])) 0 unit SC 4X/DAYCM [facility]; Protocol Last Admin: 01/07/20 08:04 Dose: 4 u Documented by: Labetalol HCl (Trandate) 10 mg IV Q4H PRN PRN PRN Reason: SBP > 160 or DBP > 120 Lisinopril (Zestril) 10 mg PO 1700 [facility] Melatonin (Melatonin) 3 mg PO QHS PRN PRN PRN Reason: INSOMNIA Multivitamins/Minerals (Multivitamin With Minerals ([facility])) 1 tablet PO DAILY@0800 [facility] Last Admin: 01/07/20 07:42 Dose: 1 tablet Documented by: Ondansetron HCl (Zofran) 4 mg IV Q8H PRN PRN PRN Reason: NAUSEA/VOMITING Senna/Docusate Sodium (Senokot-S, Radha-Colace) 2 tablet PO BID PRN PRN PRN Reason: Constipation Sodium Chloride () 10 - 40 ml IV UD PRN PRN Reason: SALINE FLUSH Medical Necessity - Tobacco Use Smoking Status: Former smoker Tobacco Use: Non-smoker Assessment/Plan All Active Problems (Last Reviewed 01/06/20 @ 21:50 by Tj Ireland MD) Sepsis (Acute) Infected wound (Acute) Cellulitis of right foot (Acute) The patient is a 44 year old M with a significant history of diabetes mellitus; osteomyelitis; diabetic foot infection and former smoke who is admitted on [facility] floor with 1 day history of low-grade fever, T-max 100 ?F, tachycardia, heart rate 131, nausea and vomiting and neutrophilic leukocytosis with white count of 16.7, diabetic foot ulcer consistent with sepsis secondary to likely infection of right diabetic foot ulcer.. 1. SIRS (leukocytosis, 16.7 thousand, tachycardia, heart rate 131/min) with sepsis secondary to infection of right base of first metatarsal/ball of great toe foot infection. Discussed with heel slugger and wound care nurse. Wound photo reviewed. Blood cultures x2 and wound culture pending. Influenza test negative. Foot x-ray does not show acute bony injury. CRP and ESR elevated. MRSA PCR negative. Currently patient is on IV vancomycin and Zosyn. IV fluid Previous wound culture of 04/26/2019 shows MSSA. Tissue culture of toe shows Mary Jo. Lower extremity MRI was done which shows partial amputation of first proximal phalanx without bone edema of the phalanges or first metatarsal to indicate osteomyelitis therefore no osteomyelitis. 2. Diabetes mellitus, type I uncontrolled complicated with neuropathy, retinopathy, proteinuria suggestive of diabetic nephropathy and chronic diabetic foot ulcer: Blood sugars are controlled, 232, 226. On home schedule insulin and Accu-Cheks before meals and at bedtime with sliding scale. Titrate insulin. 3. DVT Prophylaxis Subcutaneous Lovenox. Clinical Impression(s) from Imaging Studies Foot X-Ray 01/06/20 19:47 IMPRESSION: No acute bony injury of the foot. Lower Extremity MRI 01/07/20 09:30 IMPRESSION: Partial amputation of the first proximal phalanx without bone edema of the phalanges of the first digit or first metatarsal to indicate osteomyelitis. Healing stress fracture of the neck of the second metatarsal and amputation of the second digit. Callus at the plantar aspect of the great toe. Pressure lesion at the plantar aspect of the fifth metatarsophalangeal joint. Atrophy of the abductor digiti minimi muscle. No demonstrated soft tissue abscess. Code Visit Inpatient E&M: 27484 Subs Hosp L2
--- NOTE | 2020-01-07 11:50 | CASEMGMT ---
RN CM Assessment Note Presentation: Sepsis, Infected wound, diabetic foot ulcer Intro role of CM and purpose of RN CM assessment to patient in room. Pt is awake, alert and able to participate in assessment. Demographics, PCP and Pharmacy verified. Pt states he has been following up with the wound center and his was doing dressing changes at home. PCP: Alexei Spencer Specialists: Dr. Veronica Choudhary DPM, ALEJANDRO Auguste Preferred Pharmacy: [facility] Insurance: MMO Prescription Benefit: yes LNOK: Deborah Diaz Living Arrangements: Lives independently with his . Pt states he does not required assistance with ADL's, and can help if needed. Transportation: Drives while wearing his walking boot. DME: knee walker, walking boot. Blood glucose monitoring machine and strips in working order and pt states he knows how to use.Supplies come through mail order. HHC: past, does not know which agency. If HHC needed, pt states he does not have a preference. Patient DC goals: Home with to assist with wound care and f/u with wound clinic. DC PLAN: Anticipate home on dc. RN CM let pt know CM is available if concerns or needs on dc arise. Vaughn REYES RN ACM
[2020-01-07 11:55] LABS: M R Staph aureus DNA By PCR Negative (Negative); Probe Check PASS; Staph aureus DNA By PCR POSITIVE (Negative)
[2020-01-07 12:00] LABS: Bedside Glucose 226 mg/dL (70-110)
[2020-01-07 17:16] LABS: Bedside Glucose 125 mg/dL (70-110)
[2020-01-07] MEDS: Lisinopril 10 MG Tablet PO (17:16)
[2020-01-07] MEDS: 0.9% Saline Lock 10 ML Syringe IV (20:13)
[2020-01-07 22:26] LABS: Bedside Glucose 233 mg/dL (70-110)
[2020-01-08 02:47] VITALS: BP 121/71; PULSE 105; RESP 17; TEMP 37; O2SAT 98
[2020-01-08 04:01] VITALS: PULSE 93
[2020-01-08 06:46] LABS: Bedside Glucose 94 mg/dL (70-110)
--- NOTE | 2020-01-08 07:17 | PCM.PROGNOTE ---
Patient Problems: Active and Suspected Problems (Last Reviewed 01/06/20 @ 21:50 by Tj Ireland MD) Sepsis (Acute) Infected wound (Acute) Subjective: Patient was seen this morning for follow up on right foot. He was resting in bed, no complaints. No complaints of fever, chills, nausea or vomiting. - Physical Exam Vitals/I&O's: Vital Signs Temp Pulse Resp BP Pulse Ox 98.6 F 93 17 121/71 H 98 01/08/20 02:47 01/08/20 04:01 01/08/20 02:47 01/08/20 02:47 01/08/20 02:47 Oxygen Delivery Method Room Air Weight: 101.3 kg Body Mass Index (BMI) 28.6 Intake and Output for Last 24 Hours 01/06/20 01/07/20 01/08/20 23:59 23:59 23:59 Intake Total 112 / 312 3900 / 4400 950 / 950 Output Total 1600 / 2700 1100 / 1100 Balance 112 / 312 2300 / 1700 -150 / -150 General: Alert, Oriented x3, Cooperative, No apparent distress Extremities: No cyanosis, Capillary Refill Less than 3 Seconds, No Calf Tenderness, - - Ulceration plantar 1st toe which appers improved compared to yesteryday, down to subcutaneous tissue layer prior to debridement. There is erythema, edema and cellulitis to the right foot whic is resolving, streaking much improved. There is no probe to bone or deeper tissue at right foot ulcer site, no underming or tunneling, no purulence, no visible abscess, no maloder, no fluctuance, no crepitus present. Right 1st toe is short c/w previous surgery. 2nd toe on right foot absent from previous amputation. No POP or pain on ROM to the foot/ankle. Microbiology Past 72 Hours 01/06/20 19:07 Mucosa - Nose Influenza Types A,B Direct FA (SRINIVAS) - Final Laboratory Results 01/07/20 07:38: POC Glucose 232 H 01/07/20 08:45: S.aureus Protein A PCR POSITIVE H, MRSA (PCR) Negative 01/07/20 11:47: POC Glucose 226 H 01/07/20 17:12: POC Glucose 125 H 01/07/20 21:50: POC Glucose 233 H 01/08/20 06:41: POC Glucose 94 Current Medications Acetaminophen (Tylenol) 650 mg PO Q6H PRN PRN PRN Reason: Pain Score 1-10/Temp > 100.7 F Last Admin: 01/06/20 22:41 Dose: 650 mg Documented by: Enoxaparin Sodium (Lovenox) 40 mg SC DAILY [facility] Last Admin: 01/07/20 10:38 Dose: 40 mg Documented by: Glucagon () 1 mg IM .X1 PRN PRN Reason: Hypoglycemia Piperacillin Sod/Tazobactam (Sod 3.375 gm/ Sodium Chloride) 50 mls @ 12.5 mls/hr IV Q8 [facility] Last Admin: 01/08/20 06:17 Dose: 12.5 mls/hr Documented by: Vancomycin IV Pharmacy to Dose (1,500 ea/ Sodium Chloride) 500 mls @ 250 mls/hr IV X1 THEN RX TO DOSE PRN; Protocol Dextrose (Dextrose 10%-Water) 250 mls @ 999 mls/hr IV .Q16M PRN; Protocol PRN Reason: HYPOGLYCEMIA Sodium Chloride () 250 mls @ 15 mls/hr IV .[id number] PRN PRN Reason: Saline Flush Sodium Chloride () 250 mls @ 15 mls/hr IV .[id number] PRN PRN Reason: Additional IVPB Infusion Vancomycin HCl 2,000 mg/ (Sodium Chloride) 540 mls @ 250 mls/hr IV Q12H [facility] Last Infusion: 01/07/20 22:59 Dose: Infused Documented by: Insulin Glargine (Lantus (Bkc)) 10 units SC BREAKFAST [facility] Last Admin: 01/07/20 08:04 Dose: 10 u Documented by: Insulin Glargine (Lantus (Bkc)) 35 units SC QHS [facility] Last Admin: 01/07/20 21:52 Dose: 35 units Documented by: Insulin Human Lispro (Humalog Kwikpen (Bk)) 8 unit SC BREAKFAST [facility] Last Admin: 01/07/20 08:03 Dose: 8 u Documented by: Insulin Human Lispro (Humalog Kwikpen (Bkc)) 8 unit SC DINNER [facility] Last Admin: 01/07/20 17:15 Dose: 8 units Documented by: Insulin Human Lispro (Humalog Kwikpen (Bk)) 8 unit SC LUNCH [facility] Last Admin: 01/07/20 11:49 Dose: 8 u Documented by: Insulin Human Lispro (Humalog Kwikpen (Bkc)) [facility]; Protocol Last Admin: 01/07/20 21:53 Dose: 4 u Documented by: Labetalol HCl (Trandate) 10 mg IV Q4H PRN PRN PRN Reason: SBP > 160 or DBP > 120 Lisinopril (Zestril) 10 mg PO 1700 [facility] Last Admin: 01/07/20 17:16 Dose: 10 mg Documented by: Melatonin (Melatonin) 3 mg PO QHS PRN PRN PRN Reason: INSOMNIA Multivitamins/Minerals (Multivitamin With Minerals (Bkc)) 1 tablet PO DAILY@0800 [facility] Last Admin: 01/07/20 07:42 Dose: 1 tablet Documented by: Nutritional Formula (Salvador - Irwin Flavor) [facility] Last Admin: 01/07/20 17:18 Dose: 1 packet Documented by: Ondansetron HCl (Zofran) 4 mg IV Q8H PRN PRN PRN Reason: NAUSEA/VOMITING Senna/Docusate Sodium (Senokot-S, Radha-Colace) 2 tablet PO BID PRN PRN PRN Reason: Constipation Sodium Chloride () 10 - 40 ml IV UD PRN PRN Reason: SALINE FLUSH Last Admin: 01/07/20 20:13 Dose: 10 ml Documented by: Medical Necessity - Tobacco Use Smoking Status: Former smoker Tobacco Use: Non-smoker Assessment/Plan All Active Problems (Last Reviewed 01/06/20 @ 21:50 by Tj Ireland MD) Sepsis (Acute) Infected wound (Acute) Cellulitis of right foot (Acute) Right 1st toe ulceration down to subcutaneous tissue with cellulitis - improving Uncontrolled Diabetes with peripheral neuropathy Previous amputation Reviewed diagnostic data. Reviewed right foot xrays and MRI findings. There is no evidence of osteomyelitis, no abscess formation. 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 Therefore we discussed further nonsurgical care which we will continue with. A culture has been obtained of the ulceration and sent to microbiology for further evaluation - results pending. Continue w/ IV antibiotics and continue to follow cultures. No weightbearing right foot. Keep ulcer site offloaded at all times. Wound Care: Aquacel Ag and gauze/apollo dressing changes - change daily. Reviewed importance of proper blood sugar control to optimize healing. Podiatry will continue to follow.
--- NOTE | 2020-01-08 08:00 | PN_ITS ---
Patient Problems: Active and Suspected Problems (Last Reviewed 01/06/20 @ 21:50 by Tj Ireland MD) Sepsis (Acute) Infected wound (Acute) Vitals/I&O's: Vital Signs Temp Pulse Resp BP Pulse Ox 98.6 F 93 17 121/71 H 98 01/08/20 02:47 01/08/20 04:01 01/08/20 02:47 01/08/20 02:47 01/08/20 02:47 Oxygen Delivery Method Room Air Weight: 223 lb 5.252 oz Body Mass Index (BMI) 28.6 Intake and Output for Last 24 Hours 01/06/20 01/07/20 01/08/20 23:59 23:59 23:59 Intake Total 112 / 312 3900 / 4400 950 / 950 Output Total 1600 / 2700 1100 / 1100 Balance 112 / 312 2300 / 1700 -150 / -150 Microbiology Past 72 Hours 01/06/20 19:07 Mucosa - Nose Influenza Types A,B Direct FA (SRINIVAS) - Final Laboratory Results 01/07/20 08:45: S.aureus Protein A PCR POSITIVE H, MRSA (PCR) Negative 01/07/20 11:47: POC Glucose 226 H 01/07/20 17:12: POC Glucose 125 H 01/07/20 21:50: POC Glucose 233 H 01/08/20 06:41: POC Glucose 94 01/08/20 07:27: Vancomycin Trough Pending Current Medications Acetaminophen (Tylenol) 650 mg PO Q6H PRN PRN PRN Reason: Pain Score 1-10/Temp > 100.7 F Last Admin: 01/06/20 22:41 Dose: 650 mg Documented by: Enoxaparin Sodium (Lovenox) 40 mg SC DAILY [facility]PL[facility] Last Admin: 01/07/20 10:38 Dose: 40 mg Documented by: Glucagon () 1 mg IM .X1 PRN PRN Reason: Hypoglycemia Piperacillin Sod/Tazobactam (Sod 3.375 gm/ Sodium Chloride) 50 mls @ 12.5 mls/hr IV Q8 [facility] Last Admin: 01/08/20 06:17 Dose: 12.5 mls/hr Documented by: Vancomycin IV Pharmacy to Dose (1,500 ea/ Sodium Chloride) 500 mls @ 250 mls/hr IV X1 THEN RX TO DOSE PRN; Protocol Dextrose (Dextrose 10%-Water) 250 mls @ 999 mls/hr IV .Q16M PRN; Protocol PRN Reason: HYPOGLYCEMIA Sodium Chloride () 250 mls @ 15 mls/hr IV .[id number] PRN PRN Reason: Saline Flush Sodium Chloride () 250 mls @ 15 mls/hr IV .[id number] PRN PRN Reason: Additional IVPB Infusion Vancomycin HCl 2,000 mg/ (Sodium Chloride) 540 mls @ 250 mls/hr IV Q12H [facility]PLACED BY [facility] Last Infusion: 01/07/20 22:59 Dose: Infused Documented by: Insulin Glargine (Lantus ([facility])) 10 units SC BREAKFAST REPLACED BY [facility] Last Admin: 01/07/20 08:04 Dose: 10 u Documented by: Insulin Glargine (Lantus ([facility])) 35 units SC QHS REPLACED BY [facility] Last Admin: 01/07/20 21:52 Dose: 35 units Documented by: Insulin Human Lispro (Humalog Kwikpen ([facility])) 8 unit SC BREAKFAST REPLACED BY [facility] Last Admin: 01/07/20 08:03 Dose: 8 u Documented by: Insulin Human Lispro (Humalog Kwikpen ([facility])) 8 unit SC DINNER REPLACED BY [facility] Last Admin: 01/07/20 17:15 Dose: 8 units Documented by: Insulin Human Lispro (Humalog Kwikpen ([facility])) 8 unit SC LUNCH REPLACED BY [facility] Last Admin: 01/07/20 11:49 Dose: 8 u Documented by: Insulin Human Lispro (Humalog Kwikpen ([facility])) 0 unit SC 4X/DAYCM REPLACED BY [facility]; Protocol Last Admin: 01/07/20 21:53 Dose: 4 u Documented by: Labetalol HCl (Trandate) 10 mg IV Q4H PRN PRN PRN Reason: SBP > 160 or DBP > 120 Lisinopril (Zestril) 10 mg PO 1700 [facility] Last Admin: 01/07/20 17:16 Dose: 10 mg Documented by: Melatonin (Melatonin) 3 mg PO QHS PRN PRN PRN Reason: INSOMNIA Multivitamins/Minerals (Multivitamin With Minerals (Bkc)) 1 tablet PO DAILY@0800 REPLACED BY [facility] Last Admin: 01/07/20 07:42 Dose: 1 tablet Documented by: Nutritional Formula (Salvador - Walsh Flavor) 1 packet PO BIDCM REPLACED BY [facility] Last Admin: 01/07/20 17:18 Dose: 1 packet Documented by: Ondansetron HCl (Zofran) 4 mg IV Q8H PRN PRN PRN Reason: NAUSEA/VOMITING Senna/Docusate Sodium (Senokot-S, Radha-Colace) 2 tablet PO BID PRN PRN PRN Reason: Constipation Sodium Chloride () 10 - 40 ml IV UD PRN PRN Reason: SALINE FLUSH Last Admin: 01/07/20 20:13 Dose: 10 ml Documented by: STROKE Vital Signs/Narrative: Vital Signs Pulse 01/08/20 04:01 93 Medical Necessity - Tobacco Use Smoking Status: Former smoker Tobacco Use: Non-smoker Assessment/Plan All Active Problems (Last Reviewed 01/06/20 @ 21:50 by Tj Ireland MD) Sepsis (Acute) Infected wound (Acute) Cellulitis of right foot (Acute) The patient is a 44 year old M with a significant history of diabetes mellitus; osteomyelitis; diabetic foot infection and former smoke who is admitted on [facility] floor with 1 day history of low-grade fever, T-max 100 ?F, tachycardia, heart rate 131, nausea and vomiting and neutrophilic leukocytosis with white count of 16.7, diabetic foot ulcer consistent with sepsis secondary to likely infection of right diabetic foot ulcer.. 1. SIRS (leukocytosis, 16.7 thousand, tachycardia, heart rate 131/min) with sepsis secondary to infection of right base of first metatarsal/ball of great toe foot infection. Discussed with academy education director and wound care nurse. Wound photo reviewed. Blood cultures x2 and wound culture pending. Influenza test negative. Foot x-ray does not show acute bony injury. CRP and ESR elevated. MRSA PCR negative. Currently patient is on IV vancomycin and Zosyn. IV fluid Previous wound culture of 04/26/2019 shows MSSA. Tissue culture of toe shows Mary Jo. Lower extremity MRI was done which shows partial amputation of first proximal phalanx without bone edema of the phalanges or first metatarsal to indicate osteomyelitis therefore no osteomyelitis. 01/08/2020: A1c and fasting profile ordered. ID consult. 2. Diabetes mellitus, type I uncontrolled complicated with neuropathy, retinopathy, proteinuria suggestive of diabetic nephropathy and chronic diabetic foot ulcer: Blood sugars are controlled, 232, 226. On home schedule insulin and Accu-Cheks before meals and at bedtime with sliding scale. Titrate insulin. 3. DVT Prophylaxis Subcutaneous Lovenox. Microbiology Past 72 Hours 01/06/20 19:07 Mucosa - Nose Influenza Types A,B Direct FA (SRINIVAS) - Final Laboratory Results 01/07/20 08:45: S.aureus Protein A PCR POSITIVE H, MRSA (PCR) Negative 01/07/20 11:47: POC Glucose 226 H 01/07/20 17:12: POC Glucose 125 H 01/07/20 21:50: POC Glucose 233 H 01/08/20 06:41: POC Glucose 94 01/08/20 07:27: Vancomycin Trough Pending Clinical Impression(s) from Imaging Studies Foot X-Ray 01/06/20 19:47 IMPRESSION: No acute bony injury of the foot. Lower Extremity MRI 01/07/20 09:30 IMPRESSION: Partial amputation of the first proximal phalanx without bone edema of the phalanges of the first digit or first metatarsal to indicate osteomyelitis. Healing stress fracture of the neck of the second metatarsal and amputation of the second digit. Callus at the plantar aspect of the great toe. Pressure lesion at the plantar aspect of the fifth metatarsophalangeal joint. Atrophy of the abductor digiti minimi muscle. No demonstrated soft tissue abscess.
[2020-01-08 08:17] LABS: Absolute Lymphocyte Count 1.25 X10^3/uL (0.83-4.51); Absolute Neutrophil Count 5.7 X10^3/uL (2.0-7.7); Basophil# 0.03 X10^3/uL; Basophil% 0.4 % (0-1); Eosinophil# 0.13 X10^3/uL; Eosinophils% 1.6 % (0-5); Hematocrit 39.3 % (40-54); Hemoglobin 12.9 g/dL (13.0-16.5); Lymphocyte # 1.25 X10^3/ul (4.0); Lymphocyte % 15.8 % (19-41); Mean Corp Hgb Conc 32.8 g/dL (32-36); Mean Corpuscular Hgb 27.7 pg (27.0-32.0); Mean Corpuscular Volume 84.3 fL (80-94); Monocyte# 0.73 X10^3/uL; Monocyte% 9.3 % (0-10); NRBC Flagged by Analyzer 0 % (0-5); Neutrophil # 5.73 X10^3/uL (2.7-7.7); Neutrophil % 72.6 % (47-70); Platelet Count 226 K/mm3 (150-450); RBC Distribution Width CV 12.8 % (11.6-14.6); RBC Distribution Width SD 39.6 fl (35.1-43.9); Red Blood Count 4.66 M/mm3 (4.6-6.2); White Blood Count 7.9 K/mm3 (4.4-11.0)
[2020-01-08] MEDS: Insulin Lispro 100 UNIT/ML INSULN.PEN 8 UNIT SC ×2 (08:24→11:21)
[2020-01-08 08:26] LABS: Vancomycin, Trough Level 17.7 ug/mL (5.0-15.0)
[2020-01-08 08:30] LABS: Anion Gap 3 (5-15); BUN 11 mg/dL (7-18); BUN/Creat Ratio 9.5 RATIO (10-20); Calcium,Total 8.9 mg/dL (8.5-10.1); Chloride 109 mmol/L (98-107); Cholesterol 160 mg/dL (200); Creatinine, Serum 1.16 mg/dL (0.70-1.30); EST Glomerular Filtration Rate 72 mL/min (>60); Est Glom Filt Rate - Afr Amer 87 mL/min (>60); Glucose 101 mg/dL (74-106); High Density Lipoprotein 56 mg/dL; Potassium 3.7 mmol/L (3.5-5.1); Sodium Level 140 mmol/L (136-145); Triglycerides 117 mg/dL; Very Low Density Lipoprotein 23 mg/dL (5-40)
[2020-01-08] MEDS: Multivitamins,Ther W-Minerals Tablet 1 TABLET PO (08:33)
[2020-01-08] MEDS: Enoxaparin 40 MG/0.4 ML Syringe SC (08:38)
[2020-01-08 08:40] LABS: Hemoglobin A1c 9.6 % (4.2-6.3)
[2020-01-08 08:48] VITALS: BP 133/76; PULSE 90; RESP 18; TEMP 36.8; O2SAT 95
--- NOTE | 2020-01-08 09:11 | NURSING ---
spoke w/tabatha in pharmacy, [facility] trough 17.7, he will verify if current vanc 2000mg will continue or change and call back
--- NOTE | 2020-01-08 09:24 | PCM.RX.CS ---
Consult Pharmacy has been consulted to manage selected antiobiotic: Vancomycin Type of Consult: Follow-up Suspected Infection: Skin/Soft tissue Prior Doses of Antibiotics Received/Current Regimen: 4 doses have been administered Labs: Sodium 140 mmol/L (136-145) 01/08/20 07:27 Potassium 3.7 mmol/L (3.5-5.1) 01/08/20 07:27 Chloride 109 mmol/L (98-107) H 01/08/20 07:27 Carbon Dioxide 28.0 mmol/L (21.0-32.0) 01/08/20 07:27 Anion Gap 3 (5-15) L 01/08/20 07:27 BUN 11 mg/dL (7-18) 01/08/20 07:27 Creatinine 1.16 mg/dL (0.70-1.30) 01/08/20 07:27 Est GFR (MDRD) Af Amer 87 mL/min (>60) 01/08/20 07:27 Est GFR (MDRD) Non-Af 72 mL/min (>60) 01/08/20 07:27 BUN/Creatinine Ratio 9.5 RATIO (10-20) L 01/08/20 07:27 Glucose 101 mg/dL (74-106) 01/08/20 07:27 Vancomycin Trough 17.7 ug/mL (5.0-15.0) H 01/08/20 07:27 Will continue same vanco dose, monitor renal function and recheck trough level in 4 doses Microbiology: Microbiology 01/06/20 19:07 Mucosa - Nose Influenza Types A,B Direct FA (SRINIVAS) - Final Weight used for dosin.6 kg Estimated Creatinine Clearance: 93.5 Goal Trough: 15-20 mcg/mL - Continue same dose and recheck trough level in 4 doses = 01/10/20 @ 0730 Pharmacy Plan for Drug Dosing: Pharmacy Service will continue to monitor and adjust dosing as required.
--- NOTE | 2020-01-08 09:28 | NURSING ---
tabatha returned call, continue w/current dose of vanc
[2020-01-08 10:00] VITALS: PULSE 90
[2020-01-08] MEDS: Insulin Lispro 100 UNIT/ML INSULN.PEN SC (11:22)
[2020-01-08 11:31] LABS: Bedside Glucose 225 mg/dL (70-110)
--- NOTE | 2020-01-08 11:40 | DCINST_ITS ---
- Discharge Diagnoses Current Active Problems: Current Active and Chronic Problems (Last Reviewed 01/06/20 @ 21:50 by Tj Ireland MD) Sepsis (Acute) Infected wound (Acute) You will use the following diet at home:: Calorie/Carbohydrate Controlled (specify 1200, 1400, etc), Cardiac Your food should be the consistency of: Regular Discharge Activity: May Not Drive Weight Bearing Status: Weight bearing as tolerated Call your doctor if you observe: Fever of 101 or Higher, Coldness, Increased Pain, Change in Color, Inability to have a bowel movement, Shortness of breath, Dizziness, Fainting spells, Swelling in the ankles, Chest pain, Prolonged hiccoughing, Increased palpitations (irregular heartbeat), Calf discomfort, Uncontrolled pain Allergies/Adverse Reactions: Allergies No Known Allergies Allergy (Unverified 01/06/20 17:50) Medications to take at Discharge insulin aspart U-100 100 unit/mL (3 mL) subcutaneous pen 12 - 14 unit SC TIDCM ml 04/24/19 insulin detemir U-100 100 unit/mL (3 mL) subcutaneous pen 10 unit SC DAILY@0800 ml 04/24/19 lisinopril 10 mg tablet 10 mg PO 1700 tab 04/24/19 Insulin Detemir [Levemir (BKC)] 40 units SUBCUT DAILY@2000 01/06/20 Multivitamin with Minerals [Multiple Vitamin] 1 tab PO DAILY 01/06/20 Primary Care Physician: Veronica Choudhary DPM [STAFF PHYSICIAN] - Please follow up with your Primary Care Physician in: in 2 WEEKS Test Results: Test results from this visit will be discussed in further detail at your follow- up appointment, if applicable. Please Follow Up With: PCP When: IN 1-2 weeks for diabetes control Please Follow Up With: Maikel Newberry MD When: as needed for antibiotic issues, non healing ulcer
[2020-01-08 12:12] VITALS: BP 152/94; PULSE 89; RESP 18; TEMP 36.5; O2SAT 100
[2020-01-08 13:43] VITALS: PULSE 97
--- NOTE | 2020-01-08 13:51 | DS.PCM_ITS ---
Discharge Date and Diagnosis - Problem List Patient Problems: Active and Suspected Problems (Last Reviewed 01/06/20 @ 21:50 by Tj Ireland MD) Sepsis (Acute) Infected wound (Acute) Date of Admission: 01/06/20 Date of Discharge: 01/08/20 - Primary Discharge Diagnosis Active and Suspected Problems (Last Reviewed 01/06/20 @ 21:50 by Tj Ireland MD) Sepsis (Acute) Infected wound (Acute) - Secondary Discharge Diagnosis Chronic Problems (Last Reviewed 01/06/20 @ 21:50 by Tj Ireland MD) Difficulty in walking, not elsewhere classified (Chronic) Nonhealing surgical wound (Chronic) Right second toe with exposed bone. Diabetic foot ulcer (Chronic) Ulcer of right foot with fat layer exposed (Chronic) Delayed wound healing (Chronic) Malnutrition (Chronic) Diabetes mellitus (Chronic) Type 1 diabetes mellitus with microalbuminuria, with long-term current use of insulin (Chronic) BG readings higher than expected. Pt is ask to check BG in pairs. He appears to need more insulin at breakfast and lunch since he is off work and not active.. Ask to use correction scale aggressively. Report he ran out of strips but has now recieved his supply Discussed need to continue with this level of control in the post op state. Hospital Course and Treatment Consultations 01/06/20 21:58 Consult: Onc/Wound/continuous wave operator Routine Comment: Reason for Consult:: Diabetic foot infection Comments:: sees Dr. Choudhary Summary of Care Provided: [] The patient is a 44 year old M with a significant history of diabetes mellitus; osteomyelitis; diabetic foot infection and former smoke who is admitted on [facility] floor with 1 day history of low-grade fever, T-max 100 ?F, tachycardia, heart rate 131, nausea and vomiting and neutrophilic leukocytosis with white count of 16.7, diabetic foot ulcer consistent with sepsis secondary to likely infection of right diabetic foot ulcer.. 1. SIRS (leukocytosis, 16.7 thousand, tachycardia, heart rate 131/min) with sepsis secondary to infection of right base of first metatarsal/ball of great toe foot infection. Discussed with pipelines laborer and wound care nurse. Wound photo reviewed. Blood cultures x2 and wound culture pending. Influenza test negative. Foot x-ray does not show acute bony injury. CRP and ESR elevated. MRSA PCR negative. Currently patient is on IV vancomycin and Zosyn. IV fluid Previous wound culture of 04/26/2019 shows MSSA. Tissue culture of toe shows Mary Jo. Lower extremity MRI was done which shows partial amputation of first proximal phalanx without bone edema of the phalanges or first metatarsal to indicate osteomyelitis therefore no osteomyelitis. Discussed with the pipelines laborer and there is no plan for further surgery and also high risk of nonhealing after surgery initial wound culture from right foot growing rare gram-positive organism although Gram stain shows no organism. I requested ID to evaluate the patient regarding the selection of antibiotic. 2. Diabetes mellitus, type I uncontrolled complicated with neuropathy, retinopathy, proteinuria suggestive of diabetic nephropathy and chronic diabetic foot ulcer: Blood sugar was low in the morning therefore dose of Levemir insulin decreased to 30 units at 8 PM and morning dose of is increased to 20 units. On Accu-Cheks prior to meals and at just the prandial insulin. Follow with PCP. 3. Hypertension: Blood pressure uncontrolled. It is better. Dose of lisinopril increased to 20 mg daily 3. DVT Prophylaxis Subcutaneous Lovenox. Discharge medication reconciliation done. Discharge follow-up instructions completed. Discharge process discussed with the patient and all questions were answered to patient's satisfaction. Prescription for lisinopril sent to pharmacy. Prescription for Augmentin for 10 days sent by ID to the pharmacy. Follow-up with wound center. Total time spent, exact 35 minutes on discharge meds reconciliation, examination, coordination of care with nurses and ancillary staff, review of imaging and blood test and discussion with the patient on follow-up instructions Clinical Impression(s) from Imaging Studies Foot X-Ray 01/06/20 19:47 IMPRESSION: No acute bony injury of the foot. Lower Extremity MRI 01/07/20 09:30 IMPRESSION: Partial amputation of the first proximal phalanx without bone edema of the phalanges of the first digit or first metatarsal to indicate osteomyelitis. Healing stress fracture of the neck of the second metatarsal and amputation of the second digit. Callus at the plantar aspect of the great toe. Pressure lesion at the plantar aspect of the fifth metatarsophalangeal joint. Atrophy of the abductor digiti minimi muscle. No demonstrated soft tissue abscess. Patient Problems: Active and Suspected Problems (Last Reviewed 01/06/20 @ 21:50 by Tj Ireland MD) Sepsis (Acute) Infected wound (Acute) Subjective: Blood sugar was 94 in the morning a.m. lab. Dose of insulin adjusted. Blood pressure was elevated 177/99 yesterday and is better controlled 133/76, 152/94. Dose of lisinopril increased to 20 mg daily. No fever or chills. Last T-max 100.2 on 01/06. - Physical Exam Vitals/I&O's: Vital Signs Temp Pulse Resp BP Pulse Ox 97.7 F L 89 18 152/94 H 100 01/08/20 12:12 01/08/20 12:12 01/08/20 12:12 01/08/20 12:12 01/08/20 12:12 Oxygen Delivery Method Room Air Weight: 223 lb 5.252 oz Body Mass Index (BMI) 28.6 Intake and Output for Last 24 Hours 01/06/20 01/07/20 01/08/20 23:59 23:59 23:59 Intake Total 112 / 312 3900 / 4400 2390 / 2390 Output Total 1600 / 2700 1100 / 1100 Balance 112 / 312 2300 / 1700 1290 / 1290 General: Alert, Oriented x3, Cooperative HEENT: Atraumatic, PERRLA, EOMI, Normocephalic, - - chronic decreased decrease in vision secondary to diabetic retinopathy and has history of retinal edema and laser surgery Neck: Supple, No JVD, Negative Carotid Bruits Lungs: Clear to auscultation, No rhonchi, No wheeze, No rales, Diminished Cardiovascular: Regular rate, No murmurs Abdomen: Bowel Sounds Present, Soft, Non Tender Extremities: Capillary Refill Less than 3 Seconds, Edema Skin: No breakdown, Ulcer/ Wound - Ulcer over the plantar aspect of ball of big toe. Previous second toe amputation. Musculoskeletal: No Tenderness to Palpation of Joints or Extremities, Arthritic Changes, Muscle Wasting Neurological: Cranial nerves II-XII grossly intact, Deep Tendon Reflexes 2+/4 and Symmetrical, - - Decreased peripheral sensation Psych/Mental Status: Normal Affect, Appropriate Microbiology Past 72 Hours 01/07/20 08:45 Wound - Right Foot Gram Stain - Final 01/07/20 08:45 Wound - Right Foot Wound Culture - Preliminary Gram positive organism 01/06/20 19:07 Mucosa - Nose Influenza Types A,B Direct FA (SRINIVAS) - Final Laboratory Results 01/07/20 17:12: POC Glucose 125 H 01/07/20 21:50: POC Glucose 233 H 01/08/20 06:41: POC Glucose 94 01/08/20 07:27: Vancomycin Trough 17.7 H 01/08/20 07:27: WBC 7.9, RBC 4.66, Hgb 12.9 L, Hct 39.3 L, MCV 84.3, MCH 27.7, MCHC 32.8, RDW Std Deviation 39.6, RDW Coeff of Delgado 12.8, Plt Count 226, MPV 10.0, Immature Gran % (Auto) 0.300, Neut % (Auto) 72.6 H, Lymph % (Auto) 15.8 L, Wirt % (Auto) 9.3, Eos % (Auto) 1.6, Baso % (Auto) 0.4, Absolute Neuts (auto) 5.7, Absolute Lymphs (auto) 1.25, Nucleated RBC % 0 01/08/20 07:27: Sodium 140, Potassium 3.7, Chloride 109 H, Carbon Dioxide 28.0, Anion Gap 3 L, BUN 11, Creatinine 1.16, Estim Creat Clear Calc 93.50, Est GFR (MDRD) Af Amer 87, Est GFR (MDRD) Non-Af 72, BUN/Creatinine Ratio 9.5 L, Glucose 101, Calcium 8.9, Triglycerides 117, Cholesterol 160, LDL Cholesterol 81, VLDL Cholesterol 23, HDL Cholesterol 56 01/08/20 07:27: Hemoglobin A1c 9.6 H 01/08/20 11:18: POC Glucose 225 H Current Medications Acetaminophen (Tylenol) 650 mg PO Q6H PRN PRN PRN Reason: Pain Score 1-10/Temp > 100.7 F Last Admin: 01/06/20 22:41 Dose: 650 mg Documented by: Enoxaparin Sodium (Lovenox) 40 mg SC DAILY [facility] Last Admin: 01/08/20 08:38 Dose: 40 mg Documented by: Glucagon () 1 mg IM .X1 PRN PRN Reason: Hypoglycemia Piperacillin Sod/Tazobactam (Sod 3.375 gm/ Sodium Chloride) 50 mls @ 12.5 mls/hr IV Q8 [facility] Last Admin: 01/08/20 13:23 Dose: 12.5 mls/hr Documented by: Vancomycin IV Pharmacy to Dose (1,500 ea/ Sodium Chloride) 500 mls @ 250 mls/hr IV X1 THEN RX TO DOSE PRN; Protocol Dextrose (Dextrose 10%-Water) 250 mls @ 999 mls/hr IV .Q16M PRN; Protocol PRN Reason: HYPOGLYCEMIA Sodium Chloride () 250 mls @ 15 mls/hr IV .[id number] PRN PRN Reason: Saline Flush Last Infusion: 01/08/20 09:18 Dose: Infused Documented by: Sodium Chloride () 250 mls @ 15 mls/hr IV .[id number] PRN PRN Reason: Additional IVPB Infusion Vancomycin HCl 2,000 mg/ (Sodium Chloride) 540 mls @ 250 mls/hr IV Q12H SUZANNE Last Infusion: 01/08/20 11:59 Dose: Infused Documented by: Insulin Glargine (Lantus (Bkc)) 10 units SC BREAKFAST [facility] Last Admin: 01/08/20 08:30 Dose: 10 u Documented by: Insulin Glargine (Lantus (Bkc)) 35 units SC QHS SUZANNE Last Admin: 01/07/20 21:52 Dose: 35 units Documented by: Insulin Human Lispro (Humalog Kwikpen (Bk)) 8 unit SC BREAKFAST SUZANNE Last Admin: 01/08/20 08:24 Dose: 8 u Documented by: Insulin Human Lispro (Humalog Kwikpen (Bk)) 8 unit SC DINNER [facility] Last Admin: 01/07/20 17:15 Dose: 8 units Documented by: Insulin Human Lispro (Humalog Kwikpen (Bk)) 8 unit SC LUNCH [facility] Last Admin: 01/08/20 11:21 Dose: 8 u Documented by: Insulin Human Lispro (Humalog Kwikpen (Bkc)) 0 unit SC 4X/DAYCM SUZANNE; Protocol Last Admin: 01/08/20 11:22 Dose: 4 u Documented by: Labetalol HCl (Trandate) 10 mg IV Q4H PRN PRN PRN Reason: SBP > 160 or DBP > 120 Lisinopril (Zestril) 10 mg PO 1700 [facility] Last Admin: 01/07/20 17:16 Dose: 10 mg Documented by: Melatonin (Melatonin) 3 mg PO QHS PRN PRN PRN Reason: INSOMNIA Multivitamins/Minerals (Multivitamin With Minerals (Bkc)) 1 tablet PO DAILY@0800 [facility] Last Admin: 01/08/20 08:33 Dose: 1 tablet Documented by: Nutritional Formula (Salvador - [place] Flavor) 1 packet PO BIDCM [facility] Last Admin: 01/08/20 08:33 Dose: 1 packet Documented by: Ondansetron HCl (Zofran) 4 mg IV Q8H PRN PRN PRN Reason: NAUSEA/VOMITING Senna/Docusate Sodium (Senokot-S, Radha-Colace) 2 tablet PO BID PRN PRN PRN Reason: Constipation Sodium Chloride () 10 - 40 ml IV UD PRN PRN Reason: SALINE FLUSH Last Admin: 01/07/20 20:13 Dose: 10 ml Documented by: Discharge Activity: May Not Drive Weight Bearing Status: Weight bearing as tolerated Call your doctor if you observe: Fever of 101 or Higher, Coldness, Increased Pain, Change in Color, Inability to have a bowel movement, Shortness of breath, Dizziness, Fainting spells, Swelling in the ankles, Chest pain, Prolonged hiccoughing, Increased palpitations (irregular heartbeat), Calf discomfort, Uncontrolled pain Home Medications: Medications to take at Discharge insulin aspart U-100 100 unit/mL (3 mL) subcutaneous pen 12 - 14 unit SC TIDCM ml 04/24/19 Multivitamin with Minerals [Multiple Vitamin] 1 tab PO DAILY 01/06/20 Amoxicillin/Potassium Clav [Augmentin 875-125 Tablet] 1 ea PO BID #20 tab 01/08/20 Insulin Detemir [Levemir FlexPen] 20 unit SUBCUT DAILY@0800 #0 ml 01/08/20 Insulin Detemir [Levemir FlexPen] 30 units SUBCUT DAILY@2000 #0 01/08/20 Lisinopril 20 mg PO DAILY #30 tab 01/08/20 Following Prescrptions Were Given to Patient: Amoxicillin/Potassium Clav [Augmentin 875-125 Tablet] 1 ea PO BID #20 tab Transmission Status: Received by [address] Lisinopril 20 mg PO DAILY #30 tab Transmission Status: Received by [address] Primary Care Physician: Veronica Choudhary DPM [STAFF PHYSICIAN] - Please follow up with your Primary Care Physician in: in 2 WEEKS Please Follow Up With: PCP When: IN 1-2 weeks for diabetes control Please Follow Up With: Maikel Newberry MD When: as needed for antibiotic issues, non healing ulcer Medical Necessity - Tobacco Use Smoking Status: Former smoker Tobacco Use: Non-smoker Meaningful Use Info Meaningful Use Diagnoses (Choose all that apply): None applicable Code Visit Inpatient E&M: 54514 Disch Hosp
--- NOTE | 2020-01-08 16:11 | PCM.HP.ID ---
Reason for Consult: foot infection Consulted by: Dr. Rojas History of Present Illness: The patient is a 44 year old M with DM neuropathy, presented with acute onset of R foot swelling, redness, n/v, and fever. No animal exposures. No recent abx. Came to ED, found to be septic, admitted on vanc/zosyn. Seen by Dr. Paz, MRI showed no osteo, I&D done, feeling better. Full ROS performed and neg except as noted above. No n/v/d or rash with abx. - Medical History Past Medical History (Chronic Problems): Chronic Problems (Last Reviewed 01/06/20 @ 21:50 by Tj Ireland MD) Difficulty in walking, not elsewhere classified (Chronic) Nonhealing surgical wound (Chronic) Right second toe with exposed bone. Diabetic foot ulcer (Chronic) Ulcer of right foot with fat layer exposed (Chronic) Delayed wound healing (Chronic) Malnutrition (Chronic) Diabetes mellitus (Chronic) Type 1 diabetes mellitus with microalbuminuria, with long-term current use of insulin (Chronic) BG readings higher than expected. Pt is ask to check BG in pairs. He appears to need more insulin at breakfast and lunch since he is off work and not active.. Ask to use correction scale aggressively. Report he ran out of strips but has now recieved his supply Discussed need to continue with this level of control in the post op state. Allergies/Adverse Reactions: Allergies No Known Allergies Allergy (Unverified 01/06/20 17:50) Home Medications: Ambulatory Orders Medication Instructions Recorded insulin aspart U-100 100 unit/mL 12 - 14 unit SC TIDCM ml 04/24/19 (3 mL) subcutaneous pen Multivitamin with Minerals 1 tab PO DAILY 01/06/20 [Multiple Vitamin] Amoxicillin/Potassium Clav 1 ea PO BID #20 tab 01/08/20 [Augmentin 875-125 Tablet] Insulin Detemir [Levemir FlexPen] 20 unit SUBCUT DAILY@0800 #0 ml 01/08/20 Insulin Detemir [Levemir FlexPen] 30 units SUBCUT DAILY@2000 #0 01/08/20 Lisinopril 20 mg PO DAILY #30 tab 01/08/20 - Social History SMOKING STATUS:: Former smoker Vital Signs Temp Pulse Resp BP Pulse Ox 97.7 F L 97 18 152/94 H 100 01/08/20 12:12 01/08/20 13:43 01/08/20 12:12 01/08/20 12:12 01/08/20 12:12 Oxygen Delivery Method Room Air Weight: 101.3 kg Body Mass Index (BMI) 28.6 Microbiology Past 72 Hours 01/07/20 08:45 Gram Stain - Final Wound - Right Foot Wound Culture - Preliminary Gram positive organism 01/06/20 19:07 Influenza Types A,B Direct FA (SRINIVAS) - Final Mucosa - Nose Laboratory Tests Past 24 Hrs 01/08/20 01/08/20 01/08/20 07:27 07:27 07:27 WBC 7.9 RBC 4.66 Hgb 12.9 L Hct 39.3 L MCV 84.3 MCH 27.7 MCHC 32.8 RDW Std Deviation 39.6 RDW Coeff of Delgado 12.8 Plt Count 226 MPV 10.0 Immature Gran % (Auto) 0.300 Neut % (Auto) 72.6 H Lymph % (Auto) 15.8 L [place] % (Auto) 9.3 Eos % (Auto) 1.6 Baso % (Auto) 0.4 Absolute Neuts (auto) 5.7 Absolute Lymphs (auto) 1.25 Nucleated RBC % 0 Sodium 140 Potassium 3.7 Chloride 109 H Carbon Dioxide 28.0 Anion Gap 3 L BUN 11 Creatinine 1.16 Estim Creat Clear Calc 93.50 Est GFR (MDRD) Af Amer 87 Est GFR (MDRD) Non-Af 72 BUN/Creatinine Ratio 9.5 L Glucose 101 Hemoglobin A1c Calcium 8.9 Triglycerides 117 Cholesterol 160 LDL Cholesterol 81 VLDL Cholesterol 23 HDL Cholesterol 56 Vancomycin Trough 17.7 H 01/08/20 07:27 WBC RBC Hgb Hct MCV MCH MCHC RDW Std Deviation RDW Coeff of Delgado Plt Count MPV Immature Gran % (Auto) Neut % (Auto) Lymph % (Auto) [place] % (Auto) Eos % (Auto) Baso % (Auto) Absolute Neuts (auto) Absolute Lymphs (auto) Nucleated RBC % Sodium Potassium Chloride Carbon Dioxide Anion Gap BUN Creatinine Estim Creat Clear Calc Est GFR (MDRD) Af Amer Est GFR (MDRD) Non-Af BUN/Creatinine Ratio Glucose Hemoglobin A1c 9.6 H Calcium Triglycerides Cholesterol LDL Cholesterol VLDL Cholesterol HDL Cholesterol Vancomycin Trough - Other Studies Radiology: [] reviewed Other Studies: [] Route of nutrition/ use of supplements: [] Nutritional Intake: [] IV Site: [] Jimenez Catheter: [] - Physical Exam General: Alert, Oriented x3, Cooperative, No apparent distress HEENT: Atraumatic, PERRLA, EOMI Neck: Supple, No Nodes Lungs: Clear to auscultation, Normal air movement Cardiovascular: Regular rate, Regular Rhythm Abdomen: Soft, Non Tender, Non-Distended Extremities: Edema Skin: Ulcer/ Wound - reviewed photos IV Site: Peripheral, without redness Musculoskeletal: No Tenderness to Palpation of Joints or Extremities Neurological: Cranial nerves II-XII grossly intact - Assessment/Plan Antibiotics: [] Assessment/Plan: [] Active and Suspected Problems (Last Reviewed 01/06/20 @ 21:50 by Tj Ireland MD) Sepsis (Acute) Infected wound (Acute) sepsis due to Mssa R foot infected DM ulcer - On vanc/zosyn. Feeling better. Uncontrolled DM, A1C 9.6. Ok for d/c home on augmentin for 10 more days. Will follow as needed, thank you, d/w Dr. Rojas.
--- NOTE | 2020-01-09 13:53 | CASEMGMT ---
COLE AGUIRRE Discharge Follow-Up Phone Call. [place]: Jesus Strata: 3 Discharge Date: 01/08/20 Adm Dx: Sepsis secondary to Diabetic Foot Ulcer Call to pt to inquire about how he has been doing since being discharged from the hospital. Pt stated, Good. He denies having any questions about the discharge instructions or follow-up appts and denies needs. He states, I'm in good shape. COLE AGUIRRE thanked pt for choosing [facility]. Leah CHANGN COLE AGUIRRE
== END 2020-01-08 16:12 | disposition home or self-care (01) | DRG 855 ==
LOC: ED 18:18 → MS3 21:11
PROVIDERS: Podiatrist; Admitting Provider Hospitalist; Emergency Provider Emergency Medicine; PCP Nurse Practitioner Family; Referring Provider Hospitalist; Visit Provider Internal Medicine
DX: A41.9 Sepsis, unspecified organism (principal); E10.621 Type 1 diabetes mellitus with foot ulcer; L97.519 Non-pressure chronic ulcer of other part of right foot with unspecified severity; E10.65 Type 1 diabetes mellitus with hyperglycemia; B95.61 Methicillin susceptible Staphylococcus aureus infection as the cause of diseases classified elsewhere; I10 Essential (primary) hypertension; E10.42 Type 1 diabetes mellitus with diabetic polyneuropathy; Z87.891 Personal history of nicotine dependence; Z79.4 Long term (current) use of insulin; Z89.421 Acquired absence of other right toe(s)
CPT/HCPCS: 36415; 73630; 73718; 80048; 80061; 80202; 81001; 82962; 83036; 83605; 85025; 85652; 86140; 87040; 87070; 87077; 87186; 87205; 87640; 87804; 97802; 99284; J7030; J7040; J7050; A4216; J0295

== ENCOUNTER 2020-02-05 10:00 | Outpatient (RCR) | payer OTHER, SELFPAY ==
[2020-01-06 22:02] VITALS: BMI 28.6
[2020-01-22 08:41] VITALS: BMI 28.6
--- NOTE | 2020-02-05 13:48 | PN.PCM_ITS ---
(1) Diabetes mellitus with neuropathy Status: Chronic Current Visit: Yes Qualifiers: Diabetes mellitus type: type 2 Code(s): E11.40 - Type 2 diabetes mellitus with diabetic neuropathy, unspecified (2) Ulcer of right foot with fat layer exposed Status: Chronic Current Visit: Yes Code(s): L97.512 - Non-pressure chronic ulcer of other part of right foot with fat layer exposed (3) Delayed wound healing Status: Chronic Current Visit: Yes Code(s): T14.8XXD - Other injury of unspecified body region, subsequent encounter (4) Type 1 diabetes mellitus with microalbuminuria, with long-term current use of insulin Status: Chronic Current Visit: Yes Code(s): E10.29 - Type 1 diabetes mellitus with other diabetic kidney complication; R80.9 - Proteinuria, unspecified Comment: BG readings higher than expected. Pt is ask to check BG in pairs. He appears to need more insulin at breakfast and lunch since he is off work and not active.. Ask to use correction scale aggressively. Report he ran out of strips but has now recieved his supply Discussed need to continue with this level of control in the post op state. Type of Wound Date of Service: 02/05/20 Chief Complaint: Ulcer right foot History of Wound: Mr. Diaz is a 44-year-old with history of poorly controlled diabetes mellitus status post several episodes of osteomyelitis/surgical debridement was seen for nonhealing sub 1st metatarsal head ulcer. He relates his blood sugars have been better controlled since he has made nutrition changes and since he is able to monitor a continuously with a glucometer at home. His fasting blood sugar this morning was 108 mg/dL. He is amenable to have a total contact cast however does not have anybody to drive him home at this time. 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 Progress of Wound: Improving - Physical Exam General: Alert, Oriented x3, Cooperative, No apparent distress Extremities: No cyanosis, Capillary Refill Less than 3 Seconds, No Calf Tenderness, Diminished Peripheral Pulses, Edema Skin: Ulcer/ Wound - No purulence, erythema, streaking, odor, infection. There is decreased callus formation noted. There is no deep tissue, necrosis, or maceration. Musculoskeletal: No Tenderness to Palpation of Joints or Extremities, Muscle Wasting Neurological: - - Lack of epicritic sensation light touch is consistent with neuropathy status Psych/Mental Status: Normal Affect, Appropriate Debridement Note Wound debrided: sub 1st metatarsal head Laterality: Right Wound Grade/Stage: grade 1 Type of Debridement: Excisional debridement Anesthesia Used: 5% Lidocaine Gel Depth: in the subcutaneous layer Percentage of wound debrided: 100 Instrument Used: #15 blade Tissue Removed: fibrous, devitalized subcutaneous, biofilm, slough Severity: Fat Layer Exposed Amount of bleeding with debridement: Mild Bleeding Controlled with: Pressure Patient tolerated procedure well Assessment/Plan Active Problems (Last Reviewed 01/06/20 @ 21:[address] Tj Ireland MD) Diabetes mellitus with neuropathy (Chronic) Ulcer of right foot with fat layer exposed (Chronic) Delayed wound healing (Chronic) Type 1 diabetes mellitus with microalbuminuria, with long-term current use of insulin (Chronic) BG readings higher than expected. Pt is ask to check BG in pairs. He appears to need more insulin at breakfast and lunch since he is off work and not active.. Ask to use correction scale aggressively. Report he ran out of strips but has now recieved his supply Discussed need to continue with this level of control in the post op state. Assessment: diabetic foot ulcer grade 1 status. 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 Poorly controlled diabetes mellitus, insulin-dependent with neuropathy. History of recent tobacco cessation. Delayed healing. Suspected malnutrition Plan: I reviewed and discussed his updated case. He was reassured no infection is present today. Debridement was performed today as noted in the clinical panel in a subcutaneous excisional manner. To change dressing daily with aquacel Ag. To continue offloading with cam walker boot and offloading pocket. To continue compliance with knee roller. To optimize healing by improving glycemic control. I recommended twister in consultation and this is been initiated. He is doing well with nutrition adjustments. We discussed how glycemic control is a combination of medication adjustments, diet, exercise, and lifestyle modifications and this is important for healing ability. A referral was provided previously and this has been initiated. He was advised to follow-up with the foot and ankle center for fitting and dispensing of extra-depth diabetic shoes particularly for the side that does not have a current ulcer. He is still working on setting this up. He is demonstrating continued delays in h ealing. I recommended a total contact cast however he uses his right foot for driving. He is unable to have that applied today and will look into driving assistance for next week. To follow up to the wound care center in 1 week.
== END 2020-02-18 23:59 ==
LOC: DC 10:00
PROVIDERS: Family Provider Internal Medicine; PCP Nurse Practitioner Family; Visit Provider Podiatrist
DX: Z71.3 Dietary counseling and surveillance (principal); E11.42 Type 2 diabetes mellitus with diabetic polyneuropathy
CPT/HCPCS: 97803; G0108

== ENCOUNTER 2020-02-12 13:30 | Outpatient (RCR) | payer OTHER, SELFPAY ==
[2020-01-06 22:02] VITALS: BMI 28.6
[2020-01-19 00:18] VITALS: BP 145/83; PULSE 97; RESP 18; TEMP 36.3
[2020-01-22 08:41] VITALS: BP 140/78; PULSE 114; RESP 16; TEMP 36.9; BMI 28.6
--- NOTE | 2020-01-22 10:35 | PN.PCM_ITS ---
(1) Diabetes mellitus with neuropathy Status: Chronic Qualifiers: Diabetes mellitus type: type 1 Qualified Code(s): E10.40 - Type 1 diabetes mellitus with diabetic neuropathy, unspecified Code(s): E11.40 - Type 2 diabetes mellitus with diabetic neuropathy, unspecified (2) Ulcer of right foot with fat layer exposed Status: Chronic Code(s): L97.512 - Non-pressure chronic ulcer of other part of right foot with fat layer exposed (3) Delayed wound healing Status: Chronic Code(s): T14.8XXD - Other injury of unspecified body region, subsequent encounter (4) Malnutrition Status: Chronic Code(s): E46 - Unspecified protein-calorie malnutrition (5) Type 1 diabetes mellitus with microalbuminuria, with long-term current use of insulin Status: Chronic Code(s): E10.29 - Type 1 diabetes mellitus with other diabetic kidney complication; R80.9 - Proteinuria, unspecified Comment: BG readings higher than expected. Pt is ask to check BG in pairs. He appears to need more insulin at breakfast and lunch since he is off work and not active.. Ask to use correction scale aggressively. Report he ran out of strips but has now recieved his supply Discussed need to continue with this level of control in the post op state. Type of Wound Date of Service: 01/22/20 Chief Complaint: Ulcer right foot History of Wound: Mr. Diaz is a 44-year-old with history of poorly controlled diabetes mellitus status post several episodes of osteomyelitis/surgical debridement was seen for nonhealing sub 1st metatarsal head ulcer. He denies redness, fever, chills, nausea. He relates his last hemoglobin a1c was 12 performed at an outside facility. He relates it has always been high. He r elates his blood sugars have been running around 150 - 180 mg/dL instead of 300s. He wears his cam walker or uses a knee roller to offload while at home. Progress of Wound: Stable - Physical Exam Vital Signs Temp Pulse Resp BP 98.4 F 114 H 16 140/78 H 01/22/20 08:41 01/22/20 08:41 01/22/20 08:41 01/22/20 08:41 General: Alert, Oriented x3, Cooperative, No apparent distress Abdomen: Non Tender Extremities: No cyanosis, Capillary Refill Less than 3 Seconds, No Calf Tenderness, Edema - Mild, Peripheral Pulses Normal Skin: Ulcer/ Wound - No purulence, erythema, streaking, odor, infection. Peripheral skin is hairless and atrophic. Ulcer bed is granular and there is some peripheral callus Wound Measurements and Assessment - Nurse 1 - General Ulcer Measurement Start: 01/22/20 08:40 Freq: Status: Active Protocol: Activity Type Activity Date Activity User E-Sign Co-Sign Detail Recorded Client Recorded Date Recorded By Document 01/22/20 08:41 LUZMA [id number] 01/22/20 08:44 DV 01/22/20 08:41 Wound Center Nurse 1 [Ulcer Assessment] #2 R Foot Plantar -Combined with other wound No -Current Size (cm) - Length 1.4 -Current Size (cm) - Width 0.5 -Current Size (cm) - Depth 0.2 -Total Square Cm 0.70 -Photo Taken No -Epithelialization None Present -Tunneling No -Undermining/Tunneling No -Circular Undermining No -Classification - Thickness Full Thickness without Exposed Support Structure -Exudate Amt Medium -Exudate Type Serous -Wound Margin Indistinct, Non -Visible -Granulation Amt None Present (0 %) -Granulation Quality N/A -Slough/Fibrin Yes -Necrosis Amt Medium (34-66%) -Necrotic Tissue Type Adherent Slough -Structure Exposed None/Limited to Skin Breakdown -Texture (Radha-wound Skin Appearance) Assessed, Scarring -Moisture (Radha-wound Skin Appearance Assessed,Dry/ ) Scaly -Color (Radha-wound Skin Appearance) No Abnormality, Assessed -Temperature (Radha-wound Skin No Abnormality Appearance) (Pt Warm) -Foul Odor after Cleansing No -Anesthetic Used 4% Lidocaine Solution - Nurse 2 - General Ulcer CM Notes Start: 01/22/20 08:40 Freq: Status: Active Protocol: Activity Type Activity Date Activity User E-Sign Co-Sign Detail Recorded Client Recorded Date Recorded By Document 01/22/20 08:57 RAYNA [id number] 01/22/20 08:58 RAYNA 01/22/20 08:57 Wound Center Nurse 2 [Procedure/Treatment] -Time 08:58 -Correct Patient Yes -Correct Side, Site, Position Yes -Correct Procedure Yes -Procedure Performed Yes -Type of Procedure Debridement -Clinical Debridement Subcutaneous -Post Debridement Size (cm) - Length 2.5 -Post Debridement Size (cm) - Width 0.7 -Post Debridement Size (cm) - Depth 0.2 -Total Square Cm 1.75 -Wound/Ulcer Outcome Not Healed -Ulcer Cleansing Rinsed/ Irrigated with Saline -Foul Odor after Cleansing No -Bioengineered Tissue No -Bleeding Controlled with Pressure -Offloading Yes -Type of Offloading Camwalker -Treatment Response Procedure Tolerated Well [See Physician Procedure note for Specifics] Pain Scale: 0-10 Numeric [Pain] -Is Patient Pain Free? Yes Musculoskeletal: No Tenderness to Palpation of Joints or Extremities Neurological: - - Lack of epicritic sensation light touch is consistent with neuropathy status Psych/Mental Status: Normal Affect, Appropriate Debridement Note Post-Debridement Measurements/Treatment WC - Nurse 2 - General Ulcer CM Notes Start: 01/22/20 08:40 Freq: Status: Active Protocol: Activity Type Activity Date Activity User E-Sign Co-Sign Detail Recorded Client Recorded Date Recorded By Document 01/22/20 08:57 RAYNA [id number] 01/22/20 08:58 RAYNA 01/22/20 08:57 Wound Center Nurse 2 #2 R Foot Plantar -Time 08:58 -Correct Patient Yes -Correct Side, Site, Position Yes -Correct Procedure Yes -Procedure Performed Yes -Type of Procedure Debridement -Clinical Debridement Subcutaneous -Post Debridement Size (cm) - Length 2.5 -Post Debridement Size (cm) - Width 0.7 -Post Debridement Size (cm) - Depth 0.2 -Total Square Cm 1.75 -Wound/Ulcer Outcome Not Healed -Ulcer Cleansing Rinsed/ Irrigated with Saline -Foul Odor after Cleansing No -Bioengineered Tissue No -Bleeding Controlled with Pressure -Offloading Yes -Type of Offloading Camwalker -Treatment Response Procedure Tolerated Well Pain Scale: 0-10 Numeric Is Patient Pain Free? Yes Wound debrided: plantar first metatarsal head Laterality: Right Wound Grade/Stage: grade 1 Type of Debridement: Excisional debridement Anesthesia Used: 5% Lidocaine Gel Depth: in the subcutaneous layer Percentage of wound debrided: 100 Instrument Used: #15 blade Tissue Removed: fibrous, devitalized subcuteaneous, biofilm, slough Severity: Fat Layer Exposed Amount of bleeding with debridement: Mild Bleeding Controlled with: Pressure Patient tolerated procedure well Assessment/Plan Assessment: diabetic foot ulcer grade 1 status. 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 Poorly controlled diabetes mellitus, insulin-dependent with neuropathy. History of recent tobacco cessation. Delayed healing. Suspected malnutrition Plan: I reviewed and discussed his updated case. He was reassured no infection is present today. Debridement was performed today as noted in the clinical panel in a subcutaneous excisional manner. To change dressing daily with aquacel Ag. To continue offloading with cam walker boot and offloading pocket. To continue compliance with knee roller. To optimize healing by improving glycemic control. I recommended quilting supervisor consultation and this is been initiated. We discussed how glycemic control is a combination of medication adjustments, diet, exercise, and lifestyle modifications and this is important for healing ability. A referral was provided previously and this has been initiated. He was advised to follow-up with the foot and ankle center for fitting and dispensing of extra-depth diabetic shoes particularly for the side that does not have a current ulcer. He is still working on setting this up. He attended his nutrition consultation and is making some adjustments. To follow up to the wound care center in 1 week.
[2020-01-29 13:50] VITALS: BP 143/92; PULSE 96; RESP 16; TEMP 37; BMI 28.6
--- NOTE | 2020-01-29 14:31 | PCM.WC.PN ---
(1) Diabetes mellitus with neuropathy Status: Chronic Current Visit: No Qualifiers: Diabetes mellitus type: type 1 Qualified Code(s): E10.40 - Type 1 diabetes mellitus with diabetic neuropathy, unspecified Code(s): E11.40 - Type 2 diabetes mellitus with diabetic neuropathy, unspecified (2) Ulcer of right foot with fat layer exposed Status: Chronic Current Visit: Yes Code(s): L97.512 - Non-pressure chronic ulcer of other part of right foot with fat layer exposed (3) Delayed wound healing Status: Chronic Current Visit: Yes Code(s): T14.8XXD - Other injury of unspecified body region, subsequent encounter (4) Malnutrition Status: Chronic Current Visit: Yes Code(s): E46 - Unspecified protein-calorie malnutrition (5) Type 1 diabetes mellitus with microalbuminuria, with long-term current use of insulin Status: Chronic Current Visit: Yes Code(s): E10.29 - Type 1 diabetes mellitus with other diabetic kidney complication; R80.9 - Proteinuria, unspecified Comment: BG readings higher than expected. Pt is ask to check BG in pairs. He appears to need more insulin at breakfast and lunch since he is off work and not active.. Ask to use correction scale aggressively. Report he ran out of strips but has now recieved his supply Discussed need to continue with this level of control in the post op state. Type of Wound Date of Service: 01/29/20 Chief Complaint: Ulcer right foot History of Wound: Mr. Diaz is a 44-year-old with history of poorly controlled diabetes mellitus status post several episodes of osteomyelitis/surgical debridement was seen for nonhealing sub 1st metatarsal head ulcer. He denies redness, fever, chills, nausea. He relates his last hemoglobin a1c was 12 performed at an outside facility. He relates it has always been high. He wears his cam walker or uses a knee roller to offload while at home. He is amenable to have a total contact cast however does not have anybody to drive him home at this time. He will try to make arrangements for next week. Progress of Wound: Stable - Physical Exam Vital Signs Temp Pulse Resp BP 98.6 F 96 16 143/92 H 01/29/20 13:50 01/29/20 13:50 01/29/20 13:50 01/29/20 13:50 General: Alert, Oriented x3, Cooperative, No apparent distress Extremities: No cyanosis, Capillary Refill Less than 3 Seconds, No Calf Tenderness, Diminished Peripheral Pulses, Edema Skin: Ulcer/ Wound - No purulence, erythema, streaking, odor, infection. Adjacent skin is hairless and atrophic. There is callus noted next the ulcer site as well. Wound Measurements and Assessment - Nurse 1 - General Ulcer Measurement Start: 01/22/20 08:40 Freq: Status: Active Protocol: Activity Type Activity Date Activity User E-Sign Co-Sign Detail Recorded Client Recorded Date Recorded By Document 01/29/20 13:50 [facility] [id number] 01/29/20 13:54 [facility] 01/29/20 13:50 Wound Center Nurse 1 [Ulcer Assessment] #2 R Foot Plantar -Combined with other wound No -Current Size (cm) - Length 1.3 -Current Size (cm) - Width 1.7 -Current Size (cm) - Depth 0.3 -Total Square Cm 2.21 -Photo Taken No -Epithelialization None Present -Tunneling No -Undermining/Tunneling No -Circular Undermining No -Exudate Amt Small -Exudate Type Serosanguineous -Wound Margin Thickened -Granulation Amt Medium (34-66%) -Granulation Quality Red -Slough/Fibrin Yes -Necrosis Amt Small (1-33%) -Necrotic Tissue Type Adherent Slough -Texture (Radha-wound Skin Appearance) Assessed,Callus ,Scarring -Moisture (Radha-wound Skin Appearance Assessed,Dry/ ) Scaly -Color (Radha-wound Skin Appearance) Assessed -Temperature (Radha-wound Skin No Abnormality Appearance) (Pt Warm) -Tenderness on Palpation (Radha-wound No Skin Appearance) -Ulcer Cleansing Rinsed/ Irrigated with Saline -Foul Odor after Cleansing No -Anesthetic Used 5% Lidocaine Gel - Nurse 2 - General Ulcer CM Notes Start: 01/22/20 08:40 Freq: Status: Active Protocol: Activity Type Activity Date Activity User E-Sign Co-Sign Detail Recorded Client Recorded Date Recorded By Document 01/29/20 14:04 [id number] 01/29/20 14:05 RAYNA 01/29/20 14:04 Wound Center Nurse 2 [Procedure/Treatment] -Time 14:05 -Correct Patient Yes -Correct Side, Site, Position Yes -Correct Procedure Yes -Procedure Performed Yes -Type of Procedure Debridement -Clinical Debridement Subcutaneous -Post Debridement Size (cm) - Length 2.0 -Post Debridement Size (cm) - Width 0.6 -Post Debridement Size (cm) - Depth 0.2 -Total Square Cm 1.20 -Wound/Ulcer Outcome Not Healed -Ulcer Cleansing Rinsed/ Irrigated with Saline -Foul Odor after Cleansing No -Bioengineered Tissue No -Bleeding Controlled with Pressure -Offloading Yes -Type of Offloading Total Contact Cast (TCC) -Treatment Response Procedure Tolerated Well [See Physician Procedure note for Specifics] Pain Scale: 0-10 Numeric [Pain] -Is Patient Pain Free? Yes Musculoskeletal: No Tenderness to Palpation of Joints or Extremities, Muscle Wasting - Intrinsic minus foot, - - Second toe amputation of prominent metatarsal heads. Prior surgery noted to hallux Neurological: - - Lack of epicritic sensation light touch is consistent with neuropathy status Psych/Mental Status: Normal Affect, Appropriate Debridement Note Post-Debridement Measurements/Treatment WC - Nurse 2 - General Ulcer CM Notes Start: 01/22/20 08:40 Freq: Status: Active Protocol: Activity Type Activity Date Activity User E-Sign Co-Sign Detail Recorded Client Recorded Date Recorded By Document 01/22/20 08:57 [id number] 01/22/20 08:58 Document 01/29/20 14:04 [id number] 01/29/20 14:05 01/22/20 01/29/20 08:57 14:04 Wound Center Nurse 2 #2 R Foot Plantar -Time 08:58 14:05 -Correct Patient Yes Yes -Correct Side, Site, Position Yes Yes -Correct Procedure Yes Yes -Procedure Performed Yes Yes -Type of Procedure Debridement Debridement -Clinical Debridement Subcutaneous Subcutaneous -Post Debridement Size (cm) - Length 2.5 2.0 -Post Debridement Size (cm) - Width 0.7 0.6 -Post Debridement Size (cm) - Depth 0.2 0.2 -Total Square Cm 1.75 1.20 -Wound/Ulcer Outcome Not Healed Not Healed -Ulcer Cleansing Rinsed/ Rinsed/ Irrigated with Irrigated with Saline Saline -Foul Odor after Cleansing No No -Bioengineered Tissue No No -Bleeding Controlled with Pressure Pressure -Offloading Yes Yes -Type of Offloading Camwalker Total Contact Cast (TCC) -Treatment Response Procedure Procedure Tolerated Well Tolerated Well Pain Scale: 0-10 Numeric Is Patient Pain Free? Yes Yes Wound debrided: sub 1st metatarsal head Laterality: Right Wound Grade/Stage: grade 1 Type of Debridement: Excisional debridement Anesthesia Used: 5% Lidocaine Gel Depth: in the subcutaneous layer Percentage of wound debrided: 100 Instrument Used: #15 blade Tissue Removed: fibrous, devitalized subcutaneous, biofilm, slough Severity: Fat Layer Exposed Amount of bleeding with debridement: Mild Bleeding Controlled with: Pressure Patient tolerated procedure well Assessment/Plan Active Problems (Last Reviewed 01/06/20 @ 21:[address] Tj Ireland MD) Ulcer of right foot with fat layer exposed (Chronic) Delayed wound healing (Chronic) Malnutrition (Chronic) Type 1 diabetes mellitus with microalbuminuria, with long-term current use of insulin (Chronic) BG readings higher than expected. Pt is ask to check BG in pairs. He appears to need more insulin at breakfast and lunch since he is off work and not active.. Ask to use correction scale aggressively. Report he ran out of strips but has now recieved his supply Discussed need to continue with this level of control in the post op state. Assessment: diabetic foot ulcer grade 1 status. 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 Poorly controlled diabetes mellitus, insulin-dependent with neuropathy. History of recent tobacco cessation. Delayed healing. Suspected malnutrition Plan: I reviewed and discussed his updated case. He was reassured no infection is present today. Debridement was performed today as noted in the clinical panel in a subcutaneous excisional manner. To change dressing daily with aquacel Ag. To continue offloading with cam walker boot and offloading pocket. To continue compliance with knee roller. To optimize healing by improving glycemic control. I recommended computer systems design analyst consultation and this is been initiated. We discussed how glycemic control is a combination of medication adjustments, diet, exercise, and lifestyle modifications and this is important for healing ability. A referral was provided previously and this has been initiated. He was advised to follow-up with the foot and ankle center for fitting and dispensing of extra-depth diabetic shoes particularly for the side that does not have a current ulcer. He is still working on setting this up. He attended his nutrition consultation and is making some adjustments. He is demonstrating continued delays in healing. I recommended a total contact cast however he uses his right foot for driving. He is unable to have that applied today and will look into driving assistance for next week. To follow up to the wound care center in 1 week.
[2020-02-05 13:33] VITALS: BP 169/92; PULSE 99; RESP 18; TEMP 36.6; BMI 28.6
[2020-02-12 13:32] VITALS: PULSE 96; RESP 18; TEMP 36.8; BMI 28.6
--- NOTE | 2020-02-12 15:55 | PCM.WC.PN ---
(1) Diabetes mellitus with neuropathy Status: Chronic Current Visit: Yes Qualifiers: Diabetes mellitus type: type 2 Code(s): E11.40 - Type 2 diabetes mellitus with diabetic neuropathy, unspecified (2) Ulcer of right foot with fat layer exposed Status: Chronic Current Visit: Yes Code(s): L97.512 - Non-pressure chronic ulcer of other part of right foot with fat layer exposed (3) Delayed wound healing Status: Chronic Current Visit: Yes Code(s): T14.8XXD - Other injury of unspecified body region, subsequent encounter (4) Malnutrition Status: Chronic Current Visit: Yes Code(s): E46 - Unspecified protein-calorie malnutrition (5) Type 1 diabetes mellitus with microalbuminuria, with long-term current use of insulin Status: Chronic Current Visit: Yes Code(s): E10.29 - Type 1 diabetes mellitus with other diabetic kidney complication; R80.9 - Proteinuria, unspecified Comment: BG readings higher than expected. Pt is ask to check BG in pairs. He appears to need more insulin at breakfast and lunch since he is off work and not active.. Ask to use correction scale aggressively. Report he ran out of strips but has now recieved his supply Discussed need to continue with this level of control in the post op state. Type of Wound Date of Service: 02/12/20 Chief Complaint: Ulcer right foot History of Wound: Mr. Diaz is a 44-year-old with history of poorly controlled diabetes mellitus status post several episodes of osteomyelitis/surgical debridement was seen for nonhealing sub 1st metatarsal head ulcer. He relates his blood sugars have been better controlled since he has made nutrition changes and since he is able to monitor a continuously with a glucometer at home. He is amenable to have a total contact cast however does not have anybody to drive him home at this time. Progress of Wound: Improvement - Physical Exam Vital Signs Temp Pulse Resp BP 98.3 F 96 18 169/92 H 02/12/20 13:32 02/12/20 13:32 02/12/20 13:32 02/05/20 13:33 General: Alert, Oriented x3, Cooperative, No apparent distress Extremities: No cyanosis, Capillary Refill Less than 3 Seconds, No Calf Tenderness, Diminished Peripheral Pulses, Edema Skin: Ulcer/ Wound - No purulence, erythema, streaking, odor, infection. His adjacent skin is hairless and atrophic. Wound Measurements and Assessment - Nurse 1 - General Ulcer Measurement Start: 01/22/20 08:40 Freq: Status: Active Protocol: Activity Type Activity Date Activity User E-Sign Co-Sign Detail Recorded Client Recorded Date Recorded By Document 02/12/20 13:32 CS [id number] 02/12/20 13:37 CS 02/12/20 13:32 Wound Center Nurse 1 [Ulcer Assessment] #2 R Foot Plantar -Combined with other wound No -Current Size (cm) - Length 0.3 -Current Size (cm) - Width 0.6 -Current Size (cm) - Depth 0.2 -Total Square Cm 0.18 -Date of Last Picture (Recall this 02/12/20 field) -Photo Taken Yes -Epithelialization None Present -Tunneling No -Undermining/Tunneling No -Circular Undermining No -Exudate Amt Medium -Exudate Type Serosanguineous -Wound Margin Distinct, Outline Attached -Granulation Amt Large (67-100%) -Granulation Quality Pale,[place] -Slough/Fibrin Yes -Necrosis Amt None Present (0 %) -Necrotic Tissue Type Adherent Slough -Texture (Radha-wound Skin Appearance) Callus -Moisture (Radha-wound Skin Appearance No Abnormality, ) Assessed -Color (Radha-wound Skin Appearance) No Abnormality, Assessed -Temperature (Radha-wound Skin No Abnormality Appearance) (Pt Warm) -Tenderness on Palpation (Radha-wound No Skin Appearance) -Ulcer Cleansing Rinsed/ Irrigated with Saline -Foul Odor after Cleansing No -Anesthetic Used 4% Lidocaine Solution [Edema Assessment] -Lower Limb Edema Present NA - Nurse 2 - General Ulcer CM Notes Start: 01/22/20 08:40 Freq: Status: Active Protocol: Activity Type Activity Date Activity User E-Sign Co-Sign Detail Recorded Client Recorded Date Recorded By Document 02/12/20 13:50 RAYNA [id number] 02/12/20 13:51 RAYNA 02/12/20 13:50 Wound Center Nurse 2 [Procedure/Treatment] #2 R Foot Plantar -Time 13:50 -Correct Patient Yes -Correct Side, Site, Position Yes -Correct Procedure Yes -Procedure Performed Yes -Type of Procedure Debridement -Clinical Debridement Subcutaneous -Post Debridement Size (cm) - Length 0.5 -Post Debridement Size (cm) - Width 0.7 -Post Debridement Size (cm) - Depth 0.2 -Total Square Cm 0.35 -Wound/Ulcer Outcome Not Healed -Ulcer Cleansing Rinsed/ Irrigated with Saline -Foul Odor after Cleansing No -Bioengineered Tissue No -Bleeding Controlled with Pressure -Offloading Yes -Type of Offloading Knee Walker -Treatment Response Procedure Tolerated Well [See Physician Procedure note for Specifics] Pain Scale: 0-10 Numeric [Pain] -Is Patient Pain Free? Yes Musculoskeletal: No Tenderness to Palpation of Joints or Extremities, Muscle Wasting Neurological: - - Lack of epicritic sensation light touch is consistent with neuropathy status Psych/Mental Status: Normal Affect, Appropriate Debridement Note Post-Debridement Measurements/Treatment WC - Nurse 2 - General Ulcer CM Notes Start: 01/22/20 08:40 Freq: Status: Active Protocol: Activity Type Activity Date Activity User E-Sign Co-Sign Detail Recorded Client Recorded Date Recorded By Document 01/22/20 08:57 [id number] 01/22/20 08:58 Document 01/29/20 14:04 [id number] 01/29/20 14:05 Document 02/05/20 13:43 [id number] 02/05/20 13:45 Document 02/12/20 13:50 [id number] 02/12/20 13:51 01/22/20 01/29/20 02/05/20 08:57 14:04 13:43 Wound Center Nurse 2 #2 R Foot Plantar -Time 08:58 14:05 13:44 -Correct Patient Yes Yes Yes -Correct Side, Site, Position Yes Yes Yes -Correct Procedure Yes Yes Yes -Procedure Performed Yes Yes Yes -Type of Procedure Debridement Debridement Debridement -Clinical Debridement Subcutaneous Subcutaneous Subcutaneous -Post Debridement Size (cm) - Length 2.5 2.0 0.4 -Post Debridement Size (cm) - Width 0.7 0.6 0.8 -Post Debridement Size (cm) - Depth 0.2 0.2 0.2 -Total Square Cm 1.75 1.20 0.32 -Wound/Ulcer Outcome Not Healed Not Healed Not Healed -Ulcer Cleansing Rinsed/ Rinsed/ Rinsed/ Irrigated with Irrigated with Irrigated with Saline Saline Saline -Foul Odor after Cleansing No No No -Bioengineered Tissue No No No -Bleeding Controlled with Pressure Pressure Pressure -Offloading Yes Yes Yes -Type of Offloading Camwalker Total Contact Camwalker Cast (TCC) -Treatment Response Procedure Procedure Procedure Tolerated Well Tolerated Well Tolerated Well Pain Scale: 0-10 Numeric Is Patient Pain Free? Yes Yes Yes 02/12/20 13:50 Wound Center Nurse 2 #2 R Foot Plantar -Time 13:50 -Correct Patient Yes -Correct Side, Site, Position Yes -Correct Procedure Yes -Procedure Performed Yes -Type of Procedure Debridement -Clinical Debridement Subcutaneous -Post Debridement Size (cm) - Length 0.5 -Post Debridement Size (cm) - Width 0.7 -Post Debridement Size (cm) - Depth 0.2 -Total Square Cm 0.35 -Wound/Ulcer Outcome Not Healed -Ulcer Cleansing Rinsed/ Irrigated with Saline -Foul Odor after Cleansing No -Bioengineered Tissue No -Bleeding Controlled with Pressure -Offloading Yes -Type of Offloading Knee Walker -Treatment Response Procedure Tolerated Well Pain Scale: 0-10 Numeric Is Patient Pain Free? Yes Wound debrided: sub 1st metatarsal head Laterality: Left Wound Grade/Stage: grade 1 Type of Debridement: Excisional debridement Anesthesia Used: 5% Lidocaine Gel Depth: in the subcutaneous layer Percentage of wound debrided: 100 Instrument Used: #15 blade Tissue Removed: fibrous, devitalized subcutaneous, biofilm, slough Severity: Fat Layer Exposed Amount of bleeding with debridement: Mild Bleeding Controlled with: Pressure Patient tolerated procedure well Assessment/Plan Active Problems (Last Reviewed 01/06/20 @ 21:[address] Tj Ireland MD) Diabetes mellitus with neuropathy (Chronic) Ulcer of right foot with fat layer exposed (Chronic) Delayed wound healing (Chronic) Malnutrition (Chronic) Type 1 diabetes mellitus with microalbuminuria, with long-term current use of insulin (Chronic) BG readings higher than expected. Pt is ask to check BG in pairs. He appears to need more insulin at breakfast and lunch since he is off work and not active.. Ask to use correction scale aggressively. Report he ran out of strips but has now recieved his supply Discussed need to continue with this level of control in the post op state. Assessment: diabetic foot ulcer grade 1 status. 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 Poorly controlled diabetes mellitus, insulin-dependent with neuropathy. History of recent tobacco cessation. Delayed healing. Suspected malnutrition Plan: I reviewed and discussed his updated case. He was reassured no infection is present today. Debridement was performed today as noted in the clinical panel in a subcutaneous excisional manner. To change dressing daily with aquacel Ag. I recommend changing to regranex if this is improved by his insurance. Prior authorization will be initiated. He has significant delays in healing and I recommend the growth factors will stimulate the healing process again. This is medically necessary for limb salvage. To continue offloading with cam walker boot and offloading pocket. To continue compliance with knee roller. To optimize healing by improving glycemic control. I recommended application infrastructure engineer consultation and this is been initiated. He is doing well with nutrition adjustments. We discussed how glycemic control is a combination of medication adjustments, diet, exercise, and lifestyle modifications and this is important for healing ability. A referral was provided previously and this has been initiated. He was advised to follow-up with the foot and ankle center for fitting and dispensing of extra-depth diabetic shoes particularly for the side that does not have a current ulcer. He is still working on setting this up. He is demonstrating continued delays in healing. I recommended a total contact cast however he uses his right foot for driving. He is unable to have that applied today and will look into driving assistance for next week. To follow up to the wound care center in 1 week.
== END 2020-02-18 23:59 ==
LOC: WC 13:30
PROVIDERS: Family Provider Internal Medicine; PCP Nurse Practitioner Family; Referring Provider Podiatrist; Visit Provider Podiatrist
DX: E10.621 Type 1 diabetes mellitus with foot ulcer (principal); E10.40 Type 1 diabetes mellitus with diabetic neuropathy, unspecified; E10.65 Type 1 diabetes mellitus with hyperglycemia; E10.29 Type 1 diabetes mellitus with other diabetic kidney complication; L97.512 Non-pressure chronic ulcer of other part of right foot with fat layer exposed; Z89.421 Acquired absence of other right toe(s)
CPT/HCPCS: 11042; 29445

== ENCOUNTER → 2020-03-12 10:10 | Outpatient (CLI) | payer OTHER, SELFPAY ==
[2020-03-04 09:44] VITALS: BMI 28.6
[2020-03-11 09:43] VITALS: BMI 28.6
[2020-03-12 12:21] LABS: Microalbumin:Creatinine Ratio 139.1 mg/g CRE (<30 mg/g CRE)
[2020-03-12 12:36] LABS: Hemoglobin A1c 8.3 % (4.2-6.3)
[2020-03-12 12:38] LABS: AST(SGOT) 20 U/L (15-37); Alanine Aminotransfer ALT/SGPT 34 U/L (16-61); Albumin, Serum 3.4 g/dL (3.2-5.0); Alkaline Phosphatase 82 U/L (45-117); Anion Gap 6 (5-15); BUN 17 mg/dL (7-18); BUN/Creat Ratio 12.6 RATIO (10-20); Calcium,Total 9.4 mg/dL (8.5-10.1); Chloride 101 mmol/L (98-107); Cholesterol 214 mg/dL (200); Creatinine, Serum 1.35 mg/dL (0.70-1.30); EST Glomerular Filtration Rate 61 mL/min (>60); Est Glom Filt Rate - Afr Amer 73 mL/min (>60); Globulin 3.4 g/dL (2.2-4.2); Glucose 373 mg/dL (74-106); High Density Lipoprotein 65 mg/dL; Potassium 4.8 mmol/L (3.5-5.1); Protein, Total 6.8 g/dL (6.4-8.2); Sodium Level 134 mmol/L (136-145); Triglycerides 94 mg/dL; Very Low Density Lipoprotein 19 mg/dL (5-40)
== END ==
LOC: LAB.FUTURE 10:11 → LAB 03-13 06:38
PROVIDERS: PCP Nurse Practitioner Family; Referring Provider Nurse Practitioner; Visit Provider Nurse Practitioner
DX: E10.65 Type 1 diabetes mellitus with hyperglycemia (principal)
CPT/HCPCS: 36415; 80053; 80061; 82043; 82570; 83036

== ENCOUNTER 2020-03-18 08:30 | Outpatient (RCR) | payer OTHER, SELFPAY ==
[2020-02-19 00:18] VITALS: BP 169/92; PULSE 96; RESP 18; TEMP 36.8
[2020-02-19 10:11] VITALS: BP 141/85; PULSE 97; RESP 16; TEMP 36.2; BMI 28.6
--- NOTE | 2020-02-19 11:29 | PCM.WC.PN ---
(1) Ulcer of right foot with fat layer exposed Status: Chronic Current Visit: Yes Code(s): L97.512 - Non-pressure chronic ulcer of other part of right foot with fat layer exposed (2) Delayed wound healing Status: Chronic Current Visit: Yes Code(s): T14.8XXD - Other injury of unspecified body region, subsequent encounter (3) Malnutrition Status: Chronic Current Visit: Yes Code(s): E46 - Unspecified protein-calorie malnutrition (4) Type 1 diabetes mellitus with microalbuminuria, with long-term current use of insulin Status: Chronic Current Visit: Yes Code(s): E10.29 - Type 1 diabetes mellitus with other diabetic kidney complication; R80.9 - Proteinuria, unspecified Comment: BG readings higher than expected. Pt is ask to check BG in pairs. He appears to need more insulin at breakfast and lunch since he is off work and not active.. Ask to use correction scale aggressively. Report he ran out of strips but has now recieved his supply Discussed need to continue with this level of control in the post op state. Type of Wound Date of Service: 02/19/20 Chief Complaint: Ulcer right foot History of Wound: Mr. Diaz is a 44-year-old with history of poorly controlled diabetes mellitus status post several episodes of osteomyelitis/surgical debridement was seen for nonhealing sub 1st metatarsal head ulcer. He is amenable to have a total contact cast today and relates his son is able to drive. Progress of Wound: Improvement to plantar aspect. New skin split with ulcer to the proximal lateral aspect of the original ulcer site - Physical Exam Vital Signs Temp Pulse Resp BP 97.1 F L 97 16 141/85 H 02/19/20 10:11 02/19/20 10:11 02/19/20 10:11 02/19/20 10:11 General: Alert HEENT: Atraumatic Extremities: No cyanosis, Capillary Refill Less than 3 Seconds, No Calf Tenderness, Diminished Peripheral Pulses, Edema Skin: Ulcer/ Wound - No purulence, erythema, string, odor, infection. There is some maceration and callus formation with a new skin discontinuity proximal lateral to the initial ulcer site. The initial ulcer site has reduced in size and still has peripheral callus buildup. The ulcer beds are granular beefy and red. The adjacent skin is hairless and atrophic Wound Measurements and Assessment WC - Nurse 1 - General Ulcer Measurement Start: 02/19/20 10:11 Freq: Status: Active Protocol: Activity Type Activity Date Activity User E-Sign Co-Sign Detail Recorded Client Recorded Date Recorded By Document 02/19/20 10:11 [email or web address] [id number] 02/19/20 10:17 DV 02/19/20 10:11 Wound Center Nurse 1 [Ulcer Assessment] #2 R Foot Plantar -Combined with other wound No -Current Size (cm) - Length 0.5 -Current Size (cm) - Width 1.0 -Current Size (cm) - Depth 0.3 -Total Square Cm 0.50 -Photo Taken No -Epithelialization None Present -Tunneling No -Undermining/Tunneling No -Circular Undermining No -Classification - Thickness Full Thickness without Exposed Support Structure -Exudate Amt Small -Exudate Type Serosanguineous -Wound Margin Indistinct, Non -Visible -Granulation Amt None Present (0 %) -Granulation Quality N/A -Slough/Fibrin Yes -Necrosis Amt Large (67-100%) -Necrotic Tissue Type Adherent Slough -Structure Exposed None/Limited to Skin Breakdown -Texture (Radha-wound Skin Appearance) Assessed, Scarring -Moisture (Radha-wound Skin Appearance Assessed, ) Weeping -Color (Radha-wound Skin Appearance) No Abnormality, Assessed -Temperature (Radha-wound Skin No Abnormality Appearance) (Pt Warm) -Ulcer Cleansing Rinsed/ Irrigated with Saline -Foul Odor after Cleansing No -Anesthetic Used 4% Lidocaine Solution ALVINO - Nurse 2 - General Ulcer CM Notes Start: 02/19/20 10:11 Freq: Status: Active Protocol: Activity Type Activity Date Activity User E-Sign Co-Sign Detail Recorded Client Recorded Date Recorded By Document 02/19/20 10:25 [id number] [id number] 02/19/20 10:26 JF 02/19/20 10:25 Wound Center Nurse 2 [Procedure/Treatment] -Time 10:25 -Correct Patient Yes -Correct Side, Site, Position Yes -Correct Procedure Yes -Procedure Performed Yes -Type of Procedure Debridement -Clinical Debridement Subcutaneous -Post Debridement Size (cm) - Length 3.5 -Post Debridement Size (cm) - Width 0.8 -Post Debridement Size (cm) - Depth 0.2 -Total Square Cm 2.80 -Wound/Ulcer Outcome Not Healed -Ulcer Cleansing Rinsed/ Irrigated with Saline -Foul Odor after Cleansing No -Bioengineered Tissue No -Bleeding Controlled with Pressure -Offloading Yes -Type of Offloading Total Contact Cast (TCC) -Treatment Response Procedure Tolerated Well [See Physician Procedure note for Specifics] Pain Scale: 0-10 Numeric [Pain] -Is Patient Pain Free? Yes Musculoskeletal: No Tenderness to Palpation of Joints or Extremities, Muscle Wasting, - - Second toe amputation with prominent metatarsal heads Neurological: - - Lack of epicritic sensation light touch is consistent with neuropathy status Psych/Mental Status: Normal Affect, Appropriate Debridement Note Post-Debridement Measurements/Treatment WC - Nurse 2 - General Ulcer CM Notes Start: 02/19/20 10:11 Freq: Status: Active Protocol: Activity Type Activity Date Activity User E-Sign Co-Sign Detail Recorded Client Recorded Date Recorded By Document 02/19/20 10:25 RAYNA [id number] 02/19/20 10:26 RAYNA 02/19/20 10:25 Wound Center Nurse 2 #2 R Foot Plantar -Time 10:25 -Correct Patient Yes -Correct Side, Site, Position Yes -Correct Procedure Yes -Procedure Performed Yes -Type of Procedure Debridement -Clinical Debridement Subcutaneous -Post Debridement Size (cm) - Length 3.5 -Post Debridement Size (cm) - Width 0.8 -Post Debridement Size (cm) - Depth 0.2 -Total Square Cm 2.80 -Wound/Ulcer Outcome Not Healed -Ulcer Cleansing Rinsed/ Irrigated with Saline -Foul Odor after Cleansing No -Bioengineered Tissue No -Bleeding Controlled with Pressure -Offloading Yes -Type of Offloading Total Contact Cast (TCC) -Treatment Response Procedure Tolerated Well Pain Scale: 0-10 Numeric Is Patient Pain Free? Yes Wound debrided: sub 1 metatarsal head and new ulcer proximal to this site Laterality: Right Wound Grade/Stage: grade 1 Type of Debridement: Excisional debridement Anesthesia Used: 5% Lidocaine Gel Depth: in the subcutaneous layer Percentage of wound debrided: 100 Instrument Used: #15 blade Tissue Removed: fibrous, devitalized subcutaneous, biofilm, slough Severity: Fat Layer Exposed Amount of bleeding with debridement: Mild Bleeding Controlled with: Pressure Patient tolerated procedure well Assessment/Plan Active Problems (Last Reviewed 01/06/20 @ 21:[address] Tj Ireland MD) Ulcer of right foot with fat layer exposed (Chronic) Delayed wound healing (Chronic) Malnutrition (Chronic) Type 1 diabetes mellitus with microalbuminuria, with long-term current use of insulin (Chronic) BG readings higher than expected. Pt is ask to check BG in pairs. He appears to need more insulin at breakfast and lunch since he is off work and not active.. Ask to use correction scale aggressively. Report he ran out of strips but has now recieved his supply Discussed need to continue with this level of control in the post op state. Assessment: diabetic foot ulcer grade 1 status. New grade 1 ulcer plantar first interspace. 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 Poorly controlled diabetes mellitus, insulin-dependent with neuropathy. History of recent tobacco cessation. Delayed healing. Suspected malnutrition Plan: I reviewed and discussed his updated case. He was reassured no infection is present today. Debridement was performed today as noted in the clinical panel in a subcutaneous excisional manner. Leah was applied to the ulcer bed. Regranex was covered with a large initial cost and he defers. I recommend total contact cast application for better offloading he is amendable today. He does have a son that is not able to drive him. This was applied today after verbal consent according standard protocol in the neutral position in a well-padded manner. He tolerated this well. He was advised on the benefits and the risks of this cast. He is an appropriate candidate and this is medically necessary. To keep this clean, dry, and intact until follow-up in 1 week. He was advised to call immediately if he thinks he is starting get infected, has any new injury, or gets the cast wet or has any signs of local blood clot. He demonstrates understanding. To continue compliance with knee roller. To optimize healing by improving glycemic control. I recommended software design manager consultation and this is been initiated. He is doing well with nutrition adjustments. We discussed how glycemic control is a combination of medication adjustments, diet, exercise, and lifestyle modifications and this is important for healing ability. A referral was provided previously and this has been initiated. He was advised to follow-up with the foot and ankle center for fitting and dispensing of extra-depth diabetic shoes particularly for the side that does not have a current ulcer. He is still working on setting this up. He is demonstrating continued delays in healing. To follow up to the wound care center in 1 week.
[2020-02-26 09:20] VITALS: BP 140/79; PULSE 94; RESP 18; TEMP 36.2; BMI 28.6
--- NOTE | 2020-02-26 10:50 | PCM.WC.PN ---
(1) Ulcer of right foot with fat layer exposed Status: Chronic Current Visit: Yes Code(s): L97.512 - Non-pressure chronic ulcer of other part of right foot with fat layer exposed (2) Delayed wound healing Status: Chronic Current Visit: Yes Code(s): T14.8XXD - Other injury of unspecified body region, subsequent encounter (3) Malnutrition Status: Chronic Current Visit: Yes Code(s): E46 - Unspecified protein-calorie malnutrition (4) Type 1 diabetes mellitus with microalbuminuria, with long-term current use of insulin Status: Chronic Current Visit: Yes Code(s): E10.29 - Type 1 diabetes mellitus with other diabetic kidney complication; R80.9 - Proteinuria, unspecified Comment: BG readings higher than expected. Pt is ask to check BG in pairs. He appears to need more insulin at breakfast and lunch since he is off work and not active.. Ask to use correction scale aggressively. Report he ran out of strips but has now recieved his supply Discussed need to continue with this level of control in the post op state. Type of Wound Date of Service: 02/26/20 Chief Complaint: Ulcer right foot History of Wound: Mr. Diaz is a 44-year-old with history of poorly controlled diabetes mellitus status post several episodes of osteomyelitis/surgical debridement was seen for nonhealing sub 1st metatarsal head ulcer. He is amenable to have a total contact cast today and relates his son is able to drive. Progress of Wound: Improvement - Physical Exam Vital Signs Temp Pulse Resp BP 97.2 F L 94 18 140/79 H 02/26/20 09:20 02/26/20 09:20 02/26/20 09:20 02/26/20 09:20 General: Alert, Oriented x3, Cooperative, No apparent distress HEENT: Atraumatic Extremities: No cyanosis, Capillary Refill Less than 3 Seconds, No Calf Tenderness, Diminished Peripheral Pulses, Edema Skin: Ulcer/ Wound - No purulence, erythema, streaking, odor, infection. Adjacent skin is hairless and atrophic. There is some hyper granulation tissue extending from the 10 o'clock position of the ulcer site. There is no deep tissue exposure, necrosis, or maceration Wound Measurements and Assessment WC - Nurse 1 - General Ulcer Measurement Start: 02/19/20 10:11 Freq: Status: Active Protocol: Activity Type Activity Date Activity User E-Sign Co-Sign Detail Recorded Client Recorded Date Recorded By Document 02/26/20 09:20 DV [id number] 02/26/20 09:22 DV 02/26/20 09:20 Wound Center Nurse 1 [Ulcer Assessment] #2 R Foot Plantar -Combined with other wound No -Current Size (cm) - Length 2.0 -Current Size (cm) - Width 0.5 -Current Size (cm) - Depth 0.2 -Total Square Cm 1.00 -Photo Taken No -Epithelialization None Present -Tunneling No -Undermining/Tunneling No -Circular Undermining No -Classification - Thickness Full Thickness without Exposed Support Structure -Exudate Amt Medium -Exudate Type Serous -Wound Margin Flat & Intact -Granulation Amt Small (1-33%) -Granulation Quality Pale,[place] -Slough/Fibrin Yes -Necrosis Amt Medium (34-66%) -Necrotic Tissue Type Adherent Slough -Structure Exposed None/Limited to Skin Breakdown -Texture (Radha-wound Skin Appearance) Assessed -Moisture (Radha-wound Skin Appearance Assessed ) -Color (Radha-wound Skin Appearance) Assessed WC - Nurse 2 - General Ulcer CM Notes Start: 02/19/20 10:11 Freq: Status: Active Protocol: Activity Type Activity Date Activity User E-Sign Co-Sign Detail Recorded Client Recorded Date Recorded By Document 02/26/20 09:26 JF [id number] 02/26/20 09:27 JF 02/26/20 09:26 Wound Center Nurse 2 [Procedure/Treatment] -Time 09:27 -Correct Patient Yes -Correct Side, Site, Position Yes -Correct Procedure Yes -Procedure Performed Yes -Type of Procedure Debridement -Clinical Debridement Subcutaneous -Post Debridement Size (cm) - Length 1.0 -Post Debridement Size (cm) - Width 0.5 -Post Debridement Size (cm) - Depth 0.1 -Total Square Cm 0.50 -Wound/Ulcer Outcome Not Healed -Ulcer Cleansing Rinsed/ Irrigated with Saline -Foul Odor after Cleansing No -Bioengineered Tissue No -Bleeding Controlled with Pressure -Offloading Yes -Type of Offloading Total Contact Cast (TCC) -Treatment Response Procedure Tolerated Well [See Physician Procedure note for Specifics] Pain Scale: 0-10 Numeric [Pain] -Is Patient Pain Free? Yes Musculoskeletal: No Tenderness to Palpation of Joints or Extremities, Muscle Wasting, - - Right second toe amputation Neurological: - - Lack of uppercase sensation light touch is consistent with neuropathy status Psych/Mental Status: Normal Affect, Appropriate Debridement Note Post-Debridement Measurements/Treatment WC - Nurse 2 - General Ulcer CM Notes Start: 02/19/20 10:11 Freq: Status: Active Protocol: Activity Type Activity Date Activity User E-Sign Co-Sign Detail Recorded Client Recorded Date Recorded By Document 02/19/20 10:25 [id number] 02/19/20 10:26 Document 02/26/20 09:26 [id number] 02/26/20 09:27 02/19/20 02/26/20 10:25 09:26 Wound Center Nurse 2 #2 R Foot Plantar -Time 10:25 09:27 -Correct Patient Yes Yes -Correct Side, Site, Position Yes Yes -Correct Procedure Yes Yes -Procedure Performed Yes Yes -Type of Procedure Debridement Debridement -Clinical Debridement Subcutaneous Subcutaneous -Post Debridement Size (cm) - Length 3.5 1.0 -Post Debridement Size (cm) - Width 0.8 0.5 -Post Debridement Size (cm) - Depth 0.2 0.1 -Total Square Cm 2.80 0.50 -Wound/Ulcer Outcome Not Healed Not Healed -Ulcer Cleansing Rinsed/ Rinsed/ Irrigated with Irrigated with Saline Saline -Foul Odor after Cleansing No No -Bioengineered Tissue No No -Bleeding Controlled with Pressure Pressure -Offloading Yes Yes -Type of Offloading Total Contact Total Contact Cast (TCC) Cast (TCC) -Treatment Response Procedure Procedure Tolerated Well Tolerated Well Pain Scale: 0-10 Numeric Is Patient Pain Free? Yes Yes Wound debrided: sub 1st metatarsal head Laterality: Right Wound Grade/Stage: grade 1 Type of Debridement: Excisional debridement Anesthesia Used: 5% Lidocaine Gel Depth: in the subcutaneous layer Percentage of wound debrided: 100 Instrument Used: #15 blade Tissue Removed: fibrous, devitalized subcutaneous, biofilm, slough Severity: Fat Layer Exposed Amount of bleeding with debridement: Mild Bleeding Controlled with: Pressure Patient tolerated procedure well Assessment/Plan Active Problems (Last Reviewed 01/06/20 @ 21:[address] Tj Ireland MD) Ulcer of right foot with fat layer exposed (Chronic) Delayed wound healing (Chronic) Malnutrition (Chronic) Type 1 diabetes mellitus with microalbuminuria, with long-term current use of insulin (Chronic) BG readings higher than expected. Pt is ask to check BG in pairs. He appears to need more insulin at breakfast and lunch since he is off work and not active.. Ask to use correction scale aggressively. Report he ran out of strips but has now recieved his supply Discussed need to continue with this level of control in the post op state. Assessment: diabetic foot ulcer grade 1 status. Hypergranulation tissue noted. 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 Poorly controlled diabetes mellitus, insulin-dependent with neuropathy. History of recent tobacco cessation. Delayed healing. Suspected malnutrition Plan: I reviewed and discussed his updated case. He was reassured no infection is present today. Debridement was performed today as noted in the clinical panel in a subcutaneous excisional manner. Leah was applied to the ulcer bed. Silver nitrate was applied to the small area of hyper granulation tissue and he tolerated this well. I recommended application of a total contact cast. He did well with this this past week. Verbal consent was obtained. This was applied today after verbal consent according standard protocol in the neutral position in a well-padded manner. He tolerated this well. He was advised on the benefits and the risks of this cast. He is an appropriate candidate and this is medically necessary. He relates his son is able to drive him as needed. To keep this clean, dry, and intact until follow-up in 1 week. He was advised to call immediately if he thinks he is starting get infected, has any new injury, or gets the cast wet or has any signs of local blood clot. He demonstrates understanding. To continue compliance with knee roller. To optimize healing by improving glycemic control. I recommended cloth finishing range operator consultation and this is been initiated. He is doing well with nutrition adjustments. We discussed how glycemic control is a combination of medication adjustments, diet, exercise, and lifestyle modifications and this is important for healing ability. A referral was provided previously and this has been initiated. He was advised to follow-up with the foot and ankle center for fitting and dispensing of extra-depth diabetic shoes particularly for the side that does not have a current ulcer. He is still working on setting this up. He is demonstrating continued delays in healing. To follow up to the wound care center in 1 week.
[2020-03-04 09:44] VITALS: BP 148/85; PULSE 95; RESP 18; TEMP 36.5; BMI 28.6
--- NOTE | 2020-03-04 10:04 | PN.PCM_ITS ---
(1) Ulcer of right foot with fat layer exposed Status: Chronic Current Visit: Yes Code(s): L97.512 - Non-pressure chronic ulcer of other part of right foot with fat layer exposed (2) Delayed wound healing Status: Chronic Current Visit: Yes Code(s): T14.8XXD - Other injury of unspecified body region, subsequent encounter (3) Malnutrition Status: Chronic Current Visit: Yes Code(s): E46 - Unspecified protein- calorie malnutrition (4) Type 1 diabetes mellitus with microalbuminuria, with long-term current use of insulin Status: Chronic Current Visit: Yes Code(s): E10.29 - Type 1 diabetes mellitus with other diabetic kidney complication; R80.9 - Proteinuria, unspecified Comment: BG readings higher than expected. Pt is ask to check BG in pairs. He appears to need more insulin at breakfast and lunch since he is off work and not active.. Ask to use correction scale aggressively. Report he ran out of strips but has now recieved his supply Discussed need to continue with this level of control in the post op state. Type of Wound Date of Service: 03/04/20 Chief Complaint: Ulcer right foot History of Wound: Mr. Diaz is a 44-year-old with history of poorly controlled diabetes mellitus status post several episodes of osteomyelitis/surgical debridement was seen for nonhealing sub 1st metatarsal head ulcer. He is amenable to have a total contact cast today and relates his son is able to drive. Progress of Wound: Improvement - Physical Exam Vital Signs Temp Pulse Resp BP 97.7 F L 95 18 148/85 H 03/04/20 09:44 03/04/20 09:44 03/04/20 09:44 03/04/20 09:44 General: Alert, Oriented x3, Cooperative, No apparent distress HEENT: Atraumatic Extremities: No cyanosis, Capillary Refill Less than 3 Seconds, No Calf Tenderness, Diminished Peripheral Pulses, Edema Skin: Ulcer/ Wound - No purulence, erythema, string, odor, infection. Adjacent skin is hairless and atrophic, - - Significant peripheral epithelialization is noted with reduced callus formation Wound Measurements and Assessment WC - Nurse 1 - General Ulcer Measurement Start: 02/19/20 10:11 Freq: Status: Active Protocol: Activity Type Activity Date Activity User E-Sign Co-Sign Detail Recorded Client Recorded Date Recorded By Document 03/04/20 09:44 RB [id number] 03/04/20 09:46 RB 03/04/20 09:44 Wound Center Nurse 1 [Ulcer Assessment] #2 R Foot Plantar -Combined with other wound No -Current Size (cm) - Length 0.9 -Current Size (cm) - Width 1 -Current Size (cm) - Depth 0.1 -Total Square Cm 0.9 -Tunneling No -Undermining/Tunneling No -Circular Undermining No -Exudate Amt Small -Exudate Type Serosanguineous -Wound Margin Thickened -Granulation Amt Medium (34-66%) -Granulation Quality [place] -Slough/Fibrin Yes -Necrosis Amt Small (1-33%) -Necrotic Tissue Type Adherent Slough -Structure Exposed N/A -Texture (Radha-wound Skin Appearance) Callus -Moisture (Radha-wound Skin Appearance Assessed ) -Color (Radha-wound Skin Appearance) Assessed -Temperature (Radha-wound Skin No Abnormality Appearance) (Pt Warm) -Tenderness on Palpation (Radha-wound No Skin Appearance) -Ulcer Cleansing Wound Cleanser -Foul Odor after Cleansing No -Anesthetic Used 5% Lidocaine Gel WC - Nurse 2 - General Ulcer CM Notes Start: 02/19/20 10:11 Freq: Status: Active Protocol: Activity Type Activity Date Activity User E-Sign Co-Sign Detail Recorded Client Recorded Date Recorded By Document 03/04/20 09:56 RAYNA [id number] 03/04/20 09:58 03/04/20 09:56 Wound Center Nurse 2 [Procedure/Treatment] -Time 09:56 -Correct Patient Yes -Correct Side, Site, Position Yes -Correct Procedure Yes -Procedure Performed Yes -Type of Procedure Debridement -Clinical Debridement Subcutaneous -Post Debridement Size (cm) - Length 0.1 -Post Debridement Size (cm) - Width 0.1 -Post Debridement Size (cm) - Depth 0.1 -Total Square Cm 0.01 -Wound/Ulcer Outcome Not Healed -Ulcer Cleansing Rinsed/ Irrigated with Saline -Foul Odor after Cleansing No -Bioengineered Tissue No -Bleeding Controlled with Pressure -Offloading Yes -Type of Offloading Total Contact Cast (TCC) -Treatment Response Procedure Tolerated Well [See Physician Procedure note for Specifics] Pain Scale: 0-10 Numeric [Pain] -Is Patient Pain Free? Yes Musculoskeletal: No Tenderness to Palpation of Joints or Extremities, Muscle Wasting, - - Right foot second toe amputation with some mild lateral deviation of the hallux with plantar skin pinching Neurological: - - Lack of normal epicritic sensation light touch is consistent with neuropathy status Psych/Mental Status: Normal Affect, Appropriate Debridement Note Post-Debridement Measurements/Treatment WC - Nurse 2 - General Ulcer CM Notes Start: 02/19/20 10:11 Freq: Status: Active Protocol: Activity Type Activity Date Activity User E-Sign Co-Sign Detail Recorded Client Recorded Date Recorded By Document 02/19/20 10:25 [id number] 02/19/20 10:26 Document 02/26/20 09:26 [id number] 02/26/20 09:27 Document 03/04/20 09:56 [id number] 03/04/20 09:58 02/19/20 02/26/20 03/04/20 10:25 09:26 09:56 Wound Center Nurse 2 #2 R Foot Plantar -Time 10:25 09:27 09:56 -Correct Patient Yes Yes Yes -Correct Side, Site, Position Yes Yes Yes -Correct Procedure Yes Yes Yes -Procedure Performed Yes Yes Yes -Type of Procedure Debridement Debridement Debridement -Clinical Debridement Subcutaneous Subcutaneous Subcutaneous -Post Debridement Size (cm) - Length 3.5 1.0 0.1 -Post Debridement Size (cm) - Width 0.8 0.5 0.1 -Post Debridement Size (cm) - Depth 0.2 0.1 0.1 -Total Square Cm 2.80 0.50 0.01 -Wound/Ulcer Outcome Not Healed Not Healed Not Healed -Ulcer Cleansing Rinsed/ Rinsed/ Rinsed/ Irrigated with Irrigated with Irrigated with Saline Saline Saline -Foul Odor after Cleansing No No No -Bioengineered Tissue No No No -Bleeding Controlled with Pressure Pressure Pressure -Offloading Yes Yes Yes -Type of Offloading Total Contact Total Contact Total Contact Cast (TCC) Cast (TCC) Cast (TCC) -Treatment Response Procedure Procedure Procedure Tolerated Well Tolerated Well Tolerated Well Pain Scale: 0-10 Numeric Is Patient Pain Free? Yes Yes Yes Wound debrided: plantar heel Laterality: Left Wound Grade/Stage: grade 1 Type of Debridement: Excisional debridement Anesthesia Used: 5% Lidocaine Gel Depth: in the subcutaneous layer Percentage of wound debrided: 100 Instrument Used: #15 blade Tissue Removed: fibrous, devitalized subcutaneous, biofilm, slough Severity: Fat Layer Exposed Amount of bleeding with debridement: Mild Bleeding Controlled with: Pressure Patient tolerated procedure well Assessment/Plan Active Problems (Last Reviewed 01/06/20 @ 21:[address] Tj Ireland MD) Ulcer of right foot with fat layer exposed (Chronic) Delayed wound healing (Chronic) Malnutrition (Chronic) Type 1 diabetes mellitus with microalbuminuria, with long-term current use of insulin (Chronic) BG readings higher than expected. Pt is ask to check BG in pairs. He appears to need more insulin at breakfast and lunch since he is off work and not active.. Ask to use correction scale aggressively. Report he ran out of strips but has now recieved his supply Discussed need to continue with this level of control in the post op state. Assessment: diabetic foot ulcer grade 1 status. Hypergranulation tissue resolved. 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 Poorly controlled diabetes mellitus, insulin-dependent with neuropathy. History of recent tobacco cessation. Delayed healing. Suspected malnutrition Plan: I reviewed and discussed his updated case. He was reassured no infection is present today. Debridement was performed today as noted in the clinical panel in a subcutaneous excisional manner. Leah was applied to the ulcer bed. I recommended application of a total contact cast. He did well with this this past week. Verbal consent was obtained. This was applied today after verbal consent according standard protocol in the neutral position in a well-padded manner. He tolerated this well. He was advised on the benefits and the risks of this cast. He is an appropriate candidate and this is medically necessary. He relates his son is able to drive him as needed. To keep this clean, dry, and intact until follow-up in 1 week. He was advised to call immediately if he thinks he is starting get infected, has any new injury, or gets the cast wet or has any signs of local blood clot. He demonstrates understanding. To continue compliance with knee roller. To optimize healing by improving glycemic control. I recommended colorist formulator consultation and this is been initiated. He is doing well with nutrition adjustments. We discussed how glycemic control is a combination of medication adjustments, diet, exercise, and lifestyle modifications and this is important for healing ability. A referral was provided previously and this has been initiated. He was advised to follow-up with the foot and ankle center for fitting and dispensing of extra-depth diabetic shoes particularly for the side that does not have a current ulcer. He is still working on setting this up. He is demonstrating continued delays in healing. To follow up to the wound care center in 1 week.
[2020-03-11 09:43] VITALS: BP 143/84; PULSE 96; RESP 18; TEMP 36.3; BMI 28.6
--- NOTE | 2020-03-11 10:39 | PCM.WC.PN ---
(1) Ulcer of right foot with fat layer exposed Status: Resolved Current Visit: Yes Code(s): L97.512 - Non-pressure chronic ulcer of other part of right foot with fat layer exposed (2) Delayed wound healing Status: Chronic Current Visit: Yes Code(s): T14.8XXD - Other injury of unspecified body region, subsequent encounter (3) Malnutrition Status: Chronic Current Visit: Yes Code(s): E46 - Unspecified protein-calorie malnutrition (4) Type 1 diabetes mellitus with microalbuminuria, with long-term current use of insulin Status: Chronic Current Visit: Yes Code(s): E10.29 - Type 1 diabetes mellitus with other diabetic kidney complication; R80.9 - Proteinuria, unspecified Comment: BG readings higher than expected. Pt is ask to check BG in pairs. He appears to need more insulin at breakfast and lunch since he is off work and not active.. Ask to use correction scale aggressively. Report he ran out of strips but has now recieved his supply Discussed need to continue with this level of control in the post op state. Type of Wound Date of Service: 03/11/20 Chief Complaint: Ulcer right foot History of Wound: Mr. Diaz is a 44-year-old with history of poorly controlled diabetes mellitus status post several episodes of osteomyelitis/surgical debridement was seen for nonhealing sub 1st metatarsal head ulcer. He had a total contact cast applied last week and has kept this clean and intact. Progress of Wound: Healed - Physical Exam Vital Signs Temp Pulse Resp BP 97.3 F L 96 18 143/84 H 03/11/20 09:43 03/11/20 09:43 03/11/20 09:43 03/11/20 09:43 General: Alert, Oriented x3, Cooperative, No apparent distress Extremities: Capillary Refill Less than 3 Seconds, No Calf Tenderness, Diminished Peripheral Pulses, Edema Skin: Ulcer/ Wound - Full epithelialization is noted without purulence, erythema, streaking, odor, infection. Wound Measurements and Assessment WC - Nurse 1 - General Ulcer Measurement Start: 02/19/20 10:11 Freq: Status: Active Protocol: Activity Type Activity Date Activity User E-Sign Co-Sign Detail Recorded Client Recorded Date Recorded By Document 03/11/20 09:43 RB [id number] 03/11/20 09:45 RB 03/11/20 09:43 Wound Center Nurse 1 [Ulcer Assessment] #2 R Foot Plantar -Combined with other wound No -Current Size (cm) - Length 0.1 -Current Size (cm) - Width 0.1 -Current Size (cm) - Depth 0.1 -Total Square Cm 0.01 -Tunneling No -Undermining/Tunneling No -Circular Undermining No -Exudate Amt Small -Exudate Type Serosanguineous -Wound Margin Thickened -Granulation Amt Large (67-100%) -Granulation Quality [place] -Slough/Fibrin Yes -Necrosis Amt Small (1-33%) -Necrotic Tissue Type Adherent Slough -Structure Exposed N/A -Texture (Radha-wound Skin Appearance) Callus -Moisture (Radha-wound Skin Appearance Assessed ) -Color (Radha-wound Skin Appearance) Assessed -Temperature (Radha-wound Skin No Abnormality Appearance) (Pt Warm) -Tenderness on Palpation (Radha-wound No Skin Appearance) -Ulcer Cleansing Wound Cleanser -Foul Odor after Cleansing No -Anesthetic Used 4% Lidocaine Solution WC - Nurse 2 - General Ulcer CM Notes Start: 02/19/20 10:11 Freq: Status: Active Protocol: Activity Type Activity Date Activity User E-Sign Co-Sign Detail Recorded Client Recorded Date Recorded By Document 03/11/20 10:10 RAYNA [id number] 03/11/20 10:12 RAYNA 03/11/20 10:10 Wound Center Nurse 2 [Procedure/Treatment] -Correct Patient No -Correct Side, Site, Position No -Correct Procedure No -Procedure Performed No -Post Debridement Size (cm) - Length 0 -Post Debridement Size (cm) - Width 0 -Post Debridement Size (cm) - Depth 0 -Total Square Cm 0 -Wound/Ulcer Outcome Healed- Epithelialized [See Physician Procedure note for Specifics] Pain Scale: 0-10 Numeric [Pain] -Is Patient Pain Free? Yes Musculoskeletal: No Tenderness to Palpation of Joints or Extremities, Muscle Wasting, - - Second toe amputation Neurological: - - Lack of epicritic sensation light touch is consistent with neuropathy status Psych/Mental Status: Normal Affect, Appropriate Debridement Note Post-Debridement Measurements/Treatment - Nurse 2 - General Ulcer CM Notes Start: 02/19/20 10:11 Freq: Status: Active Protocol: Activity Type Activity Date Activity User E-Sign Co-Sign Detail Recorded Client Recorded Date Recorded By Document 02/19/20 10:25 RAYNA [id number] 02/19/20 10:26 Document 02/26/20 09:26 [id number] 02/26/20 09:27 Document 03/04/20 09:56 [id number] 03/04/20 09:58 Document 03/11/20 10:10 [id number] 03/11/20 10:12 02/19/20 02/26/20 03/04/20 10:25 09:26 09:56 Wound Center Nurse 2 #2 R Foot Plantar -Time 10:25 09:27 09:56 -Correct Patient Yes Yes Yes -Correct Side, Site, Position Yes Yes Yes -Correct Procedure Yes Yes Yes -Procedure Performed Yes Yes Yes -Type of Procedure Debridement Debridement Debridement -Clinical Debridement Subcutaneous Subcutaneous Subcutaneous -Post Debridement Size (cm) - Length 3.5 1.0 0.1 -Post Debridement Size (cm) - Width 0.8 0.5 0.1 -Post Debridement Size (cm) - Depth 0.2 0.1 0.1 -Total Square Cm 2.80 0.50 0.01 -Wound/Ulcer Outcome Not Healed Not Healed Not Healed -Ulcer Cleansing Rinsed/ Rinsed/ Rinsed/ Irrigated with Irrigated with Irrigated with Saline Saline Saline -Foul Odor after Cleansing No No No -Bioengineered Tissue No No No -Bleeding Controlled with Pressure Pressure Pressure -Offloading Yes Yes Yes -Type of Offloading Total Contact Total Contact Total Contact Cast (TCC) Cast (TCC) Cast (TCC) -Treatment Response Procedure Procedure Procedure Tolerated Well Tolerated Well Tolerated Well Pain Scale: 0-10 Numeric Is Patient Pain Free? Yes Yes Yes 03/11/20 10:10 Wound Center Nurse 2 #2 R Foot Plantar -Time -Correct Patient No -Correct Side, Site, Position No -Correct Procedure No -Procedure Performed No -Type of Procedure -Clinical Debridement -Post Debridement Size (cm) - Length 0 -Post Debridement Size (cm) - Width 0 -Post Debridement Size (cm) - Depth 0 -Total Square Cm 0 -Wound/Ulcer Outcome Healed- Epithelialized -Ulcer Cleansing -Foul Odor after Cleansing -Bioengineered Tissue -Bleeding Controlled with -Offloading -Type of Offloading -Treatment Response Pain Scale: 0-10 Numeric Is Patient Pain Free? Yes No debridement was completed today - Healed today Assessment/Plan Active Problems (Last Reviewed 01/06/20 @ 21:[address] Tj Ireland MD) Delayed wound healing (Chronic) Malnutrition (Chronic) Type 1 diabetes mellitus with microalbuminuria, with long-term current use of insulin (Chronic) BG readings higher than expected. Pt is ask to check BG in pairs. He appears to need more insulin at breakfast and lunch since he is off work and not active.. Ask to use correction scale aggressively. Report he ran out of strips but has now recieved his supply Discussed need to continue with this level of control in the post op state. Assessment: diabetic foot ulcer grade 1 status?healed. 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 Poorly controlled diabetes mellitus, insulin-dependent with neuropathy. History of recent tobacco cessation. Delayed healing. Suspected malnutrition Plan: I reviewed and discussed his updated case. He was reassured no infection is present today. The ulcer has healed. I recommend he continues to offload with his offloading device until he returns in 2 weeks for healed ulcer check. He understands his skin is very friable at this time and the skin needs time to remodel. To discontinue dressing care. He is advised to continue to maintain proper glycemic control. Answered all his questions.
[2020-03-18 08:38] VITALS: BP 145/86; PULSE 97; RESP 18; TEMP 36.8; BMI 28.6
--- NOTE | 2020-03-18 08:54 | PCM.WC.PN ---
(1) Ulcer of right foot with fat layer exposed Status: Chronic Current Visit: Yes Code(s): L97.512 - Non-pressure chronic ulcer of other part of right foot with fat layer exposed Comment: We are getting a together recurrent sub-first metatarsal head New dorsal third (2) Delayed wound healing Status: Chronic Current Visit: Yes Code(s): T14.8XXD - Other injury of unspecified body region, subsequent encounter (3) Malnutrition Status: Chronic Current Visit: Yes Code(s): E46 - Unspecified protein-calorie malnutrition (4) Type 1 diabetes mellitus with microalbuminuria, with long-term current use of insulin Status: Chronic Current Visit: Yes Code(s): E10.29 - Type 1 diabetes mellitus with other diabetic kidney complication; R80.9 - Proteinuria, unspecified Comment: BG readings higher than expected. Pt is ask to check BG in pairs. He appears to need more insulin at breakfast and lunch since he is off work and not active.. Ask to use correction scale aggressively. Report he ran out of strips but has now recieved his supply Discussed need to continue with this level of control in the post op state. Type of Wound Date of Service: 03/18/20 Chief Complaint: Ulcer right foot History of Wound: Mr. Diaz is a 44-year-old with history of poorly controlled diabetes mellitus status post several episodes of osteomyelitis/surgical debridement was seen for nonhealing sub 1st metatarsal head ulcer. Ulcer site reopened past week and he also bumped into some furniture and has a new ulcer to his third toe. He had swelling which is now reduced. He denies redness or odor. He is continue seeing a payroll supervisor and has stopped drinking soda. He drinks more milk now. He tries eat more fruit. He is also taking. He relates he refuses to eat vegetables and will never do this. Progress of Wound: Worse status and new ulcer to third toe - Physical Exam Vital Signs Temp Pulse Resp BP 98.2 F 97 18 145/86 H 03/18/20 08:38 03/18/20 08:38 03/18/20 08:38 03/18/20 08:38 HEENT: Atraumatic, PERRLA, EOMI Extremities: No cyanosis, Capillary Refill Less than 3 Seconds, No Calf Tenderness, Cyanosis, Edema Skin: Ulcer/ Wound - No purulence, erythema history exam odor, infection. Superficial granular base is noted. The adjacent skin is hairless and atrophic. There is callus and evidence of blistering noted around the sub-first metatarsal head site Wound Measurements and Assessment - Nurse 1 - General Ulcer Measurement Start: 02/19/20 10:11 Freq: Status: Active Protocol: Activity Type Activity Date Activity User E-Sign Co-Sign Detail Recorded Client Recorded Date Recorded By Document 03/18/20 08:38 RB [id number] 03/18/20 08:40 RB 03/18/20 08:38 Wound Center Nurse 1 [Ulcer Assessment] #2 R Foot Plantar -Combined with other wound No -Current Size (cm) - Length 0.7 -Current Size (cm) - Width 0.6 -Current Size (cm) - Depth 0.1 -Total Square Cm 0.42 -Tunneling No -Undermining/Tunneling No -Circular Undermining No -Exudate Amt Small -Exudate Type Serosanguineous -Wound Margin Thickened -Granulation Amt Medium (34-66%) -Granulation Quality [place] -Slough/Fibrin Yes -Necrosis Amt Small (1-33%) -Necrotic Tissue Type Adherent Slough -Structure Exposed N/A -Texture (Radha-wound Skin Appearance) Callus -Moisture (Radha-wound Skin Appearance Assessed ) -Color (Radha-wound Skin Appearance) Assessed -Temperature (Radha-wound Skin No Abnormality Appearance) (Pt Warm) -Tenderness on Palpation (Radha-wound No Skin Appearance) -Ulcer Cleansing Wound Cleanser -Foul Odor after Cleansing No -Anesthetic Used 4% Lidocaine Solution - Nurse 2 - General Ulcer CM Notes Start: 02/19/20 10:11 Freq: Status: Active Protocol: Activity Type Activity Date Activity User E-Sign Co-Sign Detail Recorded Client Recorded Date Recorded By Document 03/18/20 08:49 RAYNA [id number] 03/18/20 08:52 RAYNA 03/18/20 08:49 Wound Center Nurse 2 [Procedure/Treatment] 3-right 3rd toe cluster -Time 08:50 -Correct Patient Yes -Correct Side, Site, Position Yes -Correct Procedure Yes -Procedure Performed Yes -Type of Procedure Debridement -Clinical Debridement Subcutaneous -Post Debridement Size (cm) - Length 0.8 -Post Debridement Size (cm) - Width 1.4 -Post Debridement Size (cm) - Depth 0.1 -Total Square Cm 1.12 -Wound/Ulcer Outcome Not Healed -Ulcer Cleansing Rinsed/ Irrigated with Saline -Foul Odor after Cleansing No -Bioengineered Tissue No -Bleeding Controlled with Pressure -Offloading Yes -Type of Offloading Total Contact Cast (TCC) -Treatment Response Procedure Tolerated Well #2 R Foot Plantar -Time 08:50 -Correct Patient Yes -Correct Side, Site, Position Yes -Correct Procedure Yes -Procedure Performed Yes -Type of Procedure Debridement -Clinical Debridement Subcutaneous -Post Debridement Size (cm) - Length 0.9 -Post Debridement Size (cm) - Width 1.8 -Post Debridement Size (cm) - Depth 0.1 -Total Square Cm 1.62 -Wound/Ulcer Outcome Not Healed -Ulcer Cleansing Rinsed/ Irrigated with Saline -Foul Odor after Cleansing No -Bioengineered Tissue No -Bleeding Controlled with Pressure -Offloading Yes -Type of Offloading Total Contact Cast (TCC) -Treatment Response Procedure Tolerated Well [See Physician Procedure note for Specifics] Pain Scale: 0-10 Numeric [Pain] -Is Patient Pain Free? Yes Musculoskeletal: No Tenderness to Palpation of Joints or Extremities, Muscle Wasting, - - Second toe amputation, dorsal contracture lesser toes, lateral hallux deviation right Neurological: - - Lack of epicritic sensation light touch is consistent with neuropathy status Psych/Mental Status: Normal Affect, Appropriate Debridement Note Post-Debridement Measurements/Treatment WC - Nurse 2 - General Ulcer CM Notes Start: 02/19/20 10:11 Freq: Status: Active Protocol: Activity Type Activity Date Activity User E-Sign Co-Sign Detail Recorded Client Recorded Date Recorded By Document 02/19/20 10:25 [id number] 02/19/20 10:26 Document 02/26/20 09:26 [id number] 02/26/20 09:27 Document 03/04/20 09:56 [id number] 03/04/20 09:58 Document 03/11/20 10:10 [id number] 03/11/20 10:12 Document 03/18/20 08:49 [id number] 03/18/20 08:52 02/19/20 02/26/20 03/04/20 10:25 09:26 09:56 Wound Center Nurse 2 3-right 3rd toe cluster -Time -Correct Patient -Correct Side, Site, Position -Correct Procedure -Procedure Performed -Type of Procedure -Clinical Debridement -Post Debridement Size (cm) - Length -Post Debridement Size (cm) - Width -Post Debridement Size (cm) - Depth -Total Square Cm -Wound/Ulcer Outcome -Ulcer Cleansing -Foul Odor after Cleansing -Bioengineered Tissue -Bleeding Controlled with -Offloading -Type of Offloading -Treatment Response #2 R Foot Plantar -Time 10:25 09:27 09:56 -Correct Patient Yes Yes Yes -Correct Side, Site, Position Yes Yes Yes -Correct Procedure Yes Yes Yes -Procedure Performed Yes Yes Yes -Type of Procedure Debridement Debridement Debridement -Clinical Debridement Subcutaneous Subcutaneous Subcutaneous -Post Debridement Size (cm) - Length 3.5 1.0 0.1 -Post Debridement Size (cm) - Width 0.8 0.5 0.1 -Post Debridement Size (cm) - Depth 0.2 0.1 0.1 -Total Square Cm 2.80 0.50 0.01 -Wound/Ulcer Outcome Not Healed Not Healed Not Healed -Ulcer Cleansing Rinsed/ Rinsed/ Rinsed/ Irrigated with Irrigated with Irrigated with Saline Saline Saline -Foul Odor after Cleansing No No No -Bioengineered Tissue No No No -Bleeding Controlled with Pressure Pressure Pressure -Offloading Yes Yes Yes -Type of Offloading Total Contact Total Contact Total Contact Cast (TCC) Cast (TCC) Cast (TCC) -Treatment Response Procedure Procedure Procedure Tolerated Well Tolerated Well Tolerated Well Pain Scale: 0-10 Numeric Is Patient Pain Free? Yes Yes Yes 03/11/20 03/18/20 10:10 08:49 Wound Center Nurse 2 3-right 3rd toe cluster -Time 08:50 -Correct Patient Yes -Correct Side, Site, Position Yes -Correct Procedure Yes -Procedure Performed Yes -Type of Procedure Debridement -Clinical Debridement Subcutaneous -Post Debridement Size (cm) - Length 0.8 -Post Debridement Size (cm) - Width 1.4 -Post Debridement Size (cm) - Depth 0.1 -Total Square Cm 1.12 -Wound/Ulcer Outcome Not Healed -Ulcer Cleansing Rinsed/ Irrigated with Saline -Foul Odor after Cleansing No -Bioengineered Tissue No -Bleeding Controlled with Pressure -Offloading Yes -Type of Offloading Total Contact Cast (TCC) -Treatment Response Procedure Tolerated Well #2 R Foot Plantar -Time 08:50 -Correct Patient No Yes -Correct Side, Site, Position No Yes -Correct Procedure No Yes -Procedure Performed No Yes -Type of Procedure Debridement -Clinical Debridement Subcutaneous -Post Debridement Size (cm) - Length 0 0.9 -Post Debridement Size (cm) - Width 0 1.8 -Post Debridement Size (cm) - Depth 0 0.1 -Total Square Cm 0 1.62 -Wound/Ulcer Outcome Healed- Not Healed Epithelialized -Ulcer Cleansing Rinsed/ Irrigated with Saline -Foul Odor after Cleansing No -Bioengineered Tissue No -Bleeding Controlled with Pressure -Offloading Yes -Type of Offloading Total Contact Cast (TCC) -Treatment Response Procedure Tolerated Well Pain Scale: 0-10 Numeric Is Patient Pain Free? Yes Yes Wound debrided: dorsal third toe Laterality: Right Wound Grade/Stage: grade 1 Type of Debridement: Excisional debridement Anesthesia Used: 5% Lidocaine Gel Depth: in the subcutaneous layer Percentage of wound debrided: 100 Instrument Used: #15 blade Tissue Removed: fibrous, devitalized subcutaneous, biofilm, slough Severity: Fat Layer Exposed Amount of bleeding with debridement: Mild Bleeding Controlled with: Pressure Patient tolerated procedure well - Additional Wound Wound debrided: sub 1st metatarsal head Laterality: Right Wound Grade/Stage: grade 1 Type of Debridement: Excisional debridement Anesthesia Used: 5% Lidocaine Gel Depth: in the subcutaneous layer Percentage of wound debrided: 100 Instrument Used: #15 blade Tissue Removed: fibrous, devitalized subcutaneous, biofilm, slough Severity: Fat Layer Exposed Amount of bleeding with debridement: Mild Bleeding Controlled with: Pressure Patient tolerated procedure: Patient tolerated procedure well Assessment/Plan Active Problems (Last Reviewed 01/06/20 @ 21:[address] Tj Ireland MD) Ulcer of right foot with fat layer exposed (Chronic) We are getting a together recurrent sub-first metatarsal head New dorsal third Delayed wound healing (Chronic) Malnutrition (Chronic) Type 1 diabetes mellitus with microalbuminuria, with long-term current use of insulin (Chronic) BG readings higher than expected. Pt is ask to check BG in pairs. He appears to need more insulin at breakfast and lunch since he is off work and not active.. Ask to use correction scale aggressively. Report he ran out of strips but has now recieved his supply Discussed need to continue with this level of control in the post op state. Assessment: diabetic foot ulcer grade 1 status, worse status sub-first metatarsal head. Diabetic foot ulcer grade 1 status, dorsal third toe. 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 Poorly controlled diabetes mellitus, insulin-dependent with neuropathy. History of recent tobacco cessation. Delayed healing. Suspected malnutrition Plan: I reviewed and discussed his updated case. He was reassured no infection is present today. Debridement was performed today as noted in the clinical panel in a subcutaneous excisional manner to both ulcer sites. Leah was applied to the ulcer beds. Application of advanced wound healing product if this is approved by his insurance, [employer]. This is medically necessary for limb salvage. Note ulcer is increased in size he is a appropriate candidate. The indication anticipated application, and anticipated healing time management were discussed. He is at risk for continued limb loss and we also discussed transmetatarsal amputation as a treatment option. Would like to proceed forward with nonsurgical care at this time. I recommended application of a total contact cast. Verbal consent was obtained. This was applied today after verbal consent according standard protocol in the neutral position in a well-padded manner. He tolerated this well. He was advised on the benefits and the risks of this cast. He is an appropriate candidate and this is medically necessary. He relates his son is able to drive him as needed. To keep this clean, dry, and intact until follow-up in 1 week. He was advised to call immediately if he thinks he is starting get infected, has any new injury, or gets the cast wet or has any signs of local blood clot. He demonstrates understanding. To continue compliance with knee roller. To optimize healing by improving glycemic control. I recommended payroll supervisor consultation and this is been initiated. He is doing well with nutrition adjustments. We discussed how glycemic control is a combination of medication adjustments, diet, exercise, and lifestyle modifications and this is important for healing ability. A referral was provided previously and this has been initiated. He was advised to follow-up with the foot and ankle center for fitting and dispensing of extra-depth diabetic shoes particularly for the side that does not have a current ulcer. He is still working on setting this up. He is demonstrating continued delays in healing. To follow up to the wound care center in 1 week.
== END 2020-03-19 23:59 ==
LOC: WC 08:30
PROVIDERS: Family Provider Internal Medicine; PCP Nurse Practitioner Family; Referring Provider Podiatrist; Visit Provider Podiatrist
DX: E10.621 Type 1 diabetes mellitus with foot ulcer (principal); L97.512 Non-pressure chronic ulcer of other part of right foot with fat layer exposed; E10.65 Type 1 diabetes mellitus with hyperglycemia; E10.29 Type 1 diabetes mellitus with other diabetic kidney complication; R80.9 Proteinuria, unspecified; Z79.4 Long term (current) use of insulin; Z86.19 Personal history of other infectious and parasitic diseases; Z89.421 Acquired absence of other right toe(s)
CPT/HCPCS: 11042; 29445; 99212; G0463

== ENCOUNTER 2020-04-15 09:30 | Outpatient (RCR) | payer OTHER, SELFPAY ==
[2020-03-20 00:06] VITALS: BP 145/86; PULSE 97; RESP 18; TEMP 36.8
[2020-03-25 09:51] VITALS: BP 147/99; PULSE 94; RESP 18; TEMP 36.1; O2SAT 98; BMI 28.6
--- NOTE | 2020-03-25 10:52 | PN.PCM_ITS ---
(1) Ulcer of right foot with fat layer exposed Status: Chronic Current Visit: Yes Code(s): L97.512 - Non-pressure chronic ulcer of other part of right foot with fat layer exposed (2) Type 1 diabetes mellitus with microalbuminuria, with long-term current use of insulin Status: Chronic Current Visit: Yes Code(s): E10.29 - Type 1 diabetes mellitus with other diabetic kidney complication; R80.9 - Proteinuria, unspecified (3) Deformity of right foot Status: Chronic Current Visit: Yes Code(s): M21.961 - Unspecified acquired deformity of right lower leg Type of Wound Date of Service: 03/25/20 Chief Complaint: Ulcer right foot History of Wound: Mr. Diaz is a 44-year-old with history of poorly controlled diabetes mellitus status post several episodes of osteomyelitis/surgical debridement was seen for nonhealing sub 1st metatarsal head ulcer. Ulcer site reopened and he also bumped into some furniture and has a new ulcer to his third toe. This third toe site is no longer draining. He had swelling which is now reduced. He denies redness or odor. He is continue seeing a preschool assistant and has stopped drinking soda. He is with his today. He has questions about surgical options. He relates his glucose log does have been improving. Progress of Wound: Healed third toe. Improving plantar foot ulcer - Physical Exam Vital Signs Temp Pulse Resp BP Pulse Ox 97.0 F L 94 18 147/99 H 98 03/25/20 09:51 03/25/20 09:51 03/25/20 09:51 03/25/20 09:51 03/25/20 09:51 General: Alert, Oriented x3, Cooperative, No apparent distress Extremities: No cyanosis, Capillary Refill Less than 3 Seconds, No Calf Tenderness, Diminished Peripheral Pulses, Edema Skin: Ulcer/ Wound - No purulence, erythema, string, odor, infection. There is full epithelialization noted to the dorsal third toe and the site has healed. The plantar ulcer site does not have callus formation or any signs of infection. The skin is hairless and atrophic Wound Measurements and Assessment WC - Nurse 1 - General Ulcer Measurement Start: 03/25/20 09:51 Freq: Status: Active Protocol: Activity Type Activity Date Activity User E-Sign Co-Sign Detail Recorded Client Recorded Date Recorded By Document 03/25/20 09:51 MT [id number] 03/25/20 09:56 PA 03/25/20 09:51 Wound Center Nurse 1 [Ulcer Assessment] 3-right 3rd toe cluster -Current Size (cm) - Length 0.1 -Current Size (cm) - Width 0.1 -Current Size (cm) - Depth 0.1 -Total Square Cm 0.01 -Wound Margin Thickened -Granulation Amt Large (67-100%) -Granulation Quality Pale,[place] -Slough/Fibrin No -Necrosis Amt None Present (0 %) -Texture (Radha-wound Skin Appearance) Assessed -Moisture (Radha-wound Skin Appearance Assessed ) -Color (Radha-wound Skin Appearance) Assessed -Temperature (Radha-wound Skin No Abnormality Appearance) (Pt Warm) -Tenderness on Palpation (Radha-wound No Skin Appearance) -Ulcer Cleansing Rinsed/ Irrigated with Saline -Foul Odor after Cleansing No -Anesthetic Used 4% Lidocaine Solution #2 R Foot Plantar -Current Size (cm) - Length 1.3 -Current Size (cm) - Width 0.7 -Current Size (cm) - Depth 0.1 -Total Square Cm 0.91 -Wound Margin Thickened -Granulation Amt Large (67-100%) -Granulation Quality Pale,[place] -Necrosis Amt Small (1-33%) -Necrotic Tissue Type Adherent Slough -Texture (Radha-wound Skin Appearance) Assessed,Callus -Moisture (Radha-wound Skin Appearance Assessed ) -Color (Radha-wound Skin Appearance) Assessed -Temperature (Radha-wound Skin No Abnormality Appearance) (Pt Warm) -Tenderness on Palpation (Radha-wound No Skin Appearance) -Ulcer Cleansing Rinsed/ Irrigated with Saline -Foul Odor after Cleansing No -Anesthetic Used 4% Lidocaine Solution [Edema Assessment] -Lower Limb Edema Present NA - Nurse 2 - General Ulcer CM Notes Start: 03/25/20 09:51 Freq: Status: Active Protocol: Activity Type Activity Date Activity User E-Sign Co-Sign Detail Recorded Client Recorded Date Recorded By Document 03/25/20 10:03 [id number] 03/25/20 10:06 03/25/20 10:03 Wound Center Nurse 2 [Procedure/Treatment] 3-right 3rd toe cluster -Correct Patient No -Correct Side, Site, Position No -Correct Procedure No -Procedure Performed No -Post Debridement Size (cm) - Length 0 -Post Debridement Size (cm) - Width 0 -Post Debridement Size (cm) - Depth 0 -Total Square Cm 0 -Wound/Ulcer Outcome Healed- Epithelialized #2 R Foot Plantar -Time 10:04 -Correct Patient Yes -Correct Side, Site, Position Yes -Correct Procedure Yes -Procedure Performed Yes -Type of Procedure Debridement -Clinical Debridement Subcutaneous -Post Debridement Size (cm) - Length 1.4 -Post Debridement Size (cm) - Width 0.7 -Post Debridement Size (cm) - Depth 0.1 -Total Square Cm 0.98 -Wound/Ulcer Outcome Not Healed -Ulcer Cleansing Rinsed/ Irrigated with Saline -Foul Odor after Cleansing No -Bioengineered Tissue No -Bleeding Controlled with Pressure -Offloading Yes -Type of Offloading Total Contact Cast (TCC) -Treatment Response Procedure Tolerated Well [See Physician Procedure note for Specifics] Pain Scale: 0-10 Numeric [Pain] -Is Patient Pain Free? Yes Musculoskeletal: No Tenderness to Palpation of Joints or Extremities, Muscle Wasting, - - Second toe amputation and prominent metatarsal head and dorsal contracture of lesser remaining toes Neurological: - - Lack of epicritic sensation light touch is consistent with neuropathy status Psych/Mental Status: Normal Affect, Appropriate Debridement Note Post-Debridement Measurements/Treatment WC - Nurse 2 - General Ulcer CM Notes Start: 03/25/20 09:51 Freq: Status: Active Protocol: Activity Type Activity Date Activity User E-Sign Co-Sign Detail Recorded Client Recorded Date Recorded By Document 03/25/20 10:03 RAYNA [id number] 03/25/20 10:06 RAYNA 03/25/20 10:03 Wound Center Nurse 2 3-right 3rd toe cluster -Correct Patient No -Correct Side, Site, Position No -Correct Procedure No -Procedure Performed No -Post Debridement Size (cm) - Length 0 -Post Debridement Size (cm) - Width 0 -Post Debridement Size (cm) - Depth 0 -Total Square Cm 0 -Wound/Ulcer Outcome Healed- Epithelialized #2 R Foot Plantar -Time 10:04 -Correct Patient Yes -Correct Side, Site, Position Yes -Correct Procedure Yes -Procedure Performed Yes -Type of Procedure Debridement -Clinical Debridement Subcutaneous -Post Debridement Size (cm) - Length 1.4 -Post Debridement Size (cm) - Width 0.7 -Post Debridement Size (cm) - Depth 0.1 -Total Square Cm 0.98 -Wound/Ulcer Outcome Not Healed -Ulcer Cleansing Rinsed/ Irrigated with Saline -Foul Odor after Cleansing No -Bioengineered Tissue No -Bleeding Controlled with Pressure -Offloading Yes -Type of Offloading Total Contact Cast (TCC) -Treatment Response Procedure Tolerated Well Pain Scale: 0-10 Numeric Is Patient Pain Free? Yes Wound debrided: sub 1st metatarsal head Laterality: Right Wound Grade/Stage: grade 1 Type of Debridement: Excisional debridement Anesthesia Used: 5% Lidocaine Gel Depth: in the subcutaneous layer Percentage of wound debrided: 100 Instrument Used: #15 blade Tissue Removed: fibrous, devitalized subcutaneous, biofilm, slough Severity: Fat Layer Exposed Amount of bleeding with debridement: Mild Bleeding Controlled with: Pressure Patient tolerated procedure well Assessment/Plan Active Problems (Last Reviewed 01/06/20 @ 21:[address] Tj Ireland MD) Diabetes mellitus with neuropathy (Chronic) Deformity of right foot (Chronic) Ulcer of right foot with fat layer exposed (Chronic) Type 1 diabetes mellitus with microalbuminuria, with long-term current use of insulin (Chronic) Assessment: diabetic foot ulcer grade 1 status, return sub-first metatarsal head. Diabetic foot ulcer grade 1 status, dorsal third toe -healed. 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 Poorly controlled diabetes mellitus, insulin-dependent with neuropathy. History of recent tobacco cessation. Delayed healing. Suspected malnutrition Plan: I reviewed and discussed his updated case. He was reassured no infection is present today. Debridement was performed today as noted in the clinical panel in a subcutaneous excisional manner to both ulcer sites. Leah was applied to the ulcer beds. Application of advanced wound healing product if this is approved by his insurance, [employer]. This is medically necessary for limb salvage. Note: ulcer is increased in size he is a appropriate candidate. The indication anticipated application, and anticipated healing time management were discussed. He is at risk for continued limb loss and we also discussed transmetatarsal amputation as a treatment option. Would like to proceed forward with nonsurgical care at this time. I recommended application of a total contact cast. Verbal consent was obtained. This was applied today after verbal consent according standard protocol in the neutral position in a well- padded manner. He tolerated this well. He was advised on the benefits and the risks of this cast. He is an appropriate candidate and this is medically necessary. He relates his son is able to drive him as needed. To keep this clean, dry, and intact until follow-up in 1 week. He was advised to call immediately if he thinks he is starting get infected, has any new injury, or gets the cast wet or has any signs of local blood clot. He demonstrates under standing. To continue compliance with knee roller. To optimize healing by improving glycemic control. I recommended preschool assistant consultation and this is been initiated. He is doing well with nutrition adjustments. We discussed how glycemic control is a combination of medication adjustments, diet, exercise, and lifestyle modifications and this is important for healing ability. A referral was provided previously and this has been initiated. He was advised to follow- up with the foot and ankle center for fitting and dispensing of extra-depth diabetic shoes particularly for the side that does not have a current ulcer. He is still working on setting this up. He is demonstrating continued delays in healing. Even though he elects to proceed with conservative care with a comprehensive wound healing plan at this time, we did review surgical options. He understands he already had a hallux procedure done and performing a traditional Osman arthroplasty is not ideal because then he would have no proximal phalanx of the hallux. This would also leave him with a very oddly shaped foot. We discussed transmetatarsal amputation is a more definitive procedure with potential tendon lengthening procedure. He understands he would need to be medically optimized and diabetes management improved. To follow up to the wound care center in 1 week.
[2020-04-01 11:05] VITALS: BP 154/78; PULSE 84; RESP 18; TEMP 36.6; BMI 28.6
--- NOTE | 2020-04-01 23:51 | PN.PCM_ITS ---
(1) Ulcer of right foot with fat layer exposed Status: Chronic Code(s): L97.512 - Non-pressure chronic ulcer of other part of right foot with fat layer exposed (2) Type 1 diabetes mellitus with microalbuminuria, with long-term current use of insulin Status: Chronic Code(s): E10.29 - Type 1 diabetes mellitus with other diabetic kidney complication; R80.9 - Proteinuria, unspecified (3) Deformity of right foot Status: Chronic Code(s): M21.961 - Unspecified acquired deformity of right lower leg Type of Wound Date of Service: 04/01/20 Chief Complaint: Ulcer right foot History of Wound: Mr. Diaz is a 44-year-old with history of poorly controlled diabetes mellitus status post several episodes of osteomyelitis/surgical debridement was seen for nonhealing sub 1st metatarsal head ulcer. He had swelling which is now reduced. He denies redness or odor. He is continue seeing a cardiac rehabilitation program director and has stopped drinking soda. He denies new injuries today. He is amendable to proceed with a total contact cast. Progress of Wound: Improving - Physical Exam Vital Signs Temp Pulse Resp BP Pulse Ox 97.8 F 84 18 154/78 H 98 04/01/20 11:05 04/01/20 11:05 04/01/20 11:05 04/01/20 11:05 03/25/20 09:51 General: Alert, Oriented x3, Cooperative, No apparent distress Extremities: No cyanosis, Capillary Refill Less than 3 Seconds, No Calf Tenderness, Diminished Peripheral Pulses, Edema Skin: Ulcer/ Wound - No purulence, erythema, streaking, odor, infection. Changing skin is hairless and atrophic. There is no maceration or necrosis Wound Measurements and Assessment WC - Nurse 1 - General Ulcer Measurement Start: 03/25/20 09:51 Freq: Status: Active Protocol: Activity Type Activity Date Activity User E-Sign Co-Sign Detail Recorded Client Recorded Date Recorded By Document 04/01/20 11:05 HOLLEY [id number] 04/01/20 11: HOLLEY 04/01/20 11:05 Wound Center Nurse 1 [Ulcer Assessment] #2 R Foot Plantar -Combined with other wound No -Current Size (cm) - Length 0.5 -Current Size (cm) - Width 1.0 -Current Size (cm) - Depth 0.2 -Total Square Cm 0.50 -Photo Taken No -Epithelialization None Present -Tunneling No -Undermining/Tunneling No -Exudate Amt Small -Exudate Type Serosanguineous -Granulation Amt Large (67-100%) -Granulation Quality [place] -Slough/Fibrin Yes -Necrosis Amt Small (1-33%) -Necrotic Tissue Type Adherent Slough -Texture (Radha-wound Skin Appearance) Callus -Moisture (Radha-wound Skin Appearance No Abnormality ) -Color (Radha-wound Skin Appearance) No Abnormality -Temperature (Radha-wound Skin No Abnormality Appearance) (Pt Warm) -Tenderness on Palpation (Radha-wound No Skin Appearance) -Ulcer Cleansing Soap and Water -Foul Odor after Cleansing No -Anesthetic Used 4% Lidocaine Solution WC - Nurse 2 - General Ulcer CM Notes Start: 03/25/20 09:51 Freq: Status: Active Protocol: Activity Type Activity Date Activity User E-Sign Co-Sign Detail Recorded Client Recorded Date Recorded By Document 04/01/20 11:36 RAYNA [id number] 04/01/20 11:37 RAYNA 04/01/20 11:36 Wound Center Nurse 2 [Procedure/Treatment] -Time 11:36 -Correct Patient Yes -Correct Side, Site, Position Yes -Correct Procedure Yes -Procedure Performed Yes -Type of Procedure Debridement -Clinical Debridement Subcutaneous -Post Debridement Size (cm) - Length 0.5 -Post Debridement Size (cm) - Width 1.1 -Post Debridement Size (cm) - Depth 0.2 -Total Square Cm 0.55 -Wound/Ulcer Outcome Not Healed -Ulcer Cleansing Rinsed/ Irrigated with Saline -Foul Odor after Cleansing No -Bioengineered Tissue No -Bleeding Controlled with Pressure -Offloading Yes -Type of Offloading Total Contact Cast (TCC) -Treatment Response Procedure Tolerated Well [See Physician Procedure note for Specifics] Pain Scale: 0-10 Numeric [Pain] -Is Patient Pain Free? Yes Musculoskeletal: No Tenderness to Palpation of Joints or Extremities, Muscle Wasting, - - Second toe amputation Neurological: - - Lack of normal epicritic sensation light touch is consistent with neuropathy status Psych/Mental Status: Normal Affect, Appropriate Debridement Note Post-Debridement Measurements/Treatment ALVINO - Nurse 2 - General Ulcer CM Notes Start: 03/25/20 09:51 Freq: Status: Active Protocol: Activity Type Activity Date Activity User E-Sign Co-Sign Detail Recorded Client Recorded Date Recorded By Document 03/25/20 10:03 [id number] 03/25/20 10:06 Document 04/01/20 11:36 [id number] 04/01/20 11:37 03/25/20 04/01/20 10:03 11:36 Wound Center Nurse 2 3-right 3rd toe cluster -Correct Patient No -Correct Side, Site, Position No -Correct Procedure No -Procedure Performed No -Post Debridement Size (cm) - Length 0 -Post Debridement Size (cm) - Width 0 -Post Debridement Size (cm) - Depth 0 -Total Square Cm 0 -Wound/Ulcer Outcome Healed- Epithelialized #2 R Foot Plantar -Time 10:04 11:36 -Correct Patient Yes Yes -Correct Side, Site, Position Yes Yes -Correct Procedure Yes Yes -Procedure Performed Yes Yes -Type of Procedure Debridement Debridement -Clinical Debridement Subcutaneous Subcutaneous -Post Debridement Size (cm) - Length 1.4 0.5 -Post Debridement Size (cm) - Width 0.7 1.1 -Post Debridement Size (cm) - Depth 0.1 0.2 -Total Square Cm 0.98 0.55 -Wound/Ulcer Outcome Not Healed Not Healed -Ulcer Cleansing Rinsed/ Rinsed/ Irrigated with Irrigated with Saline Saline -Foul Odor after Cleansing No No -Bioengineered Tissue No No -Bleeding Controlled with Pressure Pressure -Offloading Yes Yes -Type of Offloading Total Contact Total Contact Cast (TCC) Cast (TCC) -Treatment Response Procedure Procedure Tolerated Well Tolerated Well Pain Scale: 0-10 Numeric Is Patient Pain Free? Yes Yes Wound debrided: sub 1st metatarsal head Laterality: Right Wound Grade/Stage: grade 1 Type of Debridement: Excisional debridement Anesthesia Used: 5% Lidocaine Gel Depth: in the subcutaneous layer Percentage of wound debrided: 100 Instrument Used: #15 blade Tissue Removed: fibrous, devitalized subcutaneous, biofilm, slough Severity: Fat Layer Exposed Amount of bleeding with debridement: Mild Bleeding Controlled with: Pressure Patient tolerated procedure well Assessment/Plan Assessment: diabetic foot ulcer grade 1 status, return sub-first metatarsal head. 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 Poorly controlled diabetes mellitus, insulin-dependent with neuropathy. History of recent tobacco cessation. Delayed healing. Suspected malnutrition Plan: I reviewed and discussed his updated case. He was reassured no infection is present today. Debridement was performed today as noted in the clinical panel in a subcutaneous excisional manner to his ulcer site. Leah was applied to the ulcer bed. He is at risk for continued limb loss and we also discussed transmetatarsal amputation as a treatment option. Would like to proceed forward with nonsurgical care at this time. I recommended application of a total contact cast. Verbal consent was obtained. This was applied today after verbal consent according standard protocol in the neutral position in a well- padded manner. He tolerated this well. He was advised on the benefits and the risks of this cast. He is an appropriate candidate and this is medically necessary. He relates his son is able to drive him as needed. To keep this clean, dry, and intact until follow-up in 1 week. He was advised to call immediately if he thinks he is starting get infected, has any new injury, or gets the cast wet or has any signs of local blood clot. He demonstrates understanding. To continue compliance with knee roller. To optimize healing by improving glycemic control. I recommended cardiac rehabilitation program director consultation and this is been initiated. He is doing well with nutrition adjustments. We discussed how glycemic control is a combination of medication adjustments, diet, exercise, and lifestyle modifications and this is important for healing ability. A referral was provided previously and this has been initiated. He was advised to follow-up with the foot and ankle center for fitting and dispensing of extra- depth diabetic shoes particularly for the side that does not have a current ulcer. He is still working on setting this up. He is demonstrating continued delays in healing. Even though he elects to proceed with conservative care with a comprehensive wound healing plan at this time, we did review surgical options. He understands he already had a hallux procedure done and performing a traditional Osman arthroplasty is not ideal because then he would have no proximal phalanx of the hallux. This would also leave him with a very oddly shaped foot. We discussed transmetatarsal amputation is a more definitive procedure with potential tendon lengthening procedure. He understands he would need to be medically optimized and diabetes management improved. To follow up to the wound care center in 1 week.
[2020-04-08 09:30] VITALS: BP 138/92; PULSE 86; RESP 18; TEMP 36.6; BMI 28.6
--- NOTE | 2020-04-08 13:03 | PCM.WC.PN ---
(1) Ulcer of right foot with fat layer exposed Status: Chronic Code(s): L97.512 - Non-pressure chronic ulcer of other part of right foot with fat layer exposed (2) Type 1 diabetes mellitus with microalbuminuria, with long-term current use of insulin Status: Chronic Code(s): E10.29 - Type 1 diabetes mellitus with other diabetic kidney complication; R80.9 - Proteinuria, unspecified (3) Deformity of right foot Status: Chronic Code(s): M21.961 - Unspecified acquired deformity of right lower leg Type of Wound Date of Service: 04/08/20 Chief Complaint: Ulcer right foot History of Wound: Mr. Diaz is a 44-year-old with history of poorly controlled diabetes mellitus status post several episodes of osteomyelitis/surgical debridement was seen for nonhealing sub 1st metatarsal head ulcer. He had swelling which is now reduced. He denies redness or odor. He is continue seeing a clothing pattern preparer and has stopped drinking soda. He denies new injuries today. He is amendable to proceed with a total contact cast again today. Progress of Wound: Improving - Physical Exam Vital Signs Temp Pulse Resp BP Pulse Ox 97.8 F 86 18 138/92 H 98 04/08/20 09:30 04/08/20 09:30 04/08/20 09:30 04/08/20 09:30 03/25/20 09:51 General: Alert, Oriented x3, Cooperative HEENT: Atraumatic Extremities: No cyanosis, Capillary Refill Less than 3 Seconds, No Calf Tenderness, Diminished Peripheral Pulses, Edema - mild, - - 2nd toe amputation Skin: Ulcer/ Wound - no purulence, no erythema, no streaking, no odor, no infection Wound Measurements and Assessment WC - Nurse 1 - General Ulcer Measurement Start: 03/25/20 09:51 Freq: Status: Active Protocol: Activity Type Activity Date Activity User E-Sign Co-Sign Detail Recorded Client Recorded Date Recorded By Document 04/08/20 09:30 DV [id number] 04/08/20 09:47 DV 04/08/20 09:30 Wound Center Nurse 1 [Ulcer Assessment] #2 R Foot Plantar -Combined with other wound No -Current Size (cm) - Length 3.5 -Current Size (cm) - Width 0.5 -Current Size (cm) - Depth 0.1 -Total Square Cm 1.75 -Photo Taken No -Epithelialization None Present -Tunneling No -Undermining/Tunneling No -Classification - Thickness Full Thickness without Exposed Support Structure -Exudate Amt Medium -Exudate Type Serous -Wound Margin Indistinct, Non -Visible -Granulation Amt None Present (0 %) -Granulation Quality Hyper- granulation -Slough/Fibrin Yes -Necrosis Amt Large (67-100%) -Necrotic Tissue Type Adherent Slough -Structure Exposed None/Limited to Skin Breakdown -Texture (Radha-wound Skin Appearance) Assessed, Scarring -Moisture (Radha-wound Skin Appearance Assessed, ) Weeping -Color (Radha-wound Skin Appearance) Assessed, Erythema -Temperature (Radha-wound Skin No Abnormality Appearance) (Pt Warm) -Tenderness on Palpation (Radha-wound Yes Skin Appearance) -Foul Odor after Cleansing Yes, Due to Product Use -Anesthetic Used 4% Lidocaine Solution WC - Nurse 2 - General Ulcer CM Notes Start: 03/25/20 09:51 Freq: Status: Active Protocol: Activity Type Activity Date Activity User E-Sign Co-Sign Detail Recorded Client Recorded Date Recorded By Document 04/08/20 09:59 [id number] [id number] 04/08/20 10:00 04/08/20 09:59 Wound Center Nurse 2 [Procedure/Treatment] -Time 09:59 -Correct Patient Yes -Correct Side, Site, Position Yes -Correct Procedure Yes -Procedure Performed Yes -Type of Procedure Debridement -Clinical Debridement Subcutaneous -Post Debridement Size (cm) - Length 0.5 -Post Debridement Size (cm) - Width 1.2 -Post Debridement Size (cm) - Depth 0.2 -Total Square Cm 0.60 -Wound/Ulcer Outcome Not Healed -Ulcer Cleansing Rinsed/ Irrigated with Saline -Foul Odor after Cleansing No -Bioengineered Tissue No -Bleeding Controlled with Pressure -Offloading Yes -Type of Offloading Total Contact Cast (TCC) -Treatment Response Procedure Tolerated Well [See Physician Procedure note for Specifics] Pain Scale: 0-10 Numeric [Pain] -Is Patient Pain Free? Yes Musculoskeletal: No Tenderness to Palpation of Joints or Extremities, Muscle Wasting Neurological: - - Lack of normal sensation Psych/Mental Status: Normal Affect, Appropriate Debridement Note Post-Debridement Measurements/Treatment WC - Nurse 2 - General Ulcer CM Notes Start: 03/25/20 09:51 Freq: Status: Active Protocol: Activity Type Activity Date Activity User E-Sign Co-Sign Detail Recorded Client Recorded Date Recorded By Document 03/25/20 10:03 [id number] 03/25/20 10:06 Document 04/01/20 11:36 [id number] 04/01/20 11:37 Document 04/08/20 09:59 [id number] 04/08/20 10:00 03/25/20 04/01/20 04/08/20 10:03 11:36 09:59 Wound Center Nurse 2 3-right 3rd toe cluster -Correct Patient No -Correct Side, Site, Position No -Correct Procedure No -Procedure Performed No -Post Debridement Size (cm) - Length 0 -Post Debridement Size (cm) - Width 0 -Post Debridement Size (cm) - Depth 0 -Total Square Cm 0 -Wound/Ulcer Outcome Healed- Epithelialized #2 R Foot Plantar -Time 10:04 11:36 09:59 -Correct Patient Yes Yes Yes -Correct Side, Site, Position Yes Yes Yes -Correct Procedure Yes Yes Yes -Procedure Performed Yes Yes Yes -Type of Procedure Debridement Debridement Debridement -Clinical Debridement Subcutaneous Subcutaneous Subcutaneous -Post Debridement Size (cm) - Length 1.4 0.5 0.5 -Post Debridement Size (cm) - Width 0.7 1.1 1.2 -Post Debridement Size (cm) - Depth 0.1 0.2 0.2 -Total Square Cm 0.98 0.55 0.60 -Wound/Ulcer Outcome Not Healed Not Healed Not Healed -Ulcer Cleansing Rinsed/ Rinsed/ Rinsed/ Irrigated with Irrigated with Irrigated with Saline Saline Saline -Foul Odor after Cleansing No No No -Bioengineered Tissue No No No -Bleeding Controlled with Pressure Pressure Pressure -Offloading Yes Yes Yes -Type of Offloading Total Contact Total Contact Total Contact Cast (TCC) Cast (TCC) Cast (TCC) -Treatment Response Procedure Procedure Procedure Tolerated Well Tolerated Well Tolerated Well Pain Scale: 0-10 Numeric Is Patient Pain Free? Yes Yes Yes Wound debrided: sub 1st metatarsal head Laterality: Right Wound Grade/Stage: grade 1 Type of Debridement: Excisional debridement - grade 21 Anesthesia Used: 5% Lidocaine Gel Depth: in the subcutaneous layer Percentage of wound debrided: 100 Instrument Used: #15 blade Tissue Removed: fibrous, devitalized subcutaneous, biofilm, slough Severity: Fat Layer Exposed Amount of bleeding with debridement: Mild Bleeding Controlled with: Pressure Patient tolerated procedure well Assessment/Plan Assessment: diabetic foot ulcer grade 1 status, return sub-first metatarsal head. 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 Poorly controlled diabetes mellitus, insulin-dependent with neuropathy. History of recent tobacco cessation. Delayed healing. Suspected malnutrition Plan: I reviewed and discussed his updated case. He was reassured no infection is present today. Debridement was performed today as noted in the clinical panel in a subcutaneous excisional manner to his ulcer site. Leah was applied to the ulcer bed. He is at risk for continued limb loss and we also discussed transmetatarsal amputation as a treatment option. Would like to proceed forward with nonsurgical care at this time. I recommended application of a total contact cast. Verbal consent was obtained. This was applied today after verbal consent according standard protocol in the neutral position in a well-padded manner. He tolerated this well. He was advised on the benefits and the risks of this cast. He is an appropriate candidate and this is medically necessary. He relates his son is able to drive him as needed. To keep this clean, dry, and intact until follow-up in 1 week. He was advised to call immediately if he thinks he is starting get infected, has any new injury, or gets the cast wet or has any signs of local blood clot. He demonstrates understanding. To continue compliance with knee roller. To optimize healing by improving glycemic control. I recommended clothing pattern preparer consultation and this is been initiated. He is doing well with nutrition adjustments. We discussed how glycemic control is a combination of medication adjustments, diet, exercise, and lifestyle modifications and this is important for healing ability. A referral was provided previously and this has been initiated. He was advised to follow-up with the foot and ankle center for fitting and dispensing of extra-depth diabetic shoes particularly for the side that does not have a current ulcer. He is still working on setting this up. He is demonstrating continued delays in healing. Even though he elects to proceed with conservative care with a comprehensive wound healing plan at this time, we did review surgical options. He understands he already had a hallux procedure done and performing a traditional Osman arthroplasty is not ideal because then he would have no proximal phalanx of the hallux. This would also leave him with a very oddly shaped foot. We discussed transmetatarsal amputation is a more definitive procedure with potential tendon lengthening procedure. He understands he would need to be medically optimized and diabetes management improved. To follow up to the wound care center in 1 week.
[2020-04-15 09:45] VITALS: BP 147/90; PULSE 98; RESP 16; TEMP 36.9; BMI 28.6
--- NOTE | 2020-04-15 10:50 | PN.PCM_ITS ---
(1) Ulcer of right foot with fat layer exposed Status: Chronic Current Visit: Yes Code(s): L97.512 - Non-pressure chronic ulcer of other part of right foot with fat layer exposed (2) Type 1 diabetes mellitus with microalbuminuria, with long-term current use of insulin Status: Chronic Current Visit: Yes Code(s): E10.29 - Type 1 diabetes mellitus with other diabetic kidney complication; R80.9 - Proteinuria, unspecified (3) Deformity of right foot Status: Chronic Current Visit: Yes Code(s): M21.961 - Unspecified acquired deformity of right lower leg Type of Wound Date of Service: 04/15/20 Chief Complaint: Ulcer right foot History of Wound: Mr. Diaz is a 44-year-old with history of poorly controlled diabetes mellitus status post several episodes of osteomyelitis/surgical debridement was seen for nonhealing sub 1st metatarsal head ulcer. He had swelling which is now reduced. He denies redness or odor. He relates he tried to cut the grass last week which involves him doing this on foot. Progress of Wound: Stable - Physical Exam Vital Signs Temp Pulse Resp BP Pulse Ox 98.4 F 98 16 147/90 H 98 04/15/20 09:45 04/15/20 09:45 04/15/20 09:45 04/15/20 09:45 03/25/20 09:51 General: Alert, Oriented x3, Cooperative Extremities: No cyanosis, Capillary Refill Less than 3 Seconds, No Calf Tenderness, Diminished Peripheral Pulses, Edema Skin: Ulcer/ Wound Wound Measurements and Assessment WC - Nurse 1 - General Ulcer Measurement Start: 03/25/20 09:51 Freq: Status: Active Protocol: Activity Type Activity Date Activity User E-Sign Co-Sign Detail Recorded Client Recorded Date Recorded By Document 04/15/20 09:45 DV [id number] 04/15/20 09:48 DV 04/15/20 09:45 Wound Center Nurse 1 [Ulcer Assessment] #2 R Foot Plantar -Combined with other wound No -Current Size (cm) - Length 1.3 -Current Size (cm) - Width 0.4 -Current Size (cm) - Depth 0.3 -Total Square Cm 0.52 -Photo Taken No -Epithelialization None Present -Tunneling No -Undermining/Tunneling No -Circular Undermining No -Classification - Thickness Full Thickness without Exposed Support Structure -Exudate Amt Medium -Exudate Type Serous -Wound Margin Indistinct, Non -Visible -Granulation Amt None Present (0 %) -Granulation Quality N/A -Slough/Fibrin Yes -Necrosis Amt Large (67-100%) -Necrotic Tissue Type Adherent Slough -Structure Exposed None/Limited to Skin Breakdown -Texture (Radha-wound Skin Appearance) Assessed, Scarring -Moisture (Radha-wound Skin Appearance Assessed, ) Maceration, Weeping -Color (Radha-wound Skin Appearance) No Abnormality, Assessed -Temperature (Radha-wound Skin No Abnormality Appearance) (Pt Warm) -Tenderness on Palpation (Radha-wound No Skin Appearance) -Foul Odor after Cleansing No -Anesthetic Used 4% Lidocaine Solution [Edema Assessment] -Lower Limb Edema Present No -Left Calf (cm) 41.0 -Left Ankle (cm) 24.0 WC - Nurse 2 - General Ulcer CM Notes Start: 03/25/20 09:51 Freq: Status: Active Protocol: Activity Type Activity Date Activity User E-Sign Co-Sign Detail Recorded Client Recorded Date Recorded By Document 04/15/20 10:10 RAYNA [id number] 04/15/20 10:11 RAYNA 04/15/20 10:10 Wound Center Nurse 2 [Procedure/Treatment] #2 R Foot Plantar -Time 10:11 -Correct Patient Yes -Correct Side, Site, Position Yes -Correct Procedure Yes -Procedure Performed Yes -Type of Procedure Debridement -Clinical Debridement Subcutaneous -Post Debridement Size (cm) - Length 0.5 -Post Debridement Size (cm) - Width 1.4 -Post Debridement Size (cm) - Depth 0.2 -Total Square Cm 0.70 -Wound/Ulcer Outcome Not Healed -Ulcer Cleansing Rinsed/ Irrigated with Saline -Foul Odor after Cleansing No -Bioengineered Tissue No -Bleeding Controlled with Pressure -Offloading Yes -Type of Offloading Total Contact Cast (TCC) -Treatment Response Procedure Tolerated Well [See Physician Procedure note for Specifics] Pain Scale: 0-10 Numeric [Pain] -Is Patient Pain Free? Yes Debridement Note Post-Debridement Measurements/Treatment WC - Nurse 2 - General Ulcer CM Notes Start: 03/25/20 09:51 Freq: Status: Active Protocol: Activity Type Activity Date Activity User E-Sign Co-Sign Detail Recorded Client Recorded Date Recorded By Document 03/25/20 10:03 RAYNA [id number] 03/25/20 10:06 Document 04/01/20 11:36 [id number] 04/01/20 11:37 Document 04/08/20 09:59 [id number] 04/08/20 10:00 Document 04/15/20 10:10 [id number] 04/15/20 10:11 03/25/20 04/01/20 04/08/20 10:03 11:36 09:59 Wound Center Nurse 2 3-right 3rd toe cluster -Correct Patient No -Correct Side, Site, Position No -Correct Procedure No -Procedure Performed No -Post Debridement Size (cm) - Length 0 -Post Debridement Size (cm) - Width 0 -Post Debridement Size (cm) - Depth 0 -Total Square Cm 0 -Wound/Ulcer Outcome Healed- Epithelialized #2 R Foot Plantar -Time 10:04 11:36 09:59 -Correct Patient Yes Yes Yes -Correct Side, Site, Position Yes Yes Yes -Correct Procedure Yes Yes Yes -Procedure Performed Yes Yes Yes -Type of Procedure Debridement Debridement Debridement -Clinical Debridement Subcutaneous Subcutaneous Subcutaneous -Post Debridement Size (cm) - Length 1.4 0.5 0.5 -Post Debridement Size (cm) - Width 0.7 1.1 1.2 -Post Debridement Size (cm) - Depth 0.1 0.2 0.2 -Total Square Cm 0.98 0.55 0.60 -Wound/Ulcer Outcome Not Healed Not Healed Not Healed -Ulcer Cleansing Rinsed/ Rinsed/ Rinsed/ Irrigated with Irrigated with Irrigated with Saline Saline Saline -Foul Odor after Cleansing No No No -Bioengineered Tissue No No No -Bleeding Controlled with Pressure Pressure Pressure -Offloading Yes Yes Yes -Type of Offloading Total Contact Total Contact Total Contact Cast (TCC) Cast (TCC) Cast (TCC) -Treatment Response Procedure Procedure Procedure Tolerated Well Tolerated Well Tolerated Well Pain Scale: 0-10 Numeric Is Patient Pain Free? Yes Yes Yes 04/15/20 10:10 Wound Center Nurse 2 3-right 3rd toe cluster -Correct Patient -Correct Side, Site, Position -Correct Procedure -Procedure Performed -Post Debridement Size (cm) - Length -Post Debridement Size (cm) - Width -Post Debridement Size (cm) - Depth -Total Square Cm -Wound/Ulcer Outcome #2 R Foot Plantar -Time 10:11 -Correct Patient Yes -Correct Side, Site, Position Yes -Correct Procedure Yes -Procedure Performed Yes -Type of Procedure Debridement -Clinical Debridement Subcutaneous -Post Debridement Size (cm) - Length 0.5 -Post Debridement Size (cm) - Width 1.4 -Post Debridement Size (cm) - Depth 0.2 -Total Square Cm 0.70 -Wound/Ulcer Outcome Not Healed -Ulcer Cleansing Rinsed/ Irrigated with Saline -Foul Odor after Cleansing No -Bioengineered Tissue No -Bleeding Controlled with Pressure -Offloading Yes -Type of Offloading Total Contact Cast (TCC) -Treatment Response Procedure Tolerated Well Pain Scale: 0-10 Numeric Is Patient Pain Free? Yes Wound debrided: sub 1st metatarsal head Laterality: Right Wound Grade/Stage: grade 1 Type of Debridement: Excisional debridement Anesthesia Used: 5% Lidocaine Gel Depth: in the subcutaneous layer Percentage of wound debrided: 100 Instrument Used: #15 blade Tissue Removed: fibrous, devitalized subcutaneous, biofilm, slough Severity: Fat Layer Exposed Amount of bleeding with debridement: Mild Bleeding Controlled with: Pressure Patient tolerated procedure well Assessment/Plan Active Problems (Last Reviewed 01/06/20 @ 21:[address] Tj Ireland MD) Deformity of right foot (Chronic) Ulcer of right foot with fat layer exposed (Chronic) Type 1 diabetes mellitus with microalbuminuria, with long-term current use of in sulin (Chronic) Assessment: diabetic foot ulcer grade 1 status, return sub-first metatarsal head. 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 Poorly controlled diabetes mellitus, insulin-dependent with neuropathy. History of recent tobacco cessation. Delayed healing. Suspected malnutrition Plan: I reviewed and discussed his updated case. He was reassured no infection is present today. Debridement was performed today as noted in the clinical panel in a subcutaneous excisional manner to his ulcer site. Leah was applied to the ulcer bed. He is at risk for continued limb loss and we also discussed transmetatarsal amputation as a treatment option. He was advised not to participate in extraocular activities such as cutting the grass with walking activities. This is compromising his limb salvage plan. He would like to proceed forward with nonsurgical care at this time. I recommended application of a total contact cast. Verbal consent was obtained. This was applied today after verbal consent according standard protocol in the neutral position in a well-padded manner. He tolerated this well. He was advised on the benefits and the risks of this cast. He is an appropriate candidate and this is medically necessary. He relates his son is able to drive him as needed. To keep this clean, dry, and intact until follow-up in 1 week. He was advised to call immediately if he thinks he is starting get infected, has any new injury, or gets the cast wet or has any signs of local blood clot. He demonstrates understanding. To continue compliance with knee roller. To optimize healing by improving glycemic control. I recommended commercial kitchen service technician consultation and this is been initiated. He is doing well with nutrition adjustments. We discussed how glycemic control is a combination of medication adjustments, diet, exercise, and lifestyle modifications and this is important for healing ability. A referral was provided previously and this has been initiated. He was advised to follow-up with the foot and ankle center for fitting and dispensing of extra- depth diabetic shoes particularly for the side that does not have a current ulcer. He is still working on setting this up. He is demonstrating continued delays in healing. Even though he elects to proceed with conservative care with a comprehensive wound healing plan at this time, we did review surgical options. He understands he already had a hallux procedure done and performing a traditional Osman arthroplasty is not ideal because then he would have no proximal phalanx of the hallux. This would also leave him with a very oddly shaped foot. We discussed transmetatarsal amputation is a more definitive procedure with potential tendon lengthening procedure. He understands he would need to be medically optimized and diabetes management improved. To follow up to the wound care center in 1 week.
== END 2020-04-19 23:59 ==
LOC: WC 09:30
PROVIDERS: Family Provider Internal Medicine; PCP Nurse Practitioner Family; Referring Provider Podiatrist; Visit Provider Podiatrist
DX: E10.621 Type 1 diabetes mellitus with foot ulcer (principal); L97.512 Non-pressure chronic ulcer of other part of right foot with fat layer exposed; E10.65 Type 1 diabetes mellitus with hyperglycemia; E10.40 Type 1 diabetes mellitus with diabetic neuropathy, unspecified; E10.29 Type 1 diabetes mellitus with other diabetic kidney complication; R80.9 Proteinuria, unspecified; Z79.4 Long term (current) use of insulin; Z89.421 Acquired absence of other right toe(s); Z86.19 Personal history of other infectious and parasitic diseases
CPT/HCPCS: 11042; 29445

== ENCOUNTER 2020-05-13 13:00 | Outpatient (RCR) | payer OTHER, SELFPAY ==
[2020-04-17 10:53] VITALS: BMI 30.9
[2020-04-20 00:19] VITALS: BP 147/90; PULSE 98; RESP 16; TEMP 36.9; O2SAT 98
[2020-04-22 09:46] VITALS: BP 164/84; PULSE 101; RESP 22; TEMP 36.6; BMI 30.9
--- NOTE | 2020-04-22 11:59 | PN.PCM_ITS ---
(1) Ulcer of right foot with fat layer exposed Status: Chronic Code(s): L97.512 - Non-pressure chronic ulcer of other part of right foot with fat layer exposed (2) Diabetes mellitus with neuropathy Status: Chronic Qualifiers: Diabetes mellitus type: type 1 Qualified Code(s): E10.40 - Type 1 diabetes mellitus with diabetic neuropathy, unspecified Code(s): E11.40 - Type 2 diabetes mellitus with diabetic neuropathy, unspecified (3) Deformity of right foot Status: Chronic Code(s): M21.961 - Unspecified acquired deformity of right lower leg (4) Malnutrition Status: Chronic Code(s): E46 - Unspecified protein-calorie malnutrition Type of Wound Date of Service: 04/22/20 Chief Complaint: Ulcer right foot History of Wound: Mr. Diaz is a 44-year-old with history of poorly controlled diabetes mellitus status post several episodes of osteomyelitis/surgical debridement was seen for nonhealing sub 1st metatarsal head ulcer. He had swelling which is now reduced. He denies redness or odor. He has reduced his activity this past week and has been compliant in his total contact cast. Progress of Wound: Stable - Physical Exam Vital Signs Temp Pulse Resp BP Pulse Ox 98 F 101 H 22 H 164/84 H 98 04/22/20 09:46 04/22/20 09:46 04/22/20 09:46 04/22/20 09:46 04/20/20 00:19 General: Alert, Oriented x3, Cooperative, No apparent distress HEENT: Atraumatic Extremities: No cyanosis, Capillary Refill Less than 3 Seconds, No Calf Tenderness, Diminished Peripheral Pulses, Edema - Mild, - - Forefoot deformity is noted and also second toe amputation Skin: Ulcer/ Wound - No purulence, erythema, streaking, odor, infection. Decrease maceration Wound Measurements and Assessment WC - Nurse 1 - General Ulcer Measurement Start: 04/22/20 09:45 Freq: Status: Active Protocol: Activity Type Activity Date Activity User E-Sign Co-Sign Detail Recorded Client Recorded Date Recorded By Document 04/22/20 09:46 DL [id number] 04/22/20 09:56 DL 04/22/20 09:46 Wound Center Nurse 1 [Ulcer Assessment] #2 R Foot Plantar -Current Size (cm) - Length 0.3 -Current Size (cm) - Width 1.1 -Current Size (cm) - Depth 0.2 -Total Square Cm 0.33 -Photo Taken No -Exudate Amt Small -Exudate Type Serosanguineous -Wound Margin Thickened -Granulation Amt None Present (0 %) -Necrosis Amt Large (67-100%) -Necrotic Tissue Type Adherent Slough -Structure Exposed N/A -Texture (Radha-wound Skin Appearance) Callus -Moisture (Radha-wound Skin Appearance Maceration ) -Color (Radha-wound Skin Appearance) Rubor -Temperature (Radha-wound Skin No Abnormality Appearance) (Pt Warm) -Tenderness on Palpation (Radha-wound No Skin Appearance) -Ulcer Cleansing Wound Cleanser -Foul Odor after Cleansing No -Anesthetic Used 4% Lidocaine Solution - Nurse 2 - General Ulcer CM Notes Start: 04/22/20 09:45 Freq: Status: Active Protocol: Activity Type Activity Date Activity User E-Sign Co-Sign Detail Recorded Client Recorded Date Recorded By Document 04/22/20 11:34 PL [id number] 04/22/20 11:35 PL 04/22/20 11:34 Wound Center Nurse 2 [Procedure/Treatment] -Time 10:25 -Correct Patient Yes -Correct Side, Site, Position Yes -Correct Procedure Yes -Procedure Performed Yes -Type of Procedure Debridement -Clinical Debridement Subcutaneous -Post Debridement Size (cm) - Length 5 -Post Debridement Size (cm) - Width 1.2 -Post Debridement Size (cm) - Depth 0.1 -Total Square Cm 6.0 -Wound/Ulcer Outcome Not Healed -Ulcer Cleansing Rinsed/ Irrigated with Saline -Foul Odor after Cleansing No -Bleeding Controlled with Pressure -Treatment Response Procedure Tolerated Well [See Physician Procedure note for Specifics] Pain Scale: 0-10 Numeric [Pain] -Is Patient Pain Free? Yes Musculoskeletal: No Tenderness to Palpation of Joints or Extremities, Muscle Wasting Neurological: - - Lack of epicritic sensation consistent with neuropathy status Psych/Mental Status: Normal Affect, Appropriate Debridement Note Post-Debridement Measurements/Treatment - Nurse 2 - General Ulcer CM Notes Start: 04/22/20 09:45 Freq: Status: Active Protocol: Activity Type Activity Date Activity User E-Sign Co-Sign Detail Recorded Client Recorded Date Recorded By Document 04/22/20 11:34 PL [id number] 04/22/20 11:35 PL 04/22/20 11:34 Wound Center Nurse 2 #2 R Foot Plantar -Time 10:25 -Correct Patient Yes -Correct Side, Site, Position Yes -Correct Procedure Yes -Procedure Performed Yes -Type of Procedure Debridement -Clinical Debridement Subcutaneous -Post Debridement Size (cm) - Length 5 -Post Debridement Size (cm) - Width 1.2 -Post Debridement Size (cm) - Depth 0.1 -Total Square Cm 6.0 -Wound/Ulcer Outcome Not Healed -Ulcer Cleansing Rinsed/ Irrigated with Saline -Foul Odor after Cleansing No -Bleeding Controlled with Pressure -Treatment Response Procedure Tolerated Well Pain Scale: 0-10 Numeric Is Patient Pain Free? Yes Wound debrided: plantar first metatarsal head Laterality: Right Wound Grade/Stage: grade 1 Type of Debridement: Excisional debridement Anesthesia Used: 5% Lidocaine Gel Depth: in the subcutaneous layer Percentage of wound debrided: 100 Instrument Used: #15 blade Tissue Removed: fibrous, devitalized subcutaneous, biofilm, slough Severity: Fat Layer Exposed Amount of bleeding with debridement: Mild Bleeding Controlled with: Pressure Patient tolerated procedure well Assessment/Plan Assessment: diabetic foot ulcer grade 1 status, return sub-first metatarsal head. 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 Poorly controlled diabetes mellitus, insulin-dependent with neuropathy. History of recent tobacco cessation. Delayed healing. Suspected malnutrition Plan: I reviewed and discussed his updated case. He was reassured no infection is present today. Debridement was performed today as noted in the clinical panel in a subcutaneous excisional manner to his ulcer site. Leah was applied to the ulcer bed. He is at risk for continued limb loss and we also discussed transmetatarsal amputation as a treatment option. He was advised to reduce extracurricular activities that are weightbearing while he is in the total contact cast. This is compromising his limb salvage plan. He would like to proceed forward with nonsurgical care at this time. I recommended application of a total contact cast. Verbal consent was obtained. This was applied today after verbal consent according standard protocol in the neutral position in a well-padded manner. He tolerated this well. He was advised on the benefits and the risks of this cast. He is an appropriate candidate and this is medically necessary. He relates his son is able to drive him as needed. To keep this clean, dry, and intact until follow-up in 1 week. He was advised to call immediately if he thinks he is starting get infected, has any new injury, or get s the cast wet or has any signs of local blood clot. He demonstrates understanding. To continue compliance with knee roller. To optimize healing by improving glycemic control. I recommended pattern hanger consultation and this is been initiated. He is doing well with nutrition adjustments. We discussed how glycemic control is a combination of medication adjustments, diet, exercise, and lifestyle modifications and this is important for healing ability. A referral was provided previously and this has been initiated. He was advised to follow-up with the foot and ankle center for fitting and dispensing of extra- depth diabetic shoes particularly for the side that does not have a current ulcer. He is still working on setting this up. He is demonstrating continued delays in healing. Even though he elects to proceed with conservative care with a comprehensive wound healing plan at this time, we did review surgical options. He understands he already had a hallux procedure done and performing a traditional Osman arthroplasty is not ideal because then he would have no proximal phalanx of the hallux. This would also leave him with a very oddly shaped foot. We discussed transmetatarsal amputation is a more definitive procedure with potential tendon lengthening procedure. He understands he would need to be medically optimized and diabetes management improved. To follow up to the wound care center in 1 week.
[2020-04-29 09:05] VITALS: BP 143/94; PULSE 101; RESP 18; TEMP 36.5; BMI 30.9
--- NOTE | 2020-04-29 09:48 | PN.PCM_ITS ---
(1) Ulcer of right foot with fat layer exposed Status: Chronic Current Visit: Yes Code(s): L97.512 - Non-pressure chronic ulcer of other part of right foot with fat layer exposed (2) Diabetes mellitus with neuropathy Status: Chronic Current Visit: Yes Qualifiers: Diabetes mellitus type: type 1 Qualified Code(s): E10.40 - Type 1 diabetes mellitus with diabetic neuropathy, unspecified Code(s): E11.40 - Type 2 diabetes mellitus with diabetic neuropathy, unspecified (3) Deformity of right foot Status: Chronic Current Visit: Yes Code(s): M21.961 - Unspecified acquired deformity of right lower leg (4) Malnutrition Status: Chronic Current Visit: Yes Code(s): E46 - Unspecified protein- calorie malnutrition Type of Wound Date of Service: 04/29/20 Chief Complaint: Ulcer right foot History of Wound: Mr. Diaz is a 44-year-old with history of poorly controlled diabetes mellitus status post several episodes of osteomyelitis/surgical debridement was seen for nonhealing sub 1st metatarsal head ulcer. He had swelling which is now reduced. He denies redness or odor. He has reduced his activity this past week and has been compliant in his total contact cast. He will not have somebody to assist with driving this upcoming week and I would like to take a break from a total contact cast. Progress of Wound: Stable - Physical Exam Vital Signs Temp Pulse Resp BP Pulse Ox 97.7 F L 101 H 18 143/94 H 98 04/29/20 09:05 04/29/20 09:05 04/29/20 09:05 04/29/20 09:05 04/20/20 00:19 General: Alert, Oriented x3, Cooperative, No apparent distress HEENT: Atraumatic Extremities: No cyanosis, Capillary Refill Less than 3 Seconds, No Calf Tenderness, Diminished Peripheral Pulses, Edema Skin: Ulcer/ Wound - No purulence, erythema, streaking, odor, infection. The ulcer has reduced in size with peripheral epithelialization. There is some maceration of callus peripherally as well Wound Measurements and Assessment WC - Nurse 1 - General Ulcer Measurement Start: 04/22/20 09:45 Freq: Status: Active Protocol: Activity Type Activity Date Activity User E-Sign Co-Sign Detail Recorded Client Recorded Date Recorded By Document 04/29/20 09:05 DV [id number] 04/29/20 09:19 DV 04/29/20 09:05 Wound Center Nurse 1 [Ulcer Assessment] #2 R Foot Plantar -Combined with other wound No -Current Size (cm) - Length 4.5 -Current Size (cm) - Width 2.0 -Current Size (cm) - Depth 0.1 -Total Square Cm 9.00 -Date of Last Picture (Recall this 04/29/20 field) -Photo Taken Yes -Epithelialization None Present -Tunneling No -Undermining/Tunneling No -Circular Undermining No -Classification - Thickness Full Thickness without Exposed Support Structure -Exudate Amt Medium -Exudate Type Serosanguineous -Wound Margin Indistinct, Non -Visible -Granulation Amt None Present (0 %) -Granulation Quality N/A -Slough/Fibrin Yes -Necrosis Amt Large (67-100%) -Necrotic Tissue Type Adherent Slough -Structure Exposed None/Limited to Skin Breakdown -Texture (Radha-wound Skin Appearance) Assessed, Scarring -Moisture (Radha-wound Skin Appearance Assessed,Dry/ ) Scaly -Color (Radha-wound Skin Appearance) No Abnormality, Assessed -Temperature (Radha-wound Skin No Abnormality Appearance) (Pt Warm) -Tenderness on Palpation (Radha-wound No Skin Appearance) -Ulcer Cleansing Wound Cleanser -Foul Odor after Cleansing No -Anesthetic Used 5% Lidocaine Gel WC - Nurse 2 - General Ulcer CM Notes Start: 04/22/20 09:45 Freq: Status: Active Protocol: Activity Type Activity Date Activity User E-Sign Co-Sign Detail Recorded Client Recorded Date Recorded By Document 04/29/20 09:28 JF [id number] 04/29/20 09:29 RAYNA 04/29/20 09:28 Wound Center Nurse 2 [Procedure/Treatment] -Time 09:29 -Correct Patient Yes -Correct Side, Site, Position Yes -Correct Procedure Yes -Procedure Performed Yes -Type of Procedure Debridement -Clinical Debridement Subcutaneous -Post Debridement Size (cm) - Length 0.4 -Post Debridement Size (cm) - Width 1.1 -Post Debridement Size (cm) - Depth 0.2 -Total Square Cm 0.44 -Wound/Ulcer Outcome Not Healed -Ulcer Cleansing Rinsed/ Irrigated with Saline -Foul Odor after Cleansing No -Bioengineered Tissue No -Bleeding Controlled with Pressure -Offloading Yes -Type of Offloading Camwalker -Treatment Response Procedure Tolerated Well [See Physician Procedure note for Specifics] Pain Scale: 0-10 Numeric [Pain] -Is Patient Pain Free? Yes Musculoskeletal: No Tenderness to Palpation of Joints or Extremities, Muscle Wasting, - - Second toe amputation Neurological: - - Lack of epicritic sensation is consistent with neuropathy Psych/Mental Status: Normal Affect, Appropriate Debridement Note Post-Debridement Measurements/Treatment WC - Nurse 2 - General Ulcer CM Notes Start: 04/22/20 09:45 Freq: Status: Active Protocol: Activity Type Activity Date Activity User E-Sign Co-Sign Detail Recorded Client Recorded Date Recorded By Document 04/22/20 11:34 PL [id number] 04/22/20 11:35 PL Document 04/29/20 09:28 JF [id number] 04/29/20 09:29 JF 04/22/20 04/29/20 11:34 09:28 Wound Center Nurse 2 #2 R Foot Plantar -Time 10:25 09:29 -Correct Patient Yes Yes -Correct Side, Site, Position Yes Yes -Correct Procedure Yes Yes -Procedure Performed Yes Yes -Type of Procedure Debridement Debridement -Clinical Debridement Subcutaneous Subcutaneous -Post Debridement Size (cm) - Length 5 0.4 -Post Debridement Size (cm) - Width 1.2 1.1 -Post Debridement Size (cm) - Depth 0.1 0.2 -Total Square Cm 6.0 0.44 -Wound/Ulcer Outcome Not Healed Not Healed -Ulcer Cleansing Rinsed/ Rinsed/ Irrigated with Irrigated with Saline Saline -Foul Odor after Cleansing No No -Bioengineered Tissue No -Bleeding Controlled with Pressure Pressure -Offloading Yes -Type of Offloading Camwalker -Treatment Response Procedure Procedure Tolerated Well Tolerated Well Pain Scale: 0-10 Numeric Is Patient Pain Free? Yes Yes Wound debrided: sub 1st metatarsal head Laterality: Right Wound Grade/Stage: grade 1 Type of Debridement: Excisional debridement Anesthesia Used: 5% Lidocaine Gel Depth: in the subcutaneous layer Percentage of wound debrided: 100 Instrument Used: #15 blade Tissue Removed: fibrous, devitalized subcutaneous, biofilm, slough Severity: Fat Layer Exposed Amount of bleeding with debridement: Mild Bleeding Controlled with: Pressure Patient tolerated procedure well Assessment/Plan Active Problems (Last Updated 04/17/20 @ 13:[address] Jeevan Buck MD) Diabetes mellitus with neuropathy (Chronic) Deformity of right foot (Chronic) Ulcer of right foot with fat layer exposed (Chronic) Malnutrition (Chronic) Assessment: diabetic foot ulcer grade 1 status, return sub-first metatarsal head. 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 Poorly controlled diabetes mellitus, insulin-dependent with neuropathy. History of recent tobacco cessation. Delayed healing. Suspected malnutrition Plan: I reviewed and discussed his updated case. He was reassured no infection is present today. Debridement was performed today as noted in the clinical panel in a subcutaneous excisional manner to his ulcer site. Leah was applied to the ulcer bed. He is at risk for continued limb loss and we also discussed transmetatarsal amputation as a treatment option. He was advised to reduce extracurricular activities that are weightbearing while he is in the total contact cast. This is compromising his limb salvage plan. He would like to proceed forward with nonsurgical care at this time. To keep this clean, dry. To change dressing daily and wash with soap and water. He demonstrates understanding. To continue compliance with knee roller. To optimize healing by improving glycemic control. I recommended hand scudder consultation and this is been initiated. He is doing well with nutrition adjustments. We discussed how glycemic control is a combination of medication adjustments, diet, exercise, and lifestyle modifications and this is important for healing ability. A referral was provided previously and this has been initiated. He was advised to follow-up with the foot and ankle center for fitting and dispensing of extra- depth diabetic shoes particularly for the side that does not have a current ulcer. He is still working on setting this up. He is demonstrating continued delays in healing. Even though he elects to proceed with conservative care with a comprehensive wound healing plan at this time, we did review surgical options. He understands he already had a hallux procedure done and performing a traditional Osman arthroplasty is not ideal because then he would have no proximal phalanx of the hallux. This would also leave him with a very oddly shaped foot. We discussed transmetatarsal amputation is a more definitive procedure with potential tendon lengthening procedure. He understands he would need to be medically optimized and diabetes management improved. To follow up to the wound care center in 1 week.
[2020-05-06 09:31] VITALS: BP 150/85; PULSE 96; RESP 18; TEMP 35.7; BMI 30.9
--- NOTE | 2020-05-06 11:02 | PN.PCM_ITS ---
(1) Ulcer of right foot with fat layer exposed Status: Chronic Current Visit: Yes Code(s): L97.512 - Non-pressure chronic ulcer of other part of right foot with fat layer exposed (2) Diabetes mellitus with neuropathy Status: Chronic Current Visit: Yes Qualifiers: Diabetes mellitus type: type 1 Qualified Code(s): E10.40 - Type 1 diabetes mellitus with diabetic neuropathy, unspecified Code(s): E11.40 - Type 2 diabetes mellitus with diabetic neuropathy, unspecified (3) Deformity of right foot Status: Chronic Current Visit: Yes Code(s): M21.961 - Unspecified acquired deformity of right lower leg (4) Malnutrition Status: Chronic Current Visit: Yes Code(s): E46 - Unspecified protein- calorie malnutrition (5) Cellulitis of right foot Status: Acute Current Visit: Yes Code(s): L03.115 - Cellulitis of right lower limb Type of Wound Date of Service: 05/06/20 Chief Complaint: Ulcer right foot History of Wound: Mr. Diaz is a 44-year-old with history of poorly controlled diabetes mellitus status post several episodes of osteomyelitis/surgical debridement was seen for nonhealing sub 1st metatarsal head ulcer. He relates he noted that his foot started getting infected on Monday and he did not call office. He did go to [facility] emergency room last night in which she was given antibiotics and discharged home. His has been helping him change dressing every day. He relates he had an x-ray and lab work performed in the emergency room and he denies that his ulcer was cultured. He relates he was started on clindamycin. Progress of Wound: Worsening status - Physical Exam Vital Signs Temp Pulse Resp BP Pulse Ox 96.3 F L 96 18 150/85 H 98 05/06/20 09:31 05/06/20 09:31 05/06/20 09:31 05/06/20 09:31 04/20/20 00:19 General: Alert, Oriented x3, Cooperative, No apparent distress HEENT: Atraumatic Extremities: No cyanosis, Capillary Refill Less than 3 Seconds, No Calf Tenderness, Diminished Peripheral Pulses, Edema Skin: Ulcer/ Wound - No purulence, erythema, or streaking to the left foot. The skin is atrophic and hairless. There is maceration odor and interiorized status which is consistent with an infection. His foot is also warm to touch. Wound Measurements and Assessment - Nurse 1 - General Ulcer Measurement Start: 04/22/20 09:45 Freq: Status: Active Protocol: Activity Type Activity Date Activity User E-Sign Co-Sign Detail Recorded Client Recorded Date Recorded By Document 05/06/20 09:31 [id number] 05/06/20 09:38 BS 05/06/20 09:31 Wound Center Nurse 1 [Ulcer Assessment] #2 R Foot Plantar -Combined with other wound No -Current Size (cm) - Length 4.0 -Current Size (cm) - Width 0.1 -Current Size (cm) - Depth 0.1 -Total Square Cm 0.40 -Photo Taken No -Granulation Quality [place],Red -Texture (Radha-wound Skin Appearance) Assessed,Callus ,Localized Edema -Moisture (Radha-wound Skin Appearance Assessed, ) Maceration,Dry/ Scaly -Color (Radha-wound Skin Appearance) Assessed -Temperature (Radha-wound Skin No Abnormality Appearance) (Pt Warm) -Tenderness on Palpation (Radha-wound No Skin Appearance) -Ulcer Cleansing Soap and water -Foul Odor after Cleansing Yes -Anesthetic Used 4% Lidocaine Solution - Nurse 2 - General Ulcer CM Notes Start: 04/22/20 09:45 Freq: Status: Active Protocol: Activity Type Activity Date Activity User E-Sign Co-Sign Detail Recorded Client Recorded Date Recorded By Document 05/06/20 10:09 [id number] 05/06/20 10:09 RAYNA 05/06/20 10:09 Wound Center Nurse 2 [Procedure/Treatment] -Time 10:09 -Correct Patient Yes -Correct Side, Site, Position Yes -Correct Procedure Yes -Procedure Performed Yes -Type of Procedure Debridement -Clinical Debridement Subcutaneous -Post Debridement Size (cm) - Length 0.6 -Post Debridement Size (cm) - Width 1.0 -Post Debridement Size (cm) - Depth 0.2 -Total Square Cm 0.60 -Wound/Ulcer Outcome Not Healed -Ulcer Cleansing Rinsed/ Irrigated with Saline -Foul Odor after Cleansing No -Bioengineered Tissue No -Bleeding Controlled with Pressure -Offloading Yes -Type of Offloading Camwalker -Treatment Response Procedure Tolerated Well [See Physician Procedure note for Specifics] Pain Scale: 0-10 Numeric [Pain] -Is Patient Pain Free? Yes Musculoskeletal: Muscle Wasting, - - Second toe amputation. No fluctuance, crepitance, or bogginess on palpation Neurological: - - Lack of normal epicritic sensation consistent with neuropathy status Psych/Mental Status: Normal Affect, Appropriate Debridement Note Post-Debridement Measurements/Treatment WC - Nurse 2 - General Ulcer CM Notes Start: 04/22/20 09:45 Freq: Status: Active Protocol: Activity Type Activity Date Activity User E-Sign Co-Sign Detail Recorded Client Recorded Date Recorded By Document 04/22/20 11:34 PL [id number] 04/22/20 11:35 PL Document 04/29/20 09:28 JF [id number] 04/29/20 09:29 JF Document 05/06/20 10:09 JF [id number] 05/06/20 10:09 JF 04/22/20 04/29/20 05/06/20 11:34 09:28 10:09 Wound Center Nurse 2 #2 R Foot Plantar -Time 10:25 09:29 10:09 -Correct Patient Yes Yes Yes -Correct Side, Site, Position Yes Yes Yes -Correct Procedure Yes Yes Yes -Procedure Performed Yes Yes Yes -Type of Procedure Debridement Debridement Debridement -Clinical Debridement Subcutaneous Subcutaneous Subcutaneous -Post Debridement Size (cm) - Length 5 0.4 0.6 -Post Debridement Size (cm) - Width 1.2 1.1 1.0 -Post Debridement Size (cm) - Depth 0.1 0.2 0.2 -Total Square Cm 6.0 0.44 0.60 -Wound/Ulcer Outcome Not Healed Not Healed Not Healed -Ulcer Cleansing Rinsed/ Rinsed/ Rinsed/ Irrigated with Irrigated with Irrigated with Saline Saline Saline -Foul Odor after Cleansing No No No -Bioengineered Tissue No No -Bleeding Controlled with Pressure Pressure Pressure -Offloading Yes Yes -Type of Offloading Camwalker Camwalker -Treatment Response Procedure Procedure Procedure Tolerated Well Tolerated Well Tolerated Well Pain Scale: 0-10 Numeric Is Patient Pain Free? Yes Yes Yes Wound debrided: plantar metatarsal head Laterality: Left Wound Grade/Stage: grade 1 Type of Debridement: Excisional debridement Anesthesia Used: 5% Lidocaine Gel Depth: in the subcutaneous layer Percentage of wound debrided: 100 Instrument Used: #15 blade Tissue Removed: fibrous, devitalized subcutaneous, biofilm, slough Severity: Fat Layer Exposed Amount of bleeding with debridement: Mild Bleeding Controlled with: Pressure Patient tolerated procedure well Assessment/Plan Active Problems (Last Updated 04/17/20 @ 13:[address] Jeevan Buck MD) Diabetes mellitus with neuropathy (Chronic) Deformity of right foot (Chronic) Ulcer of right foot with fat layer exposed (Chronic) Malnutrition (Chronic) Cellulitis of right foot (Acute) Assessment: diabetic foot ulcer grade 1 status, sub-first metatarsal head. 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 Poorly controlled diabetes mellitus, insulin-dependent with neuropathy. History of recent tobacco cessation. Delayed healing. Suspected malnutrition Plan: I reviewed and discussed his updated case. Debridement was performed today as noted in the clinical panel in a subcutaneous excisional manner to his ulcer site. Leah was applied to the ulcer bed. He is at risk for continued limb loss and we also discussed transmetatarsal amputation as a treatment option. He was advised to reduce extracurricular activities that are weightbearing while he is in the total contact cast. This is compromising his limb salvage plan. He would like to proceed forward with nonsurgical care at this time. To keep this clean, dry. To change dressing daily and wash with soap and water. He demonstrates understanding. To continue compliance with knee roller. To optimize healing by improving glycemic control. I recommended department editor consultation and this is been initiated. He is doing well with nutrition adjustments. We discussed how glycemic control is a combination of medication adjustments, diet, exercise, and lifestyle modifications and this is important for healing ability. A referral was provided previously and this has been initiated. He is demonstrating continued delays in healing. Is a worsening status noted today with signs of infection. He is advised to continue clindamycin. Aerobic, anaerobic, and MRSA PCR cultures were obtained today after debridement and saline irrigation was performed. To continue strict offlo ading. I do not recommend a total contact cast today to allow him to wash and change dressing daily. He will perform these dressing changes with [place] and will wash with Samantha-Hex antimicrobial medical grade soap is well. It is noted he had labs and x-rays already performed at [facility] emergency room and these records will be requested. To follow up to the wound care center in 1 week. To call sooner if his status worsens or present to the emergency room.
[2020-05-06 17:35] LABS: M R Staph aureus DNA By PCR Negative (Negative); Probe Check PASS; Specimen Processing Control PASS; Staph aureus DNA By PCR POSITIVE (Negative)
[2020-05-13 13:03] VITALS: BP 152/83; PULSE 92; RESP 16; TEMP 37.1; BMI 30.9
--- NOTE | 2020-05-13 13:35 | PN.PCM_ITS ---
(1) Ulcer of right foot with fat layer exposed Status: Chronic Current Visit: Yes Code(s): L97.512 - Non-pressure chronic ulcer of other part of right foot with fat layer exposed (2) Diabetes mellitus with neuropathy Status: Chronic Current Visit: Yes Qualifiers: Diabetes mellitus type: type 1 Qualified Code(s): E10.40 - Type 1 diabetes mellitus with diabetic neuropathy, unspecified Code(s): E11.40 - Type 2 diabetes mellitus with diabetic neuropathy, unspecified (3) Deformity of right foot Status: Chronic Current Visit: Yes Code(s): M21.961 - Unspecified acquired deformity of right lower leg (4) Malnutrition Status: Chronic Current Visit: Yes Code(s): E46 - Unspecified protein- calorie malnutrition (5) Cellulitis of right foot Status: Acute Current Visit: Yes Code(s): L03.115 - Cellulitis of right lower limb Type of Wound Date of Service: 05/13/20 Chief Complaint: Ulcer right foot History of Wound: Mr. Diaz is a 45-year-old with history of poorly controlled diabetes mellitus status post several episodes of osteomyelitis/surgical debridement was seen for nonhealing sub 1st metatarsal head ulcer. He has a couple more days left of his clindamycin prescription and will complete this. He denies diarrhea or other known side effects. He has been washing with antimicrobial soap as advised. Progress of Wound: Improving with reduction of cellulitis signs - Physical Exam Vital Signs Temp Pulse Resp BP Pulse Ox 98.8 F 92 16 152/83 H 98 05/13/20 13:03 05/13/20 13:03 05/13/20 13:03 05/13/20 13:03 04/20/20 00:19 General: Alert, Oriented x3, Cooperative HEENT: Atraumatic Extremities: No cyanosis, Capillary Refill Less than 3 Seconds, No Calf Tenderness, Diminished Peripheral Pulses, Edema - Mild Skin: Ulcer/ Wound - No purulence, erythema, streaking, odor, infection. His inflammation and cellulitis appear to be resolving well. The adjacent skin is hairless and atrophic Wound Measurements and Assessment WC - Nurse 1 - General Ulcer Measurement Start: 04/22/20 09:45 Freq: Status: Active Protocol: Activity Type Activity Date Activity User E-Sign Co-Sign Detail Recorded Client Recorded Date Recorded By Document 05/13/20 13:03 [facility] [id number] 05/13/20 13:07 [facility] 05/13/20 13:03 Wound Center Nurse 1 [Ulcer Assessment] #2 R Foot Plantar -Combined with other wound No -Current Size (cm) - Length 0.3 -Current Size (cm) - Width 0.8 -Current Size (cm) - Depth 0.2 -Total Square Cm 0.24 -Photo Taken No -Epithelialization Small 1-33% -Tunneling No -Undermining/Tunneling No -Circular Undermining No -Exudate Amt Small -Exudate Type Serosanguineous -Wound Margin Distinct, Outline Attached -Granulation Amt Large (67-100%) -Granulation Quality Red -Slough/Fibrin Yes -Necrosis Amt Small (1-33%) -Necrotic Tissue Type Adherent Slough -Texture (Radha-wound Skin Appearance) Callus -Moisture (Radha-wound Skin Appearance Assessed,Dry/ ) Scaly -Color (Radha-wound Skin Appearance) Assessed -Temperature (Radha-wound Skin No Abnormality Appearance) (Pt Warm) -Tenderness on Palpation (Radha-wound No Skin Appearance) -Ulcer Cleansing Rinsed/ Irrigated with Saline -Foul Odor after Cleansing No -Anesthetic Used 5% Lidocaine Gel WC - Nurse 2 - General Ulcer CM Notes Start: 04/22/20 09:45 Freq: Status: Active Protocol: Activity Type Activity Date Activity User E-Sign Co-Sign Detail Recorded Client Recorded Date Recorded By Document 05/13/20 13:20 [id number] 05/13/20 13:22 05/13/20 13:20 Wound Center Nurse 2 [Procedure/Treatment] -Time 13:21 -Correct Patient Yes -Correct Side, Site, Position Yes -Correct Procedure Yes -Procedure Performed Yes -Type of Procedure Debridement -Clinical Debridement Subcutaneous -Post Debridement Size (cm) - Length 0.3 -Post Debridement Size (cm) - Width 1.0 -Post Debridement Size (cm) - Depth 0.2 -Total Square Cm 0.30 -Wound/Ulcer Outcome Not Healed -Ulcer Cleansing Rinsed/ Irrigated with Saline -Foul Odor after Cleansing No -Bioengineered Tissue No -Bleeding Controlled with Pressure -Offloading Yes -Type of Offloading Camwalker -Treatment Response Procedure Tolerated Well [See Physician Procedure note for Specifics] Pain Scale: 0-10 Numeric [Pain] -Is Patient Pain Free? Yes Musculoskeletal: No Tenderness to Palpation of Joints or Extremities, Muscle Wasting, - - Second toe amputation Neurological: - - Lack of epicritic sensation Psych/Mental Status: Normal Affect, Appropriate Debridement Note Post-Debridement Measurements/Treatment WC - Nurse 2 - General Ulcer CM Notes Start: 04/22/20 09:45 Freq: Status: Active Protocol: Activity Type Activity Date Activity User E-Sign Co-Sign Detail Recorded Client Recorded Date Recorded By Document 04/22/20 11:34 PL [id number] 04/22/20 11:35 PL Document 04/29/20 09:28 [id number] 04/29/20 09:29 Document 05/06/20 10:09 [id number] 05/06/20 10:09 Document 05/13/20 13:20 [id number] 05/13/20 13:22 JF 04/22/20 04/29/20 05/06/20 11:34 09:28 10:09 Wound Center Nurse 2 #2 R Foot Plantar -Time 10:25 09:29 10:09 -Correct Patient Yes Yes Yes -Correct Side, Site, Position Yes Yes Yes -Correct Procedure Yes Yes Yes -Procedure Performed Yes Yes Yes -Type of Procedure Debridement Debridement Debridement -Clinical Debridement Subcutaneous Subcutaneous Subcutaneous -Post Debridement Size (cm) - Length 5 0.4 0.6 -Post Debridement Size (cm) - Width 1.2 1.1 1.0 -Post Debridement Size (cm) - Depth 0.1 0.2 0.2 -Total Square Cm 6.0 0.44 0.60 -Wound/Ulcer Outcome Not Healed Not Healed Not Healed -Ulcer Cleansing Rinsed/ Rinsed/ Rinsed/ Irrigated with Irrigated with Irrigated with Saline Saline Saline -Foul Odor after Cleansing No No No -Bioengineered Tissue No No -Bleeding Controlled with Pressure Pressure Pressure -Offloading Yes Yes -Type of Offloading Camwalker Camwalker -Treatment Response Procedure Procedure Procedure Tolerated Well Tolerated Well Tolerated Well Pain Scale: 0-10 Numeric Is Patient Pain Free? Yes Yes Yes 05/13/20 13:20 Wound Center Nurse 2 #2 R Foot Plantar -Time 13:21 -Correct Patient Yes -Correct Side, Site, Position Yes -Correct Procedure Yes -Procedure Performed Yes -Type of Procedure Debridement -Clinical Debridement Subcutaneous -Post Debridement Size (cm) - Length 0.3 -Post Debridement Size (cm) - Width 1.0 -Post Debridement Size (cm) - Depth 0.2 -Total Square Cm 0.30 -Wound/Ulcer Outcome Not Healed -Ulcer Cleansing Rinsed/ Irrigated with Saline -Foul Odor after Cleansing No -Bioengineered Tissue No -Bleeding Controlled with Pressure -Offloading Yes -Type of Offloading Camwalker -Treatment Response Procedure Tolerated Well Pain Scale: 0-10 Numeric Is Patient Pain Free? Yes Wound debrided: plantar medial foot Laterality: Right Wound Grade/Stage: grade 1 Type of Debridement: Excisional debridement Anesthesia Used: 5% Lidocaine Gel Depth: in the subcutaneous layer Percentage of wound debrided: 100 Instrument Used: #15 blade Tissue Removed: fibrous, devitalized subcutaneous, biofilm, slough Severity: Fat Layer Exposed Amount of bleeding with debridement: Mild Bleeding Controlled with: Pressure Patient tolerated procedure well Assessment/Plan Active Problems (Last Updated 04/17/20 @ 13:[address] Jeevan Buck MD) Diabetes mellitus with neuropathy (Chronic) Deformity of right foot (Chronic) Ulcer of right foot with fat layer exposed (Chronic) Malnutrition (Chronic) Cellulitis of right foot (Acute) Assessment: diabetic foot ulcer grade 1 status, sub-first metatarsal head. 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 Poorly controlled diabetes mellitus, insulin-dependent with neuropathy. History of recent tobacco cessation. Delayed healing. Suspected malnutrition Plan: I reviewed and discussed his updated case. Debridement was performed today as noted in the clinical panel in a subcutaneous excisional manner to his ulcer site. Leah was applied to the ulcer bed. He is at risk for continued limb loss and we also discussed transmetatarsal amputation as a treatment option. He was advised to reduce extracurricular activities that are weightbearing while he is in the total contact cast. This is compromising his limb salvage plan. He would like to proceed forward with nonsurgical care at this time. To keep this clean, dry. To change dressing daily and wash with soap and water. He demonstrates understanding. To continue compliance with knee roller. To optimize healing by improving glycemic control. I recommended operations expert consultation and this is been initiated. He is doing well with nutrition adjustments. We discussed how glycemic control is a combination of medication adjustments, diet, exercise, and lifestyle modifications and this is important for healing ability. A referral was provided previously and this has been initiated. He is demonstrating continued delays in healing. He was reassured his local signs of infection are demonstrating improvement with oral antibiotic clindamycin. Aerobic, anaerobic, and MRSA PCR cultures were obtained and the results have been verbally reviewed with him yesterday on the phone. He was advised to complete the full course of the oral antibiotic. To continue strict offloading. I do not recommend a total contact cast today to allow him to wash and change dressing daily. He will perform these dressing changes with Aquacel Ag and will wash with Samantha-Hex antimicrobial medical grade soap is well. His labs, x-ray, and clinical notes were reviewed from [facility] [place] emergency room visit. To follow up to the wound care center in 1 week. To call sooner if his status worsens or present to the emergency room.
== END 2020-05-19 23:59 ==
LOC: WC 13:00
PROVIDERS: Family Provider Internal Medicine; PCP Nurse Practitioner Family; Referring Provider Podiatrist; Visit Provider Podiatrist
DX: E10.621 Type 1 diabetes mellitus with foot ulcer (principal); L97.512 Non-pressure chronic ulcer of other part of right foot with fat layer exposed; L03.115 Cellulitis of right lower limb; E10.40 Type 1 diabetes mellitus with diabetic neuropathy, unspecified; E10.65 Type 1 diabetes mellitus with hyperglycemia; M21.961 Unspecified acquired deformity of right lower leg; Z79.4 Long term (current) use of insulin; Z86.19 Personal history of other infectious and parasitic diseases; Z87.891 Personal history of nicotine dependence; Z89.421 Acquired absence of other right toe(s)
CPT/HCPCS: 11042; 87070; 87075; 87077; 87186; 87205; 87640

== ENCOUNTER 2020-06-10 09:00 | Outpatient (RCR) | payer OTHER, SELFPAY ==
[2020-05-20 00:20] VITALS: BP 152/83; PULSE 92; RESP 16; TEMP 37.1; O2SAT 98
[2020-05-20 11:32] VITALS: BP 147/99; PULSE 96; RESP 18; TEMP 36.5; BMI 30.9
--- NOTE | 2020-05-20 12:13 | PCM.WC.PN ---
(1) Ulcer of right foot with fat layer exposed Status: Chronic Current Visit: Yes Code(s): L97.512 - Non-pressure chronic ulcer of other part of right foot with fat layer exposed (2) Diabetes mellitus with neuropathy Status: Chronic Current Visit: No Qualifiers: Diabetes mellitus type: type 1 Qualified Code(s): E10.40 - Type 1 diabetes mellitus with diabetic neuropathy, unspecified Code(s): E11.40 - Type 2 diabetes mellitus with diabetic neuropathy, unspecified (3) Deformity of right foot Status: Chronic Current Visit: Yes Code(s): M21.961 - Unspecified acquired deformity of right lower leg (4) Delayed wound healing Status: Chronic Current Visit: Yes Code(s): T14.8XXD - Other injury of unspecified body region, subsequent encounter (5) Malnutrition Status: Chronic Current Visit: Yes Code(s): E46 - Unspecified protein-calorie malnutrition Type of Wound Date of Service: 05/20/20 Chief Complaint: Ulcer right foot History of Wound: Mr. Diaz is a 45-year-old with history of poorly controlled diabetes mellitus status post several episodes of osteomyelitis/surgical debridement was seen for nonhealing sub 1st metatarsal head ulcer. His hemoglobin A1c has recently improved in a significant manner since he has been going to nutritional services counseling. He completed his antibiotics and denies side effects. He has been washing with antimicrobial soap as advised. Progress of Wound: Improving with reduction of cellulitis signs - Physical Exam Vital Signs Temp Pulse Resp BP Pulse Ox 97.7 F L 96 18 147/99 H 98 05/20/20 11:32 05/20/20 11:32 05/20/20 11:32 05/20/20 11:32 05/20/20 00:20 General: Alert, Oriented x3, Cooperative, No apparent distress Extremities: No cyanosis, Capillary Refill Less than 3 Seconds, No Calf Tenderness, Diminished Peripheral Pulses, Edema - Very minimal, - - Second toe amputation and altered range of motion of the first ray. Dorsal contraction of the remaining lesser toes. Skin: Ulcer/ Wound - No purulence, erythema, streaking, odor, infection. Decreased maceration is noted and there is peripheral epithelialization. Minimal callus formation is noted Wound Measurements and Assessment WC - Nurse 1 - General Ulcer Measurement Start: 05/20/20 11:31 Freq: Status: Active Protocol: Activity Type Activity Date Activity User E-Sign Co-Sign Detail Recorded Client Recorded Date Recorded By Document 05/20/20 11:32 LUZMA [id number] 05/20/20 11:41 DV 05/20/20 11:32 Wound Center Nurse 1 [Ulcer Assessment] #2 R Foot Plantar -Combined with other wound No -Current Size (cm) - Length 0.4 -Current Size (cm) - Width 0.6 -Current Size (cm) - Depth 0.2 -Total Square Cm 0.24 -Photo Taken No -Epithelialization None Present -Tunneling No -Undermining/Tunneling No -Circular Undermining No -Classification - Thickness Full Thickness without Exposed Support Structure -Exudate Amt Small -Exudate Type Serosanguineous -Wound Margin Fibrotic Scar, Thickened Scar -Granulation Amt None Present (0 %) -Granulation Quality N/A -Slough/Fibrin Yes -Necrosis Amt Medium (34-66%) -Necrotic Tissue Type Adherent Slough -Structure Exposed None/Limited to Skin Breakdown -Texture (Radha-wound Skin Appearance) Assessed, Scarring -Moisture (Radha-wound Skin Appearance Assessed,Dry/ ) Scaly -Color (Radha-wound Skin Appearance) Assessed -Temperature (Radha-wound Skin No Abnormality Appearance) (Pt Warm) -Tenderness on Palpation (Radha-wound No Skin Appearance) -Ulcer Cleansing Rinsed/ Irrigated with Saline -Foul Odor after Cleansing No -Anesthetic Used 5% Lidocaine Gel WC - Nurse 2 - General Ulcer CM Notes Start: 05/20/20 11:31 Freq: Status: Active Protocol: Activity Type Activity Date Activity User E-Sign Co-Sign Detail Recorded Client Recorded Date Recorded By Document 05/20/20 11:50 RAYNA [id number] 05/20/20 11:51 RAYNA 05/20/20 11:50 Wound Center Nurse 2 [Procedure/Treatment] -Time 11:51 -Correct Patient Yes -Correct Side, Site, Position Yes -Correct Procedure Yes -Procedure Performed Yes -Type of Procedure Debridement -Clinical Debridement Subcutaneous -Post Debridement Size (cm) - Length 0.6 -Post Debridement Size (cm) - Width 1.2 -Post Debridement Size (cm) - Depth 0.2 -Total Square Cm 0.72 -Wound/Ulcer Outcome Not Healed -Ulcer Cleansing Rinsed/ Irrigated with Saline -Foul Odor after Cleansing No -Bioengineered Tissue No -Bleeding Controlled with Pressure -Offloading No -Treatment Response Procedure Tolerated Well [See Physician Procedure note for Specifics] Pain Scale: 0-10 Numeric [Pain] -Is Patient Pain Free? Yes Musculoskeletal: No Tenderness to Palpation of Joints or Extremities, Muscle Wasting Neurological: - - Lack of epicritic sensation is consistent with neuropathy status Psych/Mental Status: Normal Affect, Appropriate Debridement Note Post-Debridement Measurements/Treatment WC - Nurse 2 - General Ulcer CM Notes Start: 05/20/20 11:31 Freq: Status: Active Protocol: Activity Type Activity Date Activity User E-Sign Co-Sign Detail Recorded Client Recorded Date Recorded By Document 05/20/20 11:50 RAYNA [id number] 05/20/20 11:51 RAYNA 05/20/20 11:50 Wound Center Nurse 2 #2 R Foot Plantar -Time 11:51 -Correct Patient Yes -Correct Side, Site, Position Yes -Correct Procedure Yes -Procedure Performed Yes -Type of Procedure Debridement -Clinical Debridement Subcutaneous -Post Debridement Size (cm) - Length 0.6 -Post Debridement Size (cm) - Width 1.2 -Post Debridement Size (cm) - Depth 0.2 -Total Square Cm 0.72 -Wound/Ulcer Outcome Not Healed -Ulcer Cleansing Rinsed/ Irrigated with Saline -Foul Odor after Cleansing No -Bioengineered Tissue No -Bleeding Controlled with Pressure -Offloading No -Treatment Response Procedure Tolerated Well Pain Scale: 0-10 Numeric Is Patient Pain Free? Yes Wound debrided: sub 1st metatarsal head Laterality: Right Wound Grade/Stage: grade 1 Type of Debridement: Excisional debridement Anesthesia Used: 5% Lidocaine Gel Depth: in the subcutaneous layer Percentage of wound debrided: 100 Instrument Used: #15 blade Tissue Removed: fibrous, devitalized subcutaneous, biofilm, slough Severity: Fat Layer Exposed Amount of bleeding with debridement: Mild Bleeding Controlled with: Pressure Patient tolerated procedure well Assessment/Plan Active Problems (Last Updated 04/17/20 @ 13:[address] Jeevan Buck MD) Deformity of right foot (Chronic) Ulcer of right foot with fat layer exposed (Chronic) Delayed wound healing (Chronic) Malnutrition (Chronic) Assessment: diabetic foot ulcer grade 1 status, sub-first metatarsal head. 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 Poorly controlled diabetes mellitus, insulin-dependent with neuropathy. History of recent tobacco cessation. Delayed healing. Suspected malnutrition Plan: I reviewed and discussed his updated case. Debridement was performed today as noted in the clinical panel in a subcutaneous excisional manner to his ulcer site. Leah was applied to the ulcer bed. He is at risk for continued limb loss and we also discussed transmetatarsal amputation as a treatment option. He was advised to reduce extracurricular activities that are weightbearing while he is in the total contact cast. This is compromising his limb salvage plan. He would like to proceed forward with nonsurgical care at this time. To keep this clean, dry. To change dressing daily and wash with soap and water. He demonstrates understanding. To continue compliance with knee roller. To optimize healing by improving glycemic control. I recommended payroll auditor consultation and this is been initiated. He is doing well with nutrition adjustments. We discussed how glycemic control is a combination of medication adjustments, diet, exercise, and lifestyle modifications and this is important for healing ability. A referral was provided previously and this has been initiated. His hemoglobin A1c is now in the 7 range which is significantly improved. He is demonstrating continued delays in healing. He was reassured his local signs of infection are demonstrating improvement with oral antibiotic clindamycin. This course was completed. I do not recommend additional antibiotics at this time. To continue strict offloading. I do not recommend a total contact cast today to allow him to wash and change dressing daily. He will perform these dressing changes and will wash with Samantha-Hex antimicrobial medical grade soap is well. His labs, x-ray, and clinical notes were reviewed from [facility] emergency room visit. To follow up to the wound care center in 1 week. To call sooner if his status worsens or present to the emergency room.
[2020-05-27 09:51] VITALS: BP 141/85; PULSE 102; RESP 18; TEMP 36.8; BMI 30.9
--- NOTE | 2020-05-27 10:49 | PN.PCM_ITS ---
(1) Ulcer of right foot with fat layer exposed Status: Chronic Current Visit: Yes Code(s): L97.512 - Non-pressure chronic ulcer of other part of right foot with fat layer exposed (2) Diabetes mellitus with neuropathy Status: Chronic Current Visit: No Qualifiers: Diabetes mellitus type: type 1 Qualified Code(s): E10.40 - Type 1 diabetes mellitus with diabetic neuropathy, unspecified Code(s): E11.40 - Type 2 diabetes mellitus with diabetic neuropathy, unspecified (3) Deformity of right foot Status: Chronic Current Visit: Yes Code(s): M21.961 - Unspecified acquired deformity of right lower leg (4) Delayed wound healing Status: Chronic Current Visit: Yes Code(s): T14.8XXD - Other injury of unspecified body region, subsequent encounter (5) Malnutrition Status: Chronic Current Visit: Yes Code(s): E46 - Unspecified protein- calorie malnutrition Type of Wound Date of Service: 05/27/20 Chief Complaint: Ulcer right foot History of Wound: Mr. Diaz is a 45-year-old with history of poorly controlled diabetes mellitus status post several episodes of osteomyelitis/surgical debridement was seen for nonhealing sub 1st metatarsal head ulcer. His hemoglobin A1c has recently improved in a significant manner since he has been going to nutritional services counseling. He completed his antibiotics and denies side effects. He has been washing with antimicrobial soap as advised. He defers surgical intervention at this time and would like to proceed with total contact cast. He brought his cast walker today. Progress of Wound: Improving - Physical Exam Vital Signs Temp Pulse Resp BP Pulse Ox 98.3 F 102 H 18 141/85 H 98 05/27/20 09:51 05/27/20 09:51 05/27/20 09:51 05/27/20 09:51 05/20/20 00:20 General: Alert, Oriented x3, Cooperative, No apparent distress Extremities: Capillary Refill Less than 3 Seconds, No Calf Tenderness, Diminished Peripheral Pulses, Edema - Scant Skin: Ulcer/ Wound - No purulence, erythema, streaking, odor, infection. Adjacent skin is hairless and atrophic. Reduce callus and maceration noted today Wound Measurements and Assessment WC - Nurse 1 - General Ulcer Measurement Start: 05/20/20 11:31 Freq: Status: Active Protocol: Activity Type Activity Date Activity User E-Sign Co-Sign Detail Recorded Client Recorded Date Recorded By Document 05/27/20 09:51 BS [id number] 05/27/20 09:56 BS 05/27/20 09:51 Wound Center Nurse 1 [Ulcer Assessment] #2 R Foot Plantar -Combined with other wound No -Current Size (cm) - Length 0.5 -Current Size (cm) - Width 0.7 -Current Size (cm) - Depth 0.3 -Total Square Cm 0.35 -Photo Taken No -Texture (Radha-wound Skin Appearance) Assessed, Scarring -Moisture (Radha-wound Skin Appearance Assessed,Dry/ ) Scaly -Color (Radha-wound Skin Appearance) Assessed, Hemosiderin Staining -Temperature (Radha-wound Skin No Abnormality Appearance) (Pt Warm) -Tenderness on Palpation (Radha-wound No Skin Appearance) -Ulcer Cleansing Soap and water -Foul Odor after Cleansing No -Anesthetic Used 4% Lidocaine Solution WC - Nurse 2 - General Ulcer CM Notes Start: 05/20/20 11:31 Freq: Status: Active Protocol: Activity Type Activity Date Activity User E-Sign Co-Sign Detail Recorded Client Recorded Date Recorded By Document 05/27/20 10:34 PL [id number] 05/27/20 10:35 PL 05/27/20 10:34 Wound Center Nurse 2 [Procedure/Treatment] -Time 10:02 -Correct Patient Yes -Correct Side, Site, Position Yes -Correct Procedure Yes -Procedure Performed Yes -Type of Procedure Debridement -Clinical Debridement Subcutaneous -Post Debridement Size (cm) - Length 0.6 -Post Debridement Size (cm) - Width 0.8 -Post Debridement Size (cm) - Depth 0.4 -Total Square Cm 0.48 -Wound/Ulcer Outcome Not Healed -Ulcer Cleansing Rinsed/ Irrigated with Saline -Foul Odor after Cleansing No -Bleeding Controlled with Pressure -Type of Offloading Total Contact Cast (TCC) -Treatment Response Procedure Tolerated Well [See Physician Procedure note for Specifics] Pain Scale: 0-10 Numeric [Pain] -Is Patient Pain Free? Yes Musculoskeletal: No Tenderness to Palpation of Joints or Extremities, Muscle Wasting Neurological: - - Lack of normal epicritic sensation light touch is consistent with neuropathy status Debridement Note Post-Debridement Measurements/Treatment WC - Nurse 2 - General Ulcer CM Notes Start: 05/20/20 11:31 Freq: Status: Active Protocol: Activity Type Activity Date Activity User E-Sign Co-Sign Detail Recorded Client Recorded Date Recorded By Document 05/20/20 11:50 [id number] 05/20/20 11:51 Document 05/27/20 10:34 HOLLEY [id number] 05/27/20 10:35 HOLLEY 05/20/20 05/27/20 11:50 10:34 Wound Center Nurse 2 #2 R Foot Plantar -Time 11:51 10:02 -Correct Patient Yes Yes -Correct Side, Site, Position Yes Yes -Correct Procedure Yes Yes -Procedure Performed Yes Yes -Type of Procedure Debridement Debridement -Clinical Debridement Subcutaneous Subcutaneous -Post Debridement Size (cm) - Length 0.6 0.6 -Post Debridement Size (cm) - Width 1.2 0.8 -Post Debridement Size (cm) - Depth 0.2 0.4 -Total Square Cm 0.72 0.48 -Wound/Ulcer Outcome Not Healed Not Healed -Ulcer Cleansing Rinsed/ Rinsed/ Irrigated with Irrigated with Saline Saline -Foul Odor after Cleansing No No -Bioengineered Tissue No -Bleeding Controlled with Pressure Pressure -Offloading No -Type of Offloading Total Contact Cast (TCC) -Treatment Response Procedure Procedure Tolerated Well Tolerated Well Pain Scale: 0-10 Numeric Is Patient Pain Free? Yes Yes Wound debrided: plantar foot (sub 1st metatarsal head) Laterality: Right Wound Grade/Stage: grade 1 Type of Debridement: Excisional debridement Anesthesia Used: 5% Lidocaine Gel Depth: in the subcutaneous layer Percentage of wound debrided: 100 Instrument Used: #15 blade Tissue Removed: fibrous, devitalized subcutaneous, biofilm, slough Severity: Fat Layer Exposed Amount of bleeding with debridement: Mild Bleeding Controlled with: Pressure Patient tolerated procedure well Assessment/Plan Active Problems (Last Updated 04/17/20 @ 13:[address] Jeevan Buck MD) Deformity of right foot (Chronic) Ulcer of right foot with fat layer exposed (Chronic) Delayed wound healing (Chronic) Malnutrition (Chronic) Assessment: diabetic foot ulcer grade 1 status, sub-first metatarsal head. 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 Poorly controlled diabetes mellitus, insulin-dependent with neuropathy. History of recent tobacco cessation. Delayed healing. Suspected malnutrition Plan: I reviewed and discussed his updated case. Debridement was performed today as noted in the clinical panel in a subcutaneous excisional manner to his ulcer site. Leah was applied to the ulcer bed. He is at risk for continued limb loss and we also discussed transmetatarsal amputation as a treatment option. He does not want to proceed forward with this at this time. He was advised to reduce extracurricular activities that are weightbearing while he is in the total contact cast. This is compromising his limb salvage plan. He would like to proceed forward with nonsurgical care at this time. To keep this clean, dry. To change dressing daily and wash with soap and water. He demonstrates understanding. To continue compliance with knee roller. To optimize healing by improving glycemic control. I recommended insulator helper consultation and this is been initiated. He is doing well with nutrition adjustments. We discussed how glycemic control is a combination of medication adjustments, diet, exercise, and lifestyle modifications and this is important for healing ability. A referral was provided previously and this has been initiated. His hemoglobin A1c is now in the 7 range which is significantly improved. He is demonstrating continued delays in healing. He does not have local signs of infection today and I do not recommend additional antibiotics. I recommend application of Leah in total contact cast today. This was applied after verbal consent was obtained according standard protocol in a rectus well- padded manner. He tolerated this well. To keep clean dry and intact until follow-up next week. His labs, x-ray, and clinical notes were reviewed from [facility] emergency room visit. To follow up to the wound care center in 1 week. To call sooner if his status worsens or present to the emergency room.
[2020-06-03 09:13] VITALS: BP 142/87; PULSE 96; RESP 18; TEMP 36.4; BMI 30.9
--- NOTE | 2020-06-03 11:52 | PN.PCM_ITS ---
(1) Ulcer of right foot with fat layer exposed Status: Chronic Code(s): L97.512 - Non-pressure chronic ulcer of other part of right foot with fat layer exposed (2) Diabetes mellitus with neuropathy Status: Chronic Qualifiers: Diabetes mellitus type: type 1 Qualified Code(s): E10.40 - Type 1 diabetes mellitus with diabetic neuropathy, unspecified Code(s): E11.40 - Type 2 diabetes mellitus with diabetic neuropathy, unspecified (3) Deformity of right foot Status: Chronic Code(s): M21.961 - Unspecified acquired deformity of right lower leg (4) Delayed wound healing Status: Chronic Code(s): T14.8XXD - Other injury of unspecified body region, subsequent encounter (5) Malnutrition Status: Chronic Code(s): E46 - Unspecified protein-calorie malnutrition Type of Wound Date of Service: 06/03/20 Chief Complaint: Ulcer right foot History of Wound: Mr. Diaz is a 45-year-old with history of poorly controlled diabetes mellitus status post several episodes of osteomyelitis/surgical debridement was seen for nonhealing sub 1st metatarsal head ulcer. His hemoglobin A1c has recently improved in a significant manner since he has been going to nutritional services counseling. He completed his antibiotics and denies side effects. He did well with a total contact cast last week. He defers surgical intervention at this time and would like to proceed with total contact cast. He brought his cast walker today. Progress of Wound: Improving - Physical Exam Vital Signs Temp Pulse Resp BP Pulse Ox 97.6 F L 96 18 142/87 H 98 06/03/20 09:13 06/03/20 09:13 06/03/20 09:13 06/03/20 09:13 05/20/20 00:20 General: Alert, Oriented x3, Cooperative, No apparent distress Extremities: No cyanosis, Capillary Refill Less than 3 Seconds, No Calf Tenderness, Diminished Peripheral Pulses, Edema Skin: Ulcer/ Wound - No purulence, erythema, streaking, odor, infection. The skin is atrophic and hairless. Wound Measurements and Assessment WC - Nurse 1 - General Ulcer Measurement Start: 05/20/20 11:31 Freq: Status: Active Protocol: Activity Type Activity Date Activity User E-Sign Co-Sign Detail Recorded Client Recorded Date Recorded By Document 06/03/20 09:13 DV [id number] 06/03/20 09:16 DV 06/03/20 09:13 Wound Center Nurse 1 [Ulcer Assessment] #2 R Foot Plantar -Combined with other wound No -Current Size (cm) - Length 0.3 -Current Size (cm) - Width 0.9 -Current Size (cm) - Depth 0.1 -Total Square Cm 0.27 -Photo Taken No -Epithelialization None Present -Tunneling No -Undermining/Tunneling No -Circular Undermining No -Classification - Thickness Full Thickness without Exposed Support Structure -Exudate Amt Small -Exudate Type Serosanguineous -Wound Margin Flat & Intact -Granulation Amt None Present (0 %) -Granulation Quality N/A -Slough/Fibrin No -Necrosis Amt Medium (34-66%) -Necrotic Tissue Type Adherent Slough -Structure Exposed None/Limited to Skin Breakdown -Texture (Radha-wound Skin Appearance) Assessed, Scarring -Moisture (Radha-wound Skin Appearance Assessed, ) Weeping -Color (Radha-wound Skin Appearance) No Abnormality, Assessed -Temperature (Radha-wound Skin No Abnormality Appearance) (Pt Warm) -Tenderness on Palpation (Radha-wound No Skin Appearance) -Foul Odor after Cleansing No -Anesthetic Used 4% Lidocaine Solution WC - Nurse 2 - General Ulcer CM Notes Start: 05/20/20 11:31 Freq: Status: Active Protocol: Activity Type Activity Date Activity User E-Sign Co-Sign Detail Recorded Client Recorded Date Recorded By Document 06/03/20 09:25 JF [id number] 06/03/20 09:25 JF 06/03/20 09:25 Wound Center Nurse 2 [Procedure/Treatment] -Time 09:25 -Correct Patient Yes -Correct Side, Site, Position Yes -Correct Procedure Yes -Procedure Performed Yes -Type of Procedure Debridement -Clinical Debridement Subcutaneous -Post Debridement Size (cm) - Length 0.3 -Post Debridement Size (cm) - Width 0.6 -Post Debridement Size (cm) - Depth 0.1 -Total Square Cm 0.18 -Wound/Ulcer Outcome Not Healed -Ulcer Cleansing Rinsed/ Irrigated with Saline -Foul Odor after Cleansing No -Bioengineered Tissue No -Bleeding Controlled with Pressure -Offloading Yes -Type of Offloading Total Contact Cast (TCC) -Treatment Response Procedure Tolerated Well [See Physician Procedure note for Specifics] Pain Scale: 0-10 Numeric [Pain] -Is Patient Pain Free? Yes Musculoskeletal: Muscle Wasting Neurological: - - Lack of normal epicritic sensation Psych/Mental Status: Normal Affect, Appropriate Debridement Note Post-Debridement Measurements/Treatment WC - Nurse 2 - General Ulcer CM Notes Start: 05/20/20 11:31 Freq: Status: Active Protocol: Activity Type Activity Date Activity User E-Sign Co-Sign Detail Recorded Client Recorded Date Recorded By Document 05/20/20 11:50 JF [id number] 05/20/20 11:51 JF Document 05/27/20 10:34 PL [id number] 05/27/20 10:35 PL Document 06/03/20 09:25 JF [id number] 06/03/20 09:25 JF 05/20/20 05/27/20 06/03/20 11:50 10:34 09:25 Wound Center Nurse 2 #2 R Foot Plantar -Time 11:51 10:02 09:25 -Correct Patient Yes Yes Yes -Correct Side, Site, Position Yes Yes Yes -Correct Procedure Yes Yes Yes -Procedure Performed Yes Yes Yes -Type of Procedure Debridement Debridement Debridement -Clinical Debridement Subcutaneous Subcutaneous Subcutaneous -Post Debridement Size (cm) - Length 0.6 0.6 0.3 -Post Debridement Size (cm) - Width 1.2 0.8 0.6 -Post Debridement Size (cm) - Depth 0.2 0.4 0.1 -Total Square Cm 0.72 0.48 0.18 -Wound/Ulcer Outcome Not Healed Not Healed Not Healed -Ulcer Cleansing Rinsed/ Rinsed/ Rinsed/ Irrigated with Irrigated with Irrigated with Saline Saline Saline -Foul Odor after Cleansing No No No -Bioengineered Tissue No No -Bleeding Controlled with Pressure Pressure Pressure -Offloading No Yes -Type of Offloading Total Contact Total Contact Cast (TCC) Cast (TCC) -Treatment Response Procedure Procedure Procedure Tolerated Well Tolerated Well Tolerated Well Pain Scale: 0-10 Numeric Is Patient Pain Free? Yes Yes Yes Wound debrided: sub 1st metatarsal head Laterality: Right Wound Grade/Stage: grade 1 Type of Debridement: Excisional debridement Anesthesia Used: 5% Lidocaine Gel Depth: in the subcutaneous layer Percentage of wound debrided: 100 Instrument Used: #15 blade Tissue Removed: fibrous, devitalized subcutaenous, biofilm, slough Severity: Fat Layer Exposed Amount of bleeding with debridement: Mild Bleeding Controlled with: Pressure Patient tolerated procedure well Assessment/Plan Assessment: diabetic foot ulcer grade 1 status, sub-first metatarsal head. 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 Poorly controlled diabetes mellitus, insulin-dependent with neuropathy. History of recent tobacco cessation. Delayed healing. Suspected malnutrition Plan: I reviewed and discussed his updated case. Debridement was performed today as noted in the clinical panel in a subcutaneous excisional manner to his ulcer site. Leah was applied to the ulcer bed. He is at risk for continued limb loss and we also discussed transmetatarsal amputation as a treatment option. He does not want to proceed forward with this at this time. He was advised to reduce extracurricular activities that are weightbearing while he is in the total contact cast. This is compromising his limb salvage plan. He would like to proceed forward with nonsurgical care at this time. To keep this clean, dry. To change dressing daily and wash with soap and water. He demonstrates understanding. To continue compliance with knee roller. To optimize healing by improving glycemic control. I recommended shingle trimmer consultation and this is been initiated. He is doing well with nutrition adjustments. We discussed how glycemic control is a combination of medication adjustments, diet, exercise, and lifestyle modifications and this is important for healing ability. A referral was provided previously and this has been ini tiated. His hemoglobin A1c is now in the 7 range which is significantly improved. He is demonstrating continued delays in healing. He does not have local signs of infection today and I do not recommend additional antibiotics. I recommend application of Leah in total contact cast today. This was applied after verbal consent was obtained according standard protocol in a rectus well- padded manner. He tolerated this well. To keep clean dry and intact until follow-up next week. His labs, x-ray, and clinical notes were reviewed from [facility] emergency room visit. To follow up to the wound care center in 1 week. To call sooner if his status worsens or present to the emergency room.
--- NOTE | 2020-06-10 11:16 | PN.PCM_ITS ---
(1) Ulcer of right foot with fat layer exposed Status: Chronic Current Visit: Yes Code(s): L97.512 - Non-pressure chronic ulcer of other part of right foot with fat layer exposed (2) Diabetes mellitus with neuropathy Status: Chronic Current Visit: Yes Qualifiers: Diabetes mellitus type: type 1 Qualified Code(s): E10.40 - Type 1 diabetes mellitus with diabetic neuropathy, unspecified Code(s): E11.40 - Type 2 diabetes mellitus with diabetic neuropathy, unspecified (3) Deformity of right foot Status: Chronic Current Visit: Yes Code(s): M21.961 - Unspecified acquired deformity of right lower leg (4) Delayed wound healing Status: Chronic Current Visit: Yes Code(s): T14.8XXD - Other injury of unspecified body region, subsequent encounter (5) Malnutrition Status: Chronic Current Visit: Yes Code(s): E46 - Unspecified protein- calorie malnutrition Type of Wound Date of Service: 06/10/20 Chief Complaint: Ulcer right foot History of Wound: Mr. Diaz is a 45-year-old with history of poorly controlled diabetes mellitus status post several episodes of osteomyelitis/surgical debridement was seen for nonhealing sub 1st metatarsal head ulcer. His hemoglobin A1c has recently improved in a significant manner since he has been going to nutritional services counseling. He did well with a total contact cast last week. He defers surgical intervention at this time and would like to proceed with total contact cast. Progress of Wound: Improving - Physical Exam Vital Signs Temp Pulse Resp BP Pulse Ox 97.6 F L 96 18 142/87 H 98 06/03/20 09:13 06/03/20 09:13 06/03/20 09:13 06/03/20 09:13 05/20/20 00:20 General: Alert, Oriented x3, Cooperative, No apparent distress Extremities: No cyanosis, Capillary Refill Less than 3 Seconds, No Calf Tenderness, Diminished Peripheral Pulses, Edema - Very mild Skin: Ulcer/ Wound - No purulence, erythema, streaking, odor, infection. The adjacent skin is hairless and atrophic. There is maceration peripheral ulcer site. Wound Measurements and Assessment WC - Nurse 2 - General Ulcer CM Notes Start: 05/20/20 11:31 Freq: Status: Active Protocol: Activity Type Activity Date Activity User E-Sign Co-Sign Detail Recorded Client Recorded Date Recorded By Document 06/10/20 09:48 [id number] 06/10/20 09:54 06/10/20 09:48 Wound Center Nurse 2 [Procedure/Treatment] #2 R Foot Plantar -Time 09:49 -Correct Patient Yes -Correct Side, Site, Position Yes -Correct Procedure Yes -Procedure Performed Yes -Type of Procedure Debridement -Clinical Debridement Subcutaneous -Post Debridement Size (cm) - Length 0.3 -Post Debridement Size (cm) - Width 0.6 -Post Debridement Size (cm) - Depth 0.1 -Total Square (cm) 0.18 -Wound/Ulcer Outcome Not Healed -Ulcer Cleansing Rinsed/ Irrigated with Saline -Foul Odor after Cleansing No -Bioengineered Tissue No -Bleeding Controlled with Pressure -Offloading Yes -Type of Offloading Camwalker -Treatment Response Procedure Tolerated Well [See Physician Procedure note for Specifics] Pain Scale: 0-10 Numeric [Pain] -Is Patient Pain Free? Yes Musculoskeletal: No Tenderness to Palpation of Joints or Extremities, Muscle Wasting, - - Second toe amputation and forefoot deformities noted Neurological: - - Lack of epicritic sensation light touch is consistent with neuropathy Psych/Mental Status: Normal Affect, Appropriate Debridement Note Post-Debridement Measurements/Treatment WC - Nurse 2 - General Ulcer CM Notes Start: 05/20/20 11:31 Freq: Status: Active Protocol: Activity Type Activity Date Activity User E-Sign Co-Sign Detail Recorded Client Recorded Date Recorded By Document 05/20/20 11:50 [id number] 05/20/20 11:51 Document 05/27/20 10:34 [id number] 05/27/20 10:35 Document 06/03/20 09:25 [id number] 06/03/20 09:25 Document 06/10/20 09:48 [id number] 06/10/20 09:54 05/20/20 05/27/20 06/03/20 11:50 10:34 09:25 Wound Center Nurse 2 #2 R Foot Plantar -Time 11:51 10:02 09:25 -Correct Patient Yes Yes Yes -Correct Side, Site, Position Yes Yes Yes -Correct Procedure Yes Yes Yes -Procedure Performed Yes Yes Yes -Type of Procedure Debridement Debridement Debridement -Clinical Debridement Subcutaneous Subcutaneous Subcutaneous -Post Debridement Size (cm) - Length 0.6 0.6 0.3 -Post Debridement Size (cm) - Width 1.2 0.8 0.6 -Post Debridement Size (cm) - Depth 0.2 0.4 0.1 -Total Square (cm) 0.72 0.48 0.18 -Wound/Ulcer Outcome Not Healed Not Healed Not Healed -Ulcer Cleansing Rinsed/ Rinsed/ Rinsed/ Irrigated with Irrigated with Irrigated with Saline Saline Saline -Foul Odor after Cleansing No No No -Bioengineered Tissue No No -Bleeding Controlled with Pressure Pressure Pressure -Offloading No Yes -Type of Offloading Total Contact Total Contact Cast (TCC) Cast (TCC) -Treatment Response Procedure Procedure Procedure Tolerated Well Tolerated Well Tolerated Well Pain Scale: 0-10 Numeric Is Patient Pain Free? Yes Yes Yes 06/10/20 09:48 Wound Center Nurse 2 #2 R Foot Plantar -Time 09:49 -Correct Patient Yes -Correct Side, Site, Position Yes -Correct Procedure Yes -Procedure Performed Yes -Type of Procedure Debridement -Clinical Debridement Subcutaneous -Post Debridement Size (cm) - Length 0.3 -Post Debridement Size (cm) - Width 0.6 -Post Debridement Size (cm) - Depth 0.1 -Total Square (cm) 0.18 -Wound/Ulcer Outcome Not Healed -Ulcer Cleansing Rinsed/ Irrigated with Saline -Foul Odor after Cleansing No -Bioengineered Tissue No -Bleeding Controlled with Pressure -Offloading Yes -Type of Offloading Camwalker -Treatment Response Procedure Tolerated Well Pain Scale: 0-10 Numeric Is Patient Pain Free? Yes Wound debrided: sub 1st metatarsal head Laterality: Left Wound Grade/Stage: grade 1 Type of Debridement: Excisional debridement Anesthesia Used: 5% Lidocaine Gel Depth: in the subcutaneous layer Percentage of wound debrided: 100 Instrument Used: #15 blade Tissue Removed: fibrous, devitalized subcutaneous, biofilm, slough Severity: Fat Layer Exposed Amount of bleeding with debridement: Mild Bleeding Controlled with: Pressure Patient tolerated procedure well Assessment/Plan Active Problems (Last Updated 04/17/20 @ 13:[address] Jeevan Buck MD) Diabetes mellitus with neuropathy (Chronic) Deformity of right foot (Chronic) Ulcer of right foot with fat layer exposed (Chronic) Delayed wound healing (Chronic) Malnutrition (Chronic) Assessment: diabetic foot ulcer grade 1 status, sub-first metatarsal head. 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 Poorly controlled diabetes mellitus, insulin-dependent with neuropathy. History of recent tobacco cessation. Delayed healing. Suspected malnutrition Plan: I reviewed and discussed his updated case. Debridement was performed tod janna as noted in the clinical panel in a subcutaneous excisional manner to his ulcer site. Leah was applied to the ulcer bed. He is at risk for continued limb loss and we also discussed transmetatarsal amputation as a treatment option. He does not want to proceed forward with this at this time. He was advised to reduce extracurricular activities that are weightbearing while he is in the total contact cast. This is compromising his limb salvage plan. He would like to proceed forward with nonsurgical care at this time. To keep this clean, dry. To change dressing daily with [employer], and wash with soap and water. He demonstrates understanding. To continue compliance with knee roller. To optimize healing by improving glycemic control. I recommended heel attacher consultation and this is been initiated. He is doing well with nutrition adjustments. We discussed how glycemic control is a combination of medication adjustments, diet, exercise, and lifestyle modifications and this is important for healing ability. A referral was provided previously and this has been initiated. His hemoglobin A1c is now in the 7 range which is significantly improved. He is demonstrating continued delays in healing. He does not have local signs of infection today and I do not recommend additional antibiotics. He will take a break from total contact cast due to maceration and significant improvement. He was advised to strictly offloading compliance will be very necessary for him while he is at home. To follow-up to the wound healing center in 1 to 2 weeks. To call sooner if his status worsens or present to the emergency room.
== END 2020-06-19 23:59 ==
LOC: WC 09:00
PROVIDERS: Family Provider Internal Medicine; PCP Nurse Practitioner Family; Referring Provider Podiatrist; Visit Provider Podiatrist
DX: E11.621 Type 2 diabetes mellitus with foot ulcer (principal); L97.512 Non-pressure chronic ulcer of other part of right foot with fat layer exposed; E11.40 Type 2 diabetes mellitus with diabetic neuropathy, unspecified; E46 Unspecified protein-calorie malnutrition; E11.65 Type 2 diabetes mellitus with hyperglycemia; Z79.4 Long term (current) use of insulin; Z89.421 Acquired absence of other right toe(s)
CPT/HCPCS: 11042; 29445

== ENCOUNTER 2020-07-15 08:30 | Outpatient (RCR) | payer OTHER, SELFPAY ==
[2020-06-03 09:13] VITALS: BMI 30.9
[2020-06-20 00:20] VITALS: BP 142/87; PULSE 96; RESP 18; TEMP 36.4; O2SAT 98
[2020-06-24 09:10] VITALS: BP 143/94; PULSE 103; RESP 20; TEMP 36.6; BMI 30.9
--- NOTE | 2020-06-24 12:04 | PCM.WC.PN ---
(1) Diabetic polyneuropathy associated with type 1 diabetes mellitus Status: Chronic Code(s): E10.42 - Type 1 diabetes mellitus with diabetic polyneuropathy (2) Deformity of right foot Status: Chronic Code(s): M21.961 - Unspecified acquired deformity of right lower leg (3) Ulcer of right foot with fat layer exposed Status: Chronic Code(s): L97.512 - Non-pressure chronic ulcer of other part of right foot with fat layer exposed (4) Delayed wound healing Status: Chronic Code(s): T14.8XXD - Other injury of unspecified body region, subsequent encounter (5) Malnutrition Status: Chronic Code(s): E46 - Unspecified protein-calorie malnutrition Type of Wound Date of Service: 06/24/20 Chief Complaint: Ulcer right foot History of Wound: Mr. Diaz is a 45-year-old with history of poorly controlled diabetes mellitus status post several episodes of osteomyelitis/surgical debridement was seen for nonhealing sub 1st metatarsal head ulcer. His hemoglobin A1c has recently improved in a significant manner since he has been going to nutritional services counseling. He defers surgical intervention at this time and would like to proceed with total contact cast. Progress of Wound: Stable - Physical Exam Vital Signs Temp Pulse Resp BP Pulse Ox 97.8 F 103 H 20 H 143/94 H 98 06/24/20 09:10 06/24/20 09:10 06/24/20 09:10 06/24/20 09:10 06/20/20 00:20 General: Alert, Oriented x3, Cooperative, No apparent distress HEENT: Atraumatic Extremities: No cyanosis, Capillary Refill Less than 3 Seconds, No Calf Tenderness, Diminished Peripheral Pulses, Edema Skin: Ulcer/ Wound - No purulence, erythema, streaking, odor, infection Wound Measurements and Assessment WC - Nurse 1 - General Ulcer Measurement Start: 06/24/20 09:10 Freq: Status: Active Protocol: Activity Type Activity Date Activity User E-Sign Co-Sign Detail Recorded Client Recorded Date Recorded By Document 06/24/20 09:10 DL [id number] 06/24/20 09:17 DL 06/24/20 09:10 Wound Center Nurse 1 [Ulcer Assessment] #2 R Foot Plantar -Current Size (cm) - Length 0.7 -Current Size (cm) - Width 1.4 -Current Size (cm) - Depth 0.2 -Total Square Cm 0.98 -Photo Taken No -Exudate Amt Medium -Exudate Type Serosanguineous -Wound Margin Thickened -Granulation Amt Large (67-100%) -Granulation Quality [place],Red -Necrosis Amt Small (1-33%) -Necrotic Tissue Type Adherent Slough -Texture (Radha-wound Skin Appearance) Callus,Scarring -Moisture (Radha-wound Skin Appearance Dry/Scaly ) -Color (Radha-wound Skin Appearance) No Abnormality -Temperature (Radha-wound Skin No Abnormality Appearance) (Pt Warm) -Tenderness on Palpation (Radha-wound No Skin Appearance) -Ulcer Cleansing Rinsed/ Irrigated with Saline -Foul Odor after Cleansing No -Anesthetic Used 4% Lidocaine Solution - Nurse 2 - General Ulcer CM Notes Start: 06/24/20 09:10 Freq: Status: Active Protocol: Activity Type Activity Date Activity User E-Sign Co-Sign Detail Recorded Client Recorded Date Recorded By Document 06/24/20 09:42 JF [id number] 06/24/20 09:42 RAYNA 06/24/20 09:42 Wound Center Nurse 2 [Procedure/Treatment] -Time 09:42 -Correct Patient Yes -Correct Side, Site, Position Yes -Correct Procedure Yes -Procedure Performed Yes -Type of Procedure Debridement -Clinical Debridement Subcutaneous -Post Debridement Size (cm) - Length 0.7 -Post Debridement Size (cm) - Width 1.5 -Post Debridement Size (cm) - Depth 0.2 -Total Square (cm) 1.05 -Wound/Ulcer Outcome Not Healed -Ulcer Cleansing Rinsed/ Irrigated with Saline -Foul Odor after Cleansing No -Bioengineered Tissue No -Bleeding Controlled with Pressure -Offloading No -Treatment Response Procedure Tolerated Well [See Physician Procedure note for Specifics] Pain Scale: 0-10 Numeric [Pain] -Is Patient Pain Free? Yes Musculoskeletal: No Tenderness to Palpation of Joints or Extremities, Muscle Wasting, - - Decreased ankle dorsiflexion. Second toe amputation. Prominent first metatarsal head plantar Neurological: - - Lack of normal epicritic sensation light touch Psych/Mental Status: Normal Affect, Appropriate Debridement Note Post-Debridement Measurements/Treatment ALVINO - Nurse 2 - General Ulcer CM Notes Start: 06/24/20 09:10 Freq: Status: Active Protocol: Activity Type Activity Date Activity User E-Sign Co-Sign Detail Recorded Client Recorded Date Recorded By Document 06/24/20 09:42 JF [id number] 06/24/20 09:42 JF 06/24/20 09:42 Wound Center Nurse 2 #2 R Foot Plantar -Time 09:42 -Correct Patient Yes -Correct Side, Site, Position Yes -Correct Procedure Yes -Procedure Performed Yes -Type of Procedure Debridement -Clinical Debridement Subcutaneous -Post Debridement Size (cm) - Length 0.7 -Post Debridement Size (cm) - Width 1.5 -Post Debridement Size (cm) - Depth 0.2 -Total Square (cm) 1.05 -Wound/Ulcer Outcome Not Healed -Ulcer Cleansing Rinsed/ Irrigated with Saline -Foul Odor after Cleansing No -Bioengineered Tissue No -Bleeding Controlled with Pressure -Offloading No -Treatment Response Procedure Tolerated Well Pain Scale: 0-10 Numeric Is Patient Pain Free? Yes Wound debrided: sub 1st metatarsal head Laterality: Right Type of Debridement: Excisional debridement Anesthesia Used: 5% Lidocaine Gel Depth: in the subcutaneous layer Percentage of wound debrided: 100 Instrument Used: #15 blade Tissue Removed: fibrous, devitalized subcutaneous, biofilm, slough Severity: Fat Layer Exposed Amount of bleeding with debridement: Mild Bleeding Controlled with: Pressure Patient tolerated procedure well Assessment/Plan Assessment: diabetic foot ulcer grade 1 status, sub-first metatarsal head. 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 Poorly controlled diabetes mellitus, insulin-dependent with neuropathy. History of recent tobacco cessation. Delayed healing. Suspected malnutrition Plan: I reviewed and discussed his updated case. Debridement was performed today as noted in the clinical panel in a subcutaneous excisional manner to his ulcer site. Leah was applied to the ulcer bed. He is at risk for continued limb loss and we also discussed transmetatarsal amputation as a treatment option. I also discussed with him surgical lengthening of the posterior leg compartment such as a tendo Achilles lengthening versus gastrocnemius recession. He does not want to proceed forward with this at this time. He was advised to reduce extracurricular activities that are weightbearing while he is in the total contact cast. This is compromising his limb salvage plan. He would like to proceed forward with nonsurgical care at this time. A well-padded total contact cast will be applied next week when he has somebody that can drive him. He demonstrates understanding. To continue compliance with knee roller. To optimize healing by improving glycemic control. I recommended optical element coater consultation and this is been initiated. He is doing well with nutrition adjustments. We discussed how glycemic control is a combination of medication adjustments, diet, exercise, and lifestyle modifications and this is important for healing ability. A referral was provided previously and this has been initiated. His hemoglobin A1c is now in the 7 range which is significantly improved. He is demonstrating continued delays in healing. He does not have local signs of infection today and I do not recommend additional antibiotics. He was advised to strictly offloading compliance will be very necessary for him while he is at home. To follow-up to the wound healing center in 1 to 2 weeks. To call sooner if his status worsens or present to the emergency room.
[2020-07-01 08:31] VITALS: BP 148/87; PULSE 103; RESP 20; TEMP 36.6; BMI 30.9
--- NOTE | 2020-07-01 12:58 | PCM.WC.PN ---
(1) Diabetic polyneuropathy associated with type 1 diabetes mellitus Status: Chronic Current Visit: Yes Code(s): E10.42 - Type 1 diabetes mellitus with diabetic polyneuropathy (2) Deformity of right foot Status: Chronic Current Visit: Yes Code(s): M21.961 - Unspecified acquired deformity of right lower leg (3) Ulcer of right foot with fat layer exposed Status: Chronic Current Visit: Yes Code(s): L97.512 - Non-pressure chronic ulcer of other part of right foot with fat layer exposed (4) Delayed wound healing Status: Chronic Current Visit: Yes Code(s): T14.8XXD - Other injury of unspecified body region, subsequent encounter (5) Malnutrition Status: Chronic Current Visit: Yes Code(s): E46 - Unspecified protein-calorie malnutrition (6) Acquired posterior equinus of right lower extremity Status: Chronic Current Visit: Yes Code(s): M21.861 - Other specified acquired deformities of right lower leg Type of Wound Date of Service: 07/01/20 Chief Complaint: Ulcer right foot History of Wound: Mr. Diaz is a 45-year-old with history of poorly controlled diabetes mellitus status post several episodes of osteomyelitis/surgical debridement was seen for nonhealing sub 1st metatarsal head ulcer. His hemoglobin A1c has recently improved in a significant manner since he has been going to nutritional services counseling. He defers surgical intervention at this time and would like to proceed with total contact cast. Progress of Wound: Stable - Physical Exam Vital Signs Temp Pulse Resp BP Pulse Ox 98 F 103 H 20 H 148/87 H 98 07/01/20 08:31 07/01/20 08:31 07/01/20 08:31 07/01/20 08:31 06/20/20 00:20 General: Alert HEENT: Atraumatic Extremities: No cyanosis, Capillary Refill Less than 3 Seconds, Diminished Peripheral Pulses, Edema Skin: Ulcer/ Wound - no purulence, no erythema, no streaking, no infection, Wound Measurements and Assessment WC - Nurse 1 - General Ulcer Measurement Start: 06/24/20 09:10 Freq: Status: Active Protocol: Activity Type Activity Date Activity User E-Sign Co-Sign Detail Recorded Client Recorded Date Recorded By Document 07/01/20 08:31 DL [id number] 07/01/20 08:36 DL 07/01/20 08:31 Wound Center Nurse 1 [Ulcer Assessment] #2 R Foot Plantar -Current Size (cm) - Length 0.7 -Current Size (cm) - Width 0.8 -Current Size (cm) - Depth 0.2 -Total Square Cm 0.56 -Photo Taken No -Undermining/Tunneling Starts (O' 12 clock) -Undermining/Tunneling Ends (O'clock) 1 -Maximum Distance (cm) 0.2 -Exudate Amt Small -Exudate Type Serosanguineous -Wound Margin Thickened -Granulation Amt Medium (34-66%) -Granulation Quality Red -Necrosis Amt Medium (34-66%) -Necrotic Tissue Type Adherent Slough -Structure Exposed N/A -Texture (Radha-wound Skin Appearance) Callus,Scarring -Moisture (Radha-wound Skin Appearance No Abnormality ) -Color (Radha-wound Skin Appearance) No Abnormality -Temperature (Radha-wound Skin No Abnormality Appearance) (Pt Warm) -Tenderness on Palpation (Radha-wound No Skin Appearance) -Ulcer Cleansing Rinsed/ Irrigated with Saline -Foul Odor after Cleansing No -Anesthetic Used 4% Lidocaine Solution WC - Nurse 2 - General Ulcer CM Notes Start: 06/24/20 09:10 Freq: Status: Active Protocol: Activity Type Activity Date Activity User E-Sign Co-Sign Detail Recorded Client Recorded Date Recorded By Document 07/01/20 08:51 RAYNA [id number] 07/01/20 08:55 RAYNA 07/01/20 08:51 Wound Center Nurse 2 [Procedure/Treatment] -Time 08:52 -Correct Patient Yes -Correct Side, Site, Position Yes -Correct Procedure Yes -Procedure Performed Yes -Type of Procedure Debridement -Clinical Debridement Subcutaneous -Post Debridement Size (cm) - Length 0.8 -Post Debridement Size (cm) - Width 0.8 -Post Debridement Size (cm) - Depth 0.3 -Total Square (cm) 0.64 -Wound/Ulcer Outcome Not Healed -Ulcer Cleansing Rinsed/ Irrigated with Saline -Foul Odor after Cleansing No -Bioengineered Tissue No -Bleeding Controlled with Pressure -Offloading Yes -Type of Offloading Total Contact Cast (TCC) -Treatment Response Procedure Tolerated Well [See Physician Procedure note for Specifics] Pain Scale: 0-10 Numeric [Pain] -Is Patient Pain Free? Yes Musculoskeletal: No Tenderness to Palpation of Joints or Extremities, Muscle Wasting, - - decreased ankle joint dorsiflexion and plantarflexion with the knee flexed and extended bilateral consistent with gastronemius soleus equinus Neurological: - - lack of normal epicritic sensation via light touch consistent with neuropathy Debridement Note Post-Debridement Measurements/Treatment WC - Nurse 2 - General Ulcer CM Notes Start: 06/24/20 09:10 Freq: Status: Active Protocol: Activity Type Activity Date Activity User E-Sign Co-Sign Detail Recorded Client Recorded Date Recorded By Document 06/24/20 09:42 [id number] 06/24/20 09:42 Document 07/01/20 08:51 [id number] 07/01/20 08:55 JF 06/24/20 07/01/20 09:42 08:51 Wound Center Nurse 2 #2 R Foot Plantar -Time 09:42 08:52 -Correct Patient Yes Yes -Correct Side, Site, Position Yes Yes -Correct Procedure Yes Yes -Procedure Performed Yes Yes -Type of Procedure Debridement Debridement -Clinical Debridement Subcutaneous Subcutaneous -Post Debridement Size (cm) - Length 0.7 0.8 -Post Debridement Size (cm) - Width 1.5 0.8 -Post Debridement Size (cm) - Depth 0.2 0.3 -Total Square (cm) 1.05 0.64 -Wound/Ulcer Outcome Not Healed Not Healed -Ulcer Cleansing Rinsed/ Rinsed/ Irrigated with Irrigated with Saline Saline -Foul Odor after Cleansing No No -Bioengineered Tissue No No -Bleeding Controlled with Pressure Pressure -Offloading No Yes -Type of Offloading Total Contact Cast (TCC) -Treatment Response Procedure Procedure Tolerated Well Tolerated Well Pain Scale: 0-10 Numeric Is Patient Pain Free? Yes Yes Wound debrided: sub 1st metatarsal head Laterality: Right Wound Grade/Stage: grade 1 Type of Debridement: Excisional debridement Anesthesia Used: 5% Lidocaine Gel Depth: in the subcutaneous layer Percentage of wound debrided: 100 Instrument Used: #15 blade Tissue Removed: fibrous, devitalized subcutaneous, biofilm, slough Severity: Fat Layer Exposed Amount of bleeding with debridement: Mild Bleeding Controlled with: Pressure Patient tolerated procedure well Assessment/Plan Active Problems (Last Updated 04/17/20 @ 13:[address] Jeevan Buck MD) Acquired posterior equinus of right lower extremity (Chronic) Diabetic polyneuropathy associated with type 1 diabetes mellitus (Chronic) Deformity of right foot (Chronic) Ulcer of right foot with fat layer exposed (Chronic) Delayed wound healing (Chronic) Malnutrition (Chronic) Assessment: diabetic foot ulcer grade 1 status, sub-first metatarsal head. 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 equinus right (gastrocnemius soleus). Poorly controlled diabetes mellitus, insulin-dependent with neuropathy. History of recent tobacco cessation. Delayed healing. Suspected malnutrition Plan: I reviewed and discussed his updated case. Debridement was performed today as noted in the clinical panel in a subcutaneous excisional manner to his ulcer site. Leah was applied to the ulcer bed. He is at risk for continued limb loss and we also discussed transmetatarsal amputation as a treatment option. I also discussed with him surgical lengthening of the posterior leg compartment such as a tendo Achilles lengthening in a percutaneous manner. The indications, benefits, risks, complications and anticipated healing course of this same day surgical procedure was discussed. He wants to discuss this option further with his . He was advised to reduce extracurricular activities that are weightbearing while he is in the total contact cast. This is compromising his limb salvage plan. He would like to proceed forward with nonsurgical care at this time. A well-padded total contact cast was applied today according to standard protocol. Verbal consent was obtained and he tolerated this well. To keep clean, dry, intact. He demonstrates understanding. To continue compliance with knee roller. To optimize healing by improving glycemic control. I recommended chief accountant consultation and this is been initiated. He is doing well with nutrition adjustments. We discussed how glycemic control is a combination of medication adjustments, diet, exercise, and lifestyle modifications and this is important for healing ability. A referral was provided previously and this has been initiated. His hemoglobin A1c was 7.4% which is significantly improved. He is demonstrating continued delays in healing. He does not have local signs of infection today and I do not recommend additional antibiotics. He was advised to strictly offloading compliance will be very necessary for him while he is at home. To follow-up to the wound healing center in 1 week. To call sooner if his status worsens or present to the emergency room.
[2020-07-08 08:36] VITALS: BP 152/84; PULSE 96; RESP 20; TEMP 36.5; BMI 30.9
--- NOTE | 2020-07-08 15:10 | PN.PCM_ITS ---
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 Status: Chronic Current Visit: Yes Code(s): M21.861 - Other specified acquired deformities of right lower leg (2) Diabetic polyneuropathy associated with type 1 diabetes mellitus Status: Chronic Current Visit: Yes Code(s): E10.42 - Type 1 diabetes mellitus with diabetic polyneuropathy (3) Deformity of right foot Status: Chronic Current Visit: Yes Code(s): M21.961 - Unspecified acquired deformity of right lower leg (4) Ulcer of right foot with fat layer exposed Status: Chronic Current Visit: Yes Code(s): L97.512 - Non-pressure chronic ulcer of other part of right foot with fat layer exposed (5) Delayed wound healing Status: Chronic Current Visit: Yes Code(s): T14.8XXD - Other injury of unspecified body region, subsequent encounter (6) Malnutrition Status: Chronic Current Visit: Yes Code(s): E46 - Unspecified protein- calorie malnutrition Type of Wound Date of Service: 07/08/20 Chief Complaint: Ulcer right foot History of Wound: Mr. Diaz is a 45-year-old with history of poorly controlled diabetes mellitus status post several episodes of osteomyelitis/surgical debridement was seen for nonhealing sub 1st metatarsal head ulcer. His hemoglobin A1c has recently improved in a significant manner since he has been going to nutritional services counseling. He is with his today. He kept his total contact cast clean and intact since last visit. He thinks his foot was sweating and that is why his entire bottom of his foot appears extra moist today. He has been hot outside. We discussed surgical options over the past couple weeks and he is here to proceed forward with the tendon lengthening option and would like to discuss the details today. Progress of Wound: Improving with delays - Physical Exam Vital Signs Temp Pulse Resp BP Pulse Ox 97.7 F L 96 20 H 152/84 H 98 07/08/20 08:36 07/08/20 08:36 07/08/20 08:36 07/08/20 08:36 06/20/20 00:20 General: Alert, Oriented x3, Cooperative, No apparent distress HEENT: Atraumatic Extremities: No cyanosis, Capillary Refill Less than 3 Seconds, No Calf Tenderness, Diminished Peripheral Pulses, Edema, - - Decreased ankle dorsiflexion with the knee extended and flexed Skin: Ulcer/ Wound - Sub-first metatarsal head and ulcer has granular base. There is no purulence, erythema, streaking odor, infection. There is peripheral maceration and additional moist wrinkles in the entire plantar surface of the foot. This is consistent with moisture retention Wound Measurements and Assessment WC - Nurse 1 - General Ulcer Measurement Start: 06/24/20 09:10 Freq: Status: Active Protocol: Activity Type Activity Date Activity User E-Sign Co-Sign Detail Recorded Client Recorded Date Recorded By Document 07/08/20 08:36 THOR [id number] 07/08/20 08:49 DL 07/08/20 08:36 Wound Center Nurse 1 [Ulcer Assessment] #2 R Foot Plantar -Current Size (cm) - Length 0.5 -Current Size (cm) - Width 0.6 -Current Size (cm) - Depth 0.2 -Total Square Cm 0.30 -Photo Taken No -Exudate Amt Medium -Exudate Type Serosanguineous -Wound Margin Thickened -Granulation Amt Large (67-100%) -Granulation Quality [place] -Necrosis Amt Small (1-33%) -Necrotic Tissue Type Adherent Slough -Structure Exposed N/A -Texture (Radha-wound Skin Appearance) Callus -Moisture (Radha-wound Skin Appearance Maceration ) -Color (Radha-wound Skin Appearance) Hemosiderin Staining -Temperature (Radha-wound Skin No Abnormality Appearance) (Pt Warm) -Tenderness on Palpation (Radha-wound No Skin Appearance) -Ulcer Cleansing Wound Cleanser -Anesthetic Used 4% Lidocaine Solution WC - Nurse 2 - General Ulcer CM Notes Start: 07/07/20 19:23 Freq: Status: Active Protocol: Activity Type Activity Date Activity User E-Sign Co-Sign Detail Recorded Client Recorded Date Recorded By Document 07/08/20 08:54 RAYNA [id number] 07/08/20 09:01 JF 07/08/20 08:54 Wound Center Nurse 2 [Procedure/Treatment] -Time 08:55 -Correct Patient Yes -Correct Side, Site, Position Yes -Correct Procedure Yes -Procedure Performed Yes -Type of Procedure Debridement -Clinical Debridement Subcutaneous -Tissue Removed Subcutaneous -Post Debridement (cm) - Length 0.6 -Post Debridement (cm) - Width 0.8 -Post Debridement (cm) - Depth 0.2 -Total Square (Post) (cm) 0.48 -Area of Debridement (cm) - Length 0.6 -Area of Debridement (cm) - Width 0.8 -Total Square (Area) (cm) 0.48 -Tunneling No -Undermining/Tunneling No -Circular Undermining No -Ulcer Cleansing Rinsed/ Irrigated with Saline -Foul Odor after Cleansing No -Bioengineered Tissue No -Bleeding Controlled with Pressure -Offloading Yes -Type of Offloading Camwalker -Debridement - Subq, 1st 20sq cm Yes [See Physician Procedure note for Specifics] Pain Scale: 0-10 Numeric [Pain] -Is Patient Pain Free? Yes - Nurse 3 - General Ulcer D/C NN Start: 07/07/20 19:23 Freq: Status: Active Protocol: Activity Type Activity Date Activity User E-Sign Co-Sign Detail Recorded Client Recorded Date Recorded By Document 07/08/20 09:02 RAYNA [id number] 07/08/20 09:02 RAYNA 07/08/20 09:02 Wound Care Nurse 3 [Wound Dressing] #2 R Foot Plantar -Ulcer Cleansing Rinsed/ Irrigated with Saline -Foul Odor after Cleansing No -Primary Dressing Applied Promogran Leah Matter -Primary Dressing Covered/Secured Dry Gauze & with Roll Gauze, Secured with Tape -Promogran Leah Matter 1 Pain Scale: 0-10 Numeric [Pain] -Is Patient Pain Free? Yes - Visit Discharge [Visit Discharge Information] -Discharge Condition Unstable -Ambulatory Status Ambulatory -Transportation Private Auto -Accompanied by -Medication Reconcilliation completed Yes & provided to patient/care provider -Clinical Summary of Care Provided Yes Musculoskeletal: No Tenderness to Palpation of Joints or Extremities, Muscle Wasting, - - Second toe amputation and prominent metatarsal head noted Neurological: - - Lack of normal epicritic sensation light touch is consistent with neuropathy status Psych/Mental Status: Normal Affect, Appropriate Debridement Note Post-Debridement Measurements/Treatment - Nurse 2 - General Ulcer CM Notes Start: 07/07/20 19:23 Freq: Status: Active Protocol: Activity Type Activity Date Activity User E-Sign Co-Sign Detail Recorded Client Recorded Date Recorded By Document 07/08/20 08:54 RAYNA [id number] 07/08/20 09:01 RAYNA 07/08/20 08:54 Wound Center Nurse 2 #2 R Foot Plantar -Time 08:55 -Correct Patient Yes -Correct Side, Site, Position Yes -Correct Procedure Yes -Procedure Performed Yes -Type of Procedure Debridement -Clinical Debridement Subcutaneous -Tissue Removed Subcutaneous -Post Debridement (cm) - Length 0.6 -Post Debridement (cm) - Width 0.8 -Post Debridement (cm) - Depth 0.2 -Total Square (Post) (cm) 0.48 -Area of Debridement (cm) - Length 0.6 -Area of Debridement (cm) - Width 0.8 -Total Square (Area) (cm) 0.48 -Tunneling No -Undermining/Tunneling No -Circular Undermining No -Ulcer Cleansing Rinsed/ Irrigated with Saline -Foul Odor after Cleansing No -Bioengineered Tissue No -Bleeding Controlled with Pressure -Offloading Yes -Type of Offloading Camwalker -Debridement - Subq, 1st 20sq cm Yes Pain Scale: 0-10 Numeric Is Patient Pain Free? Yes - Nurse 3 - General Ulcer D/C NN Start: 07/07/20 19:23 Freq: Status: Active Protocol: Activity Type Activity Date Activity User E-Sign Co-Sign Detail Recorded Client Recorded Date Recorded By Document 07/08/20 09:02 RAYNA [id number] 07/08/20 09:02 RAYNA 07/08/20 09:02 Wound Care Nurse 3 #2 R Foot Plantar -Ulcer Cleansing Rinsed/ Irrigated with Saline -Foul Odor after Cleansing No -Primary Dressing Applied Promogran Leah Matter -Primary Dressing Covered/Secured with Dry Gauze & Roll Gauze, Secured with Tape -Promogran Leah Matter 1 Pain Scale: 0-10 Numeric Is Patient Pain Free? Yes WC - Visit Discharge Discharge Condition Unstable Ambulatory Status Ambulatory Transportation Private Auto Accompanied by Medication Reconcilliation completed & Yes provided to patient/care provider Clinical Summary of Care Provided Yes Wound debrided: sub 1st metatarsal head Laterality: Right Wound Grade/Stage: grade 1 Type of Debridement: Excisional debridement Anesthesia Used: 5% Lidocaine Gel Depth: in the subcutaneous layer Percentage of wound debrided: 100 Instrument Used: #15 blade Tissue Removed: fibrous, devitalized subcutaneous, biofilm, slough Severity: Fat Layer Exposed Amount of bleeding with debridement: Mild Bleeding Controlled with: Pressure Patient tolerated procedure well Assessment/Plan Active Problems (Last Updated 04/17/20 @ 13:[address] Jeevan Buck MD) Acquired posterior equinus of right lower extremity (Chronic) Diabetic polyneuropathy associated with type 1 diabetes mellitus (Chronic) Deformity of right foot (Chronic) Ulcer of right foot with fat layer exposed (Chronic) Delayed wound healing (Chronic) Malnutrition (Chronic) Assessment: diabetic foot ulcer grade 1 status, sub-first metatarsal head. 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 History of recent tobacco cessation. Delayed healing. Suspected malnutrition Plan: I reviewed and discussed his updated case. Debridement was performed today as noted in the clinical panel in a subcutaneous excisional manner to his ulcer site. Leah was applied to the ulcer bed. He is at risk for continued limb loss and we also discussed transmetatarsal amputation as a treatment option. I also discussed with him surgical lengthening of the posterior leg compartment such as a tendo Achilles lengthening in a percutaneous manner. Additional sesamoid excision can also be considered. The preoperative indications, benefits, risks, complications and anticipated healing course of this same day surgical procedure was discussed. The scheduling process will be initiated and he will return to sign consents. The anticipated anesthesia is MAC and local. He would for sure like to proceed with the tendon lengthening at this time. To change dressing daily. I recommend taking a break from the total contact cast due to his excessive foot moisture. He is advised to wash his foot daily with Dial soap and water. He demonstrates understanding. To continue compliance with knee roller. To optimize healing by improving glycemic control. I recommended horseback riding instructor consultation and this is been initiated. He is doing well with nutrition adjustments. We discussed how glycemic control is a combination of medication adjustments, diet, exercise, and lifestyle modifications and this is important for healing ability. A referral was provided previously and this has been initiated. His hemoglobin A1c was 7.4% which is significantly improved. He is demonstrating continued delays in healing. He does not have local signs of infection today and I do not recommend additional antibiotics. He was advised to strictly offloading compliance will be very necessary for him while he is at home. To follow-up to the wound healing center in 1 week. To call sooner if his status worsens or present to the emergency room.
[2020-07-15 08:27] VITALS: BP 152/85; PULSE 112; RESP 20; TEMP 36.6; BMI 30.9
--- NOTE | 2020-07-15 09:57 | PN.PCM_ITS ---
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 Status: Chronic Current Visit: Yes Code(s): M21.861 - Other specified acquired deformities of right lower leg (2) Diabetic polyneuropathy associated with type 1 diabetes mellitus Status: Chronic Current Visit: Yes Code(s): E10.42 - Type 1 diabetes mellitus with diabetic polyneuropathy (3) Deformity of right foot Status: Chronic Current Visit: Yes Code(s): M21.961 - Unspecified acquired deformity of right lower leg (4) Ulcer of right foot with fat layer exposed Status: Chronic Current Visit: Yes Code(s): L97.512 - Non-pressure chronic ulcer of other part of right foot with fat layer exposed (5) Delayed wound healing Status: Chronic Current Visit: Yes Code(s): T14.8XXD - Other injury of unspecified body region, subsequent encounter (6) Malnutrition Status: Chronic Current Visit: Yes Code(s): E46 - Unspecified protein- calorie malnutrition Type of Wound Date of Service: 07/15/20 Chief Complaint: Ulcer right foot History of Wound: Mr. Diaz is a 45-year-old diabetic male with delayed healing right sub first metatarsal head ulcer. His hemoglobin A1c has recently improved in a significant manner since he has been going to nutritional services counseling. He is okay with resuming total contact cast today. He is also here to complete his surgical consent process. Progress of Wound: Improving with delays - Physical Exam Vital Signs Temp Pulse Resp BP Pulse Ox 97.8 F 112 H 20 H 152/85 H 98 07/15/20 08:27 07/15/20 08:27 07/15/20 08:27 07/15/20 08:27 06/20/20 00:20 General: Alert, Oriented x3, Cooperative, No apparent distress Extremities: No cyanosis, Capillary Refill Less than 3 Seconds, No Calf Tenderness, Diminished Peripheral Pulses - Palpable DP pulse, Edema, - - Decreased ankle dorsiflexion with the knee flexed and extended. Second toe amputation right foot Skin: Ulcer/ Wound - No purulence, erythema, streaking, odor, infection. His adjacent skin is hairless and atrophic. There is no maceration. The ulcer bed is granular. Wound Measurements and Assessment WC - Nurse 1 - General Ulcer Measurement Start: 06/24/20 09:10 Freq: Status: Active Protocol: Activity Type Activity Date Activity User E-Sign Co-Sign Detail Recorded Client Recorded Date Recorded By Document 07/15/20 08:27 DL [id number] 07/15/20 08:34 DL 07/15/20 08:27 Wound Center Nurse 1 [Ulcer Assessment] #2 R Foot Plantar -Current Size (cm) - Length 0.6 -Current Size (cm) - Width 1.7 -Current Size (cm) - Depth 0.3 -Total Square Cm 1.02 -Photo Taken No -Exudate Amt Small -Exudate Type Serosanguineous -Wound Margin Thickened -Granulation Amt Medium (34-66%) -Granulation Quality [place],Red -Necrosis Amt Medium (34-66%) -Necrotic Tissue Type Adherent Slough -Structure Exposed N/A -Texture (Radha-wound Skin Appearance) Callus,Scarring -Moisture (Radha-wound Skin Appearance Dry/Scaly ) -Color (Radha-wound Skin Appearance) Rubor -Temperature (Radha-wound Skin No Abnormality Appearance) (Pt Warm) -Tenderness on Palpation (Radha-wound No Skin Appearance) -Ulcer Cleansing Wound Cleanser -Foul Odor after Cleansing No -Anesthetic Used 4% Lidocaine Solution WC - Nurse 2 - General Ulcer CM Notes Start: 07/07/20 19:23 Freq: Status: Active Protocol: Activity Type Activity Date Activity User E-Sign Co-Sign Detail Recorded Client Recorded Date Recorded By Document 07/15/20 08:45 RAYNA [id number] 07/15/20 08:50 07/15/20 08:45 Wound Center Nurse 2 [Procedure/Treatment] -Time 08:45 -Correct Patient Yes -Correct Side, Site, Position Yes -Correct Procedure Yes -Procedure Performed Yes -Type of Procedure Debridement -Clinical Debridement Subcutaneous -Tissue Removed Subcutaneous -Post Debridement (cm) - Length 0.9 -Post Debridement (cm) - Width 1.5 -Post Debridement (cm) - Depth 0.2 -Total Square (Post) (cm) 1.35 -Area of Debridement (cm) - Length 0.9 -Area of Debridement (cm) - Width 1.5 -Total Square (Area) (cm) 1.35 -Tunneling No -Undermining/Tunneling No -Circular Undermining No -Wound/Ulcer Outcome Not Healed -Ulcer Cleansing Rinsed/ Irrigated with Saline -Foul Odor after Cleansing No -Bioengineered Tissue No -Bleeding Controlled with Pressure -Offloading Yes -Type of Offloading Total Contact Cast (TCC) - Right ($) -Treatment Response Procedure Tolerated Well -Debridement - Subq, 1st 20sq cm Yes [See Physician Procedure note for Specifics] Pain Scale: 0-10 Numeric [Pain] -Is Patient Pain Free? Yes Musculoskeletal: No Tenderness to Palpation of Joints or Extremities, Muscle Wasting Neurological: - - Lack of normal epicritic sensation light touch is consistent with neuropathy status Psych/Mental Status: Normal Affect, Appropriate Debridement Note Post-Debridement Measurements/Treatment WC - Nurse 2 - General Ulcer CM Notes Start: 07/07/20 19:23 Freq: Status: Active Protocol: Activity Type Activity Date Activity User E-Sign Co-Sign Detail Recorded Client Recorded Date Recorded By Document 07/08/20 08:54 [id number] 07/08/20 09:01 JF Document 07/15/20 08:45 [id number] 07/15/20 08:50 07/08/20 07/15/20 08:54 08:45 Wound Center Nurse 2 #2 R Foot Plantar -Time 08:55 08:45 -Correct Patient Yes Yes -Correct Side, Site, Position Yes Yes -Correct Procedure Yes Yes -Procedure Performed Yes Yes -Type of Procedure Debridement Debridement -Clinical Debridement Subcutaneous Subcutaneous -Tissue Removed Subcutaneous Subcutaneous -Post Debridement (cm) - Length 0.6 0.9 -Post Debridement (cm) - Width 0.8 1.5 -Post Debridement (cm) - Depth 0.2 0.2 -Total Square (Post) (cm) 0.48 1.35 -Area of Debridement (cm) - Length 0.6 0.9 -Area of Debridement (cm) - Width 0.8 1.5 -Total Square (Area) (cm) 0.48 1.35 -Tunneling No No -Undermining/Tunneling No No -Circular Undermining No No -Wound/Ulcer Outcome Not Healed -Ulcer Cleansing Rinsed/ Rinsed/ Irrigated with Irrigated with Saline Saline -Foul Odor after Cleansing No No -Bioengineered Tissue No No -Bleeding Controlled with Pressure Pressure -Offloading Yes Yes -Type of Offloading Camwalker Total Contact Cast (TCC) - Right ($) -Treatment Response Procedure Tolerated Well -Debridement - Subq, 1st 20sq cm Yes Yes Pain Scale: 0-10 Numeric Is Patient Pain Free? Yes Yes - Nurse 3 - General Ulcer D/C NN Start: 07/07/20 19:23 Freq: Status: Active Protocol: Activity Type Activity Date Activity User E-Sign Co-Sign Detail Recorded Client Recorded Date Recorded By Document 07/08/20 09:02 RAYNA [id number] 07/08/20 09:02 RAYNA 07/08/20 09:02 Wound Care Nurse 3 #2 R Foot Plantar -Ulcer Cleansing Rinsed/ Irrigated with Saline -Foul Odor after Cleansing No -Primary Dressing Applied Promogran Leah Matter -Primary Dressing Covered/Secured with Dry Gauze & Roll Gauze, Secured with Tape -Promogran Leah Matter 1 Pain Scale: 0-10 Numeric Is Patient Pain Free? Yes WC - Visit Discharge Discharge Condition Unstable Ambulatory Status Ambulatory Transportation Private Auto Accompanied by Medication Reconcilliation completed & Yes provided to patient/care provider Clinical Summary of Care Provided Yes Wound debrided: sub 1st metatarsal head Laterality: Right Wound Grade/Stage: grade 1 Type of Debridement: Excisional debridement Anesthesia Used: 5% Lidocaine Gel Depth: in the subcutaneous layer Percentage of wound debrided: 100 Instrument Used: #15 blade Tissue Removed: fibrous, devitalized subcutaneous, biofilm, slough Severity: Fat Layer Exposed Amount of bleeding with debridement: Mild Bleeding Controlled with: Pressure Patient tolerated procedure well Assessment/Plan Active Problems (Last Updated 04/17/20 @ 13:[address] Jeevan Buck MD) Acquired posterior equinus of right lower extremity (Chronic) Diabetic polyneuropathy associated with type 1 diabetes mellitus (Chronic) Deformity of right foot (Chronic) Ulcer of right foot with fat layer exposed (Chronic) Delayed wound healing (Chronic) Malnutrition (Chronic) Assessment: diabetic foot ulcer grade 1 status, sub-first metatarsal head. 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 History of recent tobacco cessation. Delayed healing. Suspected malnutrition Plan: I reviewed and discussed his updated case. Debridement was performed today as noted in the clinical panel in a subcutaneous excisional manner to his ulcer site. Leah was applied to the ulcer bed. A well-padded total contact cast was applied today in a neutral position after verbal consent was obtained. This was applied according standard protocol. He was advised to keep this clean, dry, and intact until follow-up next week. He is at risk for continued limb loss and we also discussed transmetatarsal amputation as a treatment option. I also discussed with him surgical lengthening of the posterior leg compartment such as a tendo Achilles lengthening in a percutaneous manner. Additional sesamoid excision can also be considered. The preoperative indications, benefits, risks, complications and anticipated healing course of this same day surgical procedure was discussed. The scheduling process will be initiated and he will return to sign consents. The anticipated anesthesia is MAC versus general and local. His surgical consents were signed today and he elects to proceed. I answered all his questions. He demonstrates understanding. To continue compliance with knee roller. To optimize healing by improving glycemic control. I recommended butcher fish consultation and this is been initiated. He is doing well with nutrition adjustments. We discussed how glycemic control is a combination of medication adjustments, diet, exercise, and lifestyle modifications and this is important for healing ability. A referral was provided previously and this has been initiated. His hemoglobin A1c was 7.4% which is significantly improved. He is demonstrating continued delays in healing. He does not have local signs of infection today and I do not recommend additional antibiotics. He was advised to strictly offloading compliance will be very necessary for him while he is at home. To follow-up to the wound healing center in 1 week. To call sooner if his status worsens or present to the emergency room.
== END 2020-07-20 23:59 ==
LOC: WC 08:30
PROVIDERS: Family Provider Internal Medicine; PCP Nurse Practitioner Family; Referring Provider Podiatrist; Visit Provider Podiatrist
DX: E10.621 Type 1 diabetes mellitus with foot ulcer (principal); L97.512 Non-pressure chronic ulcer of other part of right foot with fat layer exposed; E10.42 Type 1 diabetes mellitus with diabetic polyneuropathy; E46 Unspecified protein-calorie malnutrition; T14.8XXD Other injury of unspecified body region, subsequent encounter; E10.65 Type 1 diabetes mellitus with hyperglycemia; Z79.4 Long term (current) use of insulin; Z89.421 Acquired absence of other right toe(s)
CPT/HCPCS: 11042; 29445

== ENCOUNTER → 2020-07-21 09:14 | Outpatient (CLI) | payer OTHER, SELFPAY ==
[2020-07-20 08:11] VITALS: BMI 30.9
[2020-07-21 11:57] LABS: Absolute Lymphocyte Count 1.38 X10^3/uL (0.83-4.51); Basophil# 0.05 X10^3/uL; Eosinophil# 0.27 X10^3/uL; Eosinophils% 5.3 % (0-5); Hematocrit 41.7 % (40-54); Hemoglobin 13.5 g/dL (13.0-16.5); Lymphocyte # 1.38 X10^3/ul (4.0); Lymphocyte % 26.8 % (19-41); Mean Corp Hgb Conc 32.4 g/dL (32-36); Mean Corpuscular Hgb 26.9 pg (27.0-32.0); Mean Corpuscular Volume 83.1 fL (80-94); Mean Platelet Vol. 10.3 fl (6.2-12.0); Monocyte# 0.39 X10^3/uL; Monocyte% 7.6 % (0-10); NRBC Flagged by Analyzer 0 % (0-5); Neutrophil # 3.04 X10^3/uL (2.7-7.7); Neutrophil % 59.1 % (47-70); Platelet Count 272 K/mm3 (150-450); RBC Distribution Width CV 12.9 % (11.6-14.6); RBC Distribution Width SD 38.9 fl (35.1-43.9); Red Blood Count 5.02 M/mm3 (4.6-6.2); White Blood Count 5.1 K/mm3 (4.4-11.0)
[2020-07-21 12:23] LABS: ALB/GLOB Ratio 0.9 RATIO (0.9-2.4); AST(SGOT) 20 U/L (15-37); Alanine Aminotransfer ALT/SGPT 37 U/L (16-61); Albumin, Serum 3.3 g/dL (3.2-5.0); Alkaline Phosphatase 76 U/L (45-117); Anion Gap 4 (5-15); BUN 16 mg/dL (7-18); BUN/Creat Ratio 12.5 RATIO (10-20); Calcium,Total 8.6 mg/dL (8.5-10.1); Chloride 104 mmol/L (98-107); Creatinine, Serum 1.28 mg/dL (0.70-1.30); EST Glomerular Filtration Rate 64 mL/min (>60); Est Glom Filt Rate - Afr Amer 78 mL/min (>60); Globulin 3.6 g/dL (2.2-4.2); Glucose 245 mg/dL (74-106); Potassium 4.2 mmol/L (3.5-5.1); Protein, Total 6.9 g/dL (6.4-8.2); Sodium Level 136 mmol/L (136-145); Thyroid Stim Hormone (TSH) 0.66 uIU/mL (0.358-3.74)
== END ==
PROVIDERS: PCP Internal Medicine; Referring Provider Nurse Practitioner Family; Visit Provider Nurse Practitioner Family
DX: Z01.818 Encounter for other preprocedural examination (principal)
CPT/HCPCS: 36415; 80053; 84443; 85025

== ENCOUNTER 2020-07-24 11:12 | Day surgery (SDC) | payer OTHER, SELFPAY ==
[2020-07-08 08:36] VITALS: BMI 30.9
[2020-07-22 09:17] VITALS: BMI 30.9
[2020-07-24] VITALS (7 sets, daily range): BP systolic 103–150; BP diastolic 74–82; PULSE 86–93; RESP 16; TEMP 36.3–36.8; O2SAT 97–99; BMI 31.1
[2020-07-24] MEDS: Lactated Ringers 1,000 ML 100 ML IV (12:00)
[2020-07-24 12:10] LABS: Bedside Glucose 147 mg/dL (70-110)
--- NOTE | 2020-07-24 12:11 | RAD_ITS ---
STUDY: X-RAY RIGHT FOOT, GREAT TOE REASON FOR EXAM: Male, 45 years old. Pain, sesamoid excision TECHNIQUE: 3 cone-down intraoperative view(s) of the toe were obtained. COMPARISON: None. FINDINGS: Intraoperative imaging provided for sesamoid excision. RAD/Toe(s) Min 2 Views IMPRESSION: Intraoperative imaging provided for sesamoid excision. Electronically Signed: Vishnu Green, at 15:02 EDT , Service support ,
[2020-07-24] MEDS: Cefazolin 2 GM in 0.9% Normal Saline 100 ML IV (12:52)
[2020-07-24] MEDS: Bupivacaine Mpf 0.5% 30 ML VIAL (13:17)
--- NOTE | 2020-07-24 13:48 | DCINST_ITS ---
Discharge Activity: Use Crutches, - - keep splint clean and intact Weight Bearing Status: No weight bearing Keep extremity elevated above heart level: Right Leg Call your doctor if your incision/area has: Continuous Slow Oozing, Sudden Increased Bleeding, Increased Pain/ Swelling, Increased Redness, Foul Smelling Discharge, Swelling at the incision site Call your doctor if you observe: Fever of 101 or Higher, Shortness of breath, Calf discomfort, Uncontrolled pain Cleanse incision/area with: Keep Dressing Clean & Dry Allergies/Adverse Reactions: Allergies No Known Allergies Allergy (Verified 07/24/20 11:38) Medications to take at Discharge Multivitamin with Minerals [Multiple Vitamin] 1 tab PO DAILY 01/06/20 atorvastatin 10 mg tablet 10 mg PO DAILY #90 tab 04/17/20 Lisinopril 20 mg PO DAILY 07/16/20 blood-glucose sensor See Rx Instructions .ROUTE .MEDSUPPLY #9 ea 07/20/20 blood-glucose transmitter See Rx Instructions .ROUTE .MEDSUPPLY #1 ea 07/20/20 insulin aspart U-100 100 unit/mL (3 mL) subcutaneous pen 20 unit SC TIDCM #75 ml MDD 80 units 07/20/20 insulin degludec 100 unit/mL (3 mL) subcutaneous pen 35 unit SC DAILY #33 ml 07/20/20 Hydrocodone/Acetaminophen [Hydrocodon-Acetaminophen 5-325] 1 - 2 tab PO Q6H PRN PRN 4 Days #15 tablet 07/24/20 The following prescriptions were given: Hydrocodone/Acetaminophen [Hydrocodon-Acetaminophen 5-325] 1 - 2 tab PO Q6H PRN PRN 4 Days #15 tablet PRN Reason: Pain Transmission Status: Sent to [facility] Primary Care Physician: Shaneka Lewis MD [Primary Care Provider] - Test Results: Test results from this visit will be discussed in further detail at your follow- up appointment, if applicable. Please Follow Up With: Veronica Choudhary DPM When: next week and [facility]. Call [phone] Proposed Discharge Date: 07/24/20
--- NOTE | 2020-07-24 13:55 | PCM.OPRPT ---
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 Chronic ulcer plantar medial right foot; adam grade 1 Post-Operative Diagnosis: Gastrocnemius soleus equinus, right lower extremity. Chronic ulcer plantar medial right foot; adam grade 1 Surgery/Procedure Performed:: Right lower extremity percutaneous tendo Achilles lengthening Description of Surgical Findings:: Materials: 4-0 nylon Hemostasis: No tourniquet utilized, anatomic dissection Specimens: None Complications: None This patient tolerated the procedure and anesthesia well. He is transported to the PACU vital signs stable vascular status intact to the right lower extremity. He will be discharged home upon continued stability in a nonweightbearing status. Intraoperative x-rays were utilized to confirm if a sesamoid bone was applying pressure to the ulcer site and this does not appear to be a direct contact point. Therefore, a sesamoid was not excised. There are no other acute injuries, fractures, soft tissue emphysema, or foreign body noted. 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 Home Sales Service Professional: Nimesh Vizcarra PGY1 Type of Anesthesia:: Local MAC - Preoperative: One-to-one mixture of 0.5% Marcaine plain and 1% lidocaine plain administered in typical right lower extremity first ray block fashion at potential sesamoidectomy evaluation and removal site: 15 cc Intraoperative: One-to-one mixture of 0.5% Marcaine plain 1% lidocaine plain administered in local infiltrative manner at percutaneous Achilles tenotomy site, 10 cc Specimen's removed: None Estimated Blood Loss (mL): <15 mL Description of Procedure: Indications: This is a 45-year-old male with significant past medical history of uncontrolled type 1 diabetes with neuropathy, history of delayed and nonhealing of lower extremity ulcers with recurrent infections, and retinopathy. He has had prior resection of the hallux proximal phalanx head and second toe amputation due to prior ulcers and infections on the same right lower extremity limb. In the present setting he has had an intermittent chronically delayed ulcer site to the plantar distal first metatarsal head and actually winds up with the sulcus area of the toe conjoining to the remainder of the foot. Today this measures 4 x 8 x 1 mm and there is no purulence, erythema, necrosis, or deep tissue exposure. The Silverskiold test was performed to evaluate the details of the posterior leg tendon contracture. Ankle joint dorsiflexion was approximately -8 degrees with the knee extended and approximately -3 degrees with the knee flexed and this is consistent with a gastrocnemius soleus equinus. He has palpable pulses and prior noninvasive vascular studies demonstrated adequate blood flow to the right lower extremity demonstrating healing abilities. He is also been through nutrition program and has significantly reduced his hemoglobin A1c level to more acceptable range for this curative surgical intervention. His preoperative clearance and history and physical was completed by Rikki Spencer, clinical nurse practitioner. The preoperative indication, benefits, risk, complications, anticipated healing time management were discussed in detail with the patient. He understands and elects to proceed with surgery at this time. He understands risk and complications include but not limited to following: Pain, swelling, scarring, continued delayed or nonhealing, infection, need for further surgery, Achilles tendon rupture, recurrence, need for additional infectious disease work-up, further amputation, other loss of limb, function, life, chronic pain, blood clot, allergic reaction. No guarantees were made. Informed surgical consent was obtained for percutaneous tendon Achilles lengthening of the right lower extremity and possible sesamoidectomy after intraoperative fluoroscopic examination was performed. I answered all his questions. This patient was also informed and understands that he will be having this procedure done during the coronavirus pandemic and there is an inherent risk with this scenario. He understands intrahospital system or being around other individuals may increase his risk of exposure even though the local recurrence is very low at this time and our hospital facility is following all of the appropriate infection preventative protocols. He also understands that this is not an emergency surgery nor is this an elective surgery. This procedure is considered curative and is medically necessary for limb salvage. Procedure in detail: Patient was transferred to the operating room via cart and placed on the operating room table in the supine position. Final verification of the patient, surgery, limb designation was performed via the timeout procedure. A well-padded pneumatic right thigh tourniquet was placed in preparation in case the sesamoid needed to be excised. However, this was not deemed necessary. Preoperative IV antibiotics were administered for the same reason. MAC sedation was initiated by the anesthesia team. The podiatry team administered the local anesthetic as noted. The right lower extremity was prepped and draped in the usual aseptic manner. Surgery began the following manner: Attention was first directed to the posterior leg. His Silverskiold test was performed as noted. Preoperative and also intraoperative the hindfoot was noted to be at a rectus and slight varus position. Local anesthetic was administered in an infiltrative manner proximal to each stab incision site. Care was taken to stay in safe zones to avoid neurovascular structure throughout the entire procedure. Therefore, the first medial incision was made 2 cm proximal to the insertion of the Achilles on the calcaneus. The 15 blade was entered centrally into the achilles tendon at this level and was gently rotated to release the medial half of the tendon. This was audibly noted and also palpated. The second tenotomy site was 3 cm proximal to the aforementioned site and was directed in the lateral direction. The third tenotomy site was an additional 3 cm proximal to the aforementioned site and was directed medially again. There was no pulsatile bleeding. Pressure was applied to maintain hemostasis. The Silverskiold test was performed again after pressure was applied to the foot in a dorsiflexor manner. Minor and presumably incomplete correction was obtained. Therefore the tenotomy sites were reentered with a 15 blade and the blade was taken to the full motion again and additional fibers were carefully released to ensure this was completed. Additional dorsiflexion position was applied to the foot upon the leg and adequate desired dorsiflexion improvement was achieved. With the knee extended, dorsiflexion was achieved to about 8 degrees with the knee extended and 10 degrees with the knee flexed. Each stab incision site was irrigated with normal saline. The percutaneous tenotomy incision sites were reapproximated utilizing simple suture technique with 4-0 nylon. Attention was next directed to the foot in which intraoperative fluoroscopy was utilized to rikki where the ulcer was in comparison to deeper bony structures. A Conger elevator was used to rikki this site with live flouroscopic evaluation with multiple AP, oblique, and lateral views. It was confirmed that the ulcer site was not communicating with either sesamoid bone. The toe was also stressed and the resected margin of the diaphysis of the remaining proximal phalanx was not in plantar orientation or in direct communication with the ulcer site either. Therefore bony or osseous resection was not deemed appropriate at this time and was not completed. The ulcer was subcutaneously excisionally debrided today with a 15 blade scalpel at this time the post debridement measurement was 6 x 9 x 0.1 cm. Pressure was applied to maintain hemostasis. A postprocedure dressing was applied including Adaptic to the ulcer site covered with Betadine gauze and Betadine gauze to the percutaneous tenotomy sites on the posterior lower leg. This was further secured in place with Kerlix and an abdominal pad. Next, a well-padded posterior mold was applied with the right lower extremity in a neutral position with improved dorsiflexion. This was secured with GALE wrap. After procedure: The patient tolerated the procedure and anesthesia well. The patient was transported to the PACU with vital signs stable and vascular status intact to the right lower extremity. He will be discharged home upon continued stability. Intraoperative fluoroscopy live films were used as noted previously. He is in a posterior mold splint and he was advised to keep the splint and also a postoperative dressing clean, dry, and intact. He was advised to maintain a strict nonweightbearing status until follow-up next week. He has crutches already. He will follow-up at the foot and ankle center or wound care center next week. He was also advised to call sooner if there are any questions or concerns. He was advised on safe and proper use of postoperative pain medication. A short course of [place] was sent to [facility] pharmacy. His postoperative orders were entered electronically. Veronica Choudhary DPM, [facility] Grafts/Implants Used: None - Complications None - Admit VTE Documentation VTE Present on Admission: No VTE Mechan Device Prophylaxis: SCD's VTE Pharm Prophylaxis ordered?: No Reason prophylaxis not ordered:: Procedure Not Indicated
--- NOTE | 2020-07-28 07:35 | PCM.PROGNOTE ---
Subjective: Entry for 07/24/2020: The H & P from Alexei Spencer CNP on 07/21/2020 has no changes as of his surgical date was reviewed preoperative. - Physical Exam Vitals/I&O's: Vital Signs Temp Pulse Resp BP Pulse Ox 97.8 F 86 16 112/82 H 98 07/24/20 14:15 07/24/20 14:15 07/24/20 14:15 07/24/20 14:15 07/24/20 14:15 Oxygen Delivery Method Room Air Weight: 109.9 kg Body Mass Index (BMI) 31.1 Medical Necessity - Tobacco Use Smoking Status: Former smoker Assessment/Plan All Active Problems (Last Reviewed 07/20/20 @ 08:[address] Jeevan Buck MD) Sepsis (Acute) Infected wound (Acute) Cellulitis of right foot (Acute) Diabetes type 1, controlled (Acute)
== END 2020-07-24 15:05 | disposition home or self-care (01) ==
LOC: SDC 11:13 → AC 11:13
PROVIDERS: Anesthesiology; PCP Internal Medicine; Referring Provider Podiatrist; Visit Provider Podiatrist
PROC: (CPT 27685; principal; 2020-07-24 12:45)
DX: E10.621 Type 1 diabetes mellitus with foot ulcer (principal); L97.512 Non-pressure chronic ulcer of other part of right foot with fat layer exposed; E10.40 Type 1 diabetes mellitus with diabetic neuropathy, unspecified; E10.319 Type 1 diabetes mellitus with unspecified diabetic retinopathy without macular edema; Z87.891 Personal history of nicotine dependence; Z79.4 Long term (current) use of insulin
CPT/HCPCS: 27685; 73660; 76000; 82962; 87635; 93005; 94799; J7120; U0003

== ENCOUNTER 2020-08-05 09:00 | Outpatient (RCR) | payer OTHER, SELFPAY ==
[2020-07-20 08:11] VITALS: BMI 30.9
[2020-07-21 00:25] VITALS: BP 152/85; PULSE 112; RESP 20; TEMP 36.6; O2SAT 98
[2020-07-22 09:17] VITALS: BP 157/91; PULSE 95; RESP 20; TEMP 36.6; BMI 30.9
--- NOTE | 2020-07-22 14:42 | PN.PCM_ITS ---
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 Diaz is a 45-year-old diabetic male with delayed healing right sub first metatarsal head / hallux ulcer. His hemoglobin A1c has recently improved in a significant manner since he has been going to nutritional services counseling. He is scheduled for surgery this upcoming Monday. He presents for ulcer evaluation and also to have his total contact cast removed today. Progress of Wound: Improving with delays - Physical Exam Vital Signs Temp Pulse Resp BP Pulse Ox 98 F 95 20 H 157/91 H 98 07/22/20 09:17 07/22/20 09:17 07/22/20 09:17 07/22/20 09:17 07/21/20 00:25 General: Alert, Oriented x3, Cooperative, No apparent distress Extremities: No cyanosis, Capillary Refill Less than 3 Seconds, No Calf Tenderness, Diminished Peripheral Pulses, Edema Skin: Ulcer/ Wound - No purulence, erythema, streaking, odor, infection. Peripheral skin is hairless and atrophic. Reduce callus formation noted Wound Measurements and Assessment WC - Nurse 1 - General Ulcer Measurement Start: 07/22/20 09:17 Freq: Status: Active Protocol: Activity Type Activity Date Activity User E-Sign Co-Sign Detail Recorded Client Recorded Date Recorded By Document 07/22/20 09:17 DL [id number] 07/22/20 09:26 DL 07/22/20 09:17 Wound Center Nurse 1 [Ulcer Assessment] #2 R Foot Plantar -Current Size (cm) - Length 0.3 -Current Size (cm) - Width 0.6 -Current Size (cm) - Depth 0.2 -Total Square Cm 0.18 -Photo Taken No -Exudate Amt Small -Exudate Type Serosanguineous -Wound Margin Thickened -Granulation Amt Small (1-33%) -Granulation Quality [place] -Necrosis Amt Small (1-33%) -Necrotic Tissue Type Adherent Slough -Structure Exposed N/A -Texture (Radha-wound Skin Appearance) Callus,Scarring -Moisture (Radha-wound Skin Appearance Dry/Scaly ) -Color (Radha-wound Skin Appearance) No Abnormality -Temperature (Radha-wound Skin No Abnormality Appearance) (Pt Warm) -Tenderness on Palpation (Radha-wound No Skin Appearance) -Ulcer Cleansing Wound Cleanser -Foul Odor after Cleansing No -Anesthetic Used 4% Lidocaine Solution ALVINO - Nurse 2 - General Ulcer CM Notes Start: 07/22/20 09:17 Freq: Status: Active Protocol: Activity Type Activity Date Activity User E-Sign Co-Sign Detail Recorded Client Recorded Date Recorded By Document 07/22/20 09:35 [email or web address] [id number] 07/22/20 09:40 RAYNA 07/22/20 09:35 Wound Center Nurse 2 [Procedure/Treatment] -Time 09:38 -Correct Patient Yes -Correct Side, Site, Position Yes -Correct Procedure Yes -Procedure Performed Yes -Type of Procedure Debridement -Clinical Debridement Subcutaneous -Tissue Removed Subcutaneous -Post Debridement (cm) - Length 0.4 -Post Debridement (cm) - Width 0.7 -Post Debridement (cm) - Depth 0.2 -Total Square (Post) (cm) 0.28 -Area of Debridement (cm) - Length 0.4 -Area of Debridement (cm) - Width 0.7 -Total Square (Area) (cm) 0.28 -Tunneling No -Undermining/Tunneling No -Circular Undermining No -Wound/Ulcer Outcome Not Healed -Ulcer Cleansing Rinsed/ Irrigated with Saline -Foul Odor after Cleansing No -Bioengineered Tissue No -Bleeding Controlled with Pressure -Offloading Yes -Type of Offloading Camwalker -Treatment Response Procedure Tolerated Well -Debridement - Subq, 1st 20sq cm Yes [See Physician Procedure note for Specifics] Pain Scale: 0-10 Numeric [Pain] -Is Patient Pain Free? Yes ALVINO - Nurse 3 - General Ulcer D/C NN Start: 07/22/20 09:17 Freq: Status: Active Protocol: Activity Type Activity Date Activity User E-Sign Co-Sign Detail Recorded Client Recorded Date Recorded By Document 07/22/20 10:14 RAYNA [id number] 07/22/20 10:15 RAYNA 07/22/20 10:14 Wound Care Nurse 3 [Wound Dressing] #2 R Foot Plantar -Ulcer Cleansing Rinsed/ Irrigated with Saline -Foul Odor after Cleansing No -Primary Dressing Applied Aquacel AG 2x2 -Primary Dressing Covered/Secured Dry Gauze & with Roll Gauze, Secured with Tape -Aquacel AG 2x2 1 Pain Scale: 0-10 Numeric [Pain] -Is Patient Pain Free? Yes WC - Visit Discharge [Visit Discharge Information] -Discharge Condition Stable -Ambulatory Status Ambulatory -Transportation Private Auto -Medication Reconcilliation completed Yes & provided to patient/care provider -Clinical Summary of Care Provided Yes Musculoskeletal: No Tenderness to Palpation of Joints or Extremities, Muscle Wasting, - - Decreased ankle joint dorsiflexion is not able to reach neutral position with the knee flexed and extended. Passive range of motion first metatarsophalangeal joint is noted up to approximately 25 degrees of dorsiflexion Neurological: - - Lack of normal epicritic sensation light touch is consistent with neuropathy status Psych/Mental Status: Normal Affect, Appropriate Debridement Note Post-Debridement Measurements/Treatment - Nurse 2 - General Ulcer CM Notes Start: 07/22/20 09:17 Freq: Status: Active Protocol: Activity Type Activity Date Activity User E-Sign Co-Sign Detail Recorded Client Recorded Date Recorded By Document 07/22/20 09:35 RAYNA [id number] 07/22/20 09:40 RAYNA 07/22/20 09:35 Wound Center Nurse 2 #2 R Foot Plantar -Time 09:38 -Correct Patient Yes -Correct Side, Site, Position Yes -Correct Procedure Yes -Procedure Performed Yes -Type of Procedure Debridement -Clinical Debridement Subcutaneous -Tissue Removed Subcutaneous -Post Debridement (cm) - Length 0.4 -Post Debridement (cm) - Width 0.7 -Post Debridement (cm) - Depth 0.2 -Total Square (Post) (cm) 0.28 -Area of Debridement (cm) - Length 0.4 -Area of Debridement (cm) - Width 0.7 -Total Square (Area) (cm) 0.28 -Tunneling No -Undermining/Tunneling No -Circular Undermining No -Wound/Ulcer Outcome Not Healed -Ulcer Cleansing Rinsed/ Irrigated with Saline -Foul Odor after Cleansing No -Bioengineered Tissue No -Bleeding Controlled with Pressure -Offloading Yes -Type of Offloading Camwalker -Treatment Response Procedure Tolerated Well -Debridement - Subq, 1st 20sq cm Yes Pain Scale: 0-10 Numeric Is Patient Pain Free? Yes WC - Nurse 3 - General Ulcer D/C NN Start: 07/22/20 09:17 Freq: Status: Active Protocol: Activity Type Activity Date Activity User E-Sign Co-Sign Detail Recorded Client Recorded Date Recorded By Document 07/22/20 10:14 RAYNA [id number] 07/22/20 10:15 RAYNA 07/22/20 10:14 Wound Care Nurse 3 #2 R Foot Plantar -Ulcer Cleansing Rinsed/ Irrigated with Saline -Foul Odor after Cleansing No -Primary Dressing Applied Aquacel AG 2x2 -Primary Dressing Covered/Secured with Dry Gauze & Roll Gauze, Secured with Tape -Aquacel AG 2x2 1 Pain Scale: 0-10 Numeric Is Patient Pain Free? Yes WC - Visit Discharge Discharge Condition Stable Ambulatory Status Ambulatory Transportation Private Auto Medication Reconcilliation completed & Yes provided to patient/care provider Clinical Summary of Care Provided Yes Wound debrided: plantar medial forefoot Laterality: Right Wound Grade/Stage: grade 1 Type of Debridement: Excisional debridement Anesthesia Used: 5% Lidocaine Gel Depth: in the subcutaneous layer Percentage of wound debrided: 100 Instrument Used: #15 blade Tissue Removed: fibrous, devitalized subcutaneous, biofilm, slough Severity: Fat Layer Exposed Amount of bleeding with debridement: Mild Bleeding Controlled with: Pressure Patient tolerated procedure well Assessment/Plan Assessment: diabetic foot ulcer grade 1 status, sub-first metatarsal head. 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 History of recent tobacco cessation. Delayed healing. Suspected malnutrition Plan: I reviewed and discussed his updated case. Debridement was performed today as noted in the clinical panel in a subcutaneous excisional manner to his ulcer site. Leah was applied to the ulcer bed. A secondary dressing was additionally applied. To change daily until surgical interventions upcoming Monday. He is at risk for continued limb loss and we also discussed transmetatarsal amputation as a treatment option. I also discussed with him surgical lengthening of the posterior leg compartment such as a tendo Achilles lengthening in a percutaneous manner. Additional sesamoid excision can also be considered. I would like to evaluate this with like fluoroscopy to see if this is appropriate. The preoperative indications, benefits, risks, complications and anticipated healing course of this same day surgical procedure was discussed. The scheduling process will be initiated and he will return to sign consents. The anticipated anesthesia is MAC and local. His surgical consent was previously signed. I answered all his questions. He demonstrates understanding. To continue compliance with knee roller. To optimize healing by improving glycemic control. 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 We reviewed appropriate insulin management in the preoperative setting and he was also advised to check his glucose level every 2-3 hours, morning of surgery. He is doing well with nutrition adjustments. We discussed how glycemic control is a combination of medication adjustments, diet, exercise, and lifestyle modifications and this is important for healing ability. A referral was provided previously and this has been initiated. His hemoglobin A1c was 7.4% which is significantly improved. He is demonstrating continued delays in healing. He does not have local signs of infection today and I do not recommend additional antibiotics. He was advised to strictly offloading compliance will be very necessary for him while he is at home. To follow-up to the wound healing center in 1 week. To call sooner if his status worsens or present to the emergency room.
[2020-07-29 08:34] VITALS: BP 154/94; PULSE 99; RESP 18; TEMP 36.3; BMI 30.9
--- NOTE | 2020-07-29 08:46 | WC ---
Pt has 3 sutured incisions well approximaterd on RLE posterior
--- NOTE | 2020-07-29 09:11 | PN.PCM_ITS ---
(1) Ulcer of right foot with fat layer exposed Status: Resolved Current Visit: Yes Code(s): L97.512 - Non-pressure chronic ulcer of other part of right foot with fat layer exposed (2) Acquired posterior equinus of right lower extremity Status: Resolved Current Visit: Yes Code(s): M21.861 - Other specified acquired deformities of right lower leg (3) Diabetes mellitus with neuropathy Status: Chronic Current Visit: Yes Qualifiers: Diabetes mellitus type: type 1 Qualified Code(s): E10.40 - Type 1 diabetes mellitus with diabetic neuropathy, unspecified Code(s): E11.40 - Type 2 diabetes mellitus with diabetic neuropathy, unspecified (4) Delayed wound healing Status: Chronic Current Visit: Yes Code(s): T14.8XXD - Other injury of unspecified body region, subsequent encounter Type of Wound Date of Service: 07/29/20 Chief Complaint: Ulcer right foot History of Wound: Mr. Diaz is a 45-year-old diabetic male with chronic recurrent ulceration to the right foot with deformity secondary to osseous resection of the hallux and also second toe amputation. He is now status post percutaneous tendo Achilles lengthening that was performed on 07-24-2020. His pain is controlled and he is no longer on oral narcotics. He is kept his splint clean, dry, and intact. He is with his today. He uses a knee roller. He denies fever, chill, nausea, vomiting. Progress of Wound: Healed ulcer. Stable surgical site - Physical Exam Vital Signs Temp Pulse Resp BP Pulse Ox 97.4 F L 99 18 154/94 H 98 07/29/20 08:34 07/29/20 08:34 07/29/20 08:34 07/29/20 08:34 07/21/20 00:25 General: Alert, Oriented x3, Cooperative, No apparent distress HEENT: Atraumatic Extremities: No cyanosis, Capillary Refill Less than 3 Seconds, No Calf Tenderness, Diminished Peripheral Pulses, Edema, - - Second toe amputation right foot Skin: Ulcer/ Wound - Full epithelialization noted to plantar medial forefoot. There is no erythema, streaking, odor, infection, fluctuance, bogginess to the heel ulcer site or the posterior lower leg surgical site. Sutures are intact to 3 stab incisions without gapping, necrosis or infection. His skin in general is atrophic and hairless Wound Measurements and Assessment WC - Nurse 1 - General Ulcer Measurement Start: 07/22/20 09:17 Freq: Status: Active Protocol: Activity Type Activity Date Activity User E-Sign Co-Sign Detail Recorded Client Recorded Date Recorded By Document 07/29/20 08:34 RB [id number] 07/29/20 08:47 RB 07/29/20 08:34 Wound Center Nurse 1 [Ulcer Assessment] #2 R Foot Plantar -Combined with other wound No -Current Size (cm) - Length 0.1 -Current Size (cm) - Width 0.1 -Current Size (cm) - Depth 0.1 -Total Square Cm 0.01 -Photo Taken Yes -Tunneling No -Undermining/Tunneling No -Circular Undermining No -Exudate Amt Small -Exudate Type Serosanguineous -Wound Margin Thickened -Granulation Amt Medium (34-66%) -Granulation Quality [place] -Slough/Fibrin Yes -Necrosis Amt Medium (34-66%) -Necrotic Tissue Type Adherent Slough -Structure Exposed N/A -Texture (Radha-wound Skin Appearance) Assessed,Callus -Moisture (Radha-wound Skin Appearance Assessed ) -Color (Radha-wound Skin Appearance) Assessed -Temperature (Radha-wound Skin No Abnormality Appearance) (Pt Warm) -Tenderness on Palpation (Radha-wound No Skin Appearance) -Ulcer Cleansing Wound Cleanser -Foul Odor after Cleansing No -Anesthetic Used 4% Lidocaine Solution - Nurse 2 - General Ulcer CM Notes Start: 07/22/20 09:17 Freq: Status: Active Protocol: Activity Type Activity Date Activity User E-Sign Co-Sign Detail Recorded Client Recorded Date Recorded By Document 07/29/20 08:54 RAYNA [id number] 07/29/20 08:58 RAYNA 07/29/20 08:54 Wound Center Nurse 2 [Procedure/Treatment] -Correct Patient No -Correct Side, Site, Position No -Correct Procedure No -Procedure Performed No -Post Debridement (cm) - Length 0 -Post Debridement (cm) - Width 0 -Post Debridement (cm) - Depth 0 -Total Square (Post) (cm) 0 -Area of Debridement (cm) - Length 0 -Area of Debridement (cm) - Width 0 -Total Square (Area) (cm) 0 -Wound/Ulcer Outcome Healed- Epithelialized [See Physician Procedure note for Specifics] Pain Scale: 0-10 Numeric [Pain] -Is Patient Pain Free? Yes Musculoskeletal: No Tenderness to Palpation of Joints or Extremities, Muscle Wasting, - - Compartments are soft to palpate Neurological: - - Lack of epicritic sensation light touch is consistent with neuropathy status Psych/Mental Status: Normal Affect, Appropriate Debridement Note Post-Debridement Measurements/Treatment WC - Nurse 2 - General Ulcer CM Notes Start: 07/22/20 09:17 Freq: Status: Active Protocol: Activity Type Activity Date Activity User E-Sign Co-Sign Detail Recorded Client Recorded Date Recorded By Document 07/22/20 09:35 [id number] 07/22/20 09:40 Document 07/29/20 08:54 [id number] 07/29/20 08:58 07/22/20 07/29/20 09:35 08:54 Wound Center Nurse 2 #2 R Foot Plantar -Time 09:38 -Correct Patient Yes No -Correct Side, Site, Position Yes No -Correct Procedure Yes No -Procedure Performed Yes No -Type of Procedure Debridement -Clinical Debridement Subcutaneous -Tissue Removed Subcutaneous -Post Debridement (cm) - Length 0.4 0 -Post Debridement (cm) - Width 0.7 0 -Post Debridement (cm) - Depth 0.2 0 -Total Square (Post) (cm) 0.28 0 -Area of Debridement (cm) - Length 0.4 0 -Area of Debridement (cm) - Width 0.7 0 -Total Square (Area) (cm) 0.28 0 -Tunneling No -Undermining/Tunneling No -Circular Undermining No -Wound/Ulcer Outcome Not Healed Healed- Epithelialized -Ulcer Cleansing Rinsed/ Irrigated with Saline -Foul Odor after Cleansing No -Bioengineered Tissue No -Bleeding Controlled with Pressure -Offloading Yes -Type of Offloading Camwalker -Treatment Response Procedure Tolerated Well -Debridement - Subq, 1st 20sq cm Yes Pain Scale: 0-10 Numeric Is Patient Pain Free? Yes Yes ALVINO - Nurse 3 - General Ulcer D/C NN Start: 07/22/20 09:17 Freq: Status: Active Protocol: Activity Type Activity Date Activity User E-Sign Co-Sign Detail Recorded Client Recorded Date Recorded By Document 07/22/20 10:14 [id number] 07/22/20 10:15 07/22/20 10:14 Wound Care Nurse 3 #2 R Foot Plantar -Ulcer Cleansing Rinsed/ Irrigated with Saline -Foul Odor after Cleansing No -Primary Dressing Applied Aquacel AG 2x2 -Primary Dressing Covered/Secured with Dry Gauze & Roll Gauze, Secured with Tape -Aquacel AG 2x2 1 Pain Scale: 0-10 Numeric Is Patient Pain Free? Yes WC - Visit Discharge Discharge Condition Stable Ambulatory Status Ambulatory Transportation Private Auto Medication Reconcilliation completed & Yes provided to patient/care provider Clinical Summary of Care Provided Yes No debridement was completed today - Healed today Assessment/Plan Active Problems (Last Reviewed 07/20/20 @ 08:[address] Jeevan Buck MD) Diabetes mellitus with neuropathy (Chronic) Deformity of right foot (Chronic) Delayed wound healing (Chronic) Assessment: diabetic foot ulcer grade 1 status, sub-first metatarsal head. 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 History of recent tobacco cessation. Delayed healing. Suspected malnutrition Plan: I reviewed and discussed his updated case. His ulcer site appears healed. No primary dressing was required for the foot. His surgical site incisions are well aligned and intact with sutures in place. This was covered with gauze. A well-padded posterior mold splint was reapplied with the right lower extremity in neutral position. He was advised it is okay to transition to a cam walker at home as long as he maintains a nonweightbearing status. To continue knee roller. The anticipated healing time for the percutaneous tendo Achilles lengthening was reviewed. Suture removal will likely occur in 2 additional weeks and at that time weightbearing in a protected manner with a cam walker will also be considered. He understands he is at risk for continued foot breakdown however by reducing his equinus deformity the goal is to lower this risk. He is reassured no local signs of infection are noted. His pain is controlled and I do not recommend additional pain medication use. His hemoglobin A1c was 7.4% which is significantly improved. He was advised to continue proper glycemic control and nutritional intake to optimize ongoing healing and to prevent future going issues. To return to clinic in 1 week. He was advised to keep his dressing in limb right intact. I do not recommend showering or soaking with the surgical site exposed. To call sooner if his status worsens or present to the emergency room.
--- NOTE | 2020-08-05 10:43 | PCM.WC.PN ---
(1) Ulcer of right foot with fat layer exposed Status: Resolved Code(s): L97.512 - Non-pressure chronic ulcer of other part of right foot with fat layer exposed (2) Acquired posterior equinus of right lower extremity Status: Resolved Code(s): M21.861 - Other specified acquired deformities of right lower leg (3) Diabetes mellitus with neuropathy Status: Chronic Qualifiers: Diabetes mellitus type: type 1 Code(s): E11.40 - Type 2 diabetes mellitus with diabetic neuropathy, unspecified (4) Delayed wound healing Status: Chronic Code(s): T14.8XXD - Other injury of unspecified body region, subsequent encounter Type of Wound Date of Service: 08/05/20 Chief Complaint: healed Ulcer right foot. post operative tendon lengthening right History of Wound: Mr. Diaz is a 45-year-old diabetic male with chronic recurrent ulceration to the right foot with deformity secondary to osseous resection of the hallux and also second toe amputation. He is now status post percutaneous tendo Achilles lengthening that was performed on 07-24-2020. His pain is controlled and he is no longer on oral narcotics. He denies fever, chill, nausea, vomiting. He has been using his cam walker as advised. He denies foot drainage. He reports his blood glucose level was 120 mg/dL this morning. Progress of Wound: Healed ulcer. Stable surgical site - Physical Exam Vital Signs Temp Pulse Resp BP Pulse Ox 97.4 F L 99 18 154/94 H 98 07/29/20 08:34 07/29/20 08:34 07/29/20 08:34 07/29/20 08:34 07/21/20 00:25 General: Alert, Oriented x3, Cooperative Extremities: No cyanosis, No edema, Capillary Refill Less than 3 Seconds, No Calf Tenderness, Diminished Peripheral Pulses Skin: Ulcer/ Wound - Full epithelialization is noted at the prior healed ulcer site of the right foot. His sutures are intact to 3 percutaneous stab incision sites to the posterior right leg with no gapping or necrosis or infection. His adjacent skin is atrophic and hairless Wound Measurements and Assessment WC - Nurse 1 - General Ulcer Measurement Start: 07/22/20 09:17 Freq: Status: Discharge Protocol: Activity Type Activity Date Activity User E-Sign Co-Sign Detail Recorded Client Recorded Date Recorded By Edit Status 08/05/20 10:37 BKG DAEMON Active=>Discharge [facility] 08/05/20 10:37 BKG DAEMON - Nurse 2 - General Ulcer CM Notes Start: 07/22/20 09:17 Freq: Status: Discharge Protocol: Activity Type Activity Date Activity User E-Sign Co-Sign Detail Recorded Client Recorded Date Recorded By Document 08/05/20 09:34 [id number] 08/05/20 09:35 Edit Status 08/05/20 10:37 BKG DAEMON Active=>Discharge [facility] 08/05/20 10:37 BKG DAEMON 08/05/20 09:34 Pain Scale: 0-10 Numeric [Pain] -Is Patient Pain Free? Yes - Nurse 3 - General Ulcer D/C NN Start: 07/22/20 09:17 Freq: Status: Discharge Protocol: Activity Type Activity Date Activity User E-Sign Co-Sign Detail Recorded Client Recorded Date Recorded By Document 08/05/20 09:42 [facility] [id number] 08/05/20 09:43 [facility] Edit Status 08/05/20 10:37 BKG DAEMON Active=>Discharge [facility] 08/05/20 10:37 BKG DAEMON 08/05/20 09:42 Wound Care Nurse 3 [Compression Applied] Right -Compression Wrap Anton Wrap [Post Procedure Tolerated] -Treatment Response Procedure Tolerated Well Pain Scale: 0-10 Numeric [Pain] -Is Patient Pain Free? Yes - Visit Discharge [Visit Discharge Information] -Discharge Condition Stable -Ambulatory Status Ambulatory -Transportation Private Auto Musculoskeletal: No Tenderness to Palpation of Joints or Extremities, Muscle Wasting, - - Improved ankle dorsiflexion is maintained with the knee flexed and extended in his postoperative setting. Compartments are soft to palpate of the right lower extremity. Second toe amputation noted and unchanged Neurological: - - Lack of normal epicritic sensation light touch is consistent with neuropathy status Psych/Mental Status: Normal Affect, Appropriate Debridement Note Post-Debridement Measurements/Treatment WC - Nurse 2 - General Ulcer CM Notes Start: 07/22/20 09:17 Freq: Status: Discharge Protocol: Activity Type Activity Date Activity User E-Sign Co-Sign Detail Recorded Client Recorded Date Recorded By Document 07/22/20 09:35 RAYNA [id number] 07/22/20 09:40 JF Document 07/29/20 08:54 [id number] 07/29/20 08:58 Document 08/05/20 09:34 [id number] 08/05/20 09:35 JF 07/22/20 07/29/20 08/05/20 09:35 08:54 09:34 Wound Center Nurse 2 #2 R Foot Plantar -Time 09:38 -Correct Patient Yes No -Correct Side, Site, Position Yes No -Correct Procedure Yes No -Procedure Performed Yes No -Type of Procedure Debridement -Clinical Debridement Subcutaneous -Tissue Removed Subcutaneous -Post Debridement (cm) - Length 0.4 0 -Post Debridement (cm) - Width 0.7 0 -Post Debridement (cm) - Depth 0.2 0 -Total Square (Post) (cm) 0.28 0 -Area of Debridement (cm) - Length 0.4 0 -Area of Debridement (cm) - Width 0.7 0 -Total Square (Area) (cm) 0.28 0 -Tunneling No -Undermining/Tunneling No -Circular Undermining No -Wound/Ulcer Outcome Not Healed Healed- Epithelialized -Ulcer Cleansing Rinsed/ Irrigated with Saline -Foul Odor after Cleansing No -Bioengineered Tissue No -Bleeding Controlled with Pressure -Offloading Yes -Type of Offloading Camwalker -Treatment Response Procedure Tolerated Well -Debridement - Subq, 1st 20sq cm Yes Pain Scale: 0-10 Numeric Is Patient Pain Free? Yes Yes Yes - Nurse 3 - General Ulcer D/C NN Start: 07/22/20 09:17 Freq: Status: Discharge Protocol: Activity Type Activity Date Activity User E-Sign Co-Sign Detail Recorded Client Recorded Date Recorded By Document 07/22/20 10:14 [id number] 07/22/20 10:15 Document 07/29/20 09:35 [id number] 07/29/20 09:35 Document 08/05/20 09:42 [facility] [id number] 08/05/20 09:43 [facility] 07/22/20 07/29/20 08/05/20 10:14 09:35 09:42 Wound Care Nurse 3 #2 R Foot Plantar -Ulcer Cleansing Rinsed/ Irrigated with Saline -Foul Odor after Cleansing No -Primary Dressing Applied Aquacel AG 2x2 -Primary Dressing Covered/Secured with Dry Gauze & Roll Gauze, Secured with Tape -Aquacel AG 2x2 1 Right -Compression Wrap Anton Wrap -Other anton wraps Treatment Response Procedure Tolerated Well Pain Scale: 0-10 Numeric Is Patient Pain Free? Yes Yes Yes WC - Visit Discharge Discharge Condition Stable Stable Stable Ambulatory Status Ambulatory Ambulatory, Ambulatory Walker Transportation Private Auto Private Auto Private Auto Accompanied by Medication Reconcilliation completed & Yes Yes provided to patient/care provider Clinical Summary of Care Provided Yes Yes Notes: Dry gauze to affected areas, splint reapplied No debridement was completed today - Healed today Assessment/Plan Assessment: diabetic foot ulcer grade 1 status, plantar medial foot - remains healed. previous right second toe amputation secondary to osteomyelitis? remains healed. equinus right (gastrocnemius soleus) now s/p percutaneous tenotomy. Poorly controlled diabetes mellitus, insulin-dependent with neuropathy. History of recent tobacco cessation. Delayed healing. Suspected malnutrition Plan: I reviewed and discussed his updated case. His ulcer site has remained healed. No primary dressing was required for the foot. His surgical site incisions are well aligned and intact with sutures in place. This was covered with gauze. To continue nonweightbearing right lower extremity in the cam walker until he follows up next week at the foot [facility] center. He is discharged from the wound healing center at this time because his ulcer site has healed. To continue knee roller. The anticipated healing time for the percutaneous tendo Achilles lengthening was reviewed. Suture removal will likely occur in 1 additional week and at that time weightbearing in a protected manner with a cam walker will also be considered. He understands he is at risk for continued foot breakdown however by reducing his equinus deformity the goal is to lower this risk. He is reassured no local signs of infection are noted. His pain is controlled and I do not recommend additional pain medication use. His hemoglobin A1c was 7.4% which is significantly improved. He was advised to continue proper glycemic control and nutritional intake to optimize ongoing healing and to prevent future going issues. I do not recommend showering or soaking with the surgical site exposed. To call sooner if his status worsens or present to the emergency room.
== END 2020-08-05 10:37 | disposition home or self-care (01) ==
LOC: WC 09:00
PROVIDERS: Family Provider Internal Medicine; PCP Internal Medicine; Referring Provider Podiatrist; Visit Provider Podiatrist
DX: E11.621 Type 2 diabetes mellitus with foot ulcer (principal); L97.512 Non-pressure chronic ulcer of other part of right foot with fat layer exposed; E11.40 Type 2 diabetes mellitus with diabetic neuropathy, unspecified; E11.65 Type 2 diabetes mellitus with hyperglycemia; Z79.4 Long term (current) use of insulin; Z89.421 Acquired absence of other right toe(s); Z98.890 Other specified postprocedural states
CPT/HCPCS: 11042; 99212; G0463

== ENCOUNTER → 2020-10-23 08:53 | Outpatient (CLI) | payer OTHER, SELFPAY ==
[2020-10-23 08:53] VITALS: BMI 31.1
[2020-10-23 09:43] LABS: Erythrocyte Sedimentation Rate 12 mm/hr (0-15)
[2020-10-23 09:45] LABS: Absolute Neutrophil Count 5.1 X10^3/uL (2.0-7.7); Basophil# 0.04 X10^3/uL; Basophil% 0.5 % (0-1); Eosinophils% 2.7 % (0-5); Hemoglobin 14.2 g/dL (13.0-16.5); Lymphocyte % 20.4 % (19-41); Mean Corpuscular Hgb 27.7 pg (27.0-32.0); Mean Platelet Vol. 10.4 fl (6.2-12.0); Monocyte# 0.51 X10^3/uL; Monocyte% 6.9 % (0-10); NRBC Flagged by Analyzer 0 % (0-5); Neutrophil % 69.2 % (47-70); Platelet Count 269 K/mm3 (150-450); RBC Distribution Width CV 12.9 % (11.6-14.6); RBC Distribution Width SD 39.3 fl (35.1-43.9); Red Blood Count 5.12 M/mm3 (4.6-6.2); White Blood Count 7.4 K/mm3 (4.4-11.0)
[2020-10-23 09:54] LABS: AST(SGOT) 21 U/L (15-37); Alanine Aminotransfer ALT/SGPT 42 U/L (16-61); Albumin, Serum 3.6 g/dL (3.2-5.0); Alkaline Phosphatase 100 U/L (45-117); Anion Gap 5 (5-15); BUN 15 mg/dL (7-18); Calcium,Total 9.2 mg/dL (8.5-10.1); Chloride 102 mmol/L (98-107); Creatinine, Serum 1.36 mg/dL (0.70-1.30); EST Glomerular Filtration Rate 60 mL/min (>60); Est Glom Filt Rate - Afr Amer 72 mL/min (>60); Globulin 3.5 g/dL (2.2-4.2); Glucose 243 mg/dL (74-106); Potassium 4.3 mmol/L (3.5-5.1); Protein, Total 7.1 g/dL (6.4-8.2); Sodium Level 136 mmol/L (136-145)
[2020-10-23 21:24] LABS: M R Staph aureus DNA By PCR Negative (Negative); Probe Check PASS; Specimen Processing Control PASS; Staph aureus DNA By PCR POSITIVE (Negative)
== END ==
PROVIDERS: PCP Nurse Practitioner Family; Referring Provider Podiatrist; Visit Provider Podiatrist
DX: L97.512 Non-pressure chronic ulcer of other part of right foot with fat layer exposed (principal); L03.115 Cellulitis of right lower limb
CPT/HCPCS: 36415; 80053; 85025; 85652; 86140; 87070; 87075; 87077; 87186; 87205; 87640

== ENCOUNTER → 2021-03-04 16:46 | Outpatient (CLI) | payer OTHER, SELFPAY ==
[2021-03-04 16:09] VITALS: BMI 31.3
--- NOTE | 2021-03-04 16:50 | RAD_ITS ---
STUDY: X-RAY - LUMBAR SPINE REASON FOR EXAM: Male, 45 years old. Lower Back Abscess TECHNIQUE: 4 view(s) of the lumbar spine were obtained. COMPARISON: None FINDINGS: Normal lumbar lordosis. There is no substantial scoliosis. There is a normal alignment of the vertebrae. Superimposed metallic density over one of the images. Normal vertebral bodies and endplates. Normal disc space heights. The soft tissue structures are unremarkable. There is sclerosis of the right greater than left sacroiliac joints. RAD/L/S Spine Min 4 Views IMPRESSION: No significant degenerative changes of the lumbar spine. Degenerative changes of the bilateral sacroiliac joints are present. No pockets of air or sign of osteomyelitis detected. Electronically Signed: Dorothy Vazquez MD at 23:38 EDT , Service support ,
== END ==
LOC: MTRAD 16:47
PROVIDERS: PCP Nurse Practitioner Family; Referring Provider Internal Medicine; Visit Provider Internal Medicine
DX: L02.212 Cutaneous abscess of back [any part, except buttock and flank] (principal)
CPT/HCPCS: 72110

== ENCOUNTER → 2021-03-05 09:59 | Outpatient (CLI) | payer OTHER, SELFPAY ==
[2021-03-04 16:09] VITALS: BMI 31.3
[2021-03-05 12:33] LABS: Absolute Lymphocyte Count 1.37 X10^3/uL (0.83-4.51); Absolute Neutrophil Count 5.9 X10^3/uL (2.0-7.7); Basophil# 0.04 X10^3/uL; Basophil% 0.5 % (0-1); Eosinophil# 0.19 X10^3/uL; Eosinophils% 2.3 % (0-5); Hematocrit 43.6 % (40-54); Hemoglobin 13.9 g/dL (13.0-16.5); Lymphocyte # 1.37 X10^3/ul (0.83-4.51); Lymphocyte % 16.9 % (19-41); Mean Corp Hgb Conc 31.9 g/dL (32-36); Mean Corpuscular Hgb 26.7 pg (27.0-32.0); Mean Corpuscular Volume 83.7 fL (80-94); Mean Platelet Vol. 10.1 fl (6.2-12.0); Monocyte# 0.64 X10^3/uL; Monocyte% 7.9 % (0-10); NRBC Flagged by Analyzer 0 % (0-5); Neutrophil # 5.86 X10^3/uL (2.7-7.7); Neutrophil % 72.2 % (47-70); Platelet Count 266 K/mm3 (150-450); RBC Distribution Width CV 12.5 % (11.6-14.6); RBC Distribution Width SD 37.8 fl (35.1-43.9); Red Blood Count 5.21 M/mm3 (4.6-6.2); White Blood Count 8.1 K/mm3 (4.4-11.0)
[2021-03-05 12:49] LABS: ALB/GLOB Ratio 0.9 RATIO (0.9-2.4); AST(SGOT) 14 U/L (15-37); Alanine Aminotransfer ALT/SGPT 26 U/L (16-61); Albumin, Serum 3.3 g/dL (3.2-5.0); Alkaline Phosphatase 94 U/L (45-117); Anion Gap 4 (5-15); BUN 14 mg/dL (7-18); BUN/Creat Ratio 10.9 RATIO (10-20); Calcium,Total 8.9 mg/dL (8.5-10.1); Chloride 102 mmol/L (98-107); Creatinine, Serum 1.29 mg/dL (0.70-1.30); EST Glomerular Filtration Rate 64 mL/min (>60); Est Glom Filt Rate - Afr Amer 77 mL/min (>60); Globulin 3.8 g/dL (2.2-4.2); Glucose 224 mg/dL (74-106); Potassium 4.4 mmol/L (3.5-5.1); Protein, Total 7.1 g/dL (6.4-8.2); Sodium Level 136 mmol/L (136-145)
== END ==
PROVIDERS: PCP Nurse Practitioner Family; Referring Provider Internal Medicine; Visit Provider Internal Medicine
DX: L02.212 Cutaneous abscess of back [any part, except buttock and flank] (principal)
CPT/HCPCS: 36415; 80053; 85025; 86140

== ENCOUNTER 2021-03-07 12:59 | Emergency (ER) | payer OTHER, SELFPAY ==
[2021-03-04 16:09] VITALS: BMI 31.3
[2021-03-07 13:02] VITALS: BP 124/79; PULSE 100; RESP 15; TEMP 36.4; O2SAT 99; BMI 31.6
[2021-03-07] MEDS: 0.9% Normal Saline 1,000 ML 1000 ML IV (13:45)
[2021-03-07] MEDS: Lidocaine 1% (20 ml mdv) 20 ML Vial INFILT (13:48)
[2021-03-07 13:51] LABS: Absolute Lymphocyte Count 1.52 X10^3/uL (0.83-4.51); Absolute Neutrophil Count 7.1 X10^3/uL (2.0-7.7); Basophil# 0.04 X10^3/uL; Basophil% 0.4 % (0-1); Eosinophil# 0.23 X10^3/uL; Eosinophils% 2.4 % (0-5); Hematocrit 42.7 % (40-54); Hemoglobin 13.6 g/dL (13.0-16.5); Lymphocyte # 1.52 X10^3/ul (0.83-4.51); Mean Corp Hgb Conc 31.9 g/dL (32-36); Mean Corpuscular Hgb 26.3 pg (27.0-32.0); Mean Corpuscular Volume 82.4 fL (80-94); Mean Platelet Vol. 9.9 fl (6.2-12.0); Monocyte# 0.61 X10^3/uL; Monocyte% 6.4 % (0-10); NRBC Flagged by Analyzer 0 % (0-5); Neutrophil # 7.05 X10^3/uL (2.7-7.7); Neutrophil % 74.5 % (47-70); Platelet Count 302 K/mm3 (150-450); RBC Distribution Width CV 12.4 % (11.6-14.6); RBC Distribution Width SD 37.8 fl (35.1-43.9); Red Blood Count 5.18 M/mm3 (4.6-6.2); White Blood Count 9.5 K/mm3 (4.4-11.0)
[2021-03-07 14:03] LABS: Anion Gap 6 (5-15); BUN 15 mg/dL (7-18); BUN/Creat Ratio 12.4 RATIO (10-20); Calcium,Total 9.1 mg/dL (8.5-10.1); Chloride 103 mmol/L (98-107); Creatinine, Serum 1.21 mg/dL (0.70-1.30); EST Glomerular Filtration Rate 68 mL/min (>60); Est Glom Filt Rate - Afr Amer 83 mL/min (>60); Estimated Creatinine Clearance 88.69 ml/min; Glucose 227 mg/dL (74-106); Potassium 3.9 mmol/L (3.5-5.1); Sodium Level 137 mmol/L (136-145)
--- NOTE | 2021-03-07 15:42 | DCINST.ED_ITS ---
ED Disposition - Plan for ED Patient: Instructions: ED Abscess Incision And Drainage Prescriptions: Clindamycin [Cleocin] 300 mg PO 4X/DAY #80 capsule Prescription Printed Referrals: Alexei Spencer NP, WIRE STRIPPING MACHINE OPERATOR-[employer] [Primary Care Provider] -
--- NOTE | 2021-03-07 15:45 | ED.DCSUM_ITS ---
- ER Visit Summary Date of Service: 03/07/21 Chief Complaint: Abscess History of Present Illness: The patient is a 45 M with abscess to his back. He states this started approximately 1 week ago. He was seen by his primary care physician on and started on clindamycin. He states it has drained some at home. His primary care physician ordered a lumbar spine x-ray which showed no acute process. He denies fever. Denies numbness or weakness. Denies other complaints. Physical Examination: Vitals are stable. Patient is afebrile. Alert no acute distress. HEENT exam is unremarkable. Neck is supple. Lungs are clear and equal bilaterally. Heart is regular rate and rhythm. Abdomen is soft nontender nondistended. Back: Mid lower back 3.5 cm abscess with induration and areas of fluctuance and drainage. Extremities are unremarkable. Skin is warm and dry. No focal neurologic deficit. Remainder of exam is unremarkable. Emergency Department Course and Treatment: CBC, chemistries unremarkable other than glucose 227. Lactic acid normal. Wound culture was sent. I&D was performed. Anesthetized with lidocaine, incised with 11 blade. Probed to break up loculations. Irrigated with saline. Moderate amount of pus was drained. Patient was given a dose of clindamycin IV. He will continue his clindamycin at home. Advised signs and symptoms for which to return to the ED. Advised to follow-up with primary care physician. Disposition: Discharge home Impression: Abscess, back; I&D This note was generated with [employer] dictation software. It may contain incorrect words, spelling, and punctuation that were not noted in review of the chart prior to signing ED Disposition - Plan for ED Patient: Instructions: ED Abscess Incision And Drainage Prescriptions: Clindamycin [Cleocin] 300 mg PO 4X/DAY #80 capsule Prescription Printed Referrals: Alexei Spencer NP, [employer] E[employer]MENT PRESERVATION INSPECTOR[employer] [Primary Care Provider] -
[2021-03-07 16:19] VITALS: BP 139/98; PULSE 95; RESP 18
== END 2021-03-07 16:20 | disposition home or self-care (01) ==
LOC: ED 13:31
PROVIDERS: Emergency Provider Emergency Medicine; PCP Nurse Practitioner Family
DX: L02.212 Cutaneous abscess of back [any part, except buttock and flank] (principal); E11.9 Type 2 diabetes mellitus without complications
CPT/HCPCS: 10060; 36415; 80048; 83605; 85025; 87040; 87070; 87205; 96360; 99284; J7030; A4216

== ENCOUNTER → 2022-07-11 | Outpatient (CLI) | payer OTHER, SELFPAY ==
[2022-07-11 10:29] LABS: Microalbumin:Creatinine Ratio 169.9 mg/g CRE (<30 mg/g CRE)
[2022-07-11 10:49] LABS: Vitamin D,25 Hydroxy 33.4 ng/mL
[2022-07-11 10:55] LABS: AST(SGOT) 17 U/L (15-37); Alanine Aminotransfer ALT/SGPT 30 U/L (16-61); Albumin, Serum 3.6 g/dL (3.2-5.0); Alkaline Phosphatase 78 U/L (45-117); Anion Gap 7 (5-15); BUN 13 mg/dL (7-18); BUN/Creat Ratio 9.5 RATIO (10-20); Chloride 106 mmol/L (98-107); Cholesterol 167 mg/dL (200); Creatinine, Serum 1.37 mg/dL (0.70-1.30); EST Glomerular Filtration Rate 59 mL/min (>60); Est Glom Filt Rate - Afr Amer 71 mL/min (>60); Globulin 3.6 g/dL (2.2-4.2); Glucose 163 mg/dL (74-106); High Density Lipoprotein 59 mg/dL; Potassium 3.7 mmol/L (3.5-5.1); Protein, Total 7.2 g/dL (6.4-8.2); Sodium Level 139 mmol/L (136-145); Thyroid Stim Hormone (TSH) 0.83 uIU/mL (0.358-3.74); Triglycerides 71 mg/dL; Very Low Density Lipoprotein 14 mg/dL (5-40)
== END | disposition home or self-care (01) ==
LOC: LAB 09:48
PROVIDERS: PCP Nurse Practitioner Family; Referring Provider Nurse Practitioner Family; Visit Provider Nurse Practitioner Family
DX: E10.9 Type 1 diabetes mellitus without complications (principal)
CPT/HCPCS: 36415; 80053; 80061; 82043; 82306; 82570; 84443

== ENCOUNTER → 2023-06-06 | Outpatient (CLI) | payer BC, SELFPAY ==
[2023-06-06 09:02] LABS: Microalbumin:Creatinine Ratio 69.3 mg/g CRE (<30 mg/g CRE)
[2023-06-06 09:10] LABS: Vitamin D,25 Hydroxy 42.4 ng/mL
[2023-06-06 09:17] LABS: AST(SGOT) 25 U/L (15-37); Alanine Aminotransfer ALT/SGPT 39 U/L (16-61); Albumin, Serum 3.3 g/dL (3.2-5.0); Alkaline Phosphatase 85 U/L (45-117); Anion Gap 4 (5-15); BUN 17 mg/dL (7-18); BUN/Creat Ratio 12.3 RATIO (10-20); Calcium,Total 8.8 mg/dL (8.5-10.1); Chloride 112 mmol/L (98-107); Cholesterol 145 mg/dL (200); Creatinine, Serum 1.38 mg/dL (0.70-1.30); EST Glomerular Filtration Rate 58 mL/min (>60); Est Glom Filt Rate - Afr Amer 70 mL/min (>60); Globulin 3.4 g/dL (2.2-4.2); Glucose 164 mg/dL (74-106); High Density Lipoprotein 57 mg/dL; Potassium 4.4 mmol/L (3.5-5.1); Protein, Total 6.7 g/dL (6.4-8.2); Sodium Level 141 mmol/L (136-145); Thyroid Stim Hormone (TSH) 0.74 uIU/mL (0.358-3.74); Triglycerides 64 mg/dL; Very Low Density Lipoprotein 13 mg/dL (5-40)
== END | disposition home or self-care (01) ==
LOC: LAB 08:05
PROVIDERS: PCP Nurse Practitioner Family; Referring Provider Nurse Practitioner Family; Visit Provider Nurse Practitioner Family
DX: E10.9 Type 1 diabetes mellitus without complications (principal)
CPT/HCPCS: 36415; 80053; 80061; 82043; 82306; 82570; 84443

== ENCOUNTER → 2024-04-01 | Outpatient (CLI) | payer BC, SELFPAY ==
[2024-04-01 11:17] LABS: ALB/GLOB Ratio 1.2 RATIO (0.9-2.4); AST(SGOT) 18 U/L (15-37); Alanine Aminotransfer ALT/SGPT 27 U/L (16-61); Albumin, Serum 3.7 g/dL (3.2-5.0); Alkaline Phosphatase 80 U/L (45-117); Anion Gap 7 (5-15); BUN 26 mg/dL (7-18); BUN/Creat Ratio 17.7 RATIO (10-20); Chloride 109 mmol/L (98-107); Cholesterol 176 mg/dL (200); Creatinine, Serum 1.47 mg/dL (0.70-1.30); EST Glomerular Filtration Rate 54 mL/min (>60); Est Glom Filt Rate - Afr Amer 65 mL/min (>60); Globulin 3.2 g/dL (2.2-4.2); Glucose 148 mg/dL (74-106); High Density Lipoprotein 49 mg/dL; Potassium 4.1 mmol/L (3.5-5.1); Protein, Total 6.9 g/dL (6.4-8.2); Sodium Level 139 mmol/L (136-145); Thyroid Stim Hormone (TSH) 0.76 uIU/mL (0.358-3.74); Triglycerides 123 mg/dL; Very Low Density Lipoprotein 25 mg/dL (5-40)
[2024-04-01 11:54] LABS: Microalbumin,Random Urine 37.2 mg/L (NO RANGE EST.); Microalbumin:Creatinine Ratio 35.8 mg/g CRE (<30 mg/g CRE)
[2024-04-01 19:30] LABS: Vitamin D,25 Hydroxy 39.2 ng/mL
== END | disposition home or self-care (01) ==
LOC: LAB 09:49
PROVIDERS: PCP Nurse Practitioner Family; Referring Provider Nurse Practitioner Family; Visit Provider Nurse Practitioner Family
DX: E10.9 Type 1 diabetes mellitus without complications (principal)
CPT/HCPCS: 36415; 80053; 80061; 82043; 82306; 82570; 84443

== ENCOUNTER → 2024-09-05 | Outpatient (CLI) | payer BC, SELFPAY ==
[2024-09-05 11:12] LABS: PSA,Total- Diagnostic 1.03 ng/mL (0.0-4.0)
== END | disposition home or self-care (01) ==
PROVIDERS: PCP Nurse Practitioner Family; Referring Provider Nurse Practitioner Family; Visit Provider Nurse Practitioner Family
DX: Z12.5 Encounter for screening for malignant neoplasm of prostate (principal)
CPT/HCPCS: 36415; 84153

== ENCOUNTER → 2024-10-24 | Outpatient (CLI) | payer BC, SELFPAY ==
[2024-10-24 16:45] LABS: Absolute Lymphocyte Count 1.78 X10^3/uL (0.83-4.51); Absolute Neutrophil Count 4.4 X10^3/uL (2.0-7.7); Basophil# 0.04 X10^3/uL; Basophil% 0.6 % (0-1); Eosinophil# 0.12 X10^3/uL; Eosinophils% 1.8 % (0-5); Hematocrit 45.9 % (40-54); Hemoglobin 14.6 g/dL (13.0-16.5); Lymphocyte # 1.78 X10^3/ul (0.83-4.51); Lymphocyte % 26.3 % (19-41); Mean Corp Hgb Conc 31.8 g/dL (32-36); Mean Corpuscular Hgb 26.5 pg (27.0-32.0); Mean Corpuscular Volume 83.5 fL (80-94); Mean Platelet Vol. 10.6 fl (6.2-12.0); Monocyte# 0.46 X10^3/uL; Monocyte% 6.8 % (0-10); NRBC Flagged by Analyzer 0 % (0-5); Neutrophil # 4.36 X10^3/uL (2.7-7.7); Neutrophil % 64.4 % (47-70); Platelet Count 240 K/mm3 (150-450); RBC Distribution Width CV 13.2 % (11.6-14.6); RBC Distribution Width SD 40.3 fl (35.1-43.9); White Blood Count 6.8 K/mm3 (4.4-11.0)
[2024-10-24 17:07] LABS: AST(SGOT) 18 U/L (15-37); Alanine Aminotransfer ALT/SGPT 36 U/L (16-61); Albumin, Serum 3.7 g/dL (3.2-5.0); Alkaline Phosphatase 77 U/L (45-117); Anion Gap 7 (5-15); BUN 17 mg/dL (7-18); BUN/Creat Ratio 11.1 RATIO (10-20); Calcium,Total 9.5 mg/dL (8.5-10.1); Chloride 105 mmol/L (98-107); Cholesterol 168 mg/dL (200); Creatinine, Serum 1.53 mg/dL (0.70-1.30); EST Glomerular Filtration Rate 51 mL/min (>60); Est Glom Filt Rate - Afr Amer 62 mL/min (>60); Globulin 3.8 g/dL (2.2-4.2); Glucose 107 mg/dL (74-106); High Density Lipoprotein 68 mg/dL; Potassium 4.4 mmol/L (3.5-5.1); Protein, Total 7.5 g/dL (6.4-8.2); Sodium Level 139 mmol/L (136-145); Thyroid Stim Hormone (TSH) 0.718 uIU/mL (0.358-3.740); Triglycerides 73 mg/dL; Very Low Density Lipoprotein 15 mg/dL (5-40)
[2024-10-24 17:36] LABS: Vitamin B12 491 pg/mL (211-911); Vitamin D,25 Hydroxy 33.3 ng/mL
== END | disposition home or self-care (01) ==
LOC: VSLAB 13:42
PROVIDERS: PCP Nurse Practitioner Family; Visit Provider Nurse Practitioner Family
DX: Z00.00 Encounter for general adult medical examination without abnormal findings (principal); E55.9 Vitamin D deficiency, unspecified
CPT/HCPCS: 36415; 80053; 80061; 82306; 82607; 84443; 85025

== ENCOUNTER → 2024-11-27 | Outpatient (CLI) | payer BC, SELFPAY ==
--- NOTE | 2024-11-27 09:34 | RAD_ITS ---
HISTORY: ULCER. TECHNIQUE: XR Foot Min 3 Views. COMPARISON: 01/06/2020. FINDINGS: BONES : Chronic resection of the first interphalangeal joint. Chronic near total amputation of the second toe with interval fusion across the first metatarsal-phalangeal joint. New erosion at the tip of the third distal phalanx. No acute fracture identified JOINTS: No dislocation. Degenerative change. SOFT TISSUES: Soft tissue swelling of the third toe. RAD/Foot min 3 Views IMPRESSION: Erosion at the tip of the distal phalanx in the right third toe with surrounding soft tissue swelling, concerning for osteomyelitis. Electronically Signed: Angie Mckinnon MD at 14:48 EST ,
== END | disposition home or self-care (01) ==
LOC: RAD 09:26
PROVIDERS: PCP Nurse Practitioner Family; Referring Provider Nurse Practitioner Family; Visit Provider Nurse Practitioner Family
DX: E11.621 Type 2 diabetes mellitus with foot ulcer (principal)
CPT/HCPCS: 73630

== ENCOUNTER → 2025-08-13 | Outpatient (CLI) | payer BC, SELFPAY ==
[2025-08-13 10:42] LABS: Creatinine, Urine (random) 123.00 mg/dL (39.00-259.00); Microalbumin,Random Urine 13.8 mg/L (<20 mg/L)
[2025-08-13 11:26] LABS: Cholesterol 173 mg/dL (<=200); Low Density Lipoprotein Calc. 100 mg/dL; Triglycerides 87 mg/dL; Very Low Density Lipoprotein 17 mg/dL (5-40); Vitamin D,25 Hydroxy 41.2 ng/mL (30-100); cholesterol:hdl ratio screen 3.11
[2025-08-13 11:29] LABS: AST(SGOT) 29 U/L (<=37); Alanine Aminotransfer ALT/SGPT 27 U/L (<=46); Albumin, Serum 4.0 g/dL (3.5-5.0); Alkaline Phosphatase 71 U/L (40-129); Anion Gap 12 (5-15); BUN 19 mg/dL (4-19); BUN/Creat Ratio 11.8 RATIO (10-20); Calcium,Total 8.9 mg/dL (7.6-11.0); Carbon Dioxide 21.4 mmol/L (21.0-32.0); Chloride 106 mmol/L (98-108); Globulin 2.8 g/dL (2.2-4.2); Glucose 106 mg/dL (70-99); Potassium 4.2 mmol/L (3.3-5.1)
== END | disposition home or self-care (01) ==
LOC: LAB 08:49
PROVIDERS: PCP Nurse Practitioner Family; Referring Provider Nurse Practitioner Family; Visit Provider Nurse Practitioner Family
DX: E10.649 Type 1 diabetes mellitus with hypoglycemia without coma (principal)
CPT/HCPCS: 36415; 80053; 80061; 82043; 82306; 82570; 84443